=== PATIENT | male | born 1965 | race Caucasian/White ===

== ENCOUNTER 2018-02-23 21:54 | Inpatient (IN) | payer OTHER ==
[2018-02-23] MEDS ORDERED: SODIUM CHLORIDE 0.9% 1,000 ML IV ONE (22:08)
[2018-02-23 22:10] LABS: Glucose,Whole Blood 153 mg/dL (75-99)
--- NOTE | 2018-02-23 22:10 | ED ---
Altered Mental Status HPI - General Stated Complaint: Altered Mental Status Time Seen by Provider: 02/23/18 21:55 Limitations: altered mental status - History of Present Illness Initial Comments: This patient is a 53-year-old man who reportedly has history of alcohol and other substance abuse, brought by EMS to be evaluated for altered mental status. History is limited, and only from the EMS personnel as the patient has altered mental status. It is reported that the patient's daughter had called them. She had been allowing the patient to live with her. She had gone out earlier in the day for work and he appeared to be in his baseline health. When she came back tonight she states that he was having an episode of vomiting, and she informed him that she would be affecting him from her house. The patient is not able to provide any history. MD Complaint: altered mental status -: unknown Severity: severe Consistency of Symptoms: constant Context: alcohol abuse - Related Data Home Medications Medication Instructions Recorded Confirmed Baclofen [Lioresal] 10 tab PO BID 02/23/18 02/24/18 Gabapentin [Neurontin] 300 tab PO TID 02/23/18 02/24/18 Losartan Potassium 1 tab PO DAILY 02/23/18 02/23/18 Metoprolol Tartrate [Lopressor] 50 tab PO BID 02/23/18 02/24/18 Sertraline HCl [Zoloft] 25 mg PO DAILY 02/23/18 02/24/18 amLODIPine [Norvasc] 10 mg PO DAILY 02/23/18 02/24/18 Acetaminophen [Tylenol 8 Hour] 650 mg PO Q6H PRN 02/24/18 02/24/18 Albuterol Sulfate [Proventil Hfa] 2 puff INHALATION RT-Q6H PRN 02/24/18 02/24/18 Aspirin EC [Ecotrin Low Dose] 81 mg PO DAILY 02/24/18 02/24/18 Beclomethasone Dipropionate [Qvar 2 puff INHALATION RT-BID 02/24/18 02/24/18 40 mcg] Budesonide/Formoterol Fumarate 2 puff INHALATION RT-BID 02/24/18 02/24/18 [Symbicort 160-4.5 Mcg Inhaler] Ibuprofen [Motrin] 800 mg PO Q6H PRN 02/24/18 02/24/18 Nicotine 21Mg/24Hr Patch [Habitrol 1 patch TRANSDERM DAILY 02/24/18 02/24/18 21Mg/24Hr Patch] Pantoprazole [Protonix] 40 mg PO DAILY 02/24/18 02/24/18 Allergies Allergy/AdvReac Type Severity Reaction Status Date / Time No Known Allergies Allergy Verified 02/24/18 12:44 Review of Systems ROS Statement: Those systems with pertinent positive or pertinent negative responses have been documented in the HPI. ROS Other: All systems not noted in ROS Statement are negative. Limitations: ROS unobtainable due to patients medical condition Gastrointestinal: Reports: vomiting General Exam General appearance: obtunded Head exam: Present: atraumatic, normocephalic, normal inspection Eye exam: Present: normal appearance, PERRL. Absent: scleral icterus, conjunctival injection ENT exam: Present: mucous membranes dry Neck exam: Present: normal inspection. Absent: tenderness Respiratory exam: Present: normal lung sounds bilaterally. Absent: respiratory distress, wheezes, rales, rhonchi, stridor Cardiovascular Exam: Present: regular rate, normal rhythm, normal heart sounds. Absent: systolic murmur, diastolic murmur, rubs, gallop GI/Abdominal exam: Present: soft. Absent: distended, tenderness, guarding, rebound, mass Extremities exam: Present: normal inspection, normal capillary refill. Absent: pedal edema, calf tenderness Back exam: Present: other (Is a wound VAC, which is in place onto the patient's right flank area. There is no visible erythema under the clear portion of the dressing.) Neurological exam: Present: altered, CN II-XII intact, reflexes normal, other ( Patient is very somnolent. With tactile stimulation, he is briefly alert and will focus on the examiner, however I was unable to get him to speak or to follow any commands. GCS is 9(E=2, v=2, M=5)) Skin exam: Present: warm, dry, intact, normal color. Absent: rash Course Vital Signs 02/23/18 02/23/18 02/23/18 22:24 23:04 23:25 Temperature 98.5 F Pulse Rate 58 L 58 L 58 L Respiratory 18 14 14 Rate Blood Pressure 153/84 173/74 175/74 O2 Sat by Pulse 98 97 95 Oximetry 02/24/18 02/24/18 02/24/18 00:14 00:54 01:31 Temperature 97 F L Pulse Rate 51 L 48 L 58 L Respiratory 14 18 16 Rate Blood Pressure 161/84 158/89 161/89 O2 Sat by Pulse 95 95 97 Oximetry 02/24/18 01:54 Temperature Pulse Rate 57 L Respiratory 18 Rate Blood Pressure 167/87 O2 Sat by Pulse 97 Oximetry Medical Decision Making - Medical Decision Making This patient's 53-year-old man brought here for evaluation of altered mental status. He does continue to be arousable to tactile stimuli. When the patient is touched he will look at the examiner and pull the examiner's hand away, then he tries to go back to sleep. There is no focal deficit on the neurologic exam. Case discussed with Dr. Quinones who is covering city call and will admit , will also have neurology consultation. - Lab Data Result diagrams: 02/24/18 06:00 02/24/18 06:00 Lab Results 02/23/18 02/23/18 02/23/18 Range/Units 22:00 22:00 22:00 WBC 13.3 H (3.8-10.6) k/uL RBC 5.02 (4.30-5.90) m/uL Hgb 14.8 (13.0-17.5) gm/dL Hct 45.4 (39.0-53.0) % MCV 90.6 (80.0-100.0) fL MCH 29.4 (25.0-35.0) pg MCHC 32.5 (31.0-37.0) g/dL RDW 14.2 (11.5-15.5) % Plt Count 246 (150-450) k/uL Neutrophils % 84 % Lymphocytes % 9 % Monocytes % 5 % Eosinophils % 1 % Basophils % 1 % Neutrophils # 11.1 H (1.3-7.7) k/uL Lymphocytes # 1.2 (1.0-4.8) k/uL Monocytes # 0.7 (0-1.0) k/uL Eosinophils # 0.2 (0-0.7) k/uL Basophils # 0.1 (0-0.2) k/uL PT (9.0-12.0) sec INR (<1.2) APTT (22.0-30.0) sec Sodium (137-145) mmol/L Potassium (3.5-5.1) mmol/L Chloride (98-107) mmol/L Carbon Dioxide (22-30) mmol/L Anion Gap mmol/L BUN (9-20) mg/dL Creatinine (0.66-1.25) mg/dL Est GFR (CKD-EPI)AfAm (>60 ml/min/1.73 sqM) Est GFR (CKD-EPI)NonAf (>60 ml/min/1.73 sqM) Glucose (74-99) mg/dL POC Glucose (mg/dL) (75-99) mg/dL POC Glu [employer]ice ID Osmolality (280-301) mosm/kg Plasma Lactic Acid Attila 1.0 (0.7-2.0) mmol/L Calcium (8.4-10.2) mg/dL Total Bilirubin (0.2-1.3) mg/dL AST (17-59) U/L ALT (21-72) U/L Alkaline Phosphatase (38-126) U/L Ammonia 14 (<30) umol/L Total Creatine Kinase 80 (55-170) U/L CK-MB (CK-2) 0.4 (0.0-2.4) ng/mL CK-MB (CK-2) Rel Index 0.5 Troponin I <0.012 (0.000-0.034) ng/mL Total Protein (6.3-8.2) g/dL Albumin (3.5-5.0) g/dL Urine Color Urine Appearance (Clear) Urine pH (5.0-8.0) Ur Specific Dearing (1.001-1.035) Urine Protein (Negative) Urine Glucose (UA) (Negative) Urine Ketones (Negative) Urine Blood (Negative) Urine Nitrite (Negative) Urine Bilirubin (Negative) Urine Urobilinogen (<2.0) mg/dL Ur Leukocyte Esterase (Negative) Urine RBC (0-5) /hpf Urine WBC (0-5) /hpf Hyaline Casts (0-2) /lpf Urine Mucus (None) /hpf Urine Opiates Screen (NotDetected) Ur Oxycodone Screen (NotDetected) Urine Methadone Screen (NotDetected) Ur Propoxyphene Screen (NotDetected) Ur Barbiturates Screen (NotDetected) U Tricyclic Antidepress (NotDetected) Ur Phencyclidine Scrn (NotDetected) Ur Amphetamines Screen (NotDetected) U Methamphetamines Scrn (NotDetected) U Benzodiazepines Scrn (NotDetected) Urine Cocaine Screen (NotDetected) U Marijuana (THC) Screen (NotDetected) Serum Alcohol mg/dL 02/23/18 02/23/18 02/23/18 Range/Units 22:00 22:00 22:00 WBC (3.8-10.6) k/uL RBC (4.30-5.90) m/uL Hgb (13.0-17.5) gm/dL Hct (39.0-53.0) % MCV (80.0-100.0) fL MCH (25.0-35.0) pg MCHC (31.0-37.0) g/dL RDW (11.5-15.5) % Plt Count (150-450) k/uL Neutrophils % % Lymphocytes % % Monocytes % % Eosinophils % % Basophils % % Neutrophils # (1.3-7.7) k/uL Lymphocytes # (1.0-4.8) k/uL Monocytes # (0-1.0) k/uL Eosinophils # (0-0.7) k/uL Basophils # (0-0.2) k/uL PT 9.9 (9.0-12.0) sec INR 1.0 (<1.2) APTT 21.9 L (22.0-30.0) sec Sodium 142 (137-145) mmol/L Potassium 5.1 (3.5-5.1) mmol/L Chloride 105 (98-107) mmol/L Carbon Dioxide 23 (22-30) mmol/L Anion Gap 14 mmol/L BUN 24 H (9-20) mg/dL Creatinine 0.90 (0.66-1.25) mg/dL Est GFR (CKD-EPI)AfAm >90 (>60 ml/min/1.73 sqM) Est GFR (CKD-EPI)NonAf >90 (>60 ml/min/1.73 sqM) Glucose 156 H (74-99) mg/dL POC Glucose (mg/dL) (75-99) mg/dL POC Glu [employer] ID Osmolality 294 (280-301) mosm/kg Plasma Lactic Acid Attila (0.7-2.0) mmol/L Calcium 9.4 (8.4-10.2) mg/dL Total Bilirubin 0.7 (0.2-1.3) mg/dL AST 39 (17-59) U/L ALT 32 (21-72) U/L Alkaline Phosphatase 84 (38-126) U/L Ammonia (<30) umol/L Total Creatine Kinase (55-170) U/L CK-MB (CK-2) (0.0-2.4) ng/mL CK-MB (CK-2) Rel Index Troponin I (0.000-0.034) ng/mL Total Protein 7.4 (6.3-8.2) g/dL Albumin 4.3 (3.5-5.0) g/dL Urine Color Urine Appearance (Clear) Urine pH (5.0-8.0) Ur Specific Dearing (1.001-1.035) Urine Protein (Negative) Urine Glucose (UA) (Negative) Urine Ketones (Negative) Urine Blood (Negative) Urine Nitrite (Negative) Urine Bilirubin (Negative) Urine Urobilinogen (<2.0) mg/dL Ur Leukocyte Esterase (Negative) Urine RBC (0-5) /hpf Urine WBC (0-5) /hpf Hyaline Casts (0-2) /lpf Urine Mucus (None) /hpf Urine Opiates Screen (NotDetected) Ur Oxycodone Screen (NotDetected) Urine Methadone Screen (NotDetected) Ur Propoxyphene Screen (NotDetected) Ur Barbiturates Screen (NotDetected) U Tricyclic Antidepress (NotDetected) Ur Phencyclidine Scrn (NotDetected) Ur Amphetamines Screen (NotDetected) U Methamphetamines Scrn (NotDetected) U Benzodiazepines Scrn (NotDetected) Urine Cocaine Screen (NotDetected) U Marijuana (THC) Screen (NotDetected) Serum Alcohol <10 mg/dL 02/23/18 02/23/18 Range/Units 22:06 22:46 WBC (3.8-10.6) k/uL RBC (4.30-5.90) m/uL Hgb (13.0-17.5) gm/dL Hct (39.0-53.0) % MCV (80.0-100.0) fL MCH (25.0-35.0) pg MCHC (31.0-37.0) g/dL RDW (11.5-15.5) % Plt Count (150-450) k/uL Neutrophils % % Lymphocytes % % Monocytes % % Eosinophils % % Basophils % % Neutrophils # (1.3-7.7) k/uL Lymphocytes # (1.0-4.8) k/uL Monocytes # (0-1.0) k/uL Eosinophils # (0-0.7) k/uL Basophils # (0-0.2) k/uL PT (9.0-12.0) sec INR (<1.2) APTT (22.0-30.0) sec Sodium (137-145) mmol/L Potassium (3.5-5.1) mmol/L Chloride (98-107) mmol/L Carbon Dioxide (22-30) mmol/L Anion Gap mmol/L BUN (9-20) mg/dL Creatinine (0.66-1.25) mg/dL Est GFR (CKD-EPI)AfAm (>60 ml/min/1.73 sqM) Est GFR (CKD-EPI)NonAf (>60 ml/min/1.73 sqM) Glucose (74-99) mg/dL POC Glucose (mg/dL) 153 H (75-99) mg/dL POC Glu [employer]rentice ID Britney Last Osmolality (280-301) mosm/kg Plasma Lactic Acid Attila (0.7-2.0) mmol/L Calcium (8.4-10.2) mg/dL Total Bilirubin (0.2-1.3) mg/dL AST (17-59) U/L ALT (21-72) U/L Alkaline Phosphatase (38-126) U/L Ammonia (<30) umol/L Total Creatine Kinase (55-170) U/L CK-MB (CK-2) (0.0-2.4) ng/mL CK-MB (CK-2) Rel Index Troponin I (0.000-0.034) ng/mL Total Protein (6.3-8.2) g/dL Albumin (3.5-5.0) g/dL Urine Color Yellow Urine Appearance Clear (Clear) Urine pH 5.5 (5.0-8.0) Ur Specific Dearing 1.021 (1.001-1.035) Urine Protein 1+ H (Negative) Urine Glucose (UA) Negative (Negative) Urine Ketones Negative (Negative) Urine Blood Negative (Negative) Urine Nitrite Negative (Negative) Urine Bilirubin Negative (Negative) Urine Urobilinogen <2.0 (<2.0) mg/dL Ur Leukocyte Esterase Negative (Negative) Urine RBC <1 (0-5) /hpf Urine WBC 2 (0-5) /hpf Hyaline Casts 5 H (0-2) /lpf Urine Mucus Few H (None) /hpf Urine Opiates Screen Not Detected (NotDetected) Ur Oxycodone Screen Not Detected (NotDetected) Urine Methadone Screen Not Detected (NotDetected) Ur Propoxyphene Screen Not Detected (NotDetected) Ur Barbiturates Screen Not Detected (NotDetected) U Tricyclic Antidepress Not Detected (NotDetected) Ur Phencyclidine Scrn Not Detected (NotDetected) Ur Amphetamines Screen Not Detected (NotDetected) U Methamphetamines Scrn Detected H (NotDetected) U Benzodiazepines Scrn Not Detected (NotDetected) Urine Cocaine Screen Not Detected (NotDetected) U Marijuana (THC) Screen Not Detected (NotDetected) Serum Alcohol mg/dL - EKG Data -: EKG Interpreted by Oh EKG shows normal: sinus rhythm, axis (Normal), intervals (Normal), QRS complexes (Normal), ST-T waves (Normal) Rate: bradycardia (Rate 58 bpm) Interpretation: normal EKG Disposition Clinical Impression: Altered mental status Disposition: ADMITTED IP TO THIS HOSP Condition: Fair Is patient prescribed a controlled substance at d/c from ED?: No
[2018-02-23 22:26] LABS: Basophils # (A) 0.1 k/uL (0-0.2); Basophils % (A) 1 %; Eosinophils # (A) 0.2 k/uL (0-0.7); Eosinophils % (A) 1 %; HCT 45.4 % (39.0-53.0); HGB 14.8 gm/dL (13.0-17.5); Lymphocytes # (A) 1.2 k/uL (1.0-4.8); Lymphocytes % (A) 9 %; MCH 29.4 pg (25.0-35.0); MCHC 32.5 g/dL (31.0-37.0); MCV 90.6 fL (80.0-100.0); Monocytes # (A) 0.7 k/uL (0-1.0); Monocytes % (A) 5 %; Neutrophils # (A) 11.1 k/uL (1.3-7.7); Neutrophils % (A) 84 %; Platelet Count 246 k/uL (150-450); RBC 5.02 m/uL (4.30-5.90); RDW 14.2 % (11.5-15.5); WBC 13.3 k/uL (3.8-10.6)
[2018-02-23 22:30] LABS: Creatine Kinase 80 U/L (55-170)
[2018-02-23 22:31] LABS: ALT 32 U/L (21-72); AST 39 U/L (17-59); Albumin 4.3 g/dL (3.5-5.0); Alcohol <10 mg/dL; Alkaline Phosphatase 84 U/L (38-126); Anion Gap 14 mmol/L; Blood Urea Nitrogen 24 mg/dL (9-20); Calcium 9.4 mg/dL (8.4-10.2); Carbon Dioxide 23 mmol/L (22-30); Chloride 105 mmol/L (98-107); Glucose 156 mg/dL (74-99); Potassium 5.1 mmol/L (3.5-5.1); Sodium 142 mmol/L (137-145); Total Bilirubin 0.7 mg/dL (0.2-1.3); Total Protein 7.4 g/dL (6.3-8.2)
[2018-02-23 22:42] LABS: Creatine Kinase MB 0.4 ng/mL (0.0-2.4); Troponin I <0.012 ng/mL (0.000-0.034)
[2018-02-23 22:44] LABS: Prothrombin Time 9.9 sec (9.0-12.0)
[2018-02-23 22:58] LABS: Partial Thromboplastin Time 21.9 sec (22.0-30.0)
[2018-02-23] MEDS ORDERED: NALOXONE 0.4 MG/ML 1 ML VIAL IV STA ×2 (23:07→23:18)
[2018-02-23 23:42] LABS: Appearance,Urine Clear (Clear); Bilirubin,Urine Negative (Negative); Blood,Urine Negative (Negative); Color,Urine Yellow; Glucose,Urine (UA) Negative (Negative); Hyaline Casts,Urine 5 /lpf (0-2); Ketones,Urine Negative (Negative); Leukocyte Esterase,Urine Negative (Negative); Mucus,Urine Few /hpf; Nitrite,Urine Negative (Negative); PH, Urine 5.5 (5.0-8.0); Protein,Urine 1+ (Negative); RBC,Urine <1 /hpf (0-5); Specific Gravity,Urine 1.021 (1.001-1.035); Urobilinogen,Urine <2.0 mg/dL (<2.0); WBC,Urine 2 /hpf (0-5)
--- NOTE | 2018-02-23 23:51 | CT ---
EXAM: CT Head Without Intravenous Contrast CLINICAL HISTORY: ITS.REASON CT Reason: altered mental status TECHNIQUE: Axial computed tomography images of the head/brain without intravenous contrast. CTDI is 13.8 mGy and DLP is 1149 mGy-cm. This CT exam was performed using one or more of the following dose reduction techniques: automated exposure control, adjustment of the mA and/or kV according to patient size, and/or use of iterative reconstruction technique. COMPARISON: No relevant prior studies available. FINDINGS: Brain: Unremarkable. No hemorrhage. No significant white matter disease. No edema. Ventricles: Unremarkable. No ventriculomegaly. Bones/joints: Unremarkable. No acute fracture. Soft tissues: Unremarkable. Sinuses: Unremarkable as visualized. No acute sinusitis. Mastoid air cells: Unremarkable as visualized. No mastoid effusion. IMPRESSION: Normal head/brain CT.
[2018-02-23 23:52] LABS: Amphetamine Screen,Urine Not Detected (NotDetected); Barbiturate Screen,Urine Not Detected (NotDetected); Benzodiazepines Screen,Urine Not Detected (NotDetected); Cocaine Screen,Urine Not Detected (NotDetected); Methadone Screen, Urine Not Detected (NotDetected); Opiate Screen,Urine Not Detected (NotDetected); Oxycodone Screen, Urine Not Detected (NotDetected); Phencyclidine Screen,Urine Not Detected (NotDetected); Tricyclic Antidepressant,Urine Not Detected (NotDetected); Urn Cannabinoid Scrn Not Detected (NotDetected)
--- NOTE | 2018-02-24 00:04 | XR ---
EXAM: XR Chest, 1 View CLINICAL HISTORY: ITS.REASON XR Reason: altered mental status TECHNIQUE: Frontal view of the chest. COMPARISON: No relevant prior studies available. FINDINGS: Lungs: Unremarkable. No consolidation. Mild prominence of interstitial markings Pleural space: Unremarkable. No pneumothorax. Heart: Unremarkable. No cardiomegaly. Mediastinum: Unremarkable. Bones/joints: Unremarkable. IMPRESSION: No acute disease process identified in the chest
[2018-02-24] MEDS ORDERED: NALOXONE 0.4 MG/ML 1 ML VIAL IV PRN (00:41)
[2018-02-24] MEDS: SODIUM CHLORIDE 0.9% 1,000 ML IV SCH ×3 (02:36→20:37)
[2018-02-24 05:53] LABS: Glucose,Whole Blood 135 mg/dL (75-99)
[2018-02-24] MEDS: ONDANSETRON 4 MG/2 ML VIAL IVP PRN ×2 (06:03→15:54)
[2018-02-24 06:34] LABS: Glucose,Whole Blood 133 mg/dL (75-99)
--- NOTE | 2018-02-24 06:43 | XR ---
EXAMINATION TYPE: XR chest 1V portable DATE OF EXAM: 02/24/2018 CLINICAL HISTORY: Difficulty breathing rule out aspiration progress study. TECHNIQUE: Single AP portable upright view of the chest is obtained. COMPARISON: Chest x-ray from one day earlier FINDINGS: There is chronic parenchymal change without suspicious new focal airspace opacity, pleural effusion, or pneumothorax seen bilaterally. Cardiac silhouette size is stable and upper limits of no rmal. Osseous structures are intact. IMPRESSION: Overall stable findings, chronic changes without new suspicious acute pulmonary process .
[2018-02-24] MEDS ORDERED: VANCOMYCIN IV PER PHARMACY 1 EACH MISC MISCELLANE PRN (12:09)
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
[2018-02-24] MEDS ORDERED: VANCOMYCIN 1,750 MG in SODIUM CHLORIDE 0.9% 250 ML IVPB ONE (12:30)
[2018-02-24] MEDS: PIPERACILLIN-TAZOBACTAM 3.375 GM in DEXTROSE/WATER 1 50ML.BAG IVPB SCH (12:54)
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
[2018-02-24 16:11] LABS: Basophils # (A) 0.1 k/uL (0-0.2); Basophils % (A) 1 %; Eosinophils # (A) 0.2 k/uL (0-0.7); Eosinophils % (A) 1 %; HCT 46.6 % (39.0-53.0); HGB 15.1 gm/dL (13.0-17.5); Lymphocytes # (A) 1.7 k/uL (1.0-4.8); Lymphocytes % (A) 10 %; MCH 30.2 pg (25.0-35.0); MCHC 32.3 g/dL (31.0-37.0); MCV 93.5 fL (80.0-100.0); Mean Platelet Volume 7.5; Monocytes # (A) 0.8 k/uL (0-1.0); Monocytes % (A) 5 %; Neutrophils # (A) 13.7 k/uL (1.3-7.7); Neutrophils % (A) 82 %; Platelet Count 252 k/uL (150-450); RBC 4.98 m/uL (4.30-5.90); RDW 14.2 % (11.5-15.5); WBC 16.6 k/uL (3.8-10.6)
[2018-02-24 16:21] LABS: Anion Gap 14 mmol/L; Blood Urea Nitrogen 22 mg/dL (9-20); Calcium 9.4 mg/dL (8.4-10.2); Carbon Dioxide 24 mmol/L (22-30); Chloride 107 mmol/L (98-107); Glucose 132 mg/dL (74-99); Magnesium 2.1 mg/dL (1.6-2.3); Phosphorus 4.4 mg/dL (2.5-4.5); Potassium 4.6 mmol/L (3.5-5.1); Sodium 145 mmol/L (137-145)
[2018-02-24] MEDS: PANTOPRAZOLE 40 MG/10 ML VIAL IV SCH (16:23)
[2018-02-24 16:58] LABS: Amylase 70 U/L (30-110); Lipase 452 U/L (23-300)
--- NOTE | 2018-02-24 18:45 | CT ---
EXAMINATION TYPE: CT abdomen pelvis w con DATE OF EXAM: 02/24/2018 COMPARISON: NONE HISTORY: RUQ abd pain. CT DLP: 2131.3 mGycm, Automated Exposure Control for Dose Reduction was Utilized. CONTRAST: CT scan of the abdomen and pelvis is performed without oral but with IV Contrast, patient injected wi th 100ml mL of Isovue 300. FINDINGS: LUNG BASES: There is right basilar linear scarring and/or atelectasis most prominent posteriorly. LIVER/GB: Contracted gallbladder is noted. PANCREAS: No significant abnormality is seen. SPLEEN: No significant abnormality is seen. ADRENALS: No significant abnormality is seen. KIDNEYS: There is symmetric cortical medullary uptake and excretion from both kidneys without evidenc e of hydronephrosis bilaterally. [place] catheter is seen within decompressed bladder which is suboptim ally evaluated. BOWEL: Evaluation of bowel is suboptimal secondary to lack of enteric contrast. Orogastric tube is se en in decompressed stomach. There is no suspicious small or large bowel dilatation. There are diverti cula throughout the left and sigmoid colon. There is no CT evidence for acute diverticulitis. PROSTATE/SEMINAL VESICLES: No gross abnormality seen. LYMPH NODES: No greater than 1cm abdominal or pelvic lymph nodes are appreciated. OSSEOUS STRUCTURES: There is partial visualization of surgical yasmeen in the right proximal femur causin g streak artifact. There is transitional type L6 vertebra. There is grade 1 anterolisthesis of L5 on L6. There is moderate to advanced disc space narrowing at this level. There is multilevel spurring in the spine seen. OTHER: There is [place]a'[place] infrarenal abdominal aortic aneurysm measuring roughly 9 cm in length and preeti uring 4.4 x 5.0 cm transversely axial image 42. There is patent left sided stent graft. There is susp ected occlusion of right sided stent graft, there is mass effect with significant narrowing distally near axial image 53 noted which likely caused thrombosis. There is additional stent graft into the le ft external iliac artery which is felt thrombosed as there is no contrast opacification. There is rec onstitution of the right internal/external iliac arteries at the bifurcation. There is significant pl aque at right common femoral artery level axial image 89 causing significant stenosis right before bi furcation. IMPRESSION: 1. No significant acute finding is seen to account for patient's clinical symptoms upright upper jose rafael drant pain. Patchy posterior right basilar atelectasis and/or scarring is noted. 2. There is suspected complete occlusion of the right aorto iliac stent graft. There is significant s tenosis in the right common femoral artery in the right groin. Vascular surgical consultation and cli nical correlation for right lower extremity peripheral vascular disease is advised.
--- NOTE | 2018-02-24 20:10 | HP ---
HISTORY AND PHYSICAL DATE OF ADMISSION: 02/24/18 CHIEF COMPLAINT: Mental status changes and coma. HISTORY OF PRESENT ILLNESS: This is the first admission for this 53-year-old white male who came in as a methamphetamine overdose. However, in the emergency room, he was extremely lethargic, had shallow respirations and pinpoint pupils. He did respond somewhat to Narcan. There is really no other history except that he recently was at [facility] where he apparently was treated by Vascular surgery for stenting of an abdominal aortic aneurysm. He apparently also has a history of CAD, COPD, hypertension, stage 3 kidney disease and liver disorder. He apparently has a wound in 1 flank, which is being treated with a wound VAC. There is really no other history available at this time. He is in ICU and remains very lethargic. REVIEW OF SYSTEMS: Unobtainable. Past medical history, family history personal and social histories are unobtainable or unknown. He is not allergic to any medication. He is on Zoloft, Neurontin, Cozaar, Norvasc, Lioresal, Lopressor. He is known for a drug abuse. PHYSICAL EXAM: Blood pressure was 133/72 and now is 155/93 with a pulse of 57 and respirations of 12. GENERAL: He appeared to be overweight and very lethargic. SKIN color is normal. Skin was dry. LYMPH nodes not enlarged. HEENT: Head, ears, eyes, nose, mouth and throat demonstrated pinpoint pupils and there is no sign of trauma. CHEST: The chest was clear to auscultation. CARDIAC exam demonstrated what sounded like normal sinus rhythm. ABDOMEN: The abdomen is soft. No masses. EXTREMITIES: Wound on the back was not examined at this time. Extremities are normal. NEUROLOGICAL is comatose. IMPRESSION: 1. Coma. 2. Drug ingestion overdose, substances unknown. 3. Arteriosclerotic cardiovascular disease. 4. Coronary artery disease. 5. Chronic obstructive pulmonary disease. 6. History of recent stenting of abdominal aortic aneurysm. 7. Stage III chronic kidney disease. 8. History of liver disorder. 9. Healing wound in the right flank. 10.Bilateral inguinal hernia. PLAN: 1. Bed rest. 2. IV fluids. 3. Certified Medical Coder evaluation. 4. Continuous close cardiac, vital sign and PIECE MARKER SMALL ARMS status. 5. Consult with Neurology. MMODL / IJN: [id number] /
[2018-02-24] MEDS: HYDROmorphone 0.5 MG/0.5 ML SYRINGE IVP PRN (20:35)
[2018-02-24] MEDS: VANCOMYCIN 2,000 MG in SODIUM CHLORIDE 0.9% 500 ML IVPB SCH (20:35)
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
[2018-02-24] MEDS: HEPARIN SODIUM,PORCINE/D5W PMX 25,000 UNIT in DEXTROSE/WATER 1 500ML.BAG IV SCH (21:18)
[2018-02-24 21:41] LABS: Basophils % (A) 0 %; Eosinophils # (A) 0.1 k/uL (0-0.7); Eosinophils % (A) 1 %; HCT 41.9 % (39.0-53.0); HGB 13.9 gm/dL (13.0-17.5); Lymphocytes # (A) 1.4 k/uL (1.0-4.8); Lymphocytes % (A) 13 %; MCH 30.1 pg (25.0-35.0); MCHC 33.1 g/dL (31.0-37.0); Mean Platelet Volume 7.2; Monocytes # (A) 0.6 k/uL (0-1.0); Monocytes % (A) 6 %; Neutrophils # (A) 8.8 k/uL (1.3-7.7); Neutrophils % (A) 80 %; Platelet Count 191 k/uL (150-450); RDW 14.3 % (11.5-15.5); WBC 11.1 k/uL (3.8-10.6)
[2018-02-24 21:49] LABS: INR 1.1 (<1.2); Partial Thromboplastin Time 22.9 sec (22.0-30.0); Prothrombin Time 10.5 sec (9.0-12.0)
[2018-02-24] MEDS: hydrALAZINE HCL 20 MG/ML 1 ML VIAL IVP PRN (22:34)
[2018-02-25] MEDS: PIPERACILLIN-TAZOBACTAM 3.375 GM in DEXTROSE/WATER 1 50ML.BAG IVPB SCH ×3 (00:25→16:37)
[2018-02-25] MEDS: HYDROmorphone 0.5 MG/0.5 ML SYRINGE IVP PRN (02:50)
[2018-02-25] MEDS: hydrALAZINE HCL 20 MG/ML 1 ML VIAL IVP PRN (02:50)
[2018-02-25 03:31] LABS: Basophils % (A) 0 %; Eosinophils # (A) 0.1 k/uL (0-0.7); Eosinophils % (A) 1 %; HCT 40.9 % (39.0-53.0); HGB 13.5 gm/dL (13.0-17.5); Lymphocytes # (A) 1.5 k/uL (1.0-4.8); Lymphocytes % (A) 14 %; MCH 29.8 pg (25.0-35.0); MCV 90.2 fL (80.0-100.0); Mean Platelet Volume 6.9; Monocytes # (A) 0.6 k/uL (0-1.0); Monocytes % (A) 5 %; Neutrophils # (A) 8.2 k/uL (1.3-7.7); Neutrophils % (A) 78 %; Platelet Count 191 k/uL (150-450); RBC 4.53 m/uL (4.30-5.90); RDW 14.1 % (11.5-15.5); WBC 10.5 k/uL (3.8-10.6)
[2018-02-25 03:57] LABS: Amylase 38 U/L (30-110); Anion Gap 11 mmol/L; Blood Urea Nitrogen 20 mg/dL (9-20); Carbon Dioxide 25 mmol/L (22-30); Chloride 108 mmol/L (98-107); Glucose 113 mg/dL (74-99); Lipase 118 U/L (23-300); Magnesium 1.9 mg/dL (1.6-2.3); Phosphorus 2.9 mg/dL (2.5-4.5); Potassium 3.5 mmol/L (3.5-5.1); Sodium 144 mmol/L (137-145)
[2018-02-25] MEDS: HEPARIN SODIUM,PORCINE 5,000 UNIT/ML 1 ML VIAL IV PRN ×3 (04:13→17:51)
[2018-02-25] MEDS: SODIUM CHLORIDE 0.9% 1,000 ML IV SCH ×3 (04:31→16:46)
[2018-02-25] MEDS: ONDANSETRON 4 MG/2 ML VIAL IVP PRN (04:45)
[2018-02-25] MEDS: MAGNESIUM SULFATE-D5W PMX 1 GM in DEXTROSE/WATER 1 100ML.BAG IVPB SCH ×2 (06:04→08:46)
[2018-02-25] MEDS: POTASSIUM CHLORIDE 10 MEQ in WATER FOR INJECTION 1 100ML.BAG IVPB SCH ×2 (06:04→08:46)
[2018-02-25] MEDS ORDERED: hydrALAZINE HCL 20 MG/ML 1 ML VIAL IVP PRN (06:52)
--- NOTE | 2018-02-25 07:17 | XR ---
EXAMINATION TYPE: XR chest 1V portable DATE OF EXAM: 02/25/2018 COMPARISON: 02/24/2018 HISTORY: Shortness of breath TECHNIQUE: Single frontal view of the chest is obtained. FINDINGS: Enteric tube has been placed with its fenestrated portion just beyond the gastroesophageal junction. Advancement of approximately 2 to 3 cm could be performed from skull placement. Again ther e is no large cardiac silhouette. Linear platelike right basilar subsegmental atelectasis is noted. N o new focal consolidation, pleural effusion or pneumothorax. Osseous structures are intact with multi level moderate degenerative change of the thoracic spine. IMPRESSION: 1. Interval placement of an enteric tube that could be advanced approximately 2 to 3 cm for optimal p lacement. 2. Persistent right basilar subsegmental atelectasis.
[2018-02-25] MEDS: VANCOMYCIN 2,000 MG in SODIUM CHLORIDE 0.9% 500 ML IVPB SCH ×2 (08:50→20:02)
[2018-02-25] MEDS: PANTOPRAZOLE 40 MG/10 ML VIAL IV SCH (08:50)
[2018-02-25] MEDS ORDERED: cloNIDine HCL 0.1 MG TAB PO SCH (09:00)
--- NOTE | 2018-02-25 09:46 | P.PN ---
<Cassia Agarwal E - Last Filed: 02/25/18 09:39> Subjective Progress Note Date: 02/25/18 HPI: This is a 53 year old gentleman who is well-known to [facility] who presented to the emergency department with altered mental status. This patient is currently unable to provide history. History is taken from nursing as well as medical records. The patient was apparently not acting himself at home. He lives with his daughter. He had several episodes of vomiting and his daughter called EMS. He does have a known history of alcohol abuse but denies use in the past 2 months. He did have AAA repair in 11/2017 and did go through alcohol withdrawals during that admission. His alcohol level on admission was 0. However, his UDS was positive for methamphetamine. The patient was admitted to the telemetry floor and became bradycardic. He was subsequently transferred to the ICU. He did recently have an admission to [facility] in 01/2018 for hypotension, sepsis, wound infection. He did have debridement done by Dr. Castro and was seen by ID - Dr. Matute. Patient is currently arousable, but is only answering "no" and "why" to questions. He denies taking any pills, using any drugs, drinking alcohol, or using any other substances. However, his mentation is poor at this time. He has been hypertensive. His O2 saturation is 98% on 2L NC. He does have periods of apnea and is being worked up outpatient for NOEL. Interval history: 02/25/2018- patient is being seen examined and evaluated today in the intensive care unit. The patient is more alert today. He answers all questions appropriately. He is asking for his NG tube to be removed. He is satting 100% on 2 L of supplemental oxygen. Feels his breathing is at baseline. We will restart his home Symbicort. Oxygen will be weaned off. NG tube is going to be taken out by nursing per routine orders. Chest x-ray was reviewed and does show persistent right basilar subsegmental atelectasis. He continues on Vanco and Zosyn as well as a heparin drip. Patient did undergo a CT of the abdomen and pelvis this He does have a suspected complete occlusion of his right aorto iliac stent graft and vascular consultation has been obtained. Patient also just underwent an EEG and those results are pending. Objective - Vital Signs Vital signs: Vital Signs Temp 98.3 F 02/25/18 04:00 Pulse 77 02/25/18 07:00 Resp 16 02/25/18 07:00 BP 154/72 02/25/18 07:00 Pulse Ox 98 02/25/18 07:00 Intake & Output 02/24/18 02/25/18 02/25/18 18:59 06:59 18:59 Intake Total 1450 1931 200 Output Total 1660 925 45 Balance -210 1006 155 Weight 110 kg 109.6 kg Intake: IV 1801 200 Magnesium Sulfate-D5w Pmx 100 1 gm In Dextrose/Water 1 100ml.bag @ 100 mls/hr IVPB Q1H [facility] Rx#: [id number] Piperacillin-Tazobactam 3 50 .375 gm In Dextrose/Water 1 50ml.bag @ 12.5 mls/hr IVPB Q8HR [facility] Rx#: [id number] Potassium Chloride 10 meq 100 In Water For Injection 1 100ml.bag @ 100 mls/hr IVPB Q1H [facility] Rx#: [id number] Sodium Chloride 0.9% 1, 1250 000 ml @ 125 mls/hr IV . Q8H [facility] Rx#:[id number] Vancomycin 1,750 mg In 501 Sodium Chloride 0.9% 250 ml @ 125 mls/hr IVPB ONCE ONE Rx#:[id number] Intake, IV Titration 1450 130 Amount Heparin Sodium,Porcine/ 130 D5w Pmx 25,000 unit In Dextrose/Water 1 500ml. bag @ 9.091 UNITS/KG/HR 20 mls/hr IV .Q24H [facility] Rx #:[id number] Piperacillin-Tazobactam 3 50 .375 gm In Dextrose/Water 1 50ml.bag @ 12.5 mls/hr IVPB Q8HR [facility] Rx#: [id number] Sodium Chloride 0.9% 1, 400 000 ml @ 100 mls/hr IV . Q10H [facility] Rx#:[id number] Sodium Chloride 0.9% 1, 750 000 ml @ 125 mls/hr IV . Q8H [facility] Rx#:[id number] Vancomycin 1,750 mg In 250 Sodium Chloride 0.9% 250 ml @ 125 mls/hr IVPB ONCE ONE Rx#:[id number] Output: Gastric Drainage 200 350 Urine 1360 575 45 Emesis 100 Other: Voiding Method Indwelling Catheter Indwelling Catheter - Exam GENERAL EXAM: Alert, comfortable in no apparent distress. HEAD: Normocephalic. EYES: Normal reaction of pupils, equal size. NOSE: Clear with pink turbinates. THROAT: No erythema or exudates. NECK: No masses, no JVD. CHEST: No chest wall deformity. LUNGS: Equal air entry with no crackles, wheeze, rhonchi or dullness. CVS: S1 and S2 normal with no audible mumurs, regular rhythm. ABDOMEN: No hepatosplenomegaly, normal bowel sounds, no guarding or rigidity. Right flank wound with green archer purulent drainage EXTREMITIES: No edema noted, pedal pulses palpable. CENTRAL NERVOUS SYSTEM: No focal deficits, tone is normal in all 4 extremities. - Labs CBC & Chem 7: 02/25/18 03:19 02/25/18 03:19 Labs: Abnormal Lab Results - Last 24 Hours (Table) 02/24/18 02/24/18 02/24/18 Range/Units 06:00 06:00 15:53 WBC 16.6 H (3.8-10.6) k/uL Neutrophils # 13.7 H (1.3-7.7) k/uL APTT (22.0-30.0) sec Chloride (98-107) mmol/L BUN 22 H (9-20) mg/dL Glucose 132 H (74-99) mg/dL Lipase 452 H (23-300) U/L 02/24/18 02/25/18 02/25/18 Range/Units 21:24 03:19 03:19 WBC 11.1 H (3.8-10.6) k/uL Neutrophils # 8.8 H 8.2 H (1.3-7.7) k/uL APTT (22.0-30.0) sec Chloride 108 H (98-107) mmol/L BUN (9-20) mg/dL Glucose 113 H (74-99) mg/dL Lipase (23-300) U/L 02/25/18 Range/Units 08:46 WBC (3.8-10.6) k/uL Neutrophils # (1.3-7.7) k/uL APTT 42.6 H (22.0-30.0) sec Chloride (98-107) mmol/L BUN (9-20) mg/dL Glucose (74-99) mg/dL Lipase (23-300) U/L Microbiology - Last 24 Hours (Table) 02/23/18 22:00 Blood Culture - Preliminary Blood No Growth after 24 hours 02/24/18 14:35 Gram Stain - Preliminary Buttock Wound Culture - Preliminary 02/24/18 14:35 Anaerobic Culture - Preliminary Buttock 02/23/18 22:46 Urine Culture - Preliminary Urine,Catheterized Assessment and Plan Assessment: Assessment Acute toxic encephalopathy Possible aspiration pneumonia Suspect underlying NOEL Sepsis POA Right flank wound/hematoma with purulent drainage, wound vac, s/p I&D 01/2018 UDS positive for methamphetamine History of alcohol abuse Hyperglycemia Sinus bradycardia intermittently COPD with active tobacco abuse History of PAD, AAA repair 11/2017 Hypertension Anxiety/depression Plan O2 to maintain saturation > or = 90% CPAP nightly ABX: Vanco and Zosyn Lactic acid 1 Wound culture Sputum culture Blood cultures Aspiration precautions NPO for now Neurology evaluation, EEG pending Telemetry monitoring - bradycardia possibly related to NOEL Consult ID - Dr. Matute IVF hydration Seizure precautions Hydralazine PRN SBP > 140 until able to restart home PO BP meds We started her home Symbicort GI and DVT prophylaxis Discussed with nursing, will change wound vac dressing and hook patient up to wound vac Continue to monitor in ICU overnight Thank you for this consultation. We will continue to follow along. I performed an examination of the patient and discussed their management with the nurse practitioner. I have reviewed the nurse practitioner's note and agree with the documented findings and plan of care. <Brittney Mcguire A - Last Filed: 02/25/18 15:57> Objective - Vital Signs Vital signs: Vital Signs Temp 98.1 F 02/25/18 12:00 Pulse 87 02/25/18 14:00 Resp 14 02/25/18 14:00 BP 143/70 02/25/18 14:00 Pulse Ox 96 02/25/18 14:00 Intake & Output 02/24/18 02/25/18 02/25/18 18:59 06:59 18:59 Intake Total 1450 1931 1969.344 Output Total 1660 925 470 Balance -210 1006 1499.344 Weight 110 kg 109.6 kg 109.6 kg Intake: IV 1801 1200.0 Magnesium Sulfate-D5w Pmx 200 1 gm In Dextrose/Water 1 100ml.bag @ 100 mls/hr IVPB Q1H [facility] Rx#: [id number] Piperacillin-Tazobactam 3 50 50.0 .375 gm In Dextrose/Water 1 50ml.bag @ 12.5 mls/hr IVPB Q8HR [facility] Rx#: [id number] Potassium Chloride 10 meq 200 In Water For Injection 1 100ml.bag @ 100 mls/hr IVPB Q1H [facility] Rx#: [id number] Sodium Chloride 0.9% 1, 1250 500 000 ml @ 125 mls/hr IV . Q8H [facility] Rx#:[id number] Vancomycin 1,750 mg In 501 250 Sodium Chloride 0.9% 250 ml @ 125 mls/hr IVPB ONCE ONE Rx#:[id number] Intake, IV Titration 1450 130 169.344 Amount Heparin Sodium,Porcine/ 130 169.344 D5w Pmx 25,000 unit In Dextrose/Water 1 500ml. bag @ 9.091 UNITS/KG/HR 20 mls/hr IV .Q24H [facility] Rx #:[id number] Piperacillin-Tazobactam 3 50 .375 gm In Dextrose/Water 1 50ml.bag @ 12.5 mls/hr IVPB Q8HR [facility] Rx#: [id number] Sodium Chloride 0.9% 1, 400 000 ml @ 100 mls/hr IV . Q10H [facility] Rx#:[id number] Sodium Chloride 0.9% 1, 750 000 ml @ 125 mls/hr IV . Q8H [facility] Rx#:[id number] Vancomycin 1,750 mg In 250 Sodium Chloride 0.9% 250 ml @ 125 mls/hr IVPB ONCE ONE Rx#:[id number] Oral 600 Output: Gastric Drainage 200 350 Urine 1360 575 470 Emesis 100 Other: Voiding Method Indwelling Catheter Indwelling Catheter Indwelling Catheter - Labs CBC & Chem 7: 02/25/18 03:19 02/25/18 03:19 Labs: Abnormal Lab Results - Last 24 Hours (Table) 02/24/18 02/24/18 02/24/18 Range/Units 06:00 06:00 15:53 WBC 16.6 H (3.8-10.6) k/uL Neutrophils # 13.7 H (1.3-7.7) k/uL APTT (22.0-30.0) sec Chloride (98-107) mmol/L BUN 22 H (9-20) mg/dL Glucose 132 H (74-99) mg/dL Lipase 452 H (23-300) U/L 02/24/18 02/25/18 02/25/18 Range/Units 21:24 03:19 03:19 WBC 11.1 H (3.8-10.6) k/uL Neutrophils # 8.8 H 8.2 H (1.3-7.7) k/uL APTT (22.0-30.0) sec Chloride 108 H (98-107) mmol/L BUN (9-20) mg/dL Glucose 113 H (74-99) mg/dL Lipase (23-300) U/L 02/25/18 Range/Units 08:46 WBC (3.8-10.6) k/uL Neutrophils # (1.3-7.7) k/uL APTT 42.6 H (22.0-30.0) sec Chloride (98-107) mmol/L BUN (9-20) mg/dL Glucose (74-99) mg/dL Lipase (23-300) U/L Microbiology - Last 24 Hours (Table) 02/23/18 22:46 Urine Culture - Final Urine,Catheterized 02/23/18 22:00 Blood Culture - Preliminary Blood No Growth after 24 hours 02/24/18 14:35 Gram Stain - Preliminary Buttock Wound Culture - Preliminary 02/24/18 14:35 Anaerobic Culture - Preliminary Buttock Assessment and Plan Assessment: Patient seen and examined in the ICU with nursing staff at bedside. The patient is adamant that he did not take any pills or other medications. He states that he has not been drinking alcohol. He is unsure of why he has had altered mentation. He does now remember who I am and where he is. He is getting Ativan as needed for agitation. The patient has been hemodynamically stable. Patient can be transferred to the selective unit. ~Brittney Mcguire DO
--- NOTE | 2018-02-25 10:43 | CT ---
EXAMINATION TYPE: CT brain wo con DATE OF EXAM: 02/25/2018 COMPARISON: 02/25/2018 HISTORY: Patient poor historian. Confusion. CT DLP: 798.[address] of the brain was performed. The ventricles, basal cisterns and sulci overlying the cerebral convexities demonstrate mild enlargem ent. There is no evidence for intracranial hemorrhage or sulcal effacement. There is decreased attenuation about the periventricular white matter and deep white matter of both c erebral hemispheres, compatible with chronic small vessel ischemia. Differential diagnosis does inclu de demyelination. No mass effects are seen.No midline shift. Osseous calvarium is intact. If symptoms persist consider MRI. IMPRESSION: 1. Age related atrophic and chronic small vessel ischemic change without acute intracranial process s een at this time.
[2018-02-25] MEDS ORDERED: LORazepam 2 MG/ML INJ IV PRN (11:20)
[2018-02-25] MEDS ORDERED: IBUPROFEN 800 MG TAB PO PRN (12:42)
--- NOTE | 2018-02-25 13:08 | P.PN ---
Subjective Progress Note Date: 02/25/18 Patient seen and examined at bedside. Slightly confused. Denies any abdominal pain. NG tube was removed earlier today. He has tried clear liquid diet and has tolerated that without any nausea or emesis episodes. His wound VAC is currently not attached to right flank ulcer site. There is noted purulent drainage at that site. Objective - Vital Signs Vital signs: Vital Signs Temp 98.3 F 02/25/18 08:00 Pulse 76 02/25/18 11:00 Resp 15 02/25/18 11:00 BP 175/87 02/25/18 11:00 Pulse Ox 95 02/25/18 11:00 Intake & Output 02/24/18 02/25/18 02/25/18 18:59 06:59 18:59 Intake Total 1450 1931 1221.844 Output Total 1660 925 470 Balance -210 1006 751.844 Weight 110 kg 109.6 kg 109.6 kg Intake: IV 1801 812.5 Magnesium Sulfate-D5w Pmx 200 1 gm In Dextrose/Water 1 100ml.bag @ 100 mls/hr IVPB Q1H [facility] Rx#: [id number] Piperacillin-Tazobactam 3 50 37.5 .375 gm In Dextrose/Water 1 50ml.bag @ 12.5 mls/hr IVPB Q8HR [facility] Rx#: [id number] Potassium Chloride 10 meq 200 In Water For Injection 1 100ml.bag @ 100 mls/hr IVPB Q1H [facility] Rx#: [id number] Sodium Chloride 0.9% 1, 1250 125 000 ml @ 125 mls/hr IV . Q8H [facility] Rx#:[id number] Vancomycin 1,750 mg In 501 250 Sodium Chloride 0.9% 250 ml @ 125 mls/hr IVPB ONCE ONE Rx#:[id number] Intake, IV Titration 1450 130 169.344 Amount Heparin Sodium,Porcine/ 130 169.344 D5w Pmx 25,000 unit In Dextrose/Water 1 500ml. bag @ 9.091 UNITS/KG/HR 20 mls/hr IV .Q24H [facility] Rx #:[id number] Piperacillin-Tazobactam 3 50 .375 gm In Dextrose/Water 1 50ml.bag @ 12.5 mls/hr IVPB Q8HR [facility] Rx#: [id number] Sodium Chloride 0.9% 1, 400 000 ml @ 100 mls/hr IV . Q10H [facility] Rx#:[id number] Sodium Chloride 0.9% 1, 750 000 ml @ 125 mls/hr IV . Q8H [facility] Rx#:[id number] Vancomycin 1,750 mg In 250 Sodium Chloride 0.9% 250 ml @ 125 mls/hr IVPB ONCE ONE Rx#:[id number] Oral 240 Output: Gastric Drainage 200 350 Urine 1360 575 470 Emesis 100 Other: Voiding Method Indwelling Catheter Indwelling Catheter Indwelling Catheter - Constitutional General appearance: Present: no acute distress - EENT ENT: Present: hearing grossly normal - Respiratory Details: No difficulty with respirations - Gastrointestinal Gastrointestinal Comment(s): Soft, nontender, nondistended, no rebound, no guarding - Musculoskeletal Musculoskeletal: Present: generalized weakness - Labs CBC & Chem 7: 02/25/18 03:19 02/25/18 03:19 Labs: Abnormal Lab Results - Last 24 Hours (Table) 02/24/18 02/24/18 02/24/18 Range/Units 06:00 06:00 15:53 WBC 16.6 H (3.8-10.6) k/uL Neutrophils # 13.7 H (1.3-7.7) k/uL APTT (22.0-30.0) sec Chloride (98-107) mmol/L BUN 22 H (9-20) mg/dL Glucose 132 H (74-99) mg/dL Lipase 452 H (23-300) U/L 02/24/18 02/25/18 02/25/18 Range/Units 21:24 03:19 03:19 WBC 11.1 H (3.8-10.6) k/uL Neutrophils # 8.8 H 8.2 H (1.3-7.7) k/uL APTT (22.0-30.0) sec Chloride 108 H (98-107) mmol/L BUN (9-20) mg/dL Glucose 113 H (74-99) mg/dL Lipase (23-300) U/L 02/25/18 Range/Units 08:46 WBC (3.8-10.6) k/uL Neutrophils # (1.3-7.7) k/uL APTT 42.6 H (22.0-30.0) sec Chloride (98-107) mmol/L BUN (9-20) mg/dL Glucose (74-99) mg/dL Lipase (23-300) U/L Microbiology - Last 24 Hours (Table) 02/23/18 22:46 Urine Culture - Final Urine,Catheterized 02/23/18 22:00 Blood Culture - Preliminary Blood No Growth after 24 hours 02/24/18 14:35 Gram Stain - Preliminary Buttock Wound Culture - Preliminary 02/24/18 14:35 Anaerobic Culture - Preliminary Buttock Assessment and Plan (1) Abscess of flank Narrative/Plan: This side does have purulent drainage noted. We are placing silver infused packing. Patient is on antibiotics. 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 Any surgical intervention of the decubitus ulcer will be planned after any vascular procedure is completed. Continue local care at the site. Current Visit: Yes Status: Acute Code(s): L02.211 - CUTANEOUS ABSCESS OF ABDOMINAL WALL SNOMED Code(s): 07572603 (2) Nausea and vomiting Narrative/Plan: The patient is no longer complaining of nausea or emesis episodes. NG tube was removed and the patient is tolerating a clear liquid diet. I would recommend continue to advance his diet as tolerated. No plan for any acute surgical intervention from general surgery perspective. Vascular surgery recommendations on aortoiliac occlusion. Current Visit: Yes Status: Acute Code(s): R11.2 - NAUSEA WITH VOMITING, UNSPECIFIED SNOMED Code(s): 28285635
--- NOTE | 2018-02-25 15:05 | PN ---
PROGRESS NOTE CHIEF COMPLAINT: Coma and overdose. HISTORY OF PRESENT ILLNESS: This gentleman is improving. He is awake and communicating. He is oriented. He denies "ever using drugs." His blood pressure is slightly elevated and he is agitated from time to time. PHYSICAL EXAM: HEENT is normal except the presence of an NG tube. Breath sounds are heard on both sides. Cardiac exam is normal and the abdomen is soft, nontender. IMPRESSION: 1. Drug overdose with lethargy and coma. 2. Hypertension. PLAN: 1. Remove NG tube. 2. Progress activity. 3. Progress diet. MMODL / IJN: [id number] /
--- NOTE | 2018-02-25 15:14 | CONS ---
DATE OF CONSULTATION: 02/25/2018 This is a 53-year-old gentleman who came to the ER with amphetamine overdose. The patient had aortic stent graft done 12/11/[address] Coe. The patient has history of coronary artery disease, COPD, hypertension, liver disease, sleep apnea. EXAMINATION: Patient was seen in his room. He is in sitting position. NG tube has been out. His neck is supple. No bruit appreciated. Patient has a wound on his back, for local wound care. His abdomen is soft, nontender. Vascular examination reveal a left femoral palpable. Dorsal pedis palpable and the right side femoral and posterior tibial not palpable. Patient has a Doppler signal on the right foot for dorsal pedis. Motor functions are present. 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 Most likely the right limb of the aortic stent graft was occluded. The patient is under care of Dr. Coe and I had discussed with him in detail. The patient will be on heparin and he will like to proceed for surgery tomorrow most likely right iliofemoral thrombectomy, possible stent, possible fem-fem crossover. Discussed with Dr. Coe and plan to do this procedure tomorrow at 2 o'clock. Prognosis guarded. MMODL / IJN: [id number] / [facility]Jose
[2018-02-25] MEDS: HEPARIN SODIUM,PORCINE/D5W PMX 25,000 UNIT in DEXTROSE/WATER 1 500ML.BAG IV SCH (16:37)
[2018-02-25] MEDS: cloNIDine HCL 0.2 MG TAB PO SCH ×2 (16:37→22:18)
[2018-02-25] MEDS: GABAPENTIN 300 MG CAP PO SCH ×2 (16:37→22:18)
--- NOTE | 2018-02-25 17:41 | EEG ---
ELECTROENCEPHALOGRAM REPORT DATE OF EE02/25/2018. REFERRING PHYSICIAN: Dr. Quinones. CONSULTING INTERPRETING PHYSICIAN: Dr. Robert Alvares M.D. ELECTROENCEPHALOGRAPHIC EXAMINATION REPORT: INDICATION FOR EXAMINATION: This patient is a 53-year-old male being evaluated for altered mental status and confusion. Patient admitted with drug overdose and obtundation. Urine drug screen positive for methamphetamines. AGE: [age]. EEG FINDINGS: A routine 21 channel awake digital EEG recording was accomplished utilizing the 10-20 international system with bipolar and referential montages. The background activity in the most alert resting state consists of a low to medium amplitude, poorly developed and poorly sustained 5-6 Hz activity over the posterior head region. This posterior rhythm attenuates to eye opening. There is a small amount of low amplitude 18-20 Hz beta activity seen maximally over the anterior head regions. Muscle and movement artifact was observed on a few occasions during the tracing. Hyperventilation was not performed. Photic stimulation at flash frequencies of 2-30 Hz produced a minimal occipital driving response. No epileptiform discharges were seen. IMPRESSION: This EEG is moderately abnormal in a diffuse fashion due to slowing of the EEG background. The EEG failed to reveal any focal, lateralized, or epileptiform abnormalities. If clinically indicated a followup EEG is recommended. Clinical correlation is recommended. MMODL / IJN: [id number] /
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
--- NOTE | 2018-02-25 18:09 | P.PN ---
Subjective Progress Note Date: 02/25/18 This patient is a 53-year-old male who was admitted through the emergency room yesterday with obtundation and questionable drug overdose. His urine drug screen did come back positive for methamphetamine. He was admitted to the ICU for close monitoring. The patient underwent aortic stent graft done on 2017 Dr. Matt Sanchez. Apparently his recent CTA angiogram revealed him to have right iliac occlusive disease. He was seen today by Dr. Glass in Dr. Matt Sanchez and the patient is being scheduled for surgery tomorrow for right iliofemoral thrombectomy with possible stent placement. Patient is resting comfortably today in the ICU. He is more awake and alert and able to answer simple questions. He underwent a repeat computed tomography scan of the brain today which revealed age-related atrophy and chronic small vessel ischemic changes. No evidence of acute stroke or hemorrhage. He had a routine EEG today which is reviewed and is moderately slow consistent with a diffuse metabolic encephalopathy. Patient is able to follow simple commands at this time. He does not appear to be agitated or combative at this time. He is currently resting comfortably in the ICU. As mentioned he is scheduled for surgery tomorrow for a right iliofemoral thrombectomy and possible stent placement. Patient will continue in the ICU today. We will continue to follow his progress closely. He was seen by infectious disease today and clinically is not showing any infectious etiology. He has a wound on the right flank which was noted by infectious disease. There was no signs of cellulitis or pus. He is having some Aquacel silver packing performed to this area. Local wound care is recommended at this time. He is currently on Zosyn. We are waiting final culture reports and final decision from infectious disease. Neurologically he is showing improvement in his mental status today. We will continue close follow-up with the patient in the ICU setting. Objective - Vital Signs Vital signs: Vital Signs Temp 98.1 F 02/25/18 12:00 Pulse 87 02/25/18 14:00 Resp 14 02/25/18 14:00 BP 143/70 02/25/18 14:00 Pulse Ox 96 02/25/18 14:00 Intake & Output 02/24/18 02/25/18 02/25/18 18:59 06:59 18:59 Intake Total 1450 1931 2549.862 Output Total 1660 925 870 Balance -210 1006 1679.862 Weight 110 kg 109.6 kg 109.6 kg Intake: IV 1801 1462.5 Magnesium Sulfate-D5w Pmx 200 1 gm In Dextrose/Water 1 100ml.bag @ 100 mls/hr IVPB Q1H [facility] Rx#: [id number] Piperacillin-Tazobactam 3 50 62.5 .375 gm In Dextrose/Water 1 50ml.bag @ 12.5 mls/hr IVPB Q8HR [facility] Rx#: [id number] Potassium Chloride 10 meq 200 In Water For Injection 1 100ml.bag @ 100 mls/hr IVPB Q1H [facility] Rx#: [id number] Sodium Chloride 0.9% 1, 1250 750 000 ml @ 125 mls/hr IV . Q8H [facility] Rx#:[id number] Vancomycin 1,750 mg In 501 250 Sodium Chloride 0.9% 250 ml @ 125 mls/hr IVPB ONCE ONE Rx#:[id number] Intake, IV Titration 1450 130 367.362 Amount Heparin Sodium,Porcine/ 130 367.362 D5w Pmx 25,000 unit In Dextrose/Water 1 500ml. bag @ 9.091 UNITS/KG/HR 20 mls/hr IV .Q24H [facility] Rx #:[id number] Piperacillin-Tazobactam 3 50 .375 gm In Dextrose/Water 1 50ml.bag @ 12.5 mls/hr IVPB Q8HR [facility] Rx#: [id number] Sodium Chloride 0.9% 1, 400 000 ml @ 100 mls/hr IV . Q10H [facility] Rx#:[id number] Sodium Chloride 0.9% 1, 750 000 ml @ 125 mls/hr IV . Q8H [facility] Rx#:[id number] Vancomycin 1,750 mg In 250 Sodium Chloride 0.9% 250 ml @ 125 mls/hr IVPB ONCE ONE Rx#:[id number] Oral 720 Output: Gastric Drainage 200 350 Urine 1360 575 870 Emesis 100 Other: Voiding Method Indwelling Catheter Indwelling Catheter Indwelling Catheter - Exam Physical Examination: PHYSICAL EXAMINATION: Patient is resting comfortably in bed. VITAL SIGNS: Blood pressure is [128/75]. Heart rate is [92]. Respiration is [20] . Temperature is [99.4]. HEENT: Head is atraumatic, neck is supple, there were no carotid bruits. CHEST: Lungs are clear to auscultation and percussion. CARDIAC: S1, S2 normal rate and rhythm. There is no murmur. ABDOMEN: Soft and nontender. Bowel sounds are present. EXTREMITIES: There is no pedal edema. Peripheral pulses are present. Neurological examination: Patient is examined in the ICU today. He is more awake and alert and following simple commands. His memory and intellectual functions slightly impaired. Cranial nerves II through XII are grossly intact. Motor examination fails to reveal any focal weakness. Deep tendon reflexes are 1+ and symmetric. Plantar responses flexor bilaterally. - Labs CBC & Chem 7: 02/25/18 03:19 02/25/18 03:19 Labs: Abnormal Lab Results - Last 24 Hours (Table) 02/24/18 02/24/18 02/25/18 Range/Units 15:53 21:24 03:19 WBC 11.1 H (3.8-10.6) k/uL Neutrophils # 8.8 H (1.3-7.7) k/uL APTT (22.0-30.0) sec Chloride 108 H (98-107) mmol/L Glucose 113 H (74-99) mg/dL Lipase 452 H (23-300) U/L 02/25/18 02/25/18 Range/Units 03:19 08:46 WBC (3.8-10.6) k/uL Neutrophils # 8.2 H (1.3-7.7) k/uL APTT 42.6 H (22.0-30.0) sec Chloride (98-107) mmol/L Glucose (74-99) mg/dL Lipase (23-300) U/L Microbiology - Last 24 Hours (Table) 02/23/18 22:46 Urine Culture - Final Urine,Catheterized 02/23/18 22:00 Blood Culture - Preliminary Blood No Growth after 24 hours 02/24/18 14:35 Gram Stain - Preliminary Buttock Wound Culture - Preliminary 02/24/18 14:35 Anaerobic Culture - Preliminary Buttock Assessment and Plan (1) Acute encephalopathy Current Visit: Yes Status: Acute Code(s): G93.40 - ENCEPHALOPATHY, UNSPECIFIED SNOMED Code(s): 83272350 (2) History of drug abuse Current Visit: Yes Status: Acute Code(s): Z87.898 - PERSONAL HISTORY OF OTHER SPECIFIED CONDITIONS SNOMED Code(s): 195671241 (3) Aspiration pneumonia Current Visit: Yes Status: Acute Code(s): J69.0 - PNEUMONITIS DUE TO INHALATION OF FOOD AND VOMIT SNOMED Code(s): 978979184 (4) Obstructive sleep apnea Current Visit: Yes Status: Acute Code(s): G47.33 - OBSTRUCTIVE SLEEP APNEA ( ADULT) (PEDIATRIC) SNOMED Code(s): 87006119 Plan: This patient is a 53-year-old male seen today in the intensive care unit. He is showing signs of slow improvement from a metabolic encephalopathy. He was found on initial presentation to the ER as having positive urine drug screen for methamphetamine. He likely had a drug overdose producing a metabolic encephalopathy which is slowly improving. He is being evaluated by vascular surgery and will be undergoing a right iliofemoral thrombectomy tomorrow. He otherwise neurologically remains stable. We will continue to follow his progress closely during this admission. His repeat computed tomography scan and EEG results were reviewed as noted above. So overall prognosis at this time remains guarded. We will continue close neurological follow-up with this patient in the intensive care unit.
[2018-02-25] MEDS ORDERED: MORPHINE SULFATE 4 MG/ML SYRINGE IV PRN (19:21)
[2018-02-25] MEDS ORDERED: ONDANSETRON 4 MG/2 ML VIAL IVP PRN (19:21)
[2018-02-25] MEDS ORDERED: MIDAZOLAM 2 MG/2 ML VIAL IV PRN (19:21)
[2018-02-25] MEDS ORDERED: HYDROmorphone 0.5 MG/0.5 ML SYRINGE IVP PRN (19:21)
[2018-02-25] MEDS: SYMBICORT 160-4.5 MCG INHALER INHALATION SCH (19:43)
[2018-02-25] MEDS ORDERED: BUDESONIDE 0.5 MG/2 ML NEBU INHALATION SCH (20:00)
[2018-02-25] MEDS ORDERED: SYMBICORT 160-4.5 MCG INHALER INHALATION SCH (20:00)
[2018-02-25] MEDS: METOPROLOL TARTRATE 50 MG TAB PO SCH (22:18)
[2018-02-25] MEDS: BACLOFEN 10 MG TAB PO SCH (22:18)
[2018-02-26] MEDS: PIPERACILLIN-TAZOBACTAM 3.375 GM in DEXTROSE/WATER 1 50ML.BAG IVPB SCH ×2 (00:15→08:14)
[2018-02-26] MEDS: SODIUM CHLORIDE 0.9% 1,000 ML IV SCH ×3 (00:16→17:14)
[2018-02-26] MEDS ORDERED: VANCOMYCIN TROUGH DUE 1 EACH MISC MISCELLANE ONE (07:00)
[2018-02-26] MEDS: SYMBICORT 160-4.5 MCG INHALER INHALATION SCH ×2 (07:39→20:25)
[2018-02-26 08:05] LABS: Basophils # (A) 0.1 k/uL (0-0.2); Basophils % (A) 1 %; Eosinophils # (A) 0.2 k/uL (0-0.7); Eosinophils % (A) 2 %; HCT 37.3 % (39.0-53.0); HGB 11.9 gm/dL (13.0-17.5); Lymphocytes # (A) 1.5 k/uL (1.0-4.8); Lymphocytes % (A) 16 %; MCH 29.1 pg (25.0-35.0); MCHC 31.9 g/dL (31.0-37.0); MCV 91.2 fL (80.0-100.0); Mean Platelet Volume 6.8; Monocytes # (A) 0.7 k/uL (0-1.0); Monocytes % (A) 8 %; Neutrophils # (A) 6.6 k/uL (1.3-7.7); Neutrophils % (A) 71 %; Platelet Count 187 k/uL (150-450); RBC 4.09 m/uL (4.30-5.90); RDW 14.1 % (11.5-15.5); WBC 9.3 k/uL (3.8-10.6)
[2018-02-26] MEDS: LACTATED RINGERS 1,000 ML IV SCH ×2 (08:05→20:02)
[2018-02-26] MEDS: PANTOPRAZOLE 40 MG TABLET PO SCH (08:14)
[2018-02-26] MEDS: amLODIPine 10 MG TAB PO SCH (08:16)
[2018-02-26] MEDS: VANCOMYCIN 2,000 MG in SODIUM CHLORIDE 0.9% 500 ML IVPB SCH ×2 (08:17→21:17)
[2018-02-26] MEDS: GABAPENTIN 300 MG CAP PO SCH ×3 (08:18→21:17)
[2018-02-26] MEDS: cloNIDine HCL 0.2 MG TAB PO SCH ×3 (08:18→21:17)
[2018-02-26] MEDS: LOSARTAN 50 MG TAB PO SCH (08:18)
[2018-02-26] MEDS: BACLOFEN 10 MG TAB PO SCH ×2 (08:18→21:17)
[2018-02-26] MEDS: ASPIRIN 81 MG PO SCH (08:18)
[2018-02-26] MEDS: NICOTINE 21MG/24HR PATCH TRANSDERM SCH (08:19)
[2018-02-26] MEDS: METOPROLOL TARTRATE 50 MG TAB PO SCH (08:19)
[2018-02-26] MEDS: SERTRALINE 25 MG TAB PO SCH (08:19)
[2018-02-26 08:21] LABS: Anion Gap 9 mmol/L; Blood Urea Nitrogen 13 mg/dL (9-20); Calcium 8.4 mg/dL (8.4-10.2); Carbon Dioxide 28 mmol/L (22-30); Chloride 104 mmol/L (98-107); Glucose 87 mg/dL (74-99); Magnesium 1.8 mg/dL (1.6-2.3); Phosphorus 3.3 mg/dL (2.5-4.5); Potassium 3.7 mmol/L (3.5-5.1); Sodium 141 mmol/L (137-145)
--- NOTE | 2018-02-26 09:46 | P.PN ---
Subjective Progress Note Date: 02/26/18 HPI: This is a 53 year old gentleman who is well-known to [facility] who presented to the emergency department with altered mental status. This patient is currently unable to provide history. History is taken from nursing as well as medical records. The patient was apparently not acting himself at home. He lives with his daughter. He had several episodes of vomiting and his daughter called EMS. He does have a known history of alcohol abuse but denies use in the past 2 months. He did have AAA repair in 11/2017 and did go through alcohol withdrawals during that admission. His alcohol level on admission was 0. However, his UDS was positive for methamphetamine. The patient was admitted to the telemetry floor and became bradycardic. He was subsequently transferred to the ICU. He did recently have an admission to [facility] in 01/2018 for hypotension, sepsis, wound infection. He did have debridement done by Dr. Castro and was seen by ID - Dr. Matute. Patient is currently arousable, but is only answering "no" and "why" to questions. He denies taking any pills, using any drugs, drinking alcohol, or using any other substances. However, his mentation is poor at this time. He has been hypertensive. His O2 saturation is 98% on 2L NC. He does have periods of apnea and is being worked up outpatient for NOEL. Interval history: 02/25/2018- patient is being seen examined and evaluated today in the intensive care unit. The patient is more alert today. He answers all questions appropriately. He is asking for his NG tube to be removed. He is satting 100% on 2 L of supplemental oxygen. Feels his breathing is at baseline. We will restart his home Symbicort. Oxygen will be weaned off. NG tube is going to be taken out by nursing per routine orders. Chest x-ray was reviewed and does show persistent right basilar subsegmental atelectasis. He continues on Vanco and Zosyn as well as a heparin drip. Patient did undergo a CT of the abdomen and pelvis this He does have a suspected complete occlusion of his right aorto iliac stent graft and vascular consultation has been obtained. Patient also just underwent an EEG and those results are pending. 02/26/18- patient is being seen examined and evaluated today on the fourth floor. Currently the patient is resting up in bed on room air. Patient is scheduled to go for a right iliofemoral thrombectomy today with Dr. Glass. The patient did this morning have a 4 second cause followed by a 6 second pause while coughing. Cardiology was consulted and appreciate recommendations. Patient states he felt like his blood pressure was going up during the pauses. He was alertsyncope. His WBC count today is 9.3 his wound cultures were positive for staph aureus and beta-hemolytic strep group G. Patient's procedure is scheduled for 2 PM pending cardiology recommendations. Objective - Vital Signs Vital signs: Vital Signs Temp 98.7 F 02/26/18 06:00 Pulse 69 02/26/18 06:00 Resp 20 02/26/18 06:00 BP 129/64 02/26/18 06:00 Pulse Ox 93 L 02/26/18 07:41 Intake & Output 02/25/18 02/26/18 02/26/18 18:59 06:59 18:59 Intake Total 2600.937 264.093 Output Total 870 1025 Balance 1730.937 -760.907 Weight 109.6 kg 94.5 kg Intake: IV 1475.0 Magnesium Sulfate-D5w Pmx 200 1 gm In Dextrose/Water 1 100ml.bag @ 100 mls/hr IVPB Q1H FREEMAN Rx#: [id number] Piperacillin-Tazobactam 3 75.0 .375 gm In Dextrose/Water 1 50ml.bag @ 12.5 mls/hr IVPB Q8HR FREEMAN Rx#: [id number] Potassium Chloride 10 meq 200 In Water For Injection 1 100ml.bag @ 100 mls/hr IVPB Q1H FREEMAN Rx#: [id number] Sodium Chloride 0.9% 1, 750 000 ml @ 125 mls/hr IV . Q8H FREEMAN Rx#:[id number] Vancomycin 1,750 mg In 250 Sodium Chloride 0.9% 250 ml @ 125 mls/hr IVPB ONCE ONE Rx#:[id number] Intake, IV Titration 405.937 264.093 Amount Heparin Sodium,Porcine/ 405.937 264.093 D5w Pmx 25,000 unit In Dextrose/Water 1 500ml. bag @ 9.091 UNITS/KG/HR 20 mls/hr IV .Q24H FREEMAN Rx #:[id number] Oral 720 Output: Urine 870 1025 Other: Voiding Method Indwelling Catheter Urinal - Exam GENERAL EXAM: Alert, comfortable in no apparent distress. HEAD: Normocephalic. EYES: Normal reaction of pupils, equal size. NOSE: Clear with pink turbinates. THROAT: No erythema or exudates. NECK: No masses, no JVD. CHEST: No chest wall deformity. LUNGS: Equal air entry with no crackles, wheeze, rhonchi or dullness. CVS: S1 and S2 normal with no audible mumurs, regular rhythm. ABDOMEN: No hepatosplenomegaly, normal bowel sounds, no guarding or rigidity. Right flank wound with green archer purulent drainage EXTREMITIES: No edema noted, pedal pulses palpable. CENTRAL NERVOUS SYSTEM: No focal deficits, tone is normal in all 4 extremities. - Labs CBC & Chem 7: 02/26/18 07:27 02/26/18 07:27 Labs: Abnormal Lab Results - Last 24 Hours (Table) 02/25/18 02/25/18 02/26/18 Range/Units 16:41 23:34 07:27 RBC 4.09 L (4.30-5.90) m/uL Hgb 11.9 L (13.0-17.5) gm/dL Hct 37.3 L (39.0-53.0) % APTT 34.7 H 76.4 H (22.0-30.0) sec 02/26/18 Range/Units 07:27 RBC (4.30-5.90) m/uL Hgb (13.0-17.5) gm/dL Hct (39.0-53.0) % APTT 42.1 H (22.0-30.0) sec Microbiology - Last 24 Hours (Table) 02/23/18 22:00 Blood Culture - Preliminary Blood No Growth after 48 hours 02/24/18 21:24 Blood Culture - Preliminary Blood No Growth after 24 hours 02/24/18 14:35 Gram Stain - Preliminary Buttock Wound Culture - Preliminary Presumptive Staph aureus Beta Hemolytic Strep Group G 02/23/18 22:46 Urine Culture - Final Urine,Catheterized Assessment and Plan Assessment: Assessment Acute toxic encephalopathy Possible aspiration pneumonia Suspect underlying NOEL Sepsis POA Right flank wound/hematoma with purulent drainage, wound vac, s/p I&D 01/2018 UDS positive for methamphetamine History of alcohol abuse Hyperglycemia Sinus bradycardia intermittently COPD with active tobacco abuse History of PAD, AAA repair 11/2017 Hypertension Anxiety/depression Plan O2 to maintain saturation > or = 90% CPAP nightly, and with naps ABX: Vanco and Zosyn Lactic acid 1 Wound culture-positive for staph aureus and beta-hemolytic strep group G Sputum culture, unable to obtain Blood cultures, negative so far Aspiration precautions NPO for now Neurology evaluation, Radiology recommendations Telemetry monitoring - bradycardia possibly related to NOEL Consult ID - Dr. Matute IVF hydration Seizure precautions Hydralazine PRN SBP > 140 until able to restart home PO BP meds We started her home Symbicort GI and DVT prophylaxis Wound care per infectious disease Thank you for this consultation. We will continue to follow along. I performed an examination of the patient and discussed their management with the nurse practitioner. I have reviewed the nurse practitioner's note and agree with the documented findings and plan of care.
--- NOTE | 2018-02-26 09:46 | XR ---
EXAMINATION TYPE: XR chest 1V portable DATE OF EXAM: 02/26/2018 COMPARISON: Prior chest 02/25/2018 HISTORY: Shortness of breath TECHNIQUE: Single frontal view of the chest is obtained. FINDINGS: Patchy basilar density is present. No pneumothorax or pleural effusion. Cardiac mediastina l silhouette, pulmonary vascularity and payal not significant changed. NG tube has been removed. There are overlying cardiac leads. IMPRESSION: Basilar atelectasis, correlate to exclude pneumonia.
[2018-02-26] MEDS: HEPARIN SODIUM,PORCINE 5,000 UNIT/ML 1 ML VIAL IV PRN (11:29)
--- NOTE | 2018-02-26 12:29 | ECHOF ---
Referral Reason:arrhymia MEASUREMENTS -------- HEIGHT: 175.3 cm WEIGHT: 94.3 kg BP: 129/64 RVIDd: 3.6 cm (< 3.3) IVSd: 1.4 cm (0.6 - 1.1) LVIDd: 3.9 cm (3.9 - 5.3) LVPWd: 1.3 cm (0.6 - 1.1) IVSs: 2.1 cm LVIDs: 3.0 cm LVPWs: 1.9 cm LAESV Index (A-L): 36.46 ml/m Ao Diam: 3.6 cm (2.0 - 3.7) AV Cusp: 2.0 cm (1.5 - 2.6) LA Diam: 4.1 cm (2.7 - 3.8) EPSS: 0.3 cm MV E Anoop: 0.91 m/s MV DecT: 245 ms MV A Anoop: 0.77 m/s MV E/A Ratio: 1.18 RAP: 10.00 mmHg RVSP: 36.79 mmHg MV EF SLOPE: 76.11 mm/s (70 - 150) MV EXCURSION: 1.54 cm (> 18.000) FINDINGS -------- Sinus rhythm. This was a technically adequate study. The left ventricular size is normal. There is mild concentric left ventricular hypertrophy. Overa ll left ventricular systolic function is normal with, an EF between 55 - 60 %. The right ventricle is mildly enlarged. LA is moderately dilated 34-39 ml/m2 RA appears enlarged. The aortic valve is trileaflet, and appears structurally normal. No aortic stenosis or regurgitation. The mitral valve is normal. Mild mitral regurgitation is present. Trace tricuspid regurgitation present. Right ventricular systolic pressure is normal at < 35 mmHg. The pulmonic valve was not well visualized. There is no pulmonic regurgitation present. The aortic root size is normal. The IVC is dilated with normal collapse. There is no pericardial effusion. CONCLUSIONS -------- 1. Sinus rhythm. 2. This was a technically adequate study. 3. The left ventricular size is normal. 4. There is mild concentric left ventricular hypertrophy. 5. Overall left ventricular systolic function is normal with, an EF between 55 - 60 %. 6. The right ventricle is mildly enlarged. 7. LA is moderately dilated 34-39 ml/m2 8. The aortic valve is trileaflet, and appears structurally normal. No aortic stenosis or regurgitati on. 9. Mild mitral regurgitation is present. 10. Trace tricuspid regurgitation present. 11. Right ventricular systolic pressure is normal at < 35 mmHg. 12. The pulmonic valve was not well visualized. 13. There is no pulmonic regurgitation present. 14. The aortic root size is normal. 15. The IVC is dilated with normal collapse. 16. There is no pericardial effusion. RN FAMILY: Kurtis Castano RDCS
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
--- NOTE | 2018-02-26 14:46 | P.PN ---
Progress Note - Text Progress Note Date: 02/26/18 S: Patient seen and examined. Surgery on hold per cardiology. Per nursing patient had multiple episodes of pauses on telemetry upwards of 6 seconds. He was seen by cardiology who recommends his surgery be held for at least 24 hours. He had an echo performed and labs done today. Per nursing patient is not symptomatic. Patient is complaining of numbness in his right foot. O: Right foot is cooler than the left. Palpable pulses in the left DP/PT but non-palpable pulses at the right femoral, popliteal, DP, or PT. Patient can move feet without difficulty or pain. 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 Continue heparin drip.
--- NOTE | 2018-02-26 14:57 | PN ---
PROGRESS NOTE DATE OF SERVICE: 02/26/2018 REASON FOR FOLLOWUP: Right flank wound. INTERVAL HISTORY: The patient is currently afebrile. Denies having any chest pain or shortness of breath. No cough or any pain to the wound area. The patient is scheduled to go for surgery for his thrombosed graft; however, patient did have some pauses, is currently being evaluated by Cardiology. PHYSICAL EXAMINATION: Blood pressure 129/54, pulse of 59, temperature 98.7, he is 96% on room air. General description is a middle-aged male, lying in bed in no distress. RESPIRATORY SYSTEM: Unlabored breathing, clear to auscultation anteriorly. HEART: S1, S2. Regular rate and rhythm. ABDOMEN: Soft, no tenderness. LABS: Hemoglobin is 11.9, white count 9.3 with a BUN of 13, creatinine 0.93. Wound culture presumptive Staph aureus and beta-hemolytic Streptococcus. DIAGNOSTIC IMPRESSION AND PLAN: Patient with a right flank wound, traumatic with question of possible secondary infection. Wound culture with Staph aureus and group B strep. Patient will be left on the vancomycin, discontinue Zosyn as no gram negative has been seen. Local care to continue with Aquacel Silver packing, change daily. Continue supportive care. MMODL / IJN: [id number] /
--- NOTE | 2018-02-26 17:10 | P.PN ---
Subjective Progress Note Date: 02/26/18 This patient is a 53-year-old right-handed white male who was initially evaluated in the intensive care unit for altered mental status. Patient was found at home with increase confusion and disorientation. He was also complaining of abdominal pain. He was admitted to Hospital and underwent a computed tomography scan of the brain which failed to reveal any acute changes. Due to episode of hypotension he was transferred to the intensive care unit where he remained quite confused. He underwent a routine EEG which was reviewed and revealed diffuse slowing consistent with a encephalopathy. His urine drug screen was positive for methamphetamine. Patient showed improvement yesterday in the ICU. He was transferred to the medical floor for further management. His computed tomography scan of the abdomen incidentally revealed evidence of right iliac artery occlusion. Vascular surgery was consulted and had recommended the patient undergo thrombectomy procedure today. Patient was on MedSurg earlier today with telemetry monitoring. He was found to have a 6 second pause on telemetry and for this reason cardiology was consulted. An echocardiogram and Doppler was recommended. Lopressor was discontinued. Cardiology recommended holding off on any surgical intervention for the next 24 hours. His surgery is currently on hold. Patient is resting comfortably this afternoon and does not appear to be in any acute distress. He is answering questions appropriately. Patient denies any pain in the right leg at this time but apparently he has noted symptoms of numbness in the right foot. Vascular surgery is following him closely. Patient otherwise seems to be making slow progress. We will await further recommendations from multiple specialists who are seeing him at this time. Objective - Vital Signs Vital signs: Vital Signs Temp 98.6 F 02/26/18 15:00 Pulse 76 02/26/18 15:00 Resp 16 02/26/18 15:00 BP 122/74 02/26/18 15:00 Pulse Ox 93 L 02/26/18 15:00 Intake & Output 02/25/18 02/26/18 02/26/18 18:59 06:59 18:59 Intake Total 2600.937 264.093 197.332 Output Total 870 1025 800 Balance 1730.937 -760.907 -602.668 Weight 109.6 kg 94.5 kg Intake: IV 1475.0 Magnesium Sulfate-D5w Pmx 200 1 gm In Dextrose/Water 1 100ml.bag @ 100 mls/hr IVPB Q1H [facility] Rx#: [id number] Piperacillin-Tazobactam 3 75.0 .375 gm In Dextrose/Water 1 50ml.bag @ 12.5 mls/hr IVPB Q8HR [facility] Rx#: [id number] Potassium Chloride 10 meq 200 In Water For Injection 1 100ml.bag @ 100 mls/hr IVPB Q1H [facility] Rx#: [id number] Sodium Chloride 0.9% 1, 750 000 ml @ 125 mls/hr IV . Q8H [facility] Rx#:[id number] Vancomycin 1,750 mg In 250 Sodium Chloride 0.9% 250 ml @ 125 mls/hr IVPB ONCE ONE Rx#:[id number] Intake, IV Titration 405.937 264.093 197.332 Amount Heparin Sodium,Porcine/ 405.937 264.093 197.332 D5w Pmx 25,000 unit In Dextrose/Water 1 500ml. bag @ 9.091 UNITS/KG/HR 20 mls/hr IV .Q24H [facility] Rx #:[id number] Oral 720 Output: Urine 870 1025 800 Other: Voiding Method Indwelling Catheter Urinal Urinal # Bowel Movements 2 - Exam Physical Examination: PHYSICAL EXAMINATION: Patient is resting comfortably in bed. VITAL SIGNS: Blood pressure is [122/74]. Heart rate is [76]. Respiration is [16] . Temperature is [98.7]. HEENT: Head is atraumatic, neck is supple, there were no carotid bruits. CHEST: Lungs are clear to auscultation and percussion. CARDIAC: S1, S2 normal rate and rhythm. There is no murmur. ABDOMEN: Soft and nontender. Bowel sounds are present. EXTREMITIES: There is no pedal edema. Peripheral pulses are present. Neurological examination: Patient is examined today on [facility]. He is more awake and alert and following simple commands. His memory and intellectual functions slightly impaired. Cranial nerves II through XII are grossly intact. Motor examination fails to reveal any focal weakness. Deep tendon reflexes are 1+ and symmetric. Plantar responses flexor bilaterally. - Labs CBC & Chem 7: 02/26/18 07:27 02/26/18 07:27 Labs: Abnormal Lab Results - Last 24 Hours (Table) 02/25/18 02/25/18 02/26/18 Range/Units 16:41 23:34 07:27 RBC 4.09 L (4.30-5.90) m/uL Hgb 11.9 L (13.0-17.5) gm/dL Hct 37.3 L (39.0-53.0) % APTT 34.7 H 76.4 H (22.0-30.0) sec 02/26/18 Range/Units 07:27 RBC (4.30-5.90) m/uL Hgb (13.0-17.5) gm/dL Hct (39.0-53.0) % APTT 42.1 H (22.0-30.0) sec Microbiology - Last 24 Hours (Table) 02/23/18 22:00 Blood Culture - Preliminary Blood No Growth after 48 hours 02/24/18 21:24 Blood Culture - Preliminary Blood No Growth after 24 hours 02/24/18 14:35 Gram Stain - Preliminary Buttock Wound Culture - Preliminary Presumptive Staph aureus Beta Hemolytic Strep Group G 02/23/18 22:46 Urine Culture - Final Urine,Catheterized Assessment and Plan (1) Acute encephalopathy Current Visit: Yes Status: Acute Code(s): G93.40 - ENCEPHALOPATHY, UNSPECIFIED SNOMED Code(s): 32498519 (2) History of drug abuse Current Visit: Yes Status: Acute Code(s): Z87.898 - PERSONAL HISTORY OF OTHER SPECIFIED CONDITIONS SNOMED Code(s): 763294078 (3) Aspiration pneumonia Current Visit: Yes Status: Acute Code(s): J69.0 - PNEUMONITIS DUE TO INHALATION OF FOOD AND VOMIT SNOMED Code(s): 708903790 (4) Obstructive sleep apnea Current Visit: Yes Status: Acute Code(s): G47.33 - OBSTRUCTIVE SLEEP APNEA ( ADULT) (PEDIATRIC) SNOMED Code(s): 49091100 Plan: This patient is a 53-year-old male being evaluated for episode of altered mental status secondary to possible drug overdose. Patient had a positive urine drug screen for methamphetamine. He was also found on computed tomography scan of the abdomen to have occlusion of the right iliofemoral graft. Patient underwent surgery for abdominal aortic aneurysm earlier in the year and on CAT scan was found to have possible thrombosis. He was scheduled for right iliofemoral thrombectomy this afternoon but this was placed on hold as he had a 6 second cardiac pause on telemetry. Cardiology was consulted and his surgery has been placed on hold. He was taken off of Lopressor. It is felt he may have had sinus pause secondary to posttussive episode which occurred simultaneously during this event. We will await further recommendations from cardiology. Patient neurologically remains intact. He is more awake and alert today on the [facility] floor. He was transferred out of ICU yesterday. He does have evidence of thrombosis in the right iliofemoral artery and will await further recommendations from vascular surgery at this time. His wound cultures have been noted by infectious disease. He is to continue with current antibiotics. We will continue to follow his neurological status closely during this admission. His overall prognosis at this time remains guarded.
--- NOTE | 2018-02-26 18:24 | PN ---
PROGRESS NOTE CHIEF COMPLAINT: 1. Drug ingestion overdose. 2. Possible ischemia of the right leg. 3. Sinus pauses. HISTORY OF PRESENT ILLNESS: This gentleman is doing fairly well, but apparently he is scheduled to go to the operating room for a procedure on his right leg. He is not having a great deal of pain and he is not having any numbness or tingling. 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 PHYSICAL EXAMINATION: CHEST: Clear. Cardiac exam is normal. Abdomen is soft, nontender. He has had no syncope or chest pain. IMPRESSION: 1. Status post drug ingestion overdose. 2. Sinus pauses. 3. ? ischemia of the right leg. 4. History of abdominal aortic aneurysm. PLAN: 1. Cardiology consult. 2. His right lower extremity circulation is being evaluated by Vascular Surgery. BRANDON / NELSON: [id number] /
[2018-02-26] MEDS: HEPARIN SODIUM,PORCINE/D5W PMX 25,000 UNIT in DEXTROSE/WATER 1 500ML.BAG IV SCH (18:46)
[2018-02-27] MEDS: SODIUM CHLORIDE 0.9% 1,000 ML IV SCH ×2 (00:35→08:34)
[2018-02-27] MEDS: VANCOMYCIN 2,000 MG in SODIUM CHLORIDE 0.9% 500 ML IVPB SCH (08:29)
[2018-02-27] MEDS: HEPARIN SODIUM,PORCINE/D5W PMX 25,000 UNIT in DEXTROSE/WATER 1 500ML.BAG IV SCH (08:30)
[2018-02-27] MEDS: ASPIRIN 81 MG PO SCH (08:33)
[2018-02-27] MEDS: BACLOFEN 10 MG TAB PO SCH (08:33)
[2018-02-27] MEDS: NICOTINE 21MG/24HR PATCH TRANSDERM SCH (08:33)
[2018-02-27] MEDS: PANTOPRAZOLE 40 MG TABLET PO SCH (08:33)
[2018-02-27] MEDS: SERTRALINE 25 MG TAB PO SCH (08:33)
[2018-02-27] MEDS: amLODIPine 10 MG TAB PO SCH (08:33)
[2018-02-27] MEDS: GABAPENTIN 300 MG CAP PO SCH ×2 (08:33→18:40)
[2018-02-27] MEDS: cloNIDine HCL 0.2 MG TAB PO SCH ×2 (08:33→18:40)
[2018-02-27] MEDS: LOSARTAN 50 MG TAB PO SCH (08:34)
--- NOTE | 2018-02-27 08:57 | XR ---
EXAMINATION TYPE: XR chest 1V portable DATE OF EXAM: 02/27/2018 HISTORY: Shortness of breath. COMPARISON: 02/26/2018 TECHNIQUE: Single view of the chest is submitted. FINDINGS: Demonstrated are scattered senescent parenchymal change. Strandy basilar density persists. Probable atelectasis and less likely infiltrate. Correlate clinical ly. The heart is stable. Hilar and mediastinal structures are within normal limits. Degenerative changes are seen of the dorsal spine. IMPRESSION: 1. Strandy basilar density persists. Probable atelectasis and less likely infiltrate. Correlate clin ically.
[2018-02-27] MEDS: SYMBICORT 160-4.5 MCG INHALER INHALATION SCH ×2 (09:02→20:39)
[2018-02-27 10:28] LABS: Anion Gap 9 mmol/L; Blood Urea Nitrogen 13 mg/dL (9-20); Calcium 8.3 mg/dL (8.4-10.2); Carbon Dioxide 25 mmol/L (22-30); Chloride 107 mmol/L (98-107); Glucose 153 mg/dL (74-99); Magnesium 1.8 mg/dL (1.6-2.3); Phosphorus 2.9 mg/dL (2.5-4.5); Potassium 3.6 mmol/L (3.5-5.1); Sodium 141 mmol/L (137-145)
[2018-02-27 10:29] LABS: Basophils # (A) 0.1 k/uL (0-0.2); Basophils % (A) 1 %; Eosinophils # (A) 0.2 k/uL (0-0.7); Eosinophils % (A) 3 %; HCT 36.5 % (39.0-53.0); HGB 12.1 gm/dL (13.0-17.5); Lymphocytes # (A) 1.3 k/uL (1.0-4.8); Lymphocytes % (A) 17 %; MCH 29.7 pg (25.0-35.0); MCV 89.9 fL (80.0-100.0); Monocytes # (A) 0.4 k/uL (0-1.0); Monocytes % (A) 5 %; Neutrophils # (A) 5.6 k/uL (1.3-7.7); Neutrophils % (A) 73 %; Platelet Count 193 k/uL (150-450); RBC 4.06 m/uL (4.30-5.90); WBC 7.6 k/uL (3.8-10.6)
--- NOTE | 2018-02-27 11:13 | P.PN ---
Subjective Progress Note Date: 02/27/18 Principal diagnosis: Encephalopathy HPI: This is a 53 year old gentleman who is well-known to [facility] who presented to the emergency department with altered mental status. This patient is currently unable to provide history. History is taken from nursing as well as medical records. The patient was apparently not acting himself at home. He lives with his daughter. He had several episodes of vomiting and his daughter called EMS. He does have a known history of alcohol abuse but denies use in the past 2 months. He did have AAA repair in 11/2017 and did go through alcohol withdrawals during that admission. His alcohol level on admission was 0. However, his UDS was positive for methamphetamine. The patient was admitted to the telemetry floor and became bradycardic. He was subsequently transferred to the ICU. He did recently have an admission to [facility] in 01/2018 for hypotension, sepsis, wound infection. He did have debridement done by Dr. Castro and was seen by ID - Dr. Matute. Patient is currently arousable, but is only answering "no" and "why" to questions. He denies taking any pills, using any drugs, drinking alcohol, or using any other substances. However, his mentation is poor at this time. He has been hypertensive. His O2 saturation is 98% on 2L NC. He does have periods of apnea and is being worked up outpatient for NOEL. Interval history: 02/25/2018- patient is being seen examined and evaluated today in the intensive care unit. The patient is more alert today. He answers all questions appropriately. He is asking for his NG tube to be removed. He is satting 100% on 2 L of supplemental oxygen. Feels his breathing is at baseline. We will restart his home Symbicort. Oxygen will be weaned off. NG tube is going to be taken out by nursing per routine orders. Chest x-ray was reviewed and does show persistent right basilar subsegmental atelectasis. He continues on Vanco and Zosyn as well as a heparin drip. Patient did undergo a CT of the abdomen and pelvis this He does have a suspected complete occlusion of his right aorto iliac stent graft and vascular consultation has been obtained. Patient also just underwent an EEG and those results are pending. 02/26/18- patient is being seen examined and evaluated today on the fourth floor. Currently the patient is resting up in bed on room air. Patient is scheduled to go for a right iliofemoral thrombectomy today with Dr. Glass. The patient did this morning have a 4 second cause followed by a 6 second pause while coughing. Cardiology was consulted and appreciate recommendations. Patient states he felt like his blood pressure was going up during the pauses. He was alertsyncope. His WBC count today is 9.3 his wound cultures were positive for staph aureus and beta-hemolytic strep group G. Patient's procedure is scheduled for 2 PM pending cardiology recommendations. 02/27/2018: Patient seen and examined. Patient states his breathing is good. He does note when he takes naps or sleep sent ninth that he has a hard time breathing and feels like he has to take deeper breaths. It is again reiterated to the patient that he needs a sleep study for possible obstructive sleep apnea. He has not been wearing the BiPAP. He is currently on room air. Plan is for OR today with vascular surgery. The patient has been hemodynamically stable. His respiratory status appears to be at baseline. Objective - Vital Signs Vital signs: Vital Signs Temp 99.3 F 02/27/18 06:30 Pulse 66 02/27/18 06:30 Resp 18 02/27/18 06:30 BP 133/79 02/27/18 06:30 Pulse Ox 95 02/27/18 06:30 Intake & Output 02/26/18 02/27/18 02/27/18 18:59 06:59 18:59 Intake Total 185.803 9467 567.064 Output Total 1300 1950 Balance -1102.668 -850 567.064 Weight 89.5 kg Intake: Intake, IV Titration 197.332 567.064 Amount Heparin Sodium,Porcine/ 197.332 567.064 D5w Pmx 25,000 unit In Dextrose/Water 1 500ml. bag @ 9.091 UNITS/KG/HR 20 mls/hr IV .Q24H [facility] Rx #:[id number] Oral 1100 Output: Urine 1300 1950 Other: Voiding Method Urinal Urinal Urinal # Voids 4 2 # Bowel Movements 1 1 - Exam GENERAL EXAM: Alert, comfortable in no apparent distress. HEAD: Normocephalic. EYES: Normal reaction of pupils, equal size. NOSE: Clear with pink turbinates. THROAT: No erythema or exudates. NECK: No masses, no JVD. CHEST: No chest wall deformity. LUNGS: Equal air entry with no crackles, wheeze, rhonchi or dullness. CVS: S1 and S2 normal with no audible mumurs, regular rhythm. ABDOMEN: No hepatosplenomegaly, normal bowel sounds, no guarding or rigidity. Right flank wound with green archer purulent drainage EXTREMITIES: No edema noted, pedal pulses palpable. CENTRAL NERVOUS SYSTEM: No focal deficits, tone is normal in all 4 extremities. - Labs CBC & Chem 7: 02/27/18 09:15 02/27/18 09:15 Labs: Abnormal Lab Results - Last 24 Hours (Table) 02/26/18 02/27/18 02/27/18 Range/Units 18:09 09:15 09:15 RBC 4.06 L (4.30-5.90) m/uL Hgb 12.1 L (13.0-17.5) gm/dL Hct 36.5 L (39.0-53.0) % APTT 58.6 H (22.0-30.0) sec Glucose 153 H (74-99) mg/dL Calcium 8.3 L (8.4-10.2) mg/dL 02/27/18 Range/Units 09:15 RBC (4.30-5.90) m/uL Hgb (13.0-17.5) gm/dL Hct (39.0-53.0) % APTT 52.9 H (22.0-30.0) sec Glucose (74-99) mg/dL Calcium (8.4-10.2) mg/dL Microbiology - Last 24 Hours (Table) 02/23/18 22:00 Blood Culture - Preliminary Blood No Growth after 72 hours 02/24/18 21:24 Blood Culture - Preliminary Blood No Growth after 48 hours 02/24/18 14:35 Gram Stain - Final Buttock Wound Culture - Final Staphylococcus aureus Beta Hemolytic Strep Group G Assessment and Plan Assessment: Acute toxic encephalopathy - resolved Bibasilar atelectasis Suspect underlying NOEL Sepsis POA - resolved Right flank wound/hematoma with purulent drainage, s/p I&D 01/2018 UDS positive for methamphetamine History of alcohol abuse Hyperglycemia Sinus bradycardia intermittently COPD with active tobacco abuse History of PAD, AAA repair 11/2017 Hypertension Anxiety/depression Plan O2 to maintain saturation > or = 90% Discontinue CPAP, patient is refusing to wear at this time - patient encouraged to follow up for outpatient PSG ABX: per ID Wound culture-positive for staph aureus and beta-hemolytic strep group G Sputum culture, unable to obtain Blood cultures, negative so far Aspiration precautions IVF hydration Symbicort, Atrovent scheduled Albuterol PRN Discontinue Ativan GI and DVT prophylaxis Wound care per infectious disease Plan for OR with vascular surgery today Respiratory status is at baseline
--- NOTE | 2018-02-27 11:48 | P.PN ---
Subjective Mr. Bailon is seen and examined today resting comfortably in bed. Telemetry tracings reveal normal sinus mechanism with no further sinus pauses noted. He denies any further symptoms of dizziness as well. No chest pain, shortness of breath, palpitations, nausea or vomiting. Blood pressure 133/79 heart rate 66. Echocardiogram performed yesterday revealed preserved left ventricular systolic function with ejection fraction 55-60%, moderately dilated left atrium and mild MR. Laboratory data reviewed, TSH 2.25, sodium 141, potassium 3.6, creatinine 0.7, platelets 193, hemoglobin 12.1. Objective - Vital Signs Vital signs: Vital Signs Temp 99.3 F 02/27/18 06:30 Pulse 66 02/27/18 06:30 Resp 18 02/27/18 06:30 BP 133/79 02/27/18 06:30 Pulse Ox 95 02/27/18 06:30 Intake & Output 02/26/18 02/27/18 02/27/18 18:59 06:59 18:59 Intake Total 552.404 2537 567.064 Output Total 1300 1950 Balance -1102.668 -850 567.064 Weight 89.5 kg Intake: Intake, IV Titration 197.332 567.064 Amount Heparin Sodium,Porcine/ 197.332 567.064 D5w Pmx 25,000 unit In Dextrose/Water 1 500ml. bag @ 9.091 UNITS/KG/HR 20 mls/hr IV .Q24H [facility] Rx #:[id number] Oral 1100 Output: Urine 1300 1950 Other: Voiding Method Urinal Urinal Urinal # Voids 4 2 # Bowel Movements 1 1 - Exam GENERAL: Well-appearing, well-nourished and in no acute distress. NECK: Supple without JVD or thyromegaly. LUNGS: Breath sounds clear to auscultation bilaterally. Respiration equal and unlabored. No wheezes, rales or rhonchi. HEART: Regular rate and rhythm without murmurs, rubs or gallops. S1 and S2 heard. EXTREMITIES: Normal range of motion, no edema. No clubbing or cyanosis. - Labs CBC & Chem 7: 02/27/18 09:15 02/27/18 09:15 Labs: Abnormal Lab Results - Last 24 Hours (Table) 06/05/18 06/06/18 06/06/18 Range/Units 18:09 09:15 09:15 RBC 4.06 L (4.30-5.90) m/uL Hgb 12.1 L (13.0-17.5) gm/dL Hct 36.5 L (39.0-53.0) % APTT 58.6 H (22.0-30.0) sec Glucose 153 H (74-99) mg/dL Calcium 8.3 L (8.4-10.2) mg/dL 02/27/18 Range/Units 09:15 RBC (4.30-5.90) m/uL Hgb (13.0-17.5) gm/dL Hct (39.0-53.0) % APTT 52.9 H (22.0-30.0) sec Glucose (74-99) mg/dL Calcium (8.4-10.2) mg/dL Microbiology - Last 24 Hours (Table) 02/23/18 22:00 Blood Culture - Preliminary Blood No Growth after 72 hours 02/24/18 21:24 Blood Culture - Preliminary Blood No Growth after 48 hours 02/24/18 14:35 Gram Stain - Final Buttock Wound Culture - Final Staphylococcus aureus Beta Hemolytic Strep Group G Assessment and Plan Assessment: ASSESSMENT 1. Sinus pause possibly secondary to post-tussive episode. 2. COPD 3. History of aortic aneurysm repair 11/[address] Carrillo 4. Hypertension 5. Chronic alcohol abuse 6. Right iliac limb occlusion PLAN No further sinus pauses noted on telemetry tracings. Beta blocking agents discontinued completely. Stable from a cardiac perspective. The above impression and plan of care have been discussed and directed by the signing physician. Janki Pratt, nurse practitioner, acting as scribe for signing physician.
[2018-02-27] MEDS: IPRATROPIUM 0.5 MG/2.5 ML NEBU INHALATION SCH ×2 (13:08→20:39)
[2018-02-27] MEDS ORDERED: IV FLUID CONTINUATION 1,000 ML IV ONE ×2 (15:13→15:14)
[2018-02-27] MEDS ORDERED: MORPHINE SULFATE 10 MG/ML SYRINGE ONE (16:52)
[2018-02-27] MEDS ORDERED: PROPOFOL 10 MG/ML 20 ML VIAL IV ONE (16:52)
[2018-02-27] MEDS ORDERED: fentaNYL (PF) 50 MCG/ML 2 ML AMP ONE (16:52)
[2018-02-27] MEDS ORDERED: ceFAZolin 1,000 MG VIAL ONE (16:52)
[2018-02-27] MEDS ORDERED: SUCCINYLCHOLINE CHLORIDE 100 MG/5 ML SYR IV ONE (16:52)
[2018-02-27] MEDS ORDERED: ePHEDrine SULFATE/0.9% NACL/PF 50 MG/5 ML SYRINGE IV ONE (16:52)
[2018-02-27] MEDS ORDERED: PHENYLEPHRINE-0.9% NACL SYG 1 MG/10 ML SYRINGE ONE (16:52)
[2018-02-27] MEDS ORDERED: MIDAZOLAM 2 MG/2 ML VIAL ONE (16:52)
[2018-02-27] MEDS ORDERED: ROCURONIUM BROMIDE 10 MG/ML 10 ML VIAL IV ONE (16:52)
[2018-02-27] MEDS ORDERED: HEPARIN SODIUM,PORCINE 10,000 UNIT/ML 1 ML VIAL ONE (16:52)
[2018-02-27] MEDS ORDERED: THROMBIN (BOVINE) 5,000 UNIT VIAL MISCELLANE ONE (16:56)
[2018-02-27] MEDS ORDERED: GELATIN SPONGE,ABSORB (LARGE) 1 EACH SPONGE TOPICAL ONE (16:57)
[2018-02-27] MEDS ORDERED: IOHEXOL 350 MG/ML 50ML BOTTLE MISCELLANE ONE (16:57)
[2018-02-27] MEDS ORDERED: LACTATED RINGERS 1,000 ML IV ONE ×3 (17:28→20:35)
--- NOTE | 2018-02-27 17:52 | HP ---
HISTORY AND PHYSICAL CHIEF COMPLAINT: Drug overdose. HISTORY OF PRESENT ILLNESS: This gentleman is doing fairly well and he has been cleared by Cardiology. He may be going for the procedure on his right femoral artery today. PHYSICAL EXAM: CHEST: Clear. Cardiac exam is normal. Abdomen is soft, nontender. Right foot is fairly warm, but there is no pulse. IMPRESSION: 1. Drug ingestion overdose. 2. Peripheral vascular occlusive disease. PLAN: He may have a procedure done on his right leg today. MMODL / IJN: [id number] /
[2018-02-27] MEDS ORDERED: IOPAMIDOL-370 50ML BTL MISCELLANE ONE ×3 (18:15)
[2018-02-27] MEDS ORDERED: HEPARIN SODIUM,PORCINE 10,000 UNIT in SODIUM CHLORIDE 0.9% 1,000 ML IRRIGATION ONE (18:49)
--- NOTE | 2018-02-27 22:07 | PN ---
PROGRESS NOTE DATE OF SERVICE: 02/27/2018. REASON FOR FOLLOWUP: Right leg wound and secondary infection. INTERVAL HISTORY: The patient is currently afebrile. He was seen on rounds earlier this afternoon. Waiting for his surgery. No chest pain, shortness of breath or cough. No abdominal pain or any diarrhea. EXAMINATION: Blood pressure 130/69, pulse of 95, temperature of 98.8. He is 95% on room air. General description is a middle-aged male lying in bed in no distress. RESPIRATORY SYSTEM: Unlabored breathing. Clear to auscultation anteriorly. HEART: S1, S2. Regular rate and rhythm. ABDOMEN: Soft, no tenderness. Right flank wound: No purulence was noticed with significantly more drainage. LABS: Hemoglobin is 12.1, white count 7.6. BUN of 13, creatinine 0.87. Wound culture finalized with Staph aureus and group B strep. DIAGNOSTIC IMPRESSION AND PLAN: Patient has a right flank wound, traumatic, with a positive culture, question of possible colonization versus infection. Antibiotic will be adjusted to cefazolin for a short course while his condition stabilizes. Local care to continue with Aquacel silver dressing. Continue supportive care. MMODL / IJN: [id number] /
[2018-02-27] MEDS: ALTEPLASE 2 MG VIAL (CATHFLO) IV SCH ×2 (22:28→22:34)
[2018-02-27] MEDS ORDERED: PROPOFOL 100 ML IV ONE (23:43)
[2018-02-27] MEDS ORDERED: ALTEPLASE 10 MG in SODIUM CHLORIDE 0.9% 250 ML IV SCH (23:45)
[2018-02-27 23:57] LABS: Glucose,Whole Blood 117 mg/dL (75-99)
[2018-02-28] MEDS ORDERED: ALTEPLASE 10 MG in SODIUM CHLORIDE 0.9% 250 ML IV SCH ×4 (00:01→00:03)
[2018-02-28 00:14] LABS: Basophils % (A) 0 %; Eosinophils # (A) 0.1 k/uL (0-0.7); Eosinophils % (A) 1 %; HCT 37.2 % (39.0-53.0); HGB 12.1 gm/dL (13.0-17.5); Lymphocytes # (A) 0.9 k/uL (1.0-4.8); Lymphocytes % (A) 10 %; MCHC 32.5 g/dL (31.0-37.0); MCV 92.4 fL (80.0-100.0); Mean Platelet Volume 6.8; Monocytes # (A) 0.4 k/uL (0-1.0); Monocytes % (A) 4 %; Neutrophils # (A) 7.8 k/uL (1.3-7.7); Neutrophils % (A) 84 %; Platelet Count 187 k/uL (150-450); RBC 4.03 m/uL (4.30-5.90); RDW 14.4 % (11.5-15.5); WBC 9.3 k/uL (3.8-10.6)
[2018-02-28] MEDS: LACTATED RINGERS 1,000 ML IV SCH (00:19)
[2018-02-28 00:30] LABS: INR 1.1 (<1.2); Partial Thromboplastin Time 29.9 sec (22.0-30.0); Prothrombin Time 10.3 sec (9.0-12.0)
[2018-02-28] MEDS ORDERED: HEPARIN SODIUM,PORCINE 5,000 UNIT in SODIUM CHLORIDE 0.9% 500 ML IV ONE (00:30)
[2018-02-28 00:32] LABS: ABG Base Excess -2.9 mmol/L; ABG HCO3 23 mmol/L (21-25); ABG Oxygen Saturation 95.7 % (94-97); ABG PCO2 42 mmHg (35-45); ABG PH 7.34 (7.35-7.45); ABG PO2 83 mmHg (83-108); ABG TCO2 24 mmol/L (19-24)
[2018-02-28 00:37] LABS: Calcium 8.5 mg/dL (8.4-10.2); Potassium 3.9 mmol/L (3.5-5.1)
[2018-02-28] MEDS ORDERED: PROPOFOL 1,000 MG in EMPTY BAG 1 BAG IV SCH (01:30)
[2018-02-28] MEDS: SODIUM CHLORIDE 0.9% 1,000 ML IV SCH ×6 (01:44→21:59)
--- NOTE | 2018-02-28 01:57 | XR ---
EXAMINATION TYPE: XR chest 1V DATE OF EXAM: 02/28/2018 COMPARISON: Yesterday HISTORY: Check tube placement TECHNIQUE: Single frontal view of the chest is obtained. FINDINGS: Endotracheal tube has tip 3.5 cm from the chelsie. There is no gross heart failure. Lungs a re clear of consolidation. There is nasogastric tube that appears in good position. There are chest l remington. Costophrenic angles are clear. IMPRESSION: No heart failure or pulmonary consolidation. Endotracheal tube is in good position.
[2018-02-28] MEDS ORDERED: VANCOMYCIN 2,000 MG in SODIUM CHLORIDE 0.9% 500 ML IVPB SCH (02:00)
[2018-02-28] MEDS ORDERED: VANCOMYCIN IV PER PHARMACY 1 EACH MISC MISCELLANE ONE (02:00)
[2018-02-28] MEDS: BACLOFEN 10 MG TAB PO SCH ×3 (03:18→20:17)
[2018-02-28] MEDS: cloNIDine HCL 0.2 MG TAB PO SCH ×4 (03:18→22:00)
[2018-02-28] MEDS: GABAPENTIN 300 MG CAP PO SCH ×4 (03:19→22:00)
[2018-02-28] MEDS: HYDROmorphone 0.5 MG/0.5 ML SYRINGE IVP PRN ×7 (04:23→23:26)
[2018-02-28 05:36] LABS: Calcium 8.2 mg/dL (8.4-10.2); Magnesium 1.8 mg/dL (1.6-2.3); Phosphorus 5.8 mg/dL (2.5-4.5); Potassium 4.1 mmol/L (3.5-5.1)
[2018-02-28 05:37] LABS: Basophils % (A) 0 %; Eosinophils # (A) 0.1 k/uL (0-0.7); Eosinophils % (A) 2 %; HCT 35.8 % (39.0-53.0); HGB 11.4 gm/dL (13.0-17.5); Lymphocytes # (A) 1.3 k/uL (1.0-4.8); Lymphocytes % (A) 14 %; MCH 29.6 pg (25.0-35.0); MCHC 31.9 g/dL (31.0-37.0); MCV 92.7 fL (80.0-100.0); Mean Platelet Volume 7.1; Monocytes # (A) 0.5 k/uL (0-1.0); Monocytes % (A) 5 %; Neutrophils # (A) 7.2 k/uL (1.3-7.7); Neutrophils % (A) 78 %; Platelet Count 172 k/uL (150-450); RBC 3.86 m/uL (4.30-5.90); RDW 14.4 % (11.5-15.5); WBC 9.2 k/uL (3.8-10.6)
[2018-02-28 05:39] LABS: ABG Base Excess -2.2 mmol/L; ABG HCO3 23 mmol/L (21-25); ABG Oxygen Saturation 97.7 % (94-97); ABG PCO2 42 mmHg (35-45); ABG PH 7.35 (7.35-7.45); ABG PO2 104 mmHg (83-108); ABG TCO2 25 mmol/L (19-24)
[2018-02-28] MEDS: SYMBICORT 160-4.5 MCG INHALER INHALATION SCH ×2 (08:07→19:26)
[2018-02-28] MEDS: IPRATROPIUM 0.5 MG/2.5 ML NEBU INHALATION SCH ×2 (08:08→13:14)
[2018-02-28] MEDS: ALBUTEROL NEBULIZED 2.5 MG/3 ML INHALATION PRN (08:08)
--- NOTE | 2018-02-28 08:08 | FL ---
Fluoroscopy INDICATION: Pain FINDINGS: Fluoroscopy time: 50 minutes 56 seconds. Images obtained: 10. IMPRESSIONS: 1. Documentation of fluoroscopy.
[2018-02-28] MEDS: amLODIPine 10 MG TAB PO SCH (09:27)
[2018-02-28] MEDS: SERTRALINE 25 MG TAB PO SCH (09:27)
[2018-02-28] MEDS: PANTOPRAZOLE 40 MG TABLET PO SCH (09:27)
[2018-02-28] MEDS: LOSARTAN 50 MG TAB PO SCH (09:27)
[2018-02-28] MEDS: ASPIRIN 81 MG PO SCH (09:27)
[2018-02-28] MEDS: NICOTINE 21MG/24HR PATCH TRANSDERM SCH ×2 (09:40→09:42)
[2018-02-28] MEDS: MAGNESIUM SULFATE-D5W PMX 1 GM in DEXTROSE/WATER 1 100ML.BAG IVPB SCH ×2 (10:28→12:59)
--- NOTE | 2018-02-28 10:30 | P.PN ---
<Cassia Agarwal E - Last Filed: 02/28/18 10:19> Subjective Progress Note Date: 02/28/18 HPI: This is a 53 year old gentleman who is well-known to [facility] who presented to the emergency department with altered mental status. This patient is currently unable to provide history. History is taken from nursing as well as medical records. The patient was apparently not acting himself at home. He lives with his daughter. He had several episodes of vomiting and his daughter called EMS. He does have a known history of alcohol abuse but denies use in the past 2 months. He did have AAA repair in 11/2017 and did go through alcohol withdrawals during that admission. His alcohol level on admission was 0. However, his UDS was positive for methamphetamine. The patient was admitted to the telemetry floor and became bradycardic. He was subsequently transferred to the ICU. He did recently have an admission to [facility] in 01/2018 for hypotension, sepsis, wound infection. He did have debridement done by Dr. Castro and was seen by ID - Dr. Matute. Patient is currently arousable, but is only answering "no" and "why" to questions. He denies taking any pills, using any drugs, drinking alcohol, or using any other substances. However, his mentation is poor at this time. He has been hypertensive. His O2 saturation is 98% on 2L NC. He does have periods of apnea and is being worked up outpatient for NOEL. Interval history: 02/25/2018- patient is being seen examined and evaluated today in the intensive care unit. The patient is more alert today. He answers all questions appropriately. He is asking for his NG tube to be removed. He is satting 100% on 2 L of supplemental oxygen. Feels his breathing is at baseline. We will restart his home Symbicort. Oxygen will be weaned off. NG tube is going to be taken out by nursing per routine orders. Chest x-ray was reviewed and does show persistent right basilar subsegmental atelectasis. He continues on Vanco and Zosyn as well as a heparin drip. Patient did undergo a CT of the abdomen and pelvis this He does have a suspected complete occlusion of his right aorto iliac stent graft and vascular consultation has been obtained. Patient also just underwent an EEG and those results are pending. 02/26/18- patient is being seen examined and evaluated today on the fourth floor. Currently the patient is resting up in bed on room air. Patient is scheduled to go for a right iliofemoral thrombectomy today with Dr. Glass. The patient did this morning have a 4 second cause followed by a 6 second pause while coughing. Cardiology was consulted and appreciate recommendations. Patient states he felt like his blood pressure was going up during the pauses. He was alertsyncope. His WBC count today is 9.3 his wound cultures were positive for staph aureus and beta-hemolytic strep group G. Patient's procedure is scheduled for 2 PM pending cardiology recommendations. 02/27/15- patient is being seen examined and evaluated today on rounds in the intensive care unit. The patient did undergo a thrombectomy yesterday with Dr. Coe, please see procedure notes for details. The patient was sent postoperatively to the intensive care unit stable on mechanical ventilation with propofol for sedation to continue overnight. [employer] was notified of the patient's status, he was hemodynamically stable. ABGs were obtained and were reviewed with the RN, pH of 7.34, pCO2 42, pO2 83, HCO3 23, with a base excess of -2.9. Patient's chest x-ray was reviewed and ET tube was in place. He did not require any vasopressors. He was on heparin and TPA per vascular surgery to be continued through the night until 10 AM today. Patient will undergo spontaneous breathing trials once TPA and heparin are discontinued. Upon examination the patient's sedation has been weaned off he is alert, nodding appropriately, he continues to be hemodynamically stable. Case is reviewed with the nurse at length. Anticipate extubation in the near future. Objective - Vital Signs Vital signs: Vital Signs Temp 98.3 F 02/28/18 04:00 Pulse 87 02/28/18 08:44 Resp 24 02/28/18 07:00 BP 113/65 02/28/18 07:00 Pulse Ox 100 02/28/18 07:00 Intake & Output 02/27/18 02/28/18 02/28/18 18:59 06:59 18:59 Intake Total 2568.064 1589 270 Output Total 2950 670 65 Balance -381.936 919 205 Weight 113 kg Intake: IV 1501 1589 170 Alteplase 10 mg In Sodium 100 25 Chloride 0.9% 250 ml @ 25 mls/hr IV .Q10H [facility] Rx #:[id number] Heparin Sodium,Porcine/ 80 20 D5w Pmx 25,000 unit In Dextrose/Water 1 500ml. bag @ 9.091 UNITS/KG/HR 20 mls/hr IV .Q24H [facility] Rx #:[id number] Sodium Chloride 0.9% 1, 375 125 000 ml @ 125 mls/hr IV . Q8H [facility] Rx#:[id number] Vancomycin 2,000 mg In 334 Sodium Chloride 0.9% 500 ml @ 167 mls/hr IVPB Q12H [facility] Rx#:[id number] Intake, IV Titration 1067.064 100 Amount Heparin Sodium,Porcine/ 567.064 D5w Pmx 25,000 unit In Dextrose/Water 1 500ml. bag @ 9.091 UNITS/KG/HR 20 mls/hr IV .Q24H [facility] Rx #:[id number] Propofol 1,000 mg In 100 Empty Bag 1 bag @ Titrate IV .Q0M [facility] Rx#: [id number] Vancomycin 2,000 mg In 500 Sodium Chloride 0.9% 500 ml @ 167 mls/hr IVPB Q12H [facility] Rx#:[id number] Output: Urine 2700 670 65 Estimated Blood Loss 250 Other: Voiding Method Urinal Urinal # Voids 2 - Exam GENERAL EXAM: Alert, comfortable in no apparent distress, on mechanical ventilation with no sedation. HEAD: Normocephalic. EYES: Normal reaction of pupils, equal size. NOSE: Clear with pink turbinates. THROAT: No erythema or exudates. NECK: No masses, no JVD. CHEST: No chest wall deformity. LUNGS: Lungs slightly coarse. Tolerating mechanical ventilation well CVS: S1 and S2 normal with no audible mumurs, regular rhythm. ABDOMEN: No hepatosplenomegaly, normal bowel sounds, no guarding or rigidity. Right flank wound with green archer purulent drainage EXTREMITIES: No edema noted, pedal pulses palpable, weak. CENTRAL NERVOUS SYSTEM: On mechanical ventilation, no sedation, nods appropriately, moves all extremities No focal deficits, tone is normal in all 4 extremities. - Labs CBC & Chem 7: 02/28/18 04:57 02/28/18 04:57 Labs: Abnormal Lab Results - Last 24 Hours (Table) 02/27/18 02/27/18 02/27/18 Range/Units 09:15 09:15 23:54 RBC 4.06 L (4.30-5.90) m/uL Hgb 12.1 L (13.0-17.5) gm/dL Hct 36.5 L (39.0-53.0) % Neutrophils # (1.3-7.7) k/uL Lymphocytes # (1.0-4.8) k/uL ABG pH (7.35-7.45) ABG Total CO2 (19-24) mmol/L ABG O2 Saturation (94-97) % Creatinine (0.66-1.25) mg/dL Glucose 153 H (74-99) mg/dL POC Glucose (mg/dL) 117 H (75-99) mg/dL Calcium 8.3 L (8.4-10.2) mg/dL Phosphorus (2.5-4.5) mg/dL 02/28/18 02/28/18 02/28/18 Range/Units 00:02 00:02 00:26 RBC 4.03 L (4.30-5.90) m/uL Hgb 12.1 L (13.0-17.5) gm/dL Hct 37.2 L (39.0-53.0) % Neutrophils # 7.8 H (1.3-7.7) k/uL Lymphocytes # 0.9 L (1.0-4.8) k/uL ABG pH 7.34 L (7.35-7.45) ABG Total CO2 (19-24) mmol/L ABG O2 Saturation (94-97) % Creatinine 1.30 H (0.66-1.25) mg/dL Glucose 111 H (74-99) mg/dL POC Glucose (mg/dL) (75-99) mg/dL Calcium (8.4-10.2) mg/dL Phosphorus (2.5-4.5) mg/dL 02/28/18 02/28/18 02/28/18 Range/Units 04:57 04:57 05:36 RBC 3.86 L (4.30-5.90) m/uL Hgb 11.4 L (13.0-17.5) gm/dL Hct 35.8 L (39.0-53.0) % Neutrophils # (1.3-7.7) k/uL Lymphocytes # (1.0-4.8) k/uL ABG pH (7.35-7.45) ABG Total CO2 25 H (19-24) mmol/L ABG O2 Saturation 97.7 H (94-97) % Creatinine 1.53 H (0.66-1.25) mg/dL Glucose 100 H (74-99) mg/dL POC Glucose (mg/dL) (75-99) mg/dL Calcium 8.2 L (8.4-10.2) mg/dL Phosphorus 5.8 H (2.5-4.5) mg/dL Microbiology - Last 24 Hours (Table) 02/27/18 12:59 Gram Stain - Preliminary Sputum 02/23/18 22:00 Blood Culture - Preliminary Blood No Growth after 96 hours 02/24/18 21:24 Blood Culture - Preliminary Blood No Growth after 72 hours Assessment and Plan Assessment: Assessment Acute toxic encephalopathy Possible aspiration pneumonia Suspect underlying NOEL Sepsis POA Right flank wound/hematoma with purulent drainage, wound vac, s/p I&D 01/2018 UDS positive for methamphetamine History of alcohol abuse Hyperglycemia Sinus bradycardia intermittently COPD with active tobacco abuse History of PAD, AAA repair 11/2017 Hypertension Anxiety/depression Status post thrombectomy day 1 Plan Medications reviewed and will be continued Per vascular surgery TPA and heparin to continue until 10 AM, Spontaneous breathing trials Anticipate extubation in the near future O2 to maintain saturation > or = 90% CPAP nightly, and with naps ABX: Vanco and Zosyn Wound culture-positive for staph aureus and beta-hemolytic strep group G Sputum culture, unable to obtain Blood cultures, negative so far Aspiration precautions NPO for now Neurology evaluation, Radiology recommendations Telemetry monitoring - bradycardia possibly related to NOEL Consult ID - Dr. Matute IVF hydration Seizure precautions Hydralazine PRN SBP > 140 until able to restart home PO BP meds Symbicort GI and DVT prophylaxis Wound care per infectious disease Thank you for this consultation. We will continue to follow along. I performed an examination of the patient and discussed their management with the nurse practitioner. I have reviewed the nurse practitioner's note and agree with the documented findings and plan of care. <Brittney Mcguire - Last Filed: 02/28/18 14:14> Objective - Vital Signs Vital signs: Vital Signs Temp 98.5 F 06/07/18 12:00 Pulse 113 H 02/28/18 13:26 Resp 17 02/28/18 13:00 BP 138/70 02/28/18 13:00 Pulse Ox 91 L 02/28/18 13:00 Intake & Output 02/27/18 02/28/18 02/28/18 18:59 06:59 18:59 Intake Total 2568.064 1589 945 Output Total 2950 670 165 Balance -381.936 919 780 Weight 113 kg Intake: IV 1501 1589 845 Alteplase 10 mg In Sodium 100 75 Chloride 0.9% 250 ml @ 25 mls/hr IV .Q10H [facility] Rx #:[id number] Heparin Sodium,Porcine/ 80 170 D5w Pmx 25,000 unit In Dextrose/Water 1 500ml. bag @ 9.091 UNITS/KG/HR 20 mls/hr IV .Q24H [facility] Rx #:[id number] Magnesium Sulfate-D5w Pmx 100 1 gm In Dextrose/Water 1 100ml.bag @ 100 mls/hr IVPB Q1H [facility] Rx#: [id number] Sodium Chloride 0.9% 1, 375 500 000 ml @ 125 mls/hr IV . Q8H [facility] Rx#:[id number] Vancomycin 2,000 mg In 334 Sodium Chloride 0.9% 500 ml @ 167 mls/hr IVPB Q12H [facility] Rx#:[id number] Intake, IV Titration 1067.064 100 Amount Heparin Sodium,Porcine/ 567.064 D5w Pmx 25,000 unit In Dextrose/Water 1 500ml. bag @ 9.091 UNITS/KG/HR 20 mls/hr IV .Q24H [facility] Rx #:[id number] Propofol 1,000 mg In 100 Empty Bag 1 bag @ Titrate IV .Q0M [facility] Rx#: [id number] Vancomycin 2,000 mg In 500 Sodium Chloride 0.9% 500 ml @ 167 mls/hr IVPB Q12H [facility] Rx#:[id number] Output: Urine 2700 670 165 Estimated Blood Loss 250 Other: Voiding Method Urinal Urinal # Voids 2 - Labs CBC & Chem 7: 02/28/18 04:57 02/28/18 04:57 Labs: Abnormal Lab Results - Last 24 Hours (Table) 02/27/18 02/28/18 02/28/18 Range/Units 23:54 00:02 00:02 RBC 4.03 L (4.30-5.90) m/uL Hgb 12.1 L (13.0-17.5) gm/dL Hct 37.2 L (39.0-53.0) % Neutrophils # 7.8 H (1.3-7.7) k/uL Lymphocytes # 0.9 L (1.0-4.8) k/uL ABG pH (7.35-7.45) ABG Total CO2 (19-24) mmol/L ABG O2 Saturation (94-97) % Creatinine 1.30 H (0.66-1.25) mg/dL Glucose 111 H (74-99) mg/dL POC Glucose (mg/dL) 117 H (75-99) mg/dL Calcium (8.4-10.2) mg/dL Phosphorus (2.5-4.5) mg/dL 02/28/18 02/28/18 02/28/18 Range/Units 00:26 04:57 04:57 RBC 3.86 L (4.30-5.90) m/uL Hgb 11.4 L (13.0-17.5) gm/dL Hct 35.8 L (39.0-53.0) % Neutrophils # (1.3-7.7) k/uL Lymphocytes # (1.0-4.8) k/uL ABG pH 7.34 L (7.35-7.45) ABG Total CO2 (19-24) mmol/L ABG O2 Saturation (94-97) % Creatinine 1.53 H (0.66-1.25) mg/dL Glucose 100 H (74-99) mg/dL POC Glucose (mg/dL) (75-99) mg/dL Calcium 8.2 L (8.4-10.2) mg/dL Phosphorus 5.8 H (2.5-4.5) mg/dL 02/28/18 02/28/18 Range/Units 05:36 11:00 RBC (4.30-5.90) m/uL Hgb (13.0-17.5) gm/dL Hct (39.0-53.0) % Neutrophils # (1.3-7.7) k/uL Lymphocytes # (1.0-4.8) k/uL ABG pH (7.35-7.45) ABG Total CO2 25 H (19-24) mmol/L ABG O2 Saturation 97.7 H 97.1 H (94-97) % Creatinine (0.66-1.25) mg/dL Glucose (74-99) mg/dL POC Glucose (mg/dL) (75-99) mg/dL Calcium (8.4-10.2) mg/dL Phosphorus (2.5-4.5) mg/dL Microbiology - Last 24 Hours (Table) 02/27/18 12:59 Gram Stain - Preliminary Sputum 02/23/18 22:00 Blood Culture - Preliminary Blood No Growth after 96 hours 02/24/18 21:24 Blood Culture - Preliminary Blood No Growth after 72 hours Assessment and Plan Assessment: Patient seen and examined in the intensive care unit with nursing staff at bedside. The patient has been extubated. He is on 2 L nasal cannula doing well. He is asking for something to eat. He is also requesting that his nebulizer treatments be either discontinued or decreased. He states he hates them. He denies shortness of breath. The patient did have intermittent atrial fibrillation on the quality assurance monitor chassis. EKG is being performed. Cardiology will be reconsulted. Continue to monitor in ICU. Patient is now off heparin and TPA per vascular surgery. Sheeth has been pulled. ~Brittney Mcguire DO
[2018-02-28 11:02] LABS: ABG Base Excess -3.4 mmol/L; ABG HCO3 22 mmol/L (21-25); ABG Oxygen Saturation 97.1 % (94-97); ABG PCO2 40 mmHg (35-45); ABG PH 7.35 (7.35-7.45); ABG PO2 92 mmHg (83-108); ABG TCO2 23 mmol/L (19-24)
[2018-02-28] MEDS ORDERED: DILTIAZEM 50 MG in SODIUM CHLORIDE 0.9% 40 ML IV SCH (14:15)
[2018-02-28] MEDS: ceFAZolin IN SWFI 2 GM/20 ML SYRINGE IVP SCH ×2 (15:53→23:11)
--- NOTE | 2018-02-28 17:55 | P.PN ---
Subjective Progress Note Date: 02/28/18 This patient is a 53-year-old right-handed white male initially admitted to the hospital with symptoms of altered mental status and confusion. Patient was initially evaluated in the intensive care unit and underwent a computed tomography scan of the brain and had positive urine drug screen for methamphetamine. He was felt to have a degree of toxic metabolic encephalopathy. He showed slow improvement in his mental status and was transferred to the medical floor. Once on the medical floor he developed evidence of sinus pause and was evaluated by cardiology. Patient was found to have evidence of a right iliofemoral occlusion producing symptoms in his right leg. He was seen by vascular surgery and it was recommended he undergo a right iliofemoral thrombectomy. This procedure was completed yesterday by Dr. Coe and Dr. Glass. Patient underwent a right iliofemoral thrombectomy with balloon angioplasty. Right femoral endarterectomy with patch was also performed. Patient was transferred from the surgical floor to the intensive care unit as he was intubated. He did show improvement in his mental status today and was able to be extubated this morning at 11 AM. He is now seen this afternoon in the intensive care unit and seems to be quite awake and alert. He is able to answer all questions appropriately. This afternoon he developed new onset of atrial fibrillation and was placed on a Cardizem drip. Cardiology has been consulted. He is now on just 2 L nasal cannula and seems to be doing quite well. Patient states that he was able to work with physical therapy today. He has noted some pain in the right leg which may be secondary to his history of neuropathy. We will wait to see how he does with therapy. The patient is monitored closely in the ICU today. As noted he does show evidence of new onset of atrial fibrillation. We will await further recommendations from cardiology. His overall mental status in the ICU today remains quite stable. He is alert and oriented. He denies any focal weakness. We will continue close neurological follow-up of this patient in the ICU setting. Objective - Vital Signs Vital signs: Vital Signs Temp 98.1 F 02/28/18 16:00 Pulse 135 H 02/28/18 17:00 Resp 20 02/28/18 17:00 BP 123/90 02/28/18 17:00 Pulse Ox 91 L 02/28/18 17:00 Intake & Output 02/27/18 02/28/18 02/28/18 18:59 06:59 18:59 Intake Total 2568.064 1589 1795 Output Total 2950 670 495 Balance -381.281 633 6120 Weight 113 kg Intake: IV 1501 1589 1695 Alteplase 10 mg In Sodium 100 75 Chloride 0.9% 250 ml @ 25 mls/hr IV .Q10H [facility] Rx #:[id number] Heparin Sodium,Porcine/ 80 170 D5w Pmx 25,000 unit In Dextrose/Water 1 500ml. bag @ 9.091 UNITS/KG/HR 20 mls/hr IV .Q24H [facility] Rx #:[id number] Magnesium Sulfate-D5w Pmx 200 1 gm In Dextrose/Water 1 100ml.bag @ 100 mls/hr IVPB Q1H [facility] Rx#: [id number] Sodium Chloride 0.9% 1, 375 1250 000 ml @ 125 mls/hr IV . Q8H [facility] Rx#:[id number] Vancomycin 2,000 mg In 334 Sodium Chloride 0.9% 500 ml @ 167 mls/hr IVPB Q12H [facility] Rx#:[id number] Intake, IV Titration 1067.064 100 Amount Heparin Sodium,Porcine/ 567.064 D5w Pmx 25,000 unit In Dextrose/Water 1 500ml. bag @ 9.091 UNITS/KG/HR 20 mls/hr IV .Q24H [facility] Rx #:[id number] Propofol 1,000 mg In 100 Empty Bag 1 bag @ Titrate IV .Q0M [facility] Rx#: [id number] Vancomycin 2,000 mg In 500 Sodium Chloride 0.9% 500 ml @ 167 mls/hr IVPB Q12H [facility] Rx#:[id number] Output: Urine 2700 670 495 Estimated Blood Loss 250 Other: Voiding Method Urinal Urinal # Voids 2 - Exam Physical Examination: PHYSICAL EXAMINATION: Patient is resting comfortably in bed. VITAL SIGNS: Blood pressure is [123/90]. Heart rate is [135]. Respiration is [20 ]. Temperature is [98.1]. HEENT: Head is atraumatic, neck is supple, there were no carotid bruits. CHEST: Lungs are clear to auscultation and percussion. CARDIAC: S1, S2 normal rate and rhythm. There is no murmur. ABDOMEN: Soft and nontender. Bowel sounds are present. EXTREMITIES: There is no pedal edema. Peripheral pulses are present. Neurological examination: Patient is examined today in the intensive care unit. He was extubated this morning at 11 AM. He is resting comfortably and is alert and oriented. He answers all questions appropriately. He denies any focal weakness. He has preserved sensation in both upper and lower extremities. Deep tendon reflexes are 1+ and symmetric. Plantar responses flexor bilaterally. - Labs CBC & Chem 7: 02/28/18 04:57 02/28/18 04:57 Labs: Abnormal Lab Results - Last 24 Hours (Table) 02/27/18 02/28/18 02/28/18 Range/Units 23:54 00:02 00:02 RBC 4.03 L (4.30-5.90) m/uL Hgb 12.1 L (13.0-17.5) gm/dL Hct 37.2 L (39.0-53.0) % Neutrophils # 7.8 H (1.3-7.7) k/uL Lymphocytes # 0.9 L (1.0-4.8) k/uL ABG pH (7.35-7.45) ABG Total CO2 (19-24) mmol/L ABG O2 Saturation (94-97) % Creatinine 1.30 H (0.66-1.25) mg/dL Glucose 111 H (74-99) mg/dL POC Glucose (mg/dL) 117 H (75-99) mg/dL Calcium (8.4-10.2) mg/dL Phosphorus (2.5-4.5) mg/dL 02/28/18 02/28/18 02/28/18 Range/Units 00:26 04:57 04:57 RBC 3.86 L (4.30-5.90) m/uL Hgb 11.4 L (13.0-17.5) gm/dL Hct 35.8 L (39.0-53.0) % Neutrophils # (1.3-7.7) k/uL Lymphocytes # (1.0-4.8) k/uL ABG pH 7.34 L (7.35-7.45) ABG Total CO2 (19-24) mmol/L ABG O2 Saturation (94-97) % Creatinine 1.53 H (0.66-1.25) mg/dL Glucose 100 H (74-99) mg/dL POC Glucose (mg/dL) (75-99) mg/dL Calcium 8.2 L (8.4-10.2) mg/dL Phosphorus 5.8 H (2.5-4.5) mg/dL 02/28/18 02/28/18 Range/Units 05:36 11:00 RBC (4.30-5.90) m/uL Hgb (13.0-17.5) gm/dL Hct (39.0-53.0) % Neutrophils # (1.3-7.7) k/uL Lymphocytes # (1.0-4.8) k/uL ABG pH (7.35-7.45) ABG Total CO2 25 H (19-24) mmol/L ABG O2 Saturation 97.7 H 97.1 H (94-97) % Creatinine (0.66-1.25) mg/dL Glucose (74-99) mg/dL POC Glucose (mg/dL) (75-99) mg/dL Calcium (8.4-10.2) mg/dL Phosphorus (2.5-4.5) mg/dL Microbiology - Last 24 Hours (Table) 02/27/18 12:59 Gram Stain - Preliminary Sputum Sputum Culture - Preliminary Tami albicans Presumptive Staph aureus 02/23/18 22:00 Blood Culture - Preliminary Blood No Growth after 96 hours 02/24/18 21:24 Blood Culture - Preliminary Blood No Growth after 72 hours Assessment and Plan (1) Acute encephalopathy Current Visit: Yes Status: Acute Code(s): G93.40 - ENCEPHALOPATHY, UNSPECIFIED SNOMED Code(s): 76311957 (2) History of drug abuse Current Visit: Yes Status: Acute Code(s): Z87.898 - PERSONAL HISTORY OF OTHER SPECIFIED CONDITIONS SNOMED Code(s): 243595021 (3) Aspiration pneumonia Current Visit: Yes Status: Acute Code(s): J69.0 - PNEUMONITIS DUE TO INHALATION OF FOOD AND VOMIT SNOMED Code(s): 892086659 (4) Obstructive sleep apnea Current Visit: Yes Status: Acute Code(s): G47.33 - OBSTRUCTIVE SLEEP APNEA ( ADULT) (PEDIATRIC) SNOMED Code(s): 01877937 Plan: This patient is a 53-year-old right-handed white male who is being followed today in the intensive care unit for history of metabolic encephalopathy. Patient underwent a right iliofemoral thrombectomy procedure yesterday and was transferred to the intensive care unit as he was intubated. He was extubated today at 11 AM and seems to be doing quite well. He continues to remain in the intensive care unit and did show evidence today of new onset of atrial fibrillation. He was started on a IV Cardizem drip and cardiology has been consulted. Patient was able to work with physical therapy today. We will need to wait and see how his progress occurs over the next few days. Neurologically he remains intact. He is alert and oriented. He has no evidence of acute confusion or disorientation at this time. We will continue to follow his progress closely in the intensive care unit. Case was discussed at length today with the patient. He seems to understand all of our findings and will continue to follow his progress closely in the ICU. Case was discussed today with the patient's nurse in the ICU. He is to be followed up with cardiology in terms of his new onset of atrial fibrillation. Vascular surgery continues to follow his recent surgical procedure. His overall prognosis at this time remains guarded.
[2018-02-28] MEDS: DILTIAZEM 50 MG in SODIUM CHLORIDE 0.9% 40 ML IV SCH ×2 (17:58→23:02)
[2018-02-28] MEDS ORDERED: HEPARIN SODIUM,PORCINE 5,000 UNIT/ML 1 ML VIAL IV ONE (18:30)
[2018-02-28 18:38] LABS: Basophils % (A) 0 %; Eosinophils # (A) 0.1 k/uL (0-0.7); Eosinophils % (A) 1 %; HCT 32.8 % (39.0-53.0); HGB 10.6 gm/dL (13.0-17.5); Lymphocytes # (A) 0.6 k/uL (1.0-4.8); Lymphocytes % (A) 5 %; MCHC 32.5 g/dL (31.0-37.0); MCV 92.4 fL (80.0-100.0); Mean Platelet Volume 7.2; Monocytes # (A) 0.6 k/uL (0-1.0); Monocytes % (A) 5 %; Neutrophils # (A) 9.1 k/uL (1.3-7.7); Neutrophils % (A) 87 %; Platelet Count 161 k/uL (150-450); RBC 3.55 m/uL (4.30-5.90); RDW 14.3 % (11.5-15.5); WBC 10.5 k/uL (3.8-10.6)
[2018-02-28 18:50] LABS: INR 1.1 (<1.2); Partial Thromboplastin Time 23.2 sec (22.0-30.0); Prothrombin Time 10.6 sec (9.0-12.0)
[2018-02-28] MEDS: HEPARIN SODIUM,PORCINE/D5W PMX 25,000 UNIT in DEXTROSE/WATER 1 500ML.BAG IV SCH (19:20)
--- NOTE | 2018-02-28 19:30 | P.OP ---
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 Revision of left proximal aortic iliac limb graft and distal extension of iliac limb graft with ovation 45mm graft Right common femoral artery endarterectomy with patch angioplasty Left brachial artery access under ultrasound guidance Aortogram with selective right lower extremity angiogram Open thrombectomy of right superficial femoral, popliteal and tibial arteries Thrombolytic catheter placement in the right popliteal and tibial arteries for infusion of thrombolytics. Implants: Ovation limb extension grafts x 2. 10 mm Balloon expandable stent Anesthesia: PILO Surgeon: Marlon Coe Mining Teacher #1: Cm Glass Estimated Blood Loss (ml): 200 Pathology: other (thrombus) Condition: stable Disposition: ICU Indications for Procedure: 53 year old gentleman with history of endovascular aortic aneurysm repair presented to the hospital with altered mental status and breathing issues. Upon workup a CT abdomen revealed a thrombosed iliac limb of the existing graft without flow to the right lower extremity. Patient had no palpable femoral or distal pulses but continued to have motor function and was scheduled for OR intervention on 02/26/2018. When seen by cardiology patient was having pauses on telemetry and was deemed unstable for OR at that time. Patient was continued on his heparin drip and continued to be monitored. He was cleared the following day for surgery and presents today for open thrombectomy and attempt to revascularize his lower extremity. Operative Findings: Thrombosed iliac limb with stenosis of the proximal aspect of the graft. Thrombosis extending to the femoral, popliteal and tibial vessels. Dense calcification of the right femoral artery. Description of Procedure: After written and informed consent was obtained from the patient and all risks, benefits, and complications were discussed the patient was brought to the operative suite and laid in the supine position with left arm out. The area of the groins, and right leg were prepped and draped in the usual sterile fashion after appropriate anesthetic was performed per anesthesia. Timeout was performed in usual fashion, antibiotics were administered prior to any incision. An oblique incision was created with a 10 blade scalpel overlying the right femoral artery and dissection was carried down to the artery with electrocautery. The femoral artery was dissected in a circumferential manner and controlled with vessel loops at the proximal and distal aspects. Patient was administered heparin and redosed throughout the case. An arteriotomy was created with an 11 blade scalpel in a transverse fashion and fresh clot was encountered. Under fluoro a 5 willi catheter was placed and attempted to cross into the iliac limb. There was resistance and the catheter would not pass into the graft. Thrombectomy was performed in the external iliac vessel with large clots removed. Retrograde angiogram was obtained which delineated sharp cutoff of contrast at the graft. A 6 ethiopian sheath was then placed followed by an 035 wire and angled catheter and multiple attempts to cross the graft were attempted without success. At that time access was obtained at the left brachial artery after the arm was prepped and draped. Ultrasound was used for access and 5 ethiopian sheath was placed. Using the 035 wire and angle catheter the descending thoracic aorta was entered under fluoro and angiogram was obtained above the existing graft. The iliac limb to the right lower extremity was occluded and therefore attempt to cross into the limb was attempted. The limb was entered and glidewire was directed to the femoral artery and brought out and used in a body floss fashion. A 12x40 mm balloon was then guided over the wire and used to perform thrombectomy within the limb of the graft. Large amounts of clot was removed with improvement of inflow intermittently. After multiple passes and no true improvement of inflow a long 55 mm sheath was placed above the limb into the aorta and aortogram was obtained demonstrated significant pinching of the graft at the proximal aspect. Due to this the glidewire was exchanged through a quickcross catheter for a stiffer Lunderquist wire. A 45mm ovation limb was then deployed at the proximal aspect of the graft extending higher into the aortic body followed by a 10mm balloon expandable stent for increased support. Angiogram was obtained demonstrating marked improvement of the stenosis. Limb appeared clear of thrombus and attention was placed to the femoral artery. The flow to the external iliac was brisk and therefore no intervention to the distal limb was performed at that time. There was a palpable pulse in the proximal femoral artery. The femoral artery had dense disease and upon thrombectomy flaps were lifted and therefore endarterectomy was performed after extending the arteriotomy. Distal control of the profunda and SFA were performed and upon release there was no back-bleeding therefore a 3 willi was placed and clot was removed. Hep saline was infused and patch angioplasty was performed with bovine pericardial patch and 6-0 prolene suture. Prior to the conclusion of patch the proximal control was release but no pulsatile flow was noted. Angiogram was obtained revealing dissection flap just distal to the existing iliac stent limb. Attempt to cross back in retrograde fashion failed and therefore antegrade crossing from the arm was once again performed. Once across and wire was body flossed again another 45 mm Ovation limb was deployed at the distal limb extending past the dissection and restoring pulsatile flow. The patch was closed and angiogram was obtained of the right lower extremity. The iliac limb was patent as well as the femoral, profunda and SFA but there was thrombus within the anterior tibial and posterior tibial arteries without any flow to the ankle. TPA was injected and another picture was taken with minimal improvement. At that time it was determined to place an infusion catheter from the arm down to the SFA and popliteal artery and drip TPA. A 12cm infusion catheter was guided into the popliteal artery and thrombolysis was initiated. The femoral incision was then closed in a multilayer fashion, cleansed and dressings were placed. The brachial sheath was sutured in place and dressed and patient was sent to the ICU for recovery.
--- NOTE | 2018-02-28 20:05 | PN ---
PROGRESS NOTE CHIEF COMPLAINT: Status post right vascular procedure. HISTORY OF PRESENT ILLNESS: This gentleman is on the ventilator and in ICU overnight for observation. PHYSICAL EXAMINATION: Vital signs are normal. Breath sounds are heard on both sides. The foot is warm and has good capillary fill. IMPRESSION: 1. Status post vascular procedure for occlusion of the right lower extremity circulation. 2. Recent treatment for abdominal aortic aneurysm. 3. Drug overdose. PLAN: Follow with Surgery until he can be moved out of ICU. MMDAYAMI / MELLISSAN: [id number] /
--- NOTE | 2018-02-28 22:38 | PN ---
PROGRESS NOTE DATE OF SERVICE: 02/28/2018. REASON FOR FOLLOWUP: Right flank wound with secondary MSSA infection. INTERVAL HISTORY: The patient was taken to the OR yesterday, status post right femoral artery exploration with open thrombectomy of the right iliac graft external iliac artery. The patient has tolerated the procedure, subsequently has been in the ICU. Pain is currently controlled. Denies having any chest pain, shortness of breath or cough. No abdominal pain or any pain in the flank area. EXAMINATION: Blood pressure is 106/63, pulse of 73, temperature of 98.2. He is 91% on room air. General description is a middle-aged male lying in bed in no distress. RESPIRATORY SYSTEM: Unlabored breathing. Clear to auscultation anteriorly. HEART: S1, S2. Regular rate and rhythm. ABDOMEN: Soft, no tenderness. Right leg wound currently with no significant swelling, redness or any drainage. LABS: Hemoglobin is 10.3, white count 10.5. BUN of 12, creatinine 1.53. DIAGNOSTIC IMPRESSION AND PLAN: Patient with right flank wound, culture with methicillin-sensitive Staphylococcus aureus and group C Streptococcus. Currently on cefazolin 2 g q8. Continue local wound care with Aquacel Silver packing. Continue supportive care. MMODL / IJN: [id number] /
[2018-03-01] MEDS: HYDROmorphone 0.5 MG/0.5 ML SYRINGE IVP PRN ×7 (02:18→23:50)
[2018-03-01] MEDS: HEPARIN SODIUM,PORCINE 5,000 UNIT/ML 1 ML VIAL IV PRN ×3 (02:19→17:04)
[2018-03-01] MEDS: DILTIAZEM 50 MG in SODIUM CHLORIDE 0.9% 40 ML IV SCH ×2 (04:21→09:49)
[2018-03-01] MEDS: SODIUM CHLORIDE 0.9% 1,000 ML IV SCH ×4 (07:04→22:43)
[2018-03-01] MEDS: PANTOPRAZOLE 40 MG TABLET PO SCH (07:05)
--- NOTE | 2018-03-01 08:21 | PN ---
PROGRESS NOTE This is a 53-year-old gentleman, had aortic stent placed in the past. He came with right leg ischemia. CTA showed the right limb of the aortic stent graft is occluded. The patient went for intervention including thrombectomy and stent placement. The patient is in intensive care unit because of his A. fib. The patient is on Cardizem and heparin. On examination today, his right leg is warm and dorsalis pedis is palpable. Incision in the groin is healing good. Patient is stable from a vascular point of view. If is okay with Cardiology, patient can go to the floor. MMODL / IJN: [id number] /
[2018-03-01] MEDS: ceFAZolin IN SWFI 2 GM/20 ML SYRINGE IVP SCH ×3 (08:22→23:44)
[2018-03-01] MEDS: NICOTINE 21MG/24HR PATCH TRANSDERM SCH (08:22)
[2018-03-01] MEDS: amLODIPine 10 MG TAB PO SCH (08:23)
[2018-03-01] MEDS: LOSARTAN 50 MG TAB PO SCH (08:23)
[2018-03-01] MEDS: BACLOFEN 10 MG TAB PO SCH ×2 (08:23→20:52)
[2018-03-01] MEDS: ASPIRIN 81 MG PO SCH (08:23)
[2018-03-01] MEDS: cloNIDine HCL 0.2 MG TAB PO SCH ×3 (08:23→20:52)
[2018-03-01] MEDS: GABAPENTIN 300 MG CAP PO SCH ×3 (08:23→20:53)
[2018-03-01] MEDS: SERTRALINE 25 MG TAB PO SCH (08:33)
[2018-03-01 09:06] LABS: Basophils % (A) 0 %; Eosinophils # (A) 0.4 k/uL (0-0.7); Eosinophils % (A) 3 %; HGB 9.6 gm/dL (13.0-17.5); Lymphocytes % (A) 8 %; MCHC 32.9 g/dL (31.0-37.0); MCV 91.1 fL (80.0-100.0); Monocytes # (A) 0.6 k/uL (0-1.0); Monocytes % (A) 6 %; Neutrophils # (A) 9.4 k/uL (1.3-7.7); Neutrophils % (A) 81 %; Platelet Count 157 k/uL (150-450); RBC 3.19 m/uL (4.30-5.90); RDW 14.5 % (11.5-15.5); WBC 11.6 k/uL (3.8-10.6)
[2018-03-01] MEDS: SYMBICORT 160-4.5 MCG INHALER INHALATION SCH ×2 (09:16→20:35)
[2018-03-01 09:26] LABS: INR 1.1 (<1.2); Prothrombin Time 10.5 sec (9.0-12.0)
[2018-03-01 09:38] LABS: Calcium 7.6 mg/dL (8.4-10.2); Phosphorus 3.8 mg/dL (2.5-4.5); Potassium 3.9 mmol/L (3.5-5.1)
[2018-03-01] MEDS ORDERED: Potassium Replacement Protocol 1 EACH MISC MISCELLANE PRN (09:42)
[2018-03-01] MEDS ORDERED: POTASSIUM CHLORIDE ER 20 MEQ TAB.ER PO SCH (10:00)
--- NOTE | 2018-03-01 10:33 | P.PN ---
Subjective Progress Note Date: 03/01/18 HPI: This is a 53 year old gentleman who is well-known to [facility] who presented to the emergency department with altered mental status. This patient is currently unable to provide history. History is taken from nursing as well as medical records. The patient was apparently not acting himself at home. He lives with his daughter. He had several episodes of vomiting and his daughter called EMS. He does have a known history of alcohol abuse but denies use in the past 2 months. He did have AAA repair in 11/2017 and did go through alcohol withdrawals during that admission. His alcohol level on admission was 0. However, his UDS was positive for methamphetamine. The patient was admitted to the telemetry floor and became bradycardic. He was subsequently transferred to the ICU. He did recently have an admission to [facility] in 01/2018 for hypotension, sepsis, wound infection. He did have debridement done by Dr. Castro and was seen by ID - Dr. Matute. Patient is currently arousable, but is only answering "no" and "why" to questions. He denies taking any pills, using any drugs, drinking alcohol, or using any other substances. However, his mentation is poor at this time. He has been hypertensive. His O2 saturation is 98% on 2L NC. He does have periods of apnea and is being worked up outpatient for NOEL. Interval history: 02/25/2018- patient is being seen examined and evaluated today in the intensive care unit. The patient is more alert today. He answers all questions appropriately. He is asking for his NG tube to be removed. He is satting 100% on 2 L of supplemental oxygen. Feels his breathing is at baseline. We will restart his home Symbicort. Oxygen will be weaned off. NG tube is going to be taken out by nursing per routine orders. Chest x-ray was reviewed and does show persistent right basilar subsegmental atelectasis. He continues on Vanco and Zosyn as well as a heparin drip. Patient did undergo a CT of the abdomen and pelvis this He does have a suspected complete occlusion of his right aorto iliac stent graft and vascular consultation has been obtained. Patient also just underwent an EEG and those results are pending. 02/26/18- patient is being seen examined and evaluated today on the fourth floor. Currently the patient is resting up in bed on room air. Patient is scheduled to go for a right iliofemoral thrombectomy today with Dr. Glass. The patient did this morning have a 4 second cause followed by a 6 second pause while coughing. Cardiology was consulted and appreciate recommendations. Patient states he felt like his blood pressure was going up during the pauses. He was alertsyncope. His WBC count today is 9.3 his wound cultures were positive for staph aureus and beta-hemolytic strep group G. Patient's procedure is scheduled for 2 PM pending cardiology recommendations. 02/27/2018: Patient seen and examined. Patient states his breathing is good. He does note when he takes naps or sleep sent ninth that he has a hard time breathing and feels like he has to take deeper breaths. It is again reiterated to the patient that he needs a sleep study for possible obstructive sleep apnea. He has not been wearing the BiPAP. He is currently on room air. Plan is for OR today with vascular surgery. The patient has been hemodynamically stable. His respiratory status appears to be at baseline. 02/28/15- patient is being seen examined and evaluated today on rounds in the intensive care unit. The patient did undergo a thrombectomy yesterday with Dr. Coe, please see procedure notes for details. The patient was sent postoperatively to the intensive care unit stable on mechanical ventilation with propofol for sedation to continue overnight. PROFESSIONAL MODEL was notified of the patient's status, he was hemodynamically stable. ABGs were obtained and were reviewed with the RN, pH of 7.34, pCO2 42, pO2 83, HCO3 23, with a base excess of -2.9. Patient's chest x-ray was reviewed and ET tube was in place. He did not require any vasopressors. He was on heparin and TPA per vascular surgery to be continued through the night until 10 AM today. Patient will undergo spontaneous breathing trials once TPA and heparin are discontinued. Upon examination the patient's sedation has been weaned off he is alert, nodding appropriately, he continues to be hemodynamically stable. Case is reviewed with the nurse at length. Anticipate extubation in the near future. 03/01/18- patient is being seen examined and evaluated today on rounds in the intensive care unit. The patient's resting up in bedside chair on room air. States his shortness of breath has improved however still comes and goes with exertion. He has been working with therapies. He continues on a heparin drip and Cardizem. The patient did go into atrial fibrillation yesterday and cardiology was reconsulted. Currently he is on Cardizem drip at 10. He continues in atrial fibrillation with controlled rate. He is currently hemodynamically stable. Care is discussed with the nurse at length. Sheath was pulled yesterday, without complication. He is afebrile no further complaints Objective - Vital Signs Vital signs: Vital Signs Temp 98.5 F 03/01/18 08:00 Pulse 79 03/01/18 09:00 Resp 23 03/01/18 09:00 BP 105/55 03/01/18 09:00 Pulse Ox 92 L 03/01/18 09:00 Intake & Output 02/28/18 03/01/18 03/01/18 18:59 06:59 18:59 Intake Total 2045 2699.667 570.967 Output Total 620 540 85 Balance 1425 2159.667 485.967 Weight 117.6 kg Intake: IV 1945 1500 350 Alteplase 10 mg In Sodium 75 Chloride 0.9% 250 ml @ 25 mls/hr IV .Q10H [facility] Rx #:[id number] Heparin Sodium,Porcine/ 170 D5w Pmx 25,000 unit In Dextrose/Water 1 500ml. bag @ 9.091 UNITS/KG/HR 20 mls/hr IV .Q24H [facility] Rx #:[id number] Magnesium Sulfate-D5w Pmx 200 1 gm In Dextrose/Water 1 100ml.bag @ 100 mls/hr IVPB Q1H [facility] Rx#: [id number] Sodium Chloride 0.9% 1, 100 000 ml @ 100 mls/hr IV . Q10H [facility] Rx#:[id number] Sodium Chloride 0.9% 1, 1500 1500 250 000 ml @ 125 mls/hr IV . Q8H [facility] Rx#:[id number] Intake, IV Titration 100 239.667 220.967 Amount Diltiazem 50 mg In Sodium 100 50 Chloride 0.9% 40 ml @ 10 MG/HR 10 mls/hr IV .Q5H [facility] Rx#:[id number] Heparin Sodium,Porcine/ 139.667 170.967 D5w Pmx 25,000 unit In Dextrose/Water 1 500ml. bag @ 8.85 UNITS/KG/HR 20 mls/hr IV .Q24H [facility] Rx#: [id number] Propofol 1,000 mg In 100 Empty Bag 1 bag @ Titrate IV .Q0M [facility]RE[facility] Rx#: [id number] Oral 960 Output: Urine 620 540 85 Other: Voiding Method Indwelling Catheter Indwelling Catheter Indwelling Catheter # Voids 2 - Exam GENERAL EXAM: Alert, comfortable in no apparent distress, HEAD: Normocephalic. EYES: Normal reaction of pupils, equal size. NOSE: Clear with pink turbinates. THROAT: No erythema or exudates. NECK: No masses, no JVD. CHEST: No chest wall deformity. LUNGS: Lungs slightly coarse. Bases diminished CVS: S1 and S2 normal with no audible mumurs, regular rhythm. ABDOMEN: No hepatosplenomegaly, normal bowel sounds, no guarding or rigidity. Right flank wound with green archer purulent drainage EXTREMITIES: No edema noted, pedal pulses palpable, weak. CENTRAL NERVOUS SYSTEM: moves all extremities No focal deficits, tone is normal in all 4 extremities. - Labs CBC & Chem 7: 03/01/18 08:43 03/01/18 08:43 Labs: Abnormal Lab Results - Last 24 Hours (Table) 02/28/18 02/28/18 03/01/18 Range/Units 11:00 18:26 08:43 WBC 11.6 H (3.8-10.6) k/uL RBC 3.55 L 3.19 L (4.30-5.90) m/uL Hgb 10.6 L 9.6 L (13.0-17.5) gm/dL Hct 32.8 L 29.0 L (39.0-53.0) % Neutrophils # 9.1 H 9.4 H (1.3-7.7) k/uL Lymphocytes # 0.6 L (1.0-4.8) k/uL ABG O2 Saturation 97.1 H (94-97) % Sodium (137-145) mmol/L Carbon Dioxide (22-30) mmol/L Creatinine (0.66-1.25) mg/dL Glucose (74-99) mg/dL Calcium (8.4-10.2) mg/dL 03/01/18 Range/Units 08:43 WBC (3.8-10.6) k/uL RBC (4.30-5.90) m/uL Hgb (13.0-17.5) gm/dL Hct (39.0-53.0) % Neutrophils # (1.3-7.7) k/uL Lymphocytes # (1.0-4.8) k/uL ABG O2 Saturation (94-97) % Sodium 134 L (137-145) mmol/L Carbon Dioxide 21 L (22-30) mmol/L Creatinine 1.73 H (0.66-1.25) mg/dL Glucose 110 H (74-99) mg/dL Calcium 7.6 L (8.4-10.2) mg/dL Microbiology - Last 24 Hours (Table) 02/23/18 22:00 Blood Culture - Preliminary Blood No Growth after 120 hours 02/24/18 21:24 Blood Culture - Preliminary Blood No Growth after 96 hours 02/24/18 14:35 Anaerobic Culture - Final Buttock Anaerobic Gram Positive Cocci 02/27/18 12:59 Gram Stain - Preliminary Sputum Sputum Culture - Preliminary Tami albicans Presumptive Staph aureus Assessment and Plan Assessment: Assessment Acute toxic encephalopathy Possible aspiration pneumonia Suspect underlying NOEL Sepsis POA Right flank wound/hematoma with purulent drainage, wound vac, s/p I&D 01/2018 UDS positive for methamphetamine History of alcohol abuse Hyperglycemia Sinus bradycardia intermittently COPD with active tobacco abuse History of PAD, AAA repair 11/2017 Hypertension Anxiety/depression Status post thrombectomy day 2 new onset Atrial flutter/ atrial fibrillation Plan Patient could be downgraded from the ICU pending vascular surgery and cardiology 's recommendations Cardizem and heparin per cardiology Medications reviewed and will be continued O2 to maintain saturation > or = 90% CPAP nightly, and with naps ABX: Vanco and Zosyn Wound culture-positive for staph aureus and beta-hemolytic strep group G Sputum culture, unable to obtain Blood cultures, negative so far Aspiration precautions Cardiology on consult Telemetry monitoring -A Consult ID - Dr. Matute IVF hydration Seizure precautions Hydralazine PRN SBP > 140 until able to restart home PO BP meds Symbicort GI and DVT prophylaxis Wound care per infectious disease Thank you for this consultation. We will continue to follow along. I performed an examination of the patient and discussed their management with the nurse practitioner. I have reviewed the nurse practitioner's note and agree with the documented findings and plan of care.
--- NOTE | 2018-03-01 11:51 | PN ---
PROGRESS NOTE This is a 53-year-old gentleman who underwent surgery by Dr. Coe and Dr. Glass with thrombectomy and stent placement in the right iliac vein. The patient had an episode of atrial fibrillation with rapid ventricular rate, currently on IV heparin, converted back to sinus rhythm. He is also on IV Cardizem. On exam, he is comfortable at rest. Vital signs are stable. Remains in sinus rhythm. Chest exam reveals good air entry bilaterally. Heart exam reveals first and second heart sounds. No gallop. Examination of the extremities did not reveal any edema. Peripheral pulses are felt. Labs show a hemoglobin of 9.6, platelet count is 157. Potassium is 3.9. Creatinine is elevated at 1.7. ASSESSMENT: 1. Paroxysmal atrial fibrillation, currently in sinus rhythm. 2. History of bradycardia probably posttussive. 3. Status post peripheral vascular surgery. PLAN: Patient is stable to be transferred out of ICU. Will stop IV heparin. MMODL / IJN: [id number] /
[2018-03-01] MEDS: HEPARIN SODIUM,PORCINE/D5W PMX 25,000 UNIT in DEXTROSE/WATER 1 500ML.BAG IV SCH (15:17)
[2018-03-01] MEDS: ALBUTEROL NEBULIZED 2.5 MG/3 ML INHALATION PRN (15:18)
--- NOTE | 2018-03-01 15:42 | PN ---
PROGRESS NOTE DATE OF SERVICE: 03/01/2018 CHIEF COMPLAINT: Altered mental status, drug ingestion, history of abdominal aortic aneurysm and PVOD of the right leg. HISTORY OF PRESENT ILLNESS: This gentleman is doing well. He is awake and alert. He is overflow for telemetry. He is receiving rehab now. PHYSICAL EXAMINATION: Chest is clear. Cardiac exam is normal. Abdomen is soft, nontender. Right foot is warm. IMPRESSION: 1. Status post drug ingestion and overdose. 2. History of abdominal aortic aneurysm. 3. PVOD in the right leg. PLAN: No change in program. He is doing well. He will probably be going to telemetry soon and be discharged in a day or two. Hospital is working on discharge planning because he is currently homeless. BRANDON / MELLISSAN: [id number] /
--- NOTE | 2018-03-01 15:54 | PN ---
PROGRESS NOTE DATE OF SERVICE: 03/01/2018. REASON FOR FOLLOWUP: Right flank wound with secondary infection. INTERVAL HISTORY: The patient is currently afebrile. He is breathing comfortably. Denies significant chest pain or cough or any new pain to the right flank area. EXAMINATION: Blood pressure 126/58 with a pulse of 81, temperature 98.3. He is 91% on room air. General description is a middle-aged male lying in bed in no distress. RESPIRATORY SYSTEM: Unlabored breathing with decreased intensity of breath sounds. No wheeze. HEART: S1, S2. Regular rate and rhythm. ABDOMEN: Soft, no tenderness. Right flank wound is currently dressed with minimal drainage on the dressing. LABS: BUN of 14, creatinine 1.73. Hemoglobin is 9.3, white count 11.6. DIAGNOSTIC IMPRESSION AND PLAN: Patient with right flank wound with secondary cellulitis. Culture positive for Strep and MSSA. Currently on the cefazolin and that will be continued, transition to oral on discharge. Local wound care to continue with Aquacel silver dressing. Continue supportive care. MMODL / IJN: [id number] /
--- NOTE | 2018-03-01 17:56 | P.PN ---
Subjective Progress Note Date: 03/01/18 This patient is a 53-year-old right-handed white male initially admitted to the hospital with symptoms of altered mental status and confusion. Patient was initially evaluated in the intensive care unit and underwent a computed tomography scan of the brain and had positive urine drug screen for methamphetamine. He was felt to have a degree of toxic metabolic encephalopathy. He showed slow improvement in his mental status and was transferred to the medical floor. Once on the medical floor he developed evidence of sinus pause and was evaluated by cardiology. Patient was found to have evidence of a right iliofemoral occlusion producing symptoms in his right leg. He was seen by vascular surgery and it was recommended he undergo a right iliofemoral thrombectomy. This procedure was completed yesterday by Dr. Coe and Dr. Glass. Patient underwent a right iliofemoral thrombectomy with balloon angioplasty. Right femoral endarterectomy with patch was also performed. Patient was transferred from the surgical floor to the intensive care unit as he was intubated. He did show improvement in his mental status yesterday and was able to be extubated yesterday morning at 11 AM. He is now seen this afternoon in the intensive care unit and seems to be quite awake and alert. He is able to answer all questions appropriately. This afternoon he developed new onset of atrial fibrillation and was placed on a Cardizem drip yesterday. Cardiology was re-consulted today and they have taken him off of the Cardizem drip. His EKG shows him to be back in normal sinus rhythm. Patient states that he was able to work with physical therapy today. He has noted some pain in the right leg which may be secondary to his history of neuropathy. He was able to work with physical therapy today. He is able to sit up on the side of the bed as well. He is awaiting transfer out of the ICU later today. Patient is being considered for subacute rehab placement for ongoing outpatient therapy. Neurologically he remains intact. We will continue to follow his progress closely in the intensive care unit. So overall prognosis at this time remains guarded. Objective - Vital Signs Vital signs: Vital Signs Temp 98.3 F 03/01/18 12:00 Pulse 83 03/01/18 15:33 Resp 25 H 03/01/18 12:00 BP 126/58 03/01/18 12:00 Pulse Ox 91 L 03/01/18 12:00 Intake & Output 02/28/18 03/01/18 03/01/18 18:59 06:59 18:59 Intake Total 2045 2699.667 933.257 Output Total 620 540 335 Balance 1425 2159.667 598.257 Weight 117.6 kg Intake: IV 1945 1500 500 Alteplase 10 mg In Sodium 75 Chloride 0.9% 250 ml @ 25 mls/hr IV .Q10H [facility] Rx #:[id number] Heparin Sodium,Porcine/ 170 D5w Pmx 25,000 unit In Dextrose/Water 1 500ml. bag @ 9.091 UNITS/KG/HR 20 mls/hr IV .Q24H [facility] Rx #:[id number] Magnesium Sulfate-D5w Pmx 200 1 gm In Dextrose/Water 1 100ml.bag @ 100 mls/hr IVPB Q1H [facility] Rx#: [id number] Sodium Chloride 0.9% 1, 250 000 ml @ 100 mls/hr IV . Q10H [facility] Rx#:[id number] Sodium Chloride 0.9% 1, 1500 1500 250 000 ml @ 125 mls/hr IV . Q8H [facility] Rx#:[id number] Intake, IV Titration 100 239.667 433.257 Amount Diltiazem 50 mg In Sodium 100 50 Chloride 0.9% 40 ml @ 10 MG/HR 10 mls/hr IV .Q5H [facility] Rx#:[id number] Heparin Sodium,Porcine/ 139.667 383.257 D5w Pmx 25,000 unit In Dextrose/Water 1 500ml. bag @ 8.85 UNITS/KG/HR 20 mls/hr IV .Q24H [facility] Rx#: [id number] Propofol 1,000 mg In 100 Empty Bag 1 bag @ Titrate IV .Q0M [facility] Rx#: [id number] Oral 960 Output: Urine 620 540 335 Other: Voiding Method Indwelling Catheter Indwelling Catheter Urinal # Voids 2 - Exam Physical Examination: PHYSICAL EXAMINATION: Patient is resting comfortably in bed. VITAL SIGNS: Blood pressure is [126/58]. Heart rate is [74]. Respiration is [25] . Temperature is [98.3]. HEENT: Head is atraumatic, neck is supple, there were no carotid bruits. CHEST: Lungs are clear to auscultation and percussion. CARDIAC: S1, S2 normal rate and rhythm. There is no murmur. ABDOMEN: Soft and nontender. Bowel sounds are present. EXTREMITIES: There is no pedal edema. Peripheral pulses are present. Neurological examination: Patient is examined today in the intensive care unit. He is resting comfortably and is alert and oriented. He answers all questions appropriately. He denies any focal weakness. He has preserved sensation in both upper and lower extremities. Deep tendon reflexes are 1+ and symmetric. Plantar responses flexor bilaterally. - Labs CBC & Chem 7: 03/01/18 08:43 03/01/18 08:43 Labs: Abnormal Lab Results - Last 24 Hours (Table) 02/28/18 03/01/18 03/01/18 Range/Units 18:26 08:43 08:43 WBC 11.6 H (3.8-10.6) k/uL RBC 3.55 L 3.19 L (4.30-5.90) m/uL Hgb 10.6 L 9.6 L (13.0-17.5) gm/dL Hct 32.8 L 29.0 L (39.0-53.0) % Neutrophils # 9.1 H 9.4 H (1.3-7.7) k/uL Lymphocytes # 0.6 L (1.0-4.8) k/uL APTT (22.0-30.0) sec Sodium 134 L (137-145) mmol/L Carbon Dioxide 21 L (22-30) mmol/L Creatinine 1.73 H (0.66-1.25) mg/dL Glucose 110 H (74-99) mg/dL Calcium 7.6 L (8.4-10.2) mg/dL 03/01/18 Range/Units 15:54 WBC (3.8-10.6) k/uL RBC (4.30-5.90) m/uL Hgb (13.0-17.5) gm/dL Hct (39.0-53.0) % Neutrophils # (1.3-7.7) k/uL Lymphocytes # (1.0-4.8) k/uL APTT 32.0 H (22.0-30.0) sec Sodium (137-145) mmol/L Carbon Dioxide (22-30) mmol/L Creatinine (0.66-1.25) mg/dL Glucose (74-99) mg/dL Calcium (8.4-10.2) mg/dL Microbiology - Last 24 Hours (Table) 02/27/18 12:59 Gram Stain - Preliminary Sputum Sputum Culture - Preliminary Tami albicans Presumptive Staph aureus 02/23/18 22:00 Blood Culture - Preliminary Blood No Growth after 120 hours 02/24/18 21:24 Blood Culture - Preliminary Blood No Growth after 96 hours 02/24/18 14:35 Anaerobic Culture - Final Buttock Anaerobic Gram Positive Cocci Assessment and Plan (1) Acute encephalopathy Current Visit: Yes Status: Acute Code(s): G93.40 - ENCEPHALOPATHY, UNSPECIFIED SNOMED Code(s): 93423853 (2) History of drug abuse Current Visit: Yes Status: Acute Code(s): Z87.898 - PERSONAL HISTORY OF OTHER SPECIFIED CONDITIONS SNOMED Code(s): 536905277 (3) Aspiration pneumonia Current Visit: Yes Status: Acute Code(s): J69.0 - PNEUMONITIS DUE TO INHALATION OF FOOD AND VOMIT SNOMED Code(s): 204968481 (4) Obstructive sleep apnea Current Visit: Yes Status: Acute Code(s): G47.33 - OBSTRUCTIVE SLEEP APNEA ( ADULT) (PEDIATRIC) SNOMED Code(s): 52701096 Plan: This patient is a 53-year-old male who is being followed in the intensive care unit following recent thrombectomy procedure and stent placement to the right iliac vein. He is being followed closely by vascular surgery. He has good pulses in the right leg is warm to touch. He developed paroxysmal atrial fibrillation yesterday but then converted to normal sinus rhythm today. He was seen by cardiology. He has been taken off of the Cardizem drip. He is much more awake and alert today. He has a resolving metabolic encephalopathy which seems to have completely resolved. He is awaiting transfer to the medical floor later today. He does have evidence of a right flank wound secondary to cellulitis. It is culture positive for strep and MMSE. He is currently on Cefzil and and seems to be responding very well. Patient is much more awake and alert today. He is able to answer all questions appropriately. He is being considered for discharge to a subacute rehab center for ongoing therapy. We will continue follow his progress closely in the intensive care unit. His overall prognosis at this time remains guarded.
[2018-03-02] MEDS: HYDROmorphone 0.5 MG/0.5 ML SYRINGE IVP PRN ×7 (03:54→23:57)
[2018-03-02] MEDS: HEPARIN SODIUM,PORCINE/D5W PMX 25,000 UNIT in DEXTROSE/WATER 1 500ML.BAG IV SCH (04:07)
[2018-03-02] MEDS: PANTOPRAZOLE 40 MG TABLET PO SCH (06:28)
[2018-03-02 06:37] LABS: Basophils % (A) 0 %; Eosinophils # (A) 0.4 k/uL (0-0.7); Eosinophils % (A) 4 %; HGB 8.9 gm/dL (13.0-17.5); Lymphocytes # (A) 1.1 k/uL (1.0-4.8); Lymphocytes % (A) 10 %; MCH 29.5 pg (25.0-35.0); MCHC 31.8 g/dL (31.0-37.0); MCV 92.5 fL (80.0-100.0); Mean Platelet Volume 6.7; Monocytes # (A) 0.6 k/uL (0-1.0); Monocytes % (A) 5 %; Neutrophils # (A) 8.7 k/uL (1.3-7.7); Neutrophils % (A) 79 %; Platelet Count 177 k/uL (150-450); RBC 3.02 m/uL (4.30-5.90); RDW 14.2 % (11.5-15.5)
[2018-03-02 06:51] LABS: Calcium 7.9 mg/dL (8.4-10.2); Phosphorus 3.3 mg/dL (2.5-4.5)
[2018-03-02 07:12] LABS: INR 1.1 (<1.2); Partial Thromboplastin Time 39.2 sec (22.0-30.0); Prothrombin Time 10.3 sec (9.0-12.0)
[2018-03-02] MEDS: amLODIPine 10 MG TAB PO SCH (07:49)
[2018-03-02] MEDS: cloNIDine HCL 0.2 MG TAB PO SCH ×3 (07:49→20:32)
[2018-03-02] MEDS: ASPIRIN 81 MG PO SCH (07:49)
[2018-03-02] MEDS: SERTRALINE 25 MG TAB PO SCH (07:49)
[2018-03-02] MEDS: BACLOFEN 10 MG TAB PO SCH ×2 (07:49→20:32)
[2018-03-02] MEDS: GABAPENTIN 300 MG CAP PO SCH ×3 (07:49→20:33)
[2018-03-02] MEDS: LOSARTAN 50 MG TAB PO SCH (07:50)
[2018-03-02] MEDS: NICOTINE 21MG/24HR PATCH TRANSDERM SCH (07:50)
[2018-03-02] MEDS: ceFAZolin IN SWFI 2 GM/20 ML SYRINGE IVP SCH ×3 (08:13→23:56)
[2018-03-02] MEDS: SYMBICORT 160-4.5 MCG INHALER INHALATION SCH ×2 (08:16→08:27)
[2018-03-02] MEDS: ALBUTEROL NEBULIZED 2.5 MG/3 ML INHALATION PRN ×2 (08:16→18:13)
[2018-03-02] MEDS: HEPARIN SODIUM,PORCINE 5,000 UNIT/ML 1 ML VIAL IV PRN (09:03)
[2018-03-02] MEDS: SODIUM CHLORIDE 0.9% 1,000 ML IV SCH ×4 (09:06→19:47)
--- NOTE | 2018-03-02 09:49 | PN ---
PROGRESS NOTE This is a 53-year-old gentleman who had a aortic stent graft done in the past. He came with right limb occlusion of the stent graft. The patient went for a thrombectomy, balloon angioplasty and TPA. The patient is doing well from surgical point of view. Incision in the groin is healing good. Dorsal pedis palpable. Patient had some physical therapy. The patient is going to go to the rehab. He will be seen next week in the office for removal of the stitches and follow up. MMODL / IJN: [id number] /
--- NOTE | 2018-03-02 09:52 | P.PN ---
<Cassia Agarwal E - Last Filed: 03/02/18 09:44> Subjective Progress Note Date: 03/02/18 HPI: This is a 53 year old gentleman who is well-known to [facility] who presented to the emergency department with altered mental status. This patient is currently unable to provide history. History is taken from nursing as well as medical records. The patient was apparently not acting himself at home. He lives with his daughter. He had several episodes of vomiting and his daughter called EMS. He does have a known history of alcohol abuse but denies use in the past 2 months. He did have AAA repair in 11/2017 and did go through alcohol withdrawals during that admission. His alcohol level on admission was 0. However, his UDS was positive for methamphetamine. The patient was admitted to the telemetry floor and became bradycardic. He was subsequently transferred to the ICU. He did recently have an admission to [facility] in 01/2018 for hypotension, sepsis, wound infection. He did have debridement done by Dr. Castro and was seen by ID - Dr. Matute. Patient is currently arousable, but is only answering "no" and "why" to questions. He denies taking any pills, using any drugs, drinking alcohol, or using any other substances. However, his mentation is poor at this time. He has been hypertensive. His O2 saturation is 98% on 2L NC. He does have periods of apnea and is being worked up outpatient for NOEL. Interval history: 02/25/2018- patient is being seen examined and evaluated today in the intensive care unit. The patient is more alert today. He answers all questions appropriately. He is asking for his NG tube to be removed. He is satting 100% on 2 L of supplemental oxygen. Feels his breathing is at baseline. We will restart his home Symbicort. Oxygen will be weaned off. NG tube is going to be taken out by nursing per routine orders. Chest x-ray was reviewed and does show persistent right basilar subsegmental atelectasis. He continues on Vanco and Zosyn as well as a heparin drip. Patient did undergo a CT of the abdomen and pelvis this He does have a suspected complete occlusion of his right aorto iliac stent graft and vascular consultation has been obtained. Patient also just underwent an EEG and those results are pending. 02/26/18- patient is being seen examined and evaluated today on the fourth floor. Currently the patient is resting up in bed on room air. Patient is scheduled to go for a right iliofemoral thrombectomy today with Dr. Glass. The patient did this morning have a 4 second cause followed by a 6 second pause while coughing. Cardiology was consulted and appreciate recommendations. Patient states he felt like his blood pressure was going up during the pauses. He was alertsyncope. His WBC count today is 9.3 his wound cultures were positive for staph aureus and beta-hemolytic strep group G. Patient's procedure is scheduled for 2 PM pending cardiology recommendations. 02/27/2018: Patient seen and examined. Patient states his breathing is good. He does note when he takes naps or sleep sent ninth that he has a hard time breathing and feels like he has to take deeper breaths. It is again reiterated to the patient that he needs a sleep study for possible obstructive sleep apnea. He has not been wearing the BiPAP. He is currently on room air. Plan is for OR today with vascular surgery. The patient has been hemodynamically stable. His respiratory status appears to be at baseline. 02/28/15- patient is being seen examined and evaluated today on rounds in the intensive care unit. The patient did undergo a thrombectomy yesterday with Dr. Coe, please see procedure notes for details. The patient was sent postoperatively to the intensive care unit stable on mechanical ventilation with propofol for sedation to continue overnight. HYDRAULIC TECHNICIAN was notified of the patient's status, he was hemodynamically stable. ABGs were obtained and were reviewed with the RN, pH of 7.34, pCO2 42, pO2 83, HCO3 23, with a base excess of -2.9. Patient's chest x-ray was reviewed and ET tube was in place. He did not require any vasopressors. He was on heparin and TPA per vascular surgery to be continued through the night until 10 AM today. Patient will undergo spontaneous breathing trials once TPA and heparin are discontinued. Upon examination the patient's sedation has been weaned off he is alert, nodding appropriately, he continues to be hemodynamically stable. Case is reviewed with the nurse at length. Anticipate extubation in the near future. 03/01/18- patient is being seen examined and evaluated today on rounds in the intensive care unit. The patient's resting up in bedside chair on room air. States his shortness of breath has improved however still comes and goes with exertion. He has been working with therapies. He continues on a heparin drip and Cardizem. The patient did go into atrial fibrillation yesterday and cardiology was reconsulted. Currently he is on Cardizem drip at 10. He continues in atrial fibrillation with controlled rate. He is currently hemodynamically stable. Care is discussed with the nurse at length. Sheath was pulled yesterday, without complication. He is afebrile no further complaints 03/02/18- patient is being seen examined and evaluated today on rounds. He is resting up in bed and did have a low-grade fever overnight. He has been coughing up some sputum as well. He has some shortness of breath with exertion and activity. We will obtain a chest x-ray, repeat UA and repeat sputum culture. His BUN today is 19 creatinine is 1.8 we will restart IV fluids 0.9 normal saline at 75 an hour. Patient's vascular status to his right lower extremity is improving. Pulses palpable. He moves with no all extremities. He does have some generalized complains of mouth dry and soreness we will also start nystatin. Objective - Vital Signs Vital signs: Vital Signs Temp 99.9 F H 03/02/18 08:00 Pulse 84 03/02/18 08:26 Resp 18 03/02/18 08:00 BP 120/67 03/02/18 08:00 Pulse Ox 91 L 03/02/18 08:00 Intake & Output 03/01/18 03/02/18 03/02/18 18:59 06:59 18:59 Intake Total 933.257 432.353 202.223 Output Total 335 1650 Balance 598.257 -1217.647 202.223 Weight 119 kg Intake: IV 500 Sodium Chloride 0.9% 1, 250 000 ml @ 125 mls/hr IV . Q8H [facility] Rx#:[id number] Sodium Chloride 0.9% 1, 250 000 ml @ 20 mls/hr IV . Q24H [facility] Rx#:[id number] Intake, IV Titration 433.257 432.353 202.223 Amount Diltiazem 50 mg In Sodium 50 Chloride 0.9% 40 ml @ 10 MG/HR 10 mls/hr IV .Q5H [facility] Rx#:[id number] Heparin Sodium,Porcine/ 383.257 432.353 202.223 D5w Pmx 25,000 unit In Dextrose/Water 1 500ml. bag @ 8.85 UNITS/KG/HR 20 mls/hr IV .Q24H [facility] Rx#: [id number] Output: Urine 335 1650 Other: Voiding Method Urinal Urinal # Voids 1 - Exam GENERAL EXAM: Alert, comfortable in no apparent distress, HEAD: Normocephalic. EYES: Normal reaction of pupils, equal size. NOSE: Clear with pink turbinates. THROAT: No erythema or exudates. NECK: No masses, no JVD. CHEST: No chest wall deformity. LUNGS: Lungs slightly coarse. Bases diminished CVS: S1 and S2 normal with no audible mumurs, regular rhythm. ABDOMEN: No hepatosplenomegaly, normal bowel sounds, no guarding or rigidity. Right flank wound with green archer purulent drainage EXTREMITIES: No edema noted, pedal pulses palpable, weak. CENTRAL NERVOUS SYSTEM: moves all extremities No focal deficits, tone is normal in all 4 extremities. - Labs CBC & Chem 7: 03/02/18 06:12 03/02/18 06:12 Labs: Abnormal Lab Results - Last 24 Hours (Table) 03/01/18 03/01/18 03/02/18 Range/Units 15:54 22:45 06:12 WBC 11.0 H (3.8-10.6) k/uL RBC 3.02 L (4.30-5.90) m/uL Hgb 8.9 L (13.0-17.5) gm/dL Hct 28.0 L (39.0-53.0) % Neutrophils # 8.7 H (1.3-7.7) k/uL APTT 32.0 H 43.0 H (22.0-30.0) sec Fibrinogen (200-500) mg/dL Sodium (137-145) mmol/L Carbon Dioxide (22-30) mmol/L Creatinine (0.66-1.25) mg/dL Glucose (74-99) mg/dL Calcium (8.4-10.2) mg/dL 03/02/18 03/02/18 Range/Units 06:12 06:12 WBC (3.8-10.6) k/uL RBC (4.30-5.90) m/uL Hgb (13.0-17.5) gm/dL Hct (39.0-53.0) % Neutrophils # (1.3-7.7) k/uL APTT 39.2 H (22.0-30.0) sec Fibrinogen 546 H (200-500) mg/dL Sodium 134 L (137-145) mmol/L Carbon Dioxide 20 L (22-30) mmol/L Creatinine 1.80 H (0.66-1.25) mg/dL Glucose 118 H (74-99) mg/dL Calcium 7.9 L (8.4-10.2) mg/dL Microbiology - Last 24 Hours (Table) 02/23/18 22:00 Blood Culture - Final Blood No Growth after 144 hours 02/24/18 21:24 Blood Culture - Preliminary Blood No Growth after 120 hours 02/27/18 12:59 Gram Stain - Preliminary Sputum Sputum Culture - Preliminary Tami albicans Presumptive Staph aureus Assessment and Plan Assessment: Assessment Acute toxic encephalopathy Possible aspiration pneumonia Suspect underlying NOEL Sepsis POA Right flank wound/hematoma with purulent drainage, wound vac, s/p I&D 01/2018 UDS positive for methamphetamine History of alcohol abuse Hyperglycemia Sinus bradycardia intermittently COPD with active tobacco abuse History of PAD, AAA repair 11/2017 Hypertension Anxiety/depression Status post thrombectomy day 2 new onset Atrial flutter/ atrial fibrillation Plan Repeat chest x-ray, repeat UA and repeat sputum culture IV fluids 0.9 normal saline at 75 an hour Nystatin swish and swallow heparin per cardiology Medications reviewed and will be continued O2 to maintain saturation > or = 90% CPAP nightly, and with naps ABX: Vanco and Zosyn Wound culture-positive for staph aureus and beta-hemolytic strep group G Sputum culture, unable to obtain Blood cultures, negative so far Aspiration precautions Cardiology on consult Telemetry monitoring Consult ID - Dr. Matute IVF hydration Seizure precautions Hydralazine PRN SBP > 140 until able to restart home PO BP meds Symbicort GI and DVT prophylaxis Wound care per infectious disease Thank you for this consultation. We will continue to follow along. I performed an examination of the patient and discussed their management with the nurse practitioner. I have reviewed the nurse practitioner's note and agree with the documented findings and plan of care. <Brittney Mcguire - Last Filed: 03/02/18 10:15> Objective - Vital Signs Vital signs: Vital Signs Temp 99.9 F H 03/02/18 08:00 Pulse 84 03/02/18 08:26 Resp 18 03/02/18 08:00 BP 120/67 03/02/18 08:00 Pulse Ox 91 L 03/02/18 08:00 Intake & Output 03/01/18 03/02/18 03/02/18 18:59 06:59 18:59 Intake Total 933.257 432.353 202.223 Output Total 335 1650 Balance 598.257 -1217.647 202.223 Weight 119 kg Intake: IV 500 Sodium Chloride 0.9% 1, 250 000 ml @ 125 mls/hr IV . Q8H [facility] Rx#:[id number] Sodium Chloride 0.9% 1, 250 000 ml @ 20 mls/hr IV . Q24H [facility] Rx#:[id number] Intake, IV Titration 433.257 432.353 202.223 Amount Diltiazem 50 mg In Sodium 50 Chloride 0.9% 40 ml @ 10 MG/HR 10 mls/hr IV .Q5H [facility] Rx#:[id number] Heparin Sodium,Porcine/ 383.257 432.353 202.223 D5w Pmx 25,000 unit In Dextrose/Water 1 500ml. bag @ 8.85 UNITS/KG/HR 20 mls/hr IV .Q24H [facility] Rx#: [id number] Output: Urine 335 1650 Other: Voiding Method Urinal Urinal # Voids 1 - Labs CBC & Chem 7: 03/02/18 06:12 03/02/18 06:12 Labs: Abnormal Lab Results - Last 24 Hours (Table) 03/01/18 03/01/18 03/02/18 Range/Units 15:54 22:45 06:12 WBC 11.0 H (3.8-10.6) k/uL RBC 3.02 L (4.30-5.90) m/uL Hgb 8.9 L (13.0-17.5) gm/dL Hct 28.0 L (39.0-53.0) % Neutrophils # 8.7 H (1.3-7.7) k/uL APTT 32.0 H 43.0 H (22.0-30.0) sec Fibrinogen (200-500) mg/dL Sodium (137-145) mmol/L Carbon Dioxide (22-30) mmol/L Creatinine (0.66-1.25) mg/dL Glucose (74-99) mg/dL Calcium (8.4-10.2) mg/dL 03/02/18 03/02/18 Range/Units 06:12 06:12 WBC (3.8-10.6) k/uL RBC (4.30-5.90) m/uL Hgb (13.0-17.5) gm/dL Hct (39.0-53.0) % Neutrophils # (1.3-7.7) k/uL APTT 39.2 H (22.0-30.0) sec Fibrinogen 546 H (200-500) mg/dL Sodium 134 L (137-145) mmol/L Carbon Dioxide 20 L (22-30) mmol/L Creatinine 1.80 H (0.66-1.25) mg/dL Glucose 118 H (74-99) mg/dL Calcium 7.9 L (8.4-10.2) mg/dL Microbiology - Last 24 Hours (Table) 02/23/18 22:00 Blood Culture - Final Blood No Growth after 144 hours 02/24/18 21:24 Blood Culture - Preliminary Blood No Growth after 120 hours 02/27/18 12:59 Gram Stain - Preliminary Sputum Sputum Culture - Preliminary Tami albicans Presumptive Staph aureus Assessment and Plan Assessment: Patient seen and examined. Patient has had fevers overnight. The patient states that he is feeling a little more short of breath. He did utilize his breathing treatments. His creatinine went up to 1.8 today. We will restart IV fluids at 75 mL an hour. Continue to monitor urine output. We will repeat chest x-ray, UA, blood cultures today. ABX per ID. ~Brittney Mcguire DO
[2018-03-02] MEDS: NYSTATIN 100,000 UNIT/ML SUSP 500,000 UNIT/5 ML CUP PO SCH ×4 (10:54→20:33)
[2018-03-02 11:14] LABS: Amorphous Sediment,Urine Rare /hpf; Appearance,Urine Clear (Clear); Bilirubin,Urine Negative (Negative); Blood,Urine Moderate (Negative); Color,Urine Colorless; Glucose,Urine (UA) Negative (Negative); Ketones,Urine Negative (Negative); Leukocyte Esterase,Urine Negative (Negative); Mucus,Urine Rare /hpf; Nitrite,Urine Negative (Negative); PH, Urine 5.5 (5.0-8.0); Protein,Urine Negative (Negative); RBC,Urine <1 /hpf (0-5); Specific Gravity,Urine 1.003 (1.001-1.035); Urobilinogen,Urine <2.0 mg/dL (<2.0); WBC,Urine 1 /hpf (0-5)
--- NOTE | 2018-03-02 11:29 | P.PN ---
Subjective Progress Note Date: 03/02/18 This is a 53-year-old gentleman who underwent surgery by Dr. Bueno and Dr. Glass with thrombectomy and stent placement of the right iliac vein, at the time of my examination was lying down in bed. He did have an episode of atrial fibrillation, he is remaining in normal sinus rhythm at this time. He continues to be on IV heparin, we are checking on the newer anticoagulants to see if he has coverage. Hemodynamically he is stable. He states he did not sleep much through the night last night because of the other patients. Blood pressure 116/50 with a heart rate in the 80s, 90% on room air. Blood cell count 11, hemoglobin 8.9, platelet count 177. Sodium 134, potassium 4.0, BUN 19 , creatinine 1.8. Objective - Vital Signs Vital signs: Vital Signs Temp 98.7 F 03/02/18 11:22 Pulse 84 03/02/18 11:22 Resp 18 03/02/18 11:22 BP 116/54 03/02/18 11:22 Pulse Ox 90 L 03/02/18 11:22 Intake & Output 03/01/18 03/02/18 03/02/18 18:59 06:59 18:59 Intake Total 933.257 432.353 202.223 Output Total 335 1650 300 Balance 598.257 -1217.647 -97.777 Weight 119 kg Intake: IV 500 Sodium Chloride 0.9% 1, 250 000 ml @ 125 mls/hr IV . Q8H [facility] Rx#:[id number] Sodium Chloride 0.9% 1, 250 000 ml @ 75 mls/hr IV . [id number] [facility] Rx#:[id number] Intake, IV Titration 433.257 432.353 202.223 Amount Diltiazem 50 mg In Sodium 50 Chloride 0.9% 40 ml @ 10 MG/HR 10 mls/hr IV .Q5H [facility] Rx#:[id number] Heparin Sodium,Porcine/ 383.257 432.353 202.223 D5w Pmx 25,000 unit In Dextrose/Water 1 500ml. bag @ 8.85 UNITS/KG/HR 20 mls/hr IV .Q24H [facility] Rx#: [id number] Output: Urine 335 1650 300 Other: Voiding Method Urinal Urinal # Voids 1 - Exam GENERAL EXAM: Alert, comfortable in no apparent distress, HEAD: Normocephalic. EYES: Normal reaction of pupils, equal size. NOSE: Clear with pink turbinates. THROAT: No erythema or exudates. NECK: No masses, no JVD. CHEST: No chest wall deformity. LUNGS: Lungs slightly coarse. Bases diminished CVS: S1 and S2 normal with no audible mumurs, regular rhythm. ABDOMEN: No hepatosplenomegaly, normal bowel sounds, no guarding or rigidity. Right flank wound with green archer purulent drainage EXTREMITIES: No edema noted, pedal pulses palpable, weak. CENTRAL NERVOUS SYSTEM: moves all extremities No focal deficits, tone is normal in all 4 extremities. - Labs CBC & Chem 7: 03/02/18 06:12 03/02/18 06:12 Labs: Abnormal Lab Results - Last 24 Hours (Table) 03/01/18 03/01/18 03/02/18 Range/Units 15:54 22:45 06:12 WBC 11.0 H (3.8-10.6) k/uL RBC 3.02 L (4.30-5.90) m/uL Hgb 8.9 L (13.0-17.5) gm/dL Hct 28.0 L (39.0-53.0) % Neutrophils # 8.7 H (1.3-7.7) k/uL APTT 32.0 H 43.0 H (22.0-30.0) sec Fibrinogen (200-500) mg/dL Sodium (137-145) mmol/L Carbon Dioxide (22-30) mmol/L Creatinine (0.66-1.25) mg/dL Glucose (74-99) mg/dL Calcium (8.4-10.2) mg/dL Urine Blood (Negative) Amorphous Sediment (None) /hpf Urine Mucus (None) /hpf 03/02/18 03/02/18 03/02/18 Range/Units 06:12 06:12 10:55 WBC (3.8-10.6) k/uL RBC (4.30-5.90) m/uL Hgb (13.0-17.5) gm/dL Hct (39.0-53.0) % Neutrophils # (1.3-7.7) k/uL APTT 39.2 H (22.0-30.0) sec Fibrinogen 546 H (200-500) mg/dL Sodium 134 L (137-145) mmol/L Carbon Dioxide 20 L (22-30) mmol/L Creatinine 1.80 H (0.66-1.25) mg/dL Glucose 118 H (74-99) mg/dL Calcium 7.9 L (8.4-10.2) mg/dL Urine Blood Moderate H (Negative) Amorphous Sediment Rare H (None) /hpf Urine Mucus Rare H (None) /hpf Microbiology - Last 24 Hours (Table) 02/27/18 12:59 Gram Stain - Final Sputum Sputum Culture - Final Tami albicans Staphylococcus aureus 02/23/18 22:00 Blood Culture - Final Blood No Growth after 144 hours 02/24/18 21:24 Blood Culture - Preliminary Blood No Growth after 120 hours Assessment and Plan Plan: Assessment and plan #1 acute toxic encephalopathy #2 right flank wound/hematoma with purulent drainage, wound VAC, status post I&D #3 EtOH abuse history #4 paroxysmal atrial fibrillation, remaining in normal sinus rhythm #5 COPD #6 nicotine dependence #7 history of PAD, AAA repair in November of this year #8 hypertension #9 anxiety #10 status post thrombectomy and stent placement right iliac vein Plan Cardiology standpoint, we'll continue the patient on his current medications. We are looking into one of the newer anticoagulants, if covered we will initiate that. And then discontinue the heparin. DNP note has been reviewed, I agree with a documented findings and plan of care. Patient was seen and examined.
--- NOTE | 2018-03-02 13:49 | PN ---
PROGRESS NOTE DATE OF SERVICE: 03/02/2018 CHIEF COMPLAINT: Status post drug ingestion overdose and revascularization of the right lower extremity. HISTORY OF PRESENT ILLNESS: This gentleman is doing well. He is not having a great deal of pain. PHYSICAL EXAM: Chest is clear. The cardiac exam is normal. The abdomen is soft and protuberant. EXTREMITIES: Normal and the right leg is warm. IMPRESSION: 1. Drug ingestion overdose. 2. History of aortic aneurysm. 3. Peripheral vascular occlusive disease of the right lower extremity. 4. Wound on the right buttock area. PLAN: No change in program and he can go home when cleared by Surgery. MMODL / IJN: [id number] /
--- NOTE | 2018-03-02 14:44 | XR ---
EXAMINATION TYPE: XR chest 2V DATE OF EXAM: 03/02/2018 COMPARISON: 02/28/2018 TECHNIQUE: PA and lateral views submitted. HISTORY: Shortness of breath FINDINGS: ET and NG tube have been removed. Hyperinflation suggests COPD and there is an interstitial pattern w hich is similar to the prior exam. Tiny bilateral effusions are suspected. Hypertrophic and degenerat bong change of the spine noted. No sizable pneumothorax. IMPRESSION: 1. COPD correlate for mild interstitial venous congestion with tiny pleural effusions. Otherwise, con mechanical car checker interstitial pneumonitis.
--- NOTE | 2018-03-02 19:58 | PN ---
PROGRESS NOTE DATE OF SERVICE: 03/02/2018. REASON FOR FOLLOWUP: Right flank wound infection. INTERVAL HISTORY: The patient is currently afebrile. He seems to be breathing comfortably. Denies significant chest pain, occasional cough. No abdominal pain to the flank area. EXAMINATION: Blood pressure 133/59, pulse of 82, temperature 99. He is 93% on room air. General description is a middle-aged male lying in bed in no distress. Respiratory system: Unlabored breathing. Clear to auscultation anteriorly. Heart S1, S2. Regular rate and rhythm. ABDOMEN: Soft. No tenderness. LABS: Hemoglobin 8.8, white count 11, with a BUN of 19, creatinine 1.80. DIAGNOSTIC IMPRESSION AND PLAN: Patient with right flank wound with secondary cellulitis culture positive for Methicillin-sensitive Staphylococcus aureus and Group C strep. The patient to continue with cefazolin at this point. Local wound care with Aquacel Silver dressing. Continue supportive care. MMODL / IJN: [id number] /
[2018-03-03] MEDS: HEPARIN SODIUM,PORCINE/D5W PMX 25,000 UNIT in DEXTROSE/WATER 1 500ML.BAG IV SCH (01:11)
[2018-03-03] MEDS: HYDROmorphone 0.5 MG/0.5 ML SYRINGE IVP PRN ×7 (03:04→21:57)
[2018-03-03] MEDS: SODIUM CHLORIDE 0.9% 1,000 ML IV SCH ×2 (06:05→12:40)
[2018-03-03] MEDS: PANTOPRAZOLE 40 MG TABLET PO SCH (06:07)
[2018-03-03 06:49] LABS: Basophils % (A) 0 %; Eosinophils # (A) 0.4 k/uL (0-0.7); Eosinophils % (A) 4 %; HCT 25.9 % (39.0-53.0); HGB 8.5 gm/dL (13.0-17.5); Lymphocytes # (A) 1.2 k/uL (1.0-4.8); Lymphocytes % (A) 14 %; MCH 29.8 pg (25.0-35.0); MCHC 32.7 g/dL (31.0-37.0); MCV 91.3 fL (80.0-100.0); Mean Platelet Volume 6.8; Monocytes # (A) 0.5 k/uL (0-1.0); Monocytes % (A) 6 %; Neutrophils # (A) 6.4 k/uL (1.3-7.7); Neutrophils % (A) 74 %; Platelet Count 182 k/uL (150-450); RBC 2.83 m/uL (4.30-5.90); RDW 14.3 % (11.5-15.5); WBC 8.6 k/uL (3.8-10.6)
[2018-03-03 07:01] LABS: Prothrombin Time 10.2 sec (9.0-12.0)
[2018-03-03 07:07] LABS: Phosphorus 3.6 mg/dL (2.5-4.5); Potassium 3.8 mmol/L (3.5-5.1)
[2018-03-03 07:08] LABS: Calcium 8.1 mg/dL (8.4-10.2)
[2018-03-03] MEDS: NICOTINE 21MG/24HR PATCH TRANSDERM SCH (08:09)
[2018-03-03] MEDS: BACLOFEN 10 MG TAB PO SCH ×2 (08:12→21:57)
[2018-03-03] MEDS: amLODIPine 10 MG TAB PO SCH (08:12)
[2018-03-03] MEDS: ASPIRIN 81 MG PO SCH (08:12)
[2018-03-03] MEDS: GABAPENTIN 300 MG CAP PO SCH ×3 (08:12→21:57)
[2018-03-03] MEDS: LOSARTAN 50 MG TAB PO SCH (08:12)
[2018-03-03] MEDS: cloNIDine HCL 0.2 MG TAB PO SCH ×3 (08:12→21:57)
[2018-03-03] MEDS: ceFAZolin IN SWFI 2 GM/20 ML SYRINGE IVP SCH ×2 (08:12→15:16)
[2018-03-03] MEDS: NYSTATIN 100,000 UNIT/ML SUSP 500,000 UNIT/5 ML CUP PO SCH ×4 (08:12→21:57)
[2018-03-03] MEDS: SERTRALINE 25 MG TAB PO SCH (08:12)
[2018-03-03] MEDS: ALBUTEROL NEBULIZED 2.5 MG/3 ML INHALATION PRN ×3 (09:14→20:43)
[2018-03-03] MEDS: SYMBICORT 160-4.5 MCG INHALER INHALATION SCH ×2 (09:15→20:39)
--- NOTE | 2018-03-03 12:18 | P.PN ---
Subjective Progress Note Date: 03/03/18 Principal diagnosis: Encephalopathy HPI: This is a 53 year old gentleman who is well-known to [facility] who presented to the emergency department with altered mental status. This patient is currently unable to provide history. History is taken from nursing as well as medical records. The patient was apparently not acting himself at home. He lives with his daughter. He had several episodes of vomiting and his daughter called EMS. He does have a known history of alcohol abuse but denies use in the past 2 months. He did have AAA repair in 11/2017 and did go through alcohol withdrawals during that admission. His alcohol level on admission was 0. However, his UDS was positive for methamphetamine. The patient was admitted to the telemetry floor and became bradycardic. He was subsequently transferred to the ICU. He did recently have an admission to [facility] in 01/2018 for hypotension, sepsis, wound infection. He did have debridement done by Dr. Castro and was seen by ID - Dr. Matute. Patient is currently arousable, but is only answering "no" and "why" to questions. He denies taking any pills, using any drugs, drinking alcohol, or using any other substances. However, his mentation is poor at this time. He has been hypertensive. His O2 saturation is 98% on 2L NC. He does have periods of apnea and is being worked up outpatient for NOEL. Interval history: 02/25/2018- patient is being seen examined and evaluated today in the intensive care unit. The patient is more alert today. He answers all questions appropriately. He is asking for his NG tube to be removed. He is satting 100% on 2 L of supplemental oxygen. Feels his breathing is at baseline. We will restart his home Symbicort. Oxygen will be weaned off. NG tube is going to be taken out by nursing per routine orders. Chest x-ray was reviewed and does show persistent right basilar subsegmental atelectasis. He continues on Vanco and Zosyn as well as a heparin drip. Patient did undergo a CT of the abdomen and pelvis this He does have a suspected complete occlusion of his right aorto iliac stent graft and vascular consultation has been obtained. Patient also just underwent an EEG and those results are pending. 02/26/18- patient is being seen examined and evaluated today on the fourth floor. Currently the patient is resting up in bed on room air. Patient is scheduled to go for a right iliofemoral thrombectomy today with Dr. Glass. The patient did this morning have a 4 second cause followed by a 6 second pause while coughing. Cardiology was consulted and appreciate recommendations. Patient states he felt like his blood pressure was going up during the pauses. He was alertsyncope. His WBC count today is 9.3 his wound cultures were positive for staph aureus and beta-hemolytic strep group G. Patient's procedure is scheduled for 2 PM pending cardiology recommendations. 02/27/2018: Patient seen and examined. Patient states his breathing is good. He does note when he takes naps or sleep sent ninth that he has a hard time breathing and feels like he has to take deeper breaths. It is again reiterated to the patient that he needs a sleep study for possible obstructive sleep apnea. He has not been wearing the BiPAP. He is currently on room air. Plan is for OR today with vascular surgery. The patient has been hemodynamically stable. His respiratory status appears to be at baseline. 02/28/15- patient is being seen examined and evaluated today on rounds in the intensive care unit. The patient did undergo a thrombectomy yesterday with Dr. Coe, please see procedure notes for details. The patient was sent postoperatively to the intensive care unit stable on mechanical ventilation with propofol for sedation to continue overnight. GRADE SETTER was notified of the patient's status, he was hemodynamically stable. ABGs were obtained and were reviewed with the RN, pH of 7.34, pCO2 42, pO2 83, HCO3 23, with a base excess of -2.9. Patient's chest x-ray was reviewed and ET tube was in place. He did not require any vasopressors. He was on heparin and TPA per vascular surgery to be continued through the night until 10 AM today. Patient will undergo spontaneous breathing trials once TPA and heparin are discontinued. Upon examination the patient's sedation has been weaned off he is alert, nodding appropriately, he continues to be hemodynamically stable. Case is reviewed with the nurse at length. Anticipate extubation in the near future. 03/01/18- patient is being seen examined and evaluated today on rounds in the intensive care unit. The patient's resting up in bedside chair on room air. States his shortness of breath has improved however still comes and goes with exertion. He has been working with therapies. He continues on a heparin drip and Cardizem. The patient did go into atrial fibrillation yesterday and cardiology was reconsulted. Currently he is on Cardizem drip at 10. He continues in atrial fibrillation with controlled rate. He is currently hemodynamically stable. Care is discussed with the nurse at length. Sheath was pulled yesterday, without complication. He is afebrile no further complaints 03/02/18- patient is being seen examined and evaluated today on rounds. He is resting up in bed and did have a low-grade fever overnight. He has been coughing up some sputum as well. He has some shortness of breath with exertion and activity. We will obtain a chest x-ray, repeat UA and repeat sputum culture. His BUN today is 19 creatinine is 1.8 we will restart IV fluids 0.9 normal saline at 75 an hour. Patient's vascular status to his right lower extremity is improving. Pulses palpable. He moves with no all extremities. He does have some generalized complains of mouth dry and soreness we will also start nystatin. 03/03/2018: Patient seen and examined. Patient states he did have fevers overnight but did not have any this morning. He states his breathing is a little worse and he is using the nebulizer treatments which he previously refused. The patient did not have any documented fevers per nursing. His white blood cell count improved to 8.6. His chest x-ray did show some increasing interstitial edema. Objective - Vital Signs Vital signs: Vital Signs Temp 98.6 F 03/03/18 11:13 Pulse 76 03/03/18 11:13 Resp 18 03/03/18 11:13 BP 127/64 03/03/18 11:13 Pulse Ox 92 L 03/03/18 11:13 Intake & Output 03/02/18 03/03/18 03/03/18 18:59 06:59 18:59 Intake Total 1082.000 240 Output Total 1100 1550 800 Balance -18.000 -1550 -560 Weight 119.5 kg Intake: Intake, IV Titration 500.000 Amount Heparin Sodium,Porcine/ 500.000 D5w Pmx 25,000 unit In Dextrose/Water 1 500ml. bag @ 8.85 UNITS/KG/HR 20 mls/hr IV .Q24H [facility] Rx#: [id number] Oral 582 240 Output: Urine 1100 1550 800 Other: Voiding Method Urinal # Voids 1 - Exam GENERAL EXAM: Alert, comfortable in no apparent distress, HEAD: Normocephalic. EYES: Normal reaction of pupils, equal size. NOSE: Clear with pink turbinates. THROAT: No erythema or exudates. NECK: No masses, no JVD. CHEST: No chest wall deformity. LUNGS: Lungs slightly coarse. Bases diminished CVS: S1 and S2 normal with no audible mumurs, regular rhythm. ABDOMEN: No hepatosplenomegaly, normal bowel sounds, no guarding or rigidity. Right flank wound with green archer purulent drainage EXTREMITIES: No edema noted, pedal pulses palpable, weak. CENTRAL NERVOUS SYSTEM: moves all extremities No focal deficits, tone is normal in all 4 extremities. - Labs CBC & Chem 7: 03/03/18 06:37 03/03/18 06:37 Labs: Abnormal Lab Results - Last 24 Hours (Table) 03/02/18 03/03/18 03/03/18 Range/Units 14:56 06:37 06:37 RBC 2.83 L (4.30-5.90) m/uL Hgb 8.5 L (13.0-17.5) gm/dL Hct 25.9 L (39.0-53.0) % APTT 47.9 H 51.0 H (22.0-30.0) sec Fibrinogen 585 H (200-500) mg/dL Sodium (137-145) mmol/L Creatinine (0.66-1.25) mg/dL Glucose (74-99) mg/dL Calcium (8.4-10.2) mg/dL 03/03/18 Range/Units 06:37 RBC (4.30-5.90) m/uL Hgb (13.0-17.5) gm/dL Hct (39.0-53.0) % APTT (22.0-30.0) sec Fibrinogen (200-500) mg/dL Sodium 136 L (137-145) mmol/L Creatinine 1.79 H (0.66-1.25) mg/dL Glucose 119 H (74-99) mg/dL Calcium 8.1 L (8.4-10.2) mg/dL Microbiology - Last 24 Hours (Table) 03/02/18 18:16 Gram Stain - Preliminary Sputum Sputum Culture - Preliminary 02/24/18 21:24 Blood Culture - Final Blood No Growth after 144 hours 02/27/18 12:59 Gram Stain - Final Sputum Sputum Culture - Final Tami albicans Staphylococcus aureus Assessment and Plan Assessment: Acute toxic encephalopathy, resolved Possible aspiration pneumonia Suspect underlying NOEL Sepsis POA Right flank wound/hematoma with purulent drainage, wound vac, s/p I&D 01/2018 UDS positive for methamphetamine History of alcohol abuse Hyperglycemia Sinus bradycardia intermittently COPD with active tobacco abuse History of PAD, AAA repair 11/2017 Hypertension Anxiety/depression Status post thrombectomy day 2 new onset Atrial flutter/ atrial fibrillation Plan IV fluids 0.9 normal saline at 40 cc an hour Nystatin swish and swallow heparin per cardiology - plan to switch to NOAC pending insurance coverage Medications reviewed and will be continued O2 to maintain saturation > or = 90% CPAP nightly, and with naps, outpatient PSG ABX: Kefzol Wound culture-positive for staph aureus and beta-hemolytic strep group G Symbicort, Albuterol GI and DVT prophylaxis Wound care per infectious disease PT and OT Encourage ambulation Discharge planning
--- NOTE | 2018-03-03 13:11 | PN ---
PROGRESS NOTE Abraham is a 53-year-old gentleman who was admitted to hospital with altered mental status has had thrombectomy with stent placement of right iliac artery. The patient also had aortic stent graft in the past. From the postoperative phase, he developed atrial fibrillation and subsequently converted to sinus rhythm. At the moment he is on IV heparin. Heart rate is well controlled and is free of symptoms. PHYSICAL EXAM: Heart rate is 80 beats per minute, blood pressure is 127/64, respiratory rate is 18. Chest exam reveals diminished air entry at the bases. Heart exam reveals first and second heart sounds. No gallop. Abdomen is soft. Exam of the extremities did not reveal any edema. Peripheral pulses are diminished. LAB: Showed creatinine of 1.7, potassium is 3.8. ASSESSMENT: 1. Paroxysmal atrial fibrillation history. 2. Hypertension. 3. History of sinus pauses. 4. Peripheral vascular disease, status post thrombectomy and stent placement. 5. History of abdominal aortic aneurysm, status post aortic stent graft. PLAN: It is unclear. We are looking to see if the patient is covered for anticoagulants. If he is he will be started on one of them. If not, patient will receive Coumadin. MMODL / IJN: [id number] /
--- NOTE | 2018-03-03 22:05 | PN ---
PROGRESS NOTE DATE OF SERVICE: 03/03/2018. REASON FOR FOLLOWUP: Right flank wound cellulitis. INTERVAL HISTORY: The patient is afebrile. He is currently breathing comfortably. Did have some complaint of some sputum, . No chest pain. No abdominal pain or any pain to the right flank area. EXAM: Blood pressure 141/55 with a pulse of 80, temperature 98.9. He is 91% on room air. General description is a middle-aged male lying in bed in no distress. Respiratory system: Unlabored breathing. Coarse breath sounds bilaterally. No wheeze. Heart S1- S2 regular rate and rhythm. Abdomen soft, no tenderness. The wound on the right flank is currently covered. LABS: Hemoglobin 8.5, white count 8.6 with a BUN of 19, creatinine 1.79. DIAGNOSTIC IMPRESSION AND PLAN: Patient with right flank wound with secondary cellulitis. Culture positive for Strep and MSSA. Currently on cefazolin that will continue. His white count has normalized. Local wound care to continue with Aquacel silver dressing. Continue supportive care. MMODL / IJN: [id number] /
[2018-03-04] MEDS: ceFAZolin IN SWFI 2 GM/20 ML SYRINGE IVP SCH ×4 (00:03→23:47)
[2018-03-04] MEDS: HYDROmorphone 0.5 MG/0.5 ML SYRINGE IVP PRN ×4 (01:26→22:18)
[2018-03-04 06:15] LABS: Basophils # (A) 0.1 k/uL (0-0.2); Basophils % (A) 1 %; Eosinophils # (A) 0.3 k/uL (0-0.7); Eosinophils % (A) 4 %; HCT 26.2 % (39.0-53.0); HGB 8.6 gm/dL (13.0-17.5); Lymphocytes % (A) 11 %; MCH 29.6 pg (25.0-35.0); MCV 89.7 fL (80.0-100.0); Mean Platelet Volume 6.9; Monocytes # (A) 0.6 k/uL (0-1.0); Monocytes % (A) 7 %; Neutrophils # (A) 6.6 k/uL (1.3-7.7); Neutrophils % (A) 75 %; Platelet Count 212 k/uL (150-450); RBC 2.92 m/uL (4.30-5.90); RDW 14.4 % (11.5-15.5); WBC 8.7 k/uL (3.8-10.6)
[2018-03-04 06:26] LABS: Calcium 8.2 mg/dL (8.4-10.2); Magnesium 1.9 mg/dL (1.6-2.3); Phosphorus 3.6 mg/dL (2.5-4.5); Potassium 4.1 mmol/L (3.5-5.1)
[2018-03-04 06:32] LABS: Partial Thromboplastin Time 38.1 sec (22.0-30.0); Prothrombin Time 10.2 sec (9.0-12.0)
[2018-03-04] MEDS: PANTOPRAZOLE 40 MG TABLET PO SCH (06:43)
[2018-03-04] MEDS: SODIUM CHLORIDE 0.9% 1,000 ML IV SCH (06:44)
[2018-03-04] MEDS: SYMBICORT 160-4.5 MCG INHALER INHALATION SCH ×2 (08:42→19:21)
[2018-03-04] MEDS: ALBUTEROL NEBULIZED 2.5 MG/3 ML INHALATION PRN ×3 (08:42→19:22)
[2018-03-04] MEDS: amLODIPine 10 MG TAB PO SCH (09:14)
[2018-03-04] MEDS: ASPIRIN 81 MG PO SCH (09:14)
[2018-03-04] MEDS: NYSTATIN 100,000 UNIT/ML SUSP 500,000 UNIT/5 ML CUP PO SCH ×4 (09:15→22:17)
[2018-03-04] MEDS: GABAPENTIN 300 MG CAP PO SCH ×3 (09:15→22:17)
[2018-03-04] MEDS: LOSARTAN 50 MG TAB PO SCH (09:15)
[2018-03-04] MEDS: NICOTINE 21MG/24HR PATCH TRANSDERM SCH (09:15)
[2018-03-04] MEDS: BACLOFEN 10 MG TAB PO SCH ×2 (09:15→22:17)
[2018-03-04] MEDS: SERTRALINE 25 MG TAB PO SCH (09:15)
[2018-03-04] MEDS: cloNIDine HCL 0.2 MG TAB PO SCH ×3 (09:15→22:17)
--- NOTE | 2018-03-04 10:03 | P.PN ---
Subjective Progress Note Date: 03/04/18 HPI: This is a 53 year old gentleman who is well-known to [facility] who presented to the emergency department with altered mental status. This patient is currently unable to provide history. History is taken from nursing as well as medical records. The patient was apparently not acting himself at home. He lives with his daughter. He had several episodes of vomiting and his daughter called EMS. He does have a known history of alcohol abuse but denies use in the past 2 months. He did have AAA repair in 11/2017 and did go through alcohol withdrawals during that admission. His alcohol level on admission was 0. However, his UDS was positive for methamphetamine. The patient was admitted to the telemetry floor and became bradycardic. He was subsequently transferred to the ICU. He did recently have an admission to [facility] in 01/2018 for hypotension, sepsis, wound infection. He did have debridement done by Dr. Castro and was seen by ID - Dr. Matute. Patient is currently arousable, but is only answering "no" and "why" to questions. He denies taking any pills, using any drugs, drinking alcohol, or using any other substances. However, his mentation is poor at this time. He has been hypertensive. His O2 saturation is 98% on 2L NC. He does have periods of apnea and is being worked up outpatient for NOEL. Interval history: 02/25/2018- patient is being seen examined and evaluated today in the intensive care unit. The patient is more alert today. He answers all questions appropriately. He is asking for his NG tube to be removed. He is satting 100% on 2 L of supplemental oxygen. Feels his breathing is at baseline. We will restart his home Symbicort. Oxygen will be weaned off. NG tube is going to be taken out by nursing per routine orders. Chest x-ray was reviewed and does show persistent right basilar subsegmental atelectasis. He continues on Vanco and Zosyn as well as a heparin drip. Patient did undergo a CT of the abdomen and pelvis this He does have a suspected complete occlusion of his right aorto iliac stent graft and vascular consultation has been obtained. Patient also just underwent an EEG and those results are pending. 02/26/18- patient is being seen examined and evaluated today on the fourth floor. Currently the patient is resting up in bed on room air. Patient is scheduled to go for a right iliofemoral thrombectomy today with Dr. Glass. The patient did this morning have a 4 second cause followed by a 6 second pause while coughing. Cardiology was consulted and appreciate recommendations. Patient states he felt like his blood pressure was going up during the pauses. He was alertsyncope. His WBC count today is 9.3 his wound cultures were positive for staph aureus and beta-hemolytic strep group G. Patient's procedure is scheduled for 2 PM pending cardiology recommendations. 02/27/2018: Patient seen and examined. Patient states his breathing is good. He does note when he takes naps or sleep sent ninth that he has a hard time breathing and feels like he has to take deeper breaths. It is again reiterated to the patient that he needs a sleep study for possible obstructive sleep apnea. He has not been wearing the BiPAP. He is currently on room air. Plan is for OR today with vascular surgery. The patient has been hemodynamically stable. His respiratory status appears to be at baseline. 02/28/15- patient is being seen examined and evaluated today on rounds in the intensive care unit. The patient did undergo a thrombectomy yesterday with Dr. Coe, please see procedure notes for details. The patient was sent postoperatively to the intensive care unit stable on mechanical ventilation with propofol for sedation to continue overnight. DIRECTOR MISSION was notified of the patient's status, he was hemodynamically stable. ABGs were obtained and were reviewed with the RN, pH of 7.34, pCO2 42, pO2 83, HCO3 23, with a base excess of -2.9. Patient's chest x-ray was reviewed and ET tube was in place. He did not require any vasopressors. He was on heparin and TPA per vascular surgery to be continued through the night until 10 AM today. Patient will undergo spontaneous breathing trials once TPA and heparin are discontinued. Upon examination the patient's sedation has been weaned off he is alert, nodding appropriately, he continues to be hemodynamically stable. Case is reviewed with the nurse at length. Anticipate extubation in the near future. 03/01/18- patient is being seen examined and evaluated today on rounds in the intensive care unit. The patient's resting up in bedside chair on room air. States his shortness of breath has improved however still comes and goes with exertion. He has been working with therapies. He continues on a heparin drip and Cardizem. The patient did go into atrial fibrillation yesterday and cardiology was reconsulted. Currently he is on Cardizem drip at 10. He continues in atrial fibrillation with controlled rate. He is currently hemodynamically stable. Care is discussed with the nurse at length. Sheath was pulled yesterday, without complication. He is afebrile no further complaints 03/02/18- patient is being seen examined and evaluated today on rounds. He is resting up in bed and did have a low-grade fever overnight. He has been coughing up some sputum as well. He has some shortness of breath with exertion and activity. We will obtain a chest x-ray, repeat UA and repeat sputum culture. His BUN today is 19 creatinine is 1.8 we will restart IV fluids 0.9 normal saline at 75 an hour. Patient's vascular status to his right lower extremity is improving. Pulses palpable. He moves with no all extremities. He does have some generalized complains of mouth dry and soreness we will also start nystatin. 03/03/2018: Patient seen and examined. Patient states he did have fevers overnight but did not have any this morning. He states his breathing is a little worse and he is using the nebulizer treatments which he previously refused. The patient did not have any documented fevers per nursing. His white blood cell count improved to 8.6. His chest x-ray did show some increasing interstitial edema. 03/04/18- patient is seen examined and evaluated on rounds. He is resting up in bed on room air. States he continues using breathing treatments which are helping. Feels his breathing is at baseline does still continued to get short of breath with exertion. Currently continues on heparin drip per cardiology. Currently working with case management for anticoagulation coverage. He is afebrile denies any further complaints. Objective - Vital Signs Vital signs: Vital Signs Temp 99.3 F 03/04/18 04:00 Pulse 88 03/04/18 08:53 Resp 18 03/04/18 04:00 BP 137/69 03/04/18 04:00 Pulse Ox 92 L 03/04/18 04:00 Intake & Output 03/03/18 03/04/18 03/04/18 18:59 06:59 18:59 Intake Total 960 680 Output Total 800 2900 Balance 160 -2900 680 Weight 118.3 kg Intake: Intake, IV Titration 500 Amount Heparin Sodium,Porcine/ 500 D5w Pmx 25,000 unit In Dextrose/Water 1 500ml. bag @ 8.85 UNITS/KG/HR 20 mls/hr IV .Q24H [facility] Rx#: [id number] Oral 960 180 Output: Urine 800 2900 Other: Voiding Method Urinal # Voids 1 - Exam GENERAL EXAM: Alert, comfortable in no apparent distress, HEAD: Normocephalic. EYES: Normal reaction of pupils, equal size. NOSE: Clear with pink turbinates. THROAT: No erythema or exudates. NECK: No masses, no JVD. CHEST: No chest wall deformity. LUNGS: Lungs slightly coarse. Bases diminished CVS: S1 and S2 normal with no audible mumurs, regular rhythm. ABDOMEN: No hepatosplenomegaly, normal bowel sounds, no guarding or rigidity. Right flank wound dressing clean dry and intact EXTREMITIES: No edema noted, pedal pulses palpable, weak. CENTRAL NERVOUS SYSTEM: moves all extremities No focal deficits, tone is normal in all 4 extremities. - Labs CBC & Chem 7: 03/04/18 05:50 03/04/18 05:50 Labs: Abnormal Lab Results - Last 24 Hours (Table) 03/04/18 03/04/18 03/04/18 Range/Units 05:50 05:50 05:50 RBC 2.92 L (4.30-5.90) m/uL Hgb 8.6 L (13.0-17.5) gm/dL Hct 26.2 L (39.0-53.0) % APTT 38.1 H (22.0-30.0) sec Fibrinogen 646 H (200-500) mg/dL Sodium 136 L (137-145) mmol/L Creatinine 1.70 H (0.66-1.25) mg/dL Glucose 107 H (74-99) mg/dL Calcium 8.2 L (8.4-10.2) mg/dL Microbiology - Last 24 Hours (Table) 03/02/18 18:16 Gram Stain - Final Sputum Sputum Culture - Final 03/02/18 11:00 Blood Culture - Preliminary Blood No Growth after 24 hours Assessment and Plan Assessment: Assessment Acute toxic encephalopathy Possible aspiration pneumonia Suspect underlying NOEL Sepsis POA Right flank wound/hematoma with purulent drainage, wound vac, s/p I&D 01/2018 UDS positive for methamphetamine History of alcohol abuse Hyperglycemia Sinus bradycardia intermittently COPD with active tobacco abuse History of PAD, AAA repair 11/2017 Hypertension Anxiety/depression Status post thrombectomy day 2 new onset Atrial flutter/ atrial fibrillation Plan IV fluids 0.9 normal saline at 40 cc an hour Nystatin swish and swallow heparin per cardiology - plan to switch to NOAC pending insurance coverage Medications reviewed and will be continued O2 to maintain saturation > or = 90% CPAP nightly, and with naps, outpatient PSG ABX: Kefzol Wound culture-positive for staph aureus and beta-hemolytic strep group G Symbicort, Albuterol GI and DVT prophylaxis Wound care per infectious disease PT and OT Encourage ambulation Discharge planning I performed an examination of the patient and discussed their management with the nurse practitioner. I have reviewed the nurse practitioner's note and agree with the documented findings and plan of care.
[2018-03-04 14:27] VITALS: BMI 38.5
--- NOTE | 2018-03-04 17:44 | P.PN ---
Subjective Patient looks comfortable. He denies any chest discomfort no dizziness lightheadedness or palpitations Is a history of atrial fibrillation and he had long pauses, sinus he has peripheral vascular disease status post thrombectomy and stent placement is also a history of abdominal aortic aneurysm status post stent graft Labs are reviewed Medications reviewed Telemetry strips Reviewed. No further bradycardia arrhythmias On examination pulse rate in the 80s, blood pressure 136/72 mmHg, afebrile 97.6 F Breath sounds are clear no rhonchi no crackles Heart sounds. Normal no murmurs or gallop Abdomen soft Suggest Continue anticoagulation with Coumadin for stroke prevention hypertension management Objective - Vital Signs Vital signs: Vital Signs Temp 97.6 F 03/04/18 11:52 Pulse 92 03/04/18 12:05 Resp 18 03/04/18 11:52 BP 136/72 03/04/18 11:52 Pulse Ox 91 L 03/04/18 11:52 Intake & Output 03/03/18 03/04/18 03/04/18 18:59 06:59 18:59 Intake Total 960 1156 Output Total 800 2900 1600 Balance 160 -2900 -444 Weight 118.3 kg 118.3 kg Intake: Intake, IV Titration 640 Amount Heparin Sodium,Porcine/ 500 D5w Pmx 25,000 unit In Dextrose/Water 1 500ml. bag @ 8.85 UNITS/KG/HR 20 mls/hr IV .Q24H [facility] Rx#: [id number] Sodium Chloride 0.9% 1, 140 000 ml @ 40 mls/hr IV . Q24H [facility] Rx#:[id number] Oral 960 516 Output: Urine 800 2900 1600 Other: Voiding Method Urinal Urinal # Voids 1 3 - Labs CBC & Chem 7: 03/04/18 05:50 03/04/18 05:50 Labs: Abnormal Lab Results - Last 24 Hours (Table) 03/04/18 03/04/18 03/04/18 Range/Units 05:50 05:50 05:50 RBC 2.92 L (4.30-5.90) m/uL Hgb 8.6 L (13.0-17.5) gm/dL Hct 26.2 L (39.0-53.0) % APTT 38.1 H (22.0-30.0) sec Fibrinogen 646 H (200-500) mg/dL Sodium 136 L (137-145) mmol/L Creatinine 1.70 H (0.66-1.25) mg/dL Glucose 107 H (74-99) mg/dL Calcium 8.2 L (8.4-10.2) mg/dL Microbiology - Last 24 Hours (Table) 03/02/18 11:00 Blood Culture - Preliminary Blood No Growth after 48 hours 03/02/18 18:16 Gram Stain - Final Sputum Sputum Culture - Final
[2018-03-04] MEDS ORDERED: WARFARIN 10 MG TAB PO ONE (18:00)
[2018-03-04] MEDS: HEPARIN SODIUM,PORCINE/D5W PMX 25,000 UNIT in DEXTROSE/WATER 1 500ML.BAG IV SCH ×2 (18:51→20:16)
--- NOTE | 2018-03-04 19:27 | PN ---
PROGRESS NOTE DATE OF SERVICE: 03/03/18 CHIEF COMPLAINT: Status post drug ingestion overdose. HISTORY OF PRESENT ILLNESS: This gentleman is doing chest is doing well. He can probably go home for is. MMODL / IJN: [id number] /
--- NOTE | 2018-03-04 19:27 | PN ---
PROGRESS NOTE DATE OF SERVICE: 03/03/2018 CHIEF COMPLAINT: Status post drug ingestion with coma and PVOD. HISTORY OF PRESENT ILLNESS: This gentleman is doing well. He has no complaints. He is still on heparin. He could probably go home anytime. PHYSICAL EXAMINATION: CHEST: Clear. Cardiac exam is normal. The abdomen is slightly protuberant and soft. Extremities normal. The right foot is warm. IMPRESSION: 1. Status post drug ingestion and overdose. 2. Atherosclerotic cardiovascular disease. 3. Revascularized of the right leg. PLAN: He could go home anytime. This will be left up to Vascular Surgery. MMODL / IJN: [id number] /
--- NOTE | 2018-03-04 19:42 | PN ---
PROGRESS NOTE CHIEF COMPLAINT: 1. Status post drug ingestion overdose. 2. ASCVD. 3. Peripheral vascular occlusive disease involving the right lower extremity. 4. Sinus pauses. HISTORY OF PRESENT ILLNESS: This gentleman is doing well and was to have gone home, but he does not have any way of getting an oral anticoagulant and he has also developed short pauses which are asymptomatic. PHYSICAL EXAM: CHEST: Clear. Cardiac exam is unremarkable. Abdomen is soft, nontender and foot is warm. IMPRESSION: 1. Status post drug ingestion overdose. 2. Peripheral vascular occlusive disease of the right lower extremity following revascularization procedure. 3. Sinus pauses. 4. Homelessness. PLAN: The patient was to be discharged because his insurance would not pay for Xarelto or the apixaban. It was planned that we would give him samples out of the office of apixaban 5 mg b.i.d., but then we received a call that because he is homeless, he will be placed in a long-term (?). In the meantime, we will start him on Coumadin. MMDAYAMI / NELSON: [id number] /
--- NOTE | 2018-03-04 20:24 | PN ---
PROGRESS NOTE DATE OF SERVICE: 03/04/2018. REASON FOR FOLLOWUP: Right flank wound with secondary cellulitis. INTERVAL HISTORY: The patient is currently afebrile, breathing slightly comfortably. Did have some cough. No chest pain. No abdominal pain or pain to the right flank wound area. EXAMINATION: Blood pressure 136/72 with a pulse of 87, temperature 97.6. He is 91% on room air. General description is a middle-aged male lying in bed in no distress. RESPIRATORY SYSTEM: Unlabored breathing, some coarse breath sounds bilaterally, no wheeze. HEART: S1, S2. Regular rate and rhythm. ABDOMEN: Soft, no tenderness. Flank wound is currently dressed up. LABS: Hemoglobin 8.6, white blood count of 8.7 with a BUN of 19, creatinine is 1.70. DIAGNOSTIC IMPRESSION AND PLAN: Patient with right flank wound with secondary infection with MSSA and . The patient states at this time will continue with cefazolin, transition to oral Keflex on discharge. Local wound care to continue with Aquacel Silver packing. Continue supportive care. MMODL / IJN: [id number] /
[2018-03-04] MEDS: HEPARIN SODIUM,PORCINE 5,000 UNIT/ML 1 ML VIAL IV PRN (22:17)
[2018-03-05] MEDS: HYDROmorphone 0.5 MG/0.5 ML SYRINGE IVP PRN ×5 (01:47→23:14)
[2018-03-05] MEDS: ALBUTEROL NEBULIZED 2.5 MG/3 ML INHALATION PRN ×4 (01:51→19:06)
[2018-03-05] MEDS: HEPARIN SODIUM,PORCINE/D5W PMX 25,000 UNIT in DEXTROSE/WATER 1 500ML.BAG IV SCH ×2 (04:31→15:54)
[2018-03-05 06:54] LABS: Basophils # (A) 0.1 k/uL (0-0.2); Basophils % (A) 1 %; Eosinophils # (A) 0.4 k/uL (0-0.7); Eosinophils % (A) 4 %; HCT 26.8 % (39.0-53.0); HGB 8.8 gm/dL (13.0-17.5); Lymphocytes # (A) 1.4 k/uL (1.0-4.8); Lymphocytes % (A) 15 %; MCH 30.2 pg (25.0-35.0); MCHC 32.9 g/dL (31.0-37.0); MCV 91.8 fL (80.0-100.0); Mean Platelet Volume 6.6; Monocytes # (A) 0.6 k/uL (0-1.0); Monocytes % (A) 7 %; Neutrophils # (A) 6.3 k/uL (1.3-7.7); Neutrophils % (A) 71 %; Platelet Count 269 k/uL (150-450); RBC 2.92 m/uL (4.30-5.90); RDW 14.7 % (11.5-15.5)
[2018-03-05] MEDS: PANTOPRAZOLE 40 MG TABLET PO SCH (07:05)
[2018-03-05 07:11] LABS: INR 1.3 (<1.2); Prothrombin Time 12.3 sec (9.0-12.0)
[2018-03-05] MEDS: SYMBICORT 160-4.5 MCG INHALER INHALATION SCH ×3 (07:45→19:06)
[2018-03-05 08:00] LABS: Calcium 8.2 mg/dL (8.4-10.2); Phosphorus 4.1 mg/dL (2.5-4.5); Potassium 4.2 mmol/L (3.5-5.1)
[2018-03-05] MEDS: VANCOMYCIN 2,000 MG in SODIUM CHLORIDE 0.9% 500 ML IVPB SCH (09:17)
[2018-03-05] MEDS: SODIUM CHLORIDE 0.9% 1,000 ML IV SCH ×2 (09:18→15:43)
--- NOTE | 2018-03-05 09:28 | P.PN ---
Subjective Progress Note Date: 03/05/18 HPI: This is a 53 year old gentleman who is well-known to [facility] who presented to the emergency department with altered mental status. This patient is currently unable to provide history. History is taken from nursing as well as medical records. The patient was apparently not acting himself at home. He lives with his daughter. He had several episodes of vomiting and his daughter called EMS. He does have a known history of alcohol abuse but denies use in the past 2 months. He did have AAA repair in 11/2017 and did go through alcohol withdrawals during that admission. His alcohol level on admission was 0. However, his UDS was positive for methamphetamine. The patient was admitted to the telemetry floor and became bradycardic. He was subsequently transferred to the ICU. He did recently have an admission to [facility] in 01/2018 for hypotension, sepsis, wound infection. He did have debridement done by Dr. Castro and was seen by ID - Dr. Matute. Patient is currently arousable, but is only answering "no" and "why" to questions. He denies taking any pills, using any drugs, drinking alcohol, or using any other substances. However, his mentation is poor at this time. He has been hypertensive. His O2 saturation is 98% on 2L NC. He does have periods of apnea and is being worked up outpatient for NOEL. Interval history: 02/25/2018- patient is being seen examined and evaluated today in the intensive care unit. The patient is more alert today. He answers all questions appropriately. He is asking for his NG tube to be removed. He is satting 100% on 2 L of supplemental oxygen. Feels his breathing is at baseline. We will restart his home Symbicort. Oxygen will be weaned off. NG tube is going to be taken out by nursing per routine orders. Chest x-ray was reviewed and does show persistent right basilar subsegmental atelectasis. He continues on Vanco and Zosyn as well as a heparin drip. Patient did undergo a CT of the abdomen and pelvis this He does have a suspected complete occlusion of his right aorto iliac stent graft and vascular consultation has been obtained. Patient also just underwent an EEG and those results are pending. 02/26/18- patient is being seen examined and evaluated today on the fourth floor. Currently the patient is resting up in bed on room air. Patient is scheduled to go for a right iliofemoral thrombectomy today with Dr. Glass. The patient did this morning have a 4 second cause followed by a 6 second pause while coughing. Cardiology was consulted and appreciate recommendations. Patient states he felt like his blood pressure was going up during the pauses. He was alertsyncope. His WBC count today is 9.3 his wound cultures were positive for staph aureus and beta-hemolytic strep group G. Patient's procedure is scheduled for 2 PM pending cardiology recommendations. 02/27/2018: Patient seen and examined. Patient states his breathing is good. He does note when he takes naps or sleep sent ninth that he has a hard time breathing and feels like he has to take deeper breaths. It is again reiterated to the patient that he needs a sleep study for possible obstructive sleep apnea. He has not been wearing the BiPAP. He is currently on room air. Plan is for OR today with vascular surgery. The patient has been hemodynamically stable. His respiratory status appears to be at baseline. 02/28/15- patient is being seen examined and evaluated today on rounds in the intensive care unit. The patient did undergo a thrombectomy yesterday with Dr. Coe, please see procedure notes for details. The patient was sent postoperatively to the intensive care unit stable on mechanical ventilation with propofol for sedation to continue overnight. SAND CARRIER was notified of the patient's status, he was hemodynamically stable. ABGs were obtained and were reviewed with the RN, pH of 7.34, pCO2 42, pO2 83, HCO3 23, with a base excess of -2.9. Patient's chest x-ray was reviewed and ET tube was in place. He did not require any vasopressors. He was on heparin and TPA per vascular surgery to be continued through the night until 10 AM today. Patient will undergo spontaneous breathing trials once TPA and heparin are discontinued. Upon examination the patient's sedation has been weaned off he is alert, nodding appropriately, he continues to be hemodynamically stable. Case is reviewed with the nurse at length. Anticipate extubation in the near future. 03/01/18- patient is being seen examined and evaluated today on rounds in the intensive care unit. The patient's resting up in bedside chair on room air. States his shortness of breath has improved however still comes and goes with exertion. He has been working with therapies. He continues on a heparin drip and Cardizem. The patient did go into atrial fibrillation yesterday and cardiology was reconsulted. Currently he is on Cardizem drip at 10. He continues in atrial fibrillation with controlled rate. He is currently hemodynamically stable. Care is discussed with the nurse at length. Sheath was pulled yesterday, without complication. He is afebrile no further complaints 03/02/18- patient is being seen examined and evaluated today on rounds. He is resting up in bed and did have a low-grade fever overnight. He has been coughing up some sputum as well. He has some shortness of breath with exertion and activity. We will obtain a chest x-ray, repeat UA and repeat sputum culture. His BUN today is 19 creatinine is 1.8 we will restart IV fluids 0.9 normal saline at 75 an hour. Patient's vascular status to his right lower extremity is improving. Pulses palpable. He moves with no all extremities. He does have some generalized complains of mouth dry and soreness we will also start nystatin. 03/03/2018: Patient seen and examined. Patient states he did have fevers overnight but did not have any this morning. He states his breathing is a little worse and he is using the nebulizer treatments which he previously refused. The patient did not have any documented fevers per nursing. His white blood cell count improved to 8.6. His chest x-ray did show some increasing interstitial edema. 03/04/18- patient is seen examined and evaluated on rounds. He is resting up in bed on room air. States he continues using breathing treatments which are helping. Feels his breathing is at baseline does still continued to get short of breath with exertion. Currently continues on heparin drip per cardiology. Currently working with case management for anticoagulation coverage. He is afebrile denies any further complaints. 03/05/18- patient is being seen examined and evaluated on rounds. He is resting up in bed on room air. Discharge was held yesterday due to insurance authorization for anticoagulation therapy. He currently continues on the heparin drip and is being transitioned to Coumadin. INR today is 1.3. Discharge planning continues to possible rehab facility Objective - Vital Signs Vital signs: Vital Signs Temp 96.4 F L 03/05/18 03:16 Pulse 84 03/05/18 08:00 Resp 18 03/05/18 03:16 BP 142/65 03/05/18 03:16 Pulse Ox 92 L 03/05/18 03:16 Intake & Output 03/04/18 03/05/18 03/05/18 18:59 06:59 18:59 Intake Total 1156 560.235 Output Total 1600 2250 Balance -444 -7999.765 Weight 118.3 kg 117 kg Intake: Intake, IV Titration 640 560.235 Amount Heparin Sodium,Porcine/ 500 560.235 D5w Pmx 25,000 unit In Dextrose/Water 1 500ml. bag @ 8.85 UNITS/KG/HR 20 mls/hr IV .Q24H FRE[facility]AN Rx#: [id number] Sodium Chloride 0.9% 1, 140 000 ml @ 40 mls/hr IV . Q24H FREEMAN Rx#:[id number] Oral 516 Output: Urine 1600 2250 Other: Voiding Method Urinal Urinal # Voids 3 - Exam GENERAL EXAM: Alert, comfortable in no apparent distress, HEAD: Normocephalic. EYES: Normal reaction of pupils, equal size. NOSE: Clear with pink turbinates. THROAT: No erythema or exudates. NECK: No masses, no JVD. CHEST: No chest wall deformity. LUNGS: Lungs slightly coarse. Bases diminished CVS: S1 and S2 normal with no audible mumurs, regular rhythm. ABDOMEN: No hepatosplenomegaly, normal bowel sounds, no guarding or rigidity. Right flank wound dressing clean dry and intact EXTREMITIES: No edema noted, pedal pulses palpable, weak. CENTRAL NERVOUS SYSTEM: moves all extremities No focal deficits, tone is normal in all 4 extremities. - Labs CBC & Chem 7: 03/05/18 05:57 03/05/18 05:57 Labs: Abnormal Lab Results - Last 24 Hours (Table) 03/04/18 03/05/18 03/05/18 Range/Units 19:02 01:27 05:57 RBC 2.92 L (4.30-5.90) m/uL Hgb 8.8 L (13.0-17.5) gm/dL Hct 26.8 L (39.0-53.0) % PT (9.0-12.0) sec INR (<1.2) APTT 40.1 H 77.9 H (22.0-30.0) sec Fibrinogen (200-500) mg/dL Creatinine (0.66-1.25) mg/dL Glucose (74-99) mg/dL Calcium (8.4-10.2) mg/dL 03/05/18 03/05/18 Range/Units 05:57 05:57 RBC (4.30-5.90) m/uL Hgb (13.0-17.5) gm/dL Hct (39.0-53.0) % PT 12.3 H (9.0-12.0) sec INR 1.3 H (<1.2) APTT 76.0 H (22.0-30.0) sec Fibrinogen 627 H (200-500) mg/dL Creatinine 1.51 H (0.66-1.25) mg/dL Glucose 110 H (74-99) mg/dL Calcium 8.2 L (8.4-10.2) mg/dL Microbiology - Last 24 Hours (Table) 03/02/18 11:00 Blood Culture - Preliminary Blood No Growth after 48 hours 03/02/18 18:16 Gram Stain - Final Sputum Sputum Culture - Final Assessment and Plan Assessment: Assessment Acute toxic encephalopathy Possible aspiration pneumonia Suspect underlying NOEL Sepsis POA Right flank wound/hematoma with purulent drainage, wound vac, s/p I&D 01/2018 UDS positive for methamphetamine History of alcohol abuse Hyperglycemia Sinus bradycardia intermittently COPD with active tobacco abuse History of PAD, AAA repair 11/2017 Hypertension Anxiety/depression Status post thrombectomy day 2 new onset Atrial flutter/ atrial fibrillation Plan Discharge planning, cleared from a pulmonary standpoint IV fluids 0.9 normal saline at 40 cc an hour Nystatin swish and swallow heparin per cardiology - plan to switch to NOAC pending insurance coverage Medications reviewed and will be continued O2 to maintain saturation > or = 90% CPAP nightly, and with naps, outpatient PSG ABX: Kefzol Wound culture-positive for staph aureus and beta-hemolytic strep group G Symbicort, Albuterol GI and DVT prophylaxis Wound care per infectious disease PT and OT Encourage ambulation I performed an examination of the patient and discussed their management with the nurse practitioner. I have reviewed the nurse practitioner's note and agree with the documented findings and plan of care.
[2018-03-05] MEDS: BACLOFEN 10 MG TAB PO SCH ×2 (09:44→22:02)
[2018-03-05] MEDS: ASPIRIN 81 MG PO SCH (09:44)
[2018-03-05] MEDS: amLODIPine 10 MG TAB PO SCH (09:44)
[2018-03-05] MEDS: cloNIDine HCL 0.2 MG TAB PO SCH ×3 (09:45→22:02)
[2018-03-05] MEDS: LOSARTAN 50 MG TAB PO SCH (09:45)
[2018-03-05] MEDS: GABAPENTIN 300 MG CAP PO SCH ×3 (09:45→22:02)
[2018-03-05] MEDS: SERTRALINE 25 MG TAB PO SCH (09:45)
[2018-03-05] MEDS: NICOTINE 21MG/24HR PATCH TRANSDERM SCH (09:46)
[2018-03-05] MEDS: NYSTATIN 100,000 UNIT/ML SUSP 500,000 UNIT/5 ML CUP PO SCH ×4 (09:47→22:02)
[2018-03-05] MEDS: ceFAZolin IN SWFI 2 GM/20 ML SYRINGE IVP SCH ×3 (09:48→23:14)
--- NOTE | 2018-03-05 12:28 | PN ---
PROGRESS NOTE DATE OF SERVICE: 03/05/2018 CHIEF COMPLAINT: 1. Drug ingestion and overdose. 2. ACVD. 3. Peripheral vascular occlusive disease. 4. Sinus pauses. HISTORY OF PRESENT ILLNESS: This gentleman is feeling well. He is doing well, and was to have gone home, but he has been referred back to Cardiology. The decision is made that he should have a pacemaker and this will probably be done tomorrow. There is no change in his exam. MMJACKL / IJN: [id number] /
[2018-03-05] MEDS ORDERED: ceFAZolin IN SWFI 2 GM/20 ML SYRINGE IVP ONE (12:33)
[2018-03-05] MEDS ORDERED: ceFAZolin 1,000 MG in SODIUM CHLORIDE 0.9% IRRIGATIO 250 ML IRRIGATION ONE (12:33)
[2018-03-05] MEDS ORDERED: SODIUM CHLORIDE 0.9% 1,000 ML IV SCH (12:45)
--- NOTE | 2018-03-05 14:39 | P.PN ---
Subjective Progress Note Date: 03/05/18 This is a 53-year-old gentleman who underwent surgery by Dr. Bueno and Dr. Glass with thrombectomy and stent placement of the right iliac vein, at the time of my examination was lying down in bed. He did have an episode of atrial fibrillation, he is remaining in normal sinus rhythm at this time. He continues to be on IV heparin, we are checking on the newer anticoagulants to see if he has coverage. Hemodynamically he is stable. He states he did not sleep much through the night last night because of the other patients. Blood pressure 116/50 with a heart rate in the 80s, 90% on room air. Blood cell count 11, hemoglobin 8.9, platelet count 177. Sodium 134, potassium 4.0, BUN 19 , creatinine 1.8. 03/05/2018 Patient was seen and examined this morning, it was noted on the monitor that the patient had a foreign a half second pause, on admission here patient also significantly positive up to 5 seconds. He is on Catapres 0.2 mg 3 times a day , TSH level on admission was normal. Under the recommendation of Dr. Quispe it was advised that patient undergo implantation of a permanent pacemaker, he did receive Coumadin, and is currently on IV heparin. We will hold the Coumadin , schedule the patient for implantation of a permanent pacemaker on of this week. The risks and the benefits were explained to the patient in detail and he is willing to proceed. This will be performed by Dr. Thorpe. Objective - Vital Signs Vital signs: Vital Signs Temp 98.9 F 03/05/18 11:55 Pulse 76 03/05/18 13:00 Resp 18 03/05/18 11:55 BP 105/60 03/05/18 11:55 Pulse Ox 95 03/05/18 11:55 Intake & Output 03/04/18 03/05/18 03/05/18 18:59 06:59 18:59 Intake Total 1156 560.235 649.326 Output Total 1600 2250 Balance -444 -2109.765 649.326 Weight 118.3 kg 117 kg Intake: Intake, IV Titration 640 560.235 295.326 Amount Heparin Sodium,Porcine/ 500 560.235 295.326 D5w Pmx 25,000 unit In Dextrose/Water 1 500ml. bag @ 8.85 UNITS/KG/HR 20 mls/hr IV .Q24H [facility] Rx#: [id number] Sodium Chloride 0.9% 1, 140 000 ml @ 40 mls/hr IV . Q24H [facility]RE[facility]AN Rx#:[id number] Oral [id number] 354 Output: Urine 1600 2250 Other: Voiding Method Urinal Urinal Urinal # Voids 3 - Exam GENERAL EXAM: Alert, comfortable in no apparent distress, HEAD: Normocephalic. EYES: Normal reaction of pupils, equal size. NOSE: Clear with pink turbinates. THROAT: No erythema or exudates. NECK: No masses, no JVD. CHEST: No chest wall deformity. LUNGS: Lungs slightly coarse. Bases diminished CVS: S1 and S2 normal with no audible mumurs, regular rhythm. ABDOMEN: No hepatosplenomegaly, normal bowel sounds, no guarding or rigidity. Right flank wound with green archer purulent drainage EXTREMITIES: No edema noted, pedal pulses palpable, weak. CENTRAL NERVOUS SYSTEM: moves all extremities No focal deficits, tone is normal in all 4 extremities. - Labs CBC & Chem 7: 03/05/18 05:57 03/05/18 05:57 Labs: Abnormal Lab Results - Last 24 Hours (Table) 03/04/18 03/05/18 03/05/18 Range/Units 19:02 01:27 05:57 RBC 2.92 L (4.30-5.90) m/uL Hgb 8.8 L (13.0-17.5) gm/dL Hct 26.8 L (39.0-53.0) % PT (9.0-12.0) sec INR (<1.2) APTT 40.1 H 77.9 H (22.0-30.0) sec Fibrinogen (200-500) mg/dL Creatinine (0.66-1.25) mg/dL Glucose (74-99) mg/dL Calcium (8.4-10.2) mg/dL 03/05/18 03/05/18 Range/Units 05:57 05:57 RBC (4.30-5.90) m/uL Hgb (13.0-17.5) gm/dL Hct (39.0-53.0) % PT 12.3 H (9.0-12.0) sec INR 1.3 H (<1.2) APTT 76.0 H (22.0-30.0) sec Fibrinogen 627 H (200-500) mg/dL Creatinine 1.51 H (0.66-1.25) mg/dL Glucose 110 H (74-99) mg/dL Calcium 8.2 L (8.4-10.2) mg/dL Microbiology - Last 24 Hours (Table) 03/02/18 11:00 Blood Culture - Preliminary Blood No Growth after 72 hours Assessment and Plan Plan: Assessment and plan #1 acute toxic encephalopathy #2 right flank wound/hematoma with purulent drainage, wound VAC, status post I&D #3 EtOH abuse history #4 paroxysmal atrial fibrillation, remaining in normal sinus rhythm #5 COPD #6 nicotine dependence #7 history of PAD, AAA repair in November of this year #8 hypertension #9 anxiety #10 status post thrombectomy and stent placement right iliac vein Plan Cardiology standpoint, we'll continue the patient on his current medications. We are looking into one of the newer anticoagulants, if covered we will initiate that. And then discontinue the heparin. DNP note has been reviewed, I agree with a documented findings and plan of care. Patient was seen and examined.
[2018-03-05] MEDS ORDERED: WARFARIN 5 MG TAB PO SCH (18:00)
--- NOTE | 2018-03-05 23:19 | PN ---
PROGRESS NOTE DATE OF SERVICE: 03/05/2018 REASON FOR FOLLOWUP: Right flank wound with secondary infection. INTERVAL HISTORY: The patient is afebrile. He seems to be breathing comfortably. Denies significant chest pain. Occasionally complains of abdominal pain. No pain in the right flank area. EXAMINATION: Blood pressure is 183/63 with a pulse of 74, temperature 98.7. He is 95% on room air. General description is a middle-aged male up in the bed in no distress. RESPIRATORY SYSTEM: Unlabored breathing. Clear to auscultation. No wheeze or crackle. HEART: S1, S2. Regular rate and rhythm. ABDOMEN: Soft. No tenderness. Left leg wound is currently dressed. Minimal drainage on the dressing. LABS: Hemoglobin 8.8, white count 9.0 with a BUN of 20, creatinine is 1.51. DIAGNOSTIC IMPRESSION AND PLAN: Patient with right flank wound with secondary cellulitis with culture with Streptococcus and methicillin-sensitive Staphylococcus aureus, currently on cefazolin. Local wound care to continue with Aquacel Silver packing. Continue supportive care. MMODL / IJN: [id number] /
[2018-03-06] MEDS: HYDROmorphone 0.5 MG/0.5 ML SYRINGE IVP PRN ×7 (02:05→21:44)
[2018-03-06] MEDS: HEPARIN SODIUM,PORCINE/D5W PMX 25,000 UNIT in DEXTROSE/WATER 1 500ML.BAG IV SCH ×3 (02:05→23:19)
[2018-03-06] MEDS: PANTOPRAZOLE 40 MG TABLET PO SCH (06:08)
[2018-03-06 07:19] LABS: Basophils # (A) 0.1 k/uL (0-0.2); Basophils % (A) 1 %; Eosinophils # (A) 0.3 k/uL (0-0.7); Eosinophils % (A) 5 %; HCT 27.3 % (39.0-53.0); HGB 8.9 gm/dL (13.0-17.5); Lymphocytes # (A) 1.5 k/uL (1.0-4.8); Lymphocytes % (A) 21 %; MCH 29.6 pg (25.0-35.0); MCHC 32.5 g/dL (31.0-37.0); Mean Platelet Volume 6.3; Monocytes # (A) 0.5 k/uL (0-1.0); Monocytes % (A) 7 %; Neutrophils # (A) 4.6 k/uL (1.3-7.7); Neutrophils % (A) 65 %; Platelet Count 308 k/uL (150-450); RDW 14.9 % (11.5-15.5)
[2018-03-06 08:15] LABS: INR 2.7 (<1.2); Partial Thromboplastin Time 84.3 sec (22.0-30.0); Prothrombin Time 24.5 sec (9.0-12.0)
[2018-03-06] MEDS: SYMBICORT 160-4.5 MCG INHALER INHALATION SCH ×2 (08:46→19:50)
[2018-03-06] MEDS: ALBUTEROL NEBULIZED 2.5 MG/3 ML INHALATION PRN ×2 (08:47→19:50)
[2018-03-06] MEDS: ASPIRIN 81 MG PO SCH (08:58)
[2018-03-06] MEDS: GABAPENTIN 300 MG CAP PO SCH ×3 (08:58→21:44)
[2018-03-06] MEDS: SERTRALINE 25 MG TAB PO SCH (08:58)
[2018-03-06] MEDS: NICOTINE 21MG/24HR PATCH TRANSDERM SCH ×2 (08:58→09:06)
[2018-03-06] MEDS: cloNIDine HCL 0.2 MG TAB PO SCH ×3 (08:58→21:44)
[2018-03-06] MEDS: amLODIPine 10 MG TAB PO SCH (08:58)
[2018-03-06] MEDS: LOSARTAN 50 MG TAB PO SCH (08:58)
[2018-03-06] MEDS: BACLOFEN 10 MG TAB PO SCH ×2 (08:58→21:44)
[2018-03-06] MEDS: NYSTATIN 100,000 UNIT/ML SUSP 500,000 UNIT/5 ML CUP PO SCH ×5 (08:58→21:41)
[2018-03-06] MEDS: SODIUM CHLORIDE 0.9% 1,000 ML IV SCH (08:59)
[2018-03-06] MEDS: ceFAZolin IN SWFI 2 GM/20 ML SYRINGE IVP SCH ×3 (09:37→23:18)
--- NOTE | 2018-03-06 14:16 | P.PN ---
Subjective Progress Note Date: 03/06/18 This is a 53-year-old gentleman who underwent surgery by Dr. Bueno and Dr. Glass with thrombectomy and stent placement of the right iliac vein, at the time of my examination was lying down in bed. He did have an episode of atrial fibrillation, he is remaining in normal sinus rhythm at this time. He continues to be on IV heparin, we are checking on the newer anticoagulants to see if he has coverage. Hemodynamically he is stable. He states he did not sleep much through the night last night because of the other patients. Blood pressure 116/50 with a heart rate in the 80s, 90% on room air. Blood cell count 11, hemoglobin 8.9, platelet count 177. Sodium 134, potassium 4.0, BUN 19 , creatinine 1.8. 03/05/2018 Patient was seen and examined this morning, it was noted on the monitor that the patient had a foreign a half second pause, on admission here patient also significantly positive up to 5 seconds. He is on Catapres 0.2 mg 3 times a day , TSH level on admission was normal. Under the recommendation of Dr. Quispe it was advised that patient undergo implantation of a permanent pacemaker, he did receive Coumadin, and is currently on IV heparin. We will hold the Coumadin , schedule the patient for implantation of a permanent pacemaker on of this week. The risks and the benefits were explained to the patient in detail and he is willing to proceed. This will be performed by Dr. Thorpe. 03/06/2018 Patient was seen and examined this morning, hemodynamically stable, no further episodes of pauses were noted on the monitor. Scheduled for implantation of permanent pacemaker tomorrow. Objective - Vital Signs Vital signs: Vital Signs Temp 97.0 F L 03/06/18 11:44 Pulse 63 03/06/18 11:47 Resp 18 03/06/18 11:47 BP 141/63 03/06/18 11:44 Pulse Ox 96 03/06/18 11:47 Intake & Output 03/05/18 03/06/18 03/06/18 18:59 06:59 18:59 Intake Total 1204.575 493 2745.344 Output Total 1600 1100 1325 Balance -396.000 -600 183.344 Weight 114.1 kg Intake: Intake, IV Titration 500.966 482 8539.344 Amount Heparin Sodium,Porcine/ 500.000 500 488.344 D5w Pmx 25,000 unit In Dextrose/Water 1 500ml. bag @ 8.85 UNITS/KG/HR 20 mls/hr IV .Q24H [facility] Rx#: [id number] Sodium Chloride 0.9% 1, 600 000 ml @ 50 mls/hr IV . Q20H [facility] Rx#:[id number] Oral 704 [id number] Output: Urine 1600 1100 1325 Other: Voiding Method Urinal Urinal Urinal # Voids 3 2 # Bowel Movements 1 - Exam GENERAL EXAM: Alert, comfortable in no apparent distress, HEAD: Normocephalic. EYES: Normal reaction of pupils, equal size. NOSE: Clear with pink turbinates. THROAT: No erythema or exudates. NECK: No masses, no JVD. CHEST: No chest wall deformity. LUNGS: Lungs slightly coarse. Bases diminished CVS: S1 and S2 normal with no audible mumurs, regular rhythm. ABDOMEN: No hepatosplenomegaly, normal bowel sounds, no guarding or rigidity. Right flank wound with green archer purulent drainage EXTREMITIES: No edema noted, pedal pulses palpable, weak. CENTRAL NERVOUS SYSTEM: moves all extremities No focal deficits, tone is normal in all 4 extremities. - Labs CBC & Chem 7: 03/06/18 06:22 18 06:22 Labs: Abnormal Lab Results - Last 24 Hours (Table) 03/05/18 03/06/18 03/06/18 Range/Units 17:06 06:22 06:22 RBC 3.00 L (4.30-5.90) m/uL Hgb 8.9 L (13.0-17.5) gm/dL Hct 27.3 L (39.0-53.0) % PT 24.5 H (9.0-12.0) sec INR 2.7 H (<1.2) APTT 52.5 H 84.3 H (22.0-30.0) sec Fibrinogen 634 H (200-500) mg/dL Creatinine (0.66-1.25) mg/dL 03/06/18 Range/Units 06:22 RBC (4.30-5.90) m/uL Hgb (13.0-17.5) gm/dL Hct (39.0-53.0) % PT (9.0-12.0) sec INR (<1.2) APTT (22.0-30.0) sec Fibrinogen (200-500) mg/dL Creatinine 1.37 H (0.66-1.25) mg/dL Microbiology - Last 24 Hours (Table) 03/02/18 11:00 Blood Culture - Preliminary Blood No Growth after 96 hours Assessment and Plan Plan: Assessment and plan #1 acute toxic encephalopathy #2 right flank wound/hematoma with purulent drainage, wound VAC, status post I&D #3 EtOH abuse history #4 paroxysmal atrial fibrillation, remaining in normal sinus rhythm #5 COPD #6 nicotine dependence #7 history of PAD, AAA repair in November of this year #8 hypertension #9 anxiety #10 status post thrombectomy and stent placement right iliac vein Plan Cardiology standpoint, we'll continue the patient on his current medications. Patient is scheduled tomorrow to undergo implantation of a permanent pacemaker. We will continue to follow. DNP note has been reviewed, I agree with a documented findings and plan of care. Patient was seen and examined.
--- NOTE | 2018-03-06 15:53 | PN ---
PROGRESS NOTE DATE OF SERVICE: 03/06/2018 HISTORY OF PRESENT ILLNESS: Patient is a 53-year-old male who presented to the hospital with mental status changes. He did have episode of vomiting. His daughter, who he was living with at the time, contacted EMS. He was found to be positive for methamphetamines and had recently had an AAA repair in November 2017, where he had problems with alcohol withdrawal at that time. He also has been being followed for a wound to his right back flank area, and during his hospital course he developed problems with atrial fibrillation, where his discharge has been on hold to get authorization for anticoagulation. In addition, plans are for patient to have a pacemaker tomorrow. He did require surgical intervention for peripheral vascular occlusive disease to the right iliac vein with stent post thrombectomy. Patient was seen. He has been getting breathing treatments. He has problems, he states, with constipation. His hemoglobin is noted to be 8.9. He continues to be in atrial fibrillation. He continues on heparin drip. He denies any nausea or vomiting. He is eating okay. He has been afebrile. He has been tolerating room air at 95%. On physical examination, vital signs show temperature of 97.3, heart rate 78, respiratory rate 18, blood pressure 142/65, oxygen saturation 95% on room air. Labs showed WBC of 7, hemoglobin 8.9, hematocrit 27.3, platelets 308, PT 24.5, INR 2.7, PTT 84.3, fibrinogen 634, BUN 20, creatinine 1.37. Sputum has been negative. Blood is showing no growth after 96 hours. GENERAL: He is a 53-year-old male who appears in no acute respiratory distress at this time. HEENT: Head is atraumatic, normocephalic. Pupils are reactive, mucous membranes slightly dry. Neck is supple. No JVD. No lymphadenopathy. Lungs sounds are essentially clear. CARDIOVASCULAR: S1, S2 heard, irregular. ABDOMEN: Soft. Bowel sounds present. Wound to his right lower back flank area is covered. No drainage noted. EXTREMITIES: No edema. Pulses are palpable. NEUROLOGIC: He is awake, alert. IMPRESSION: 1. Acute toxic encephalopathy on admission, improved. 2. Doubt aspiration pneumonia. 3. Suspect obstructive sleep apnea. 4. Sepsis on admission. 5. Right flank wound, being followed by Wound Care and Infectious Disease. 6. History of alcohol abuse. 7. Hyperglycemia. 8. Recent thrombectomy and stent, right iliac vein. 9. New atrial fibrillation. 10.Nicotine dependence. 11.Chronic obstructive pulmonary disease, stable. 12.Hypertension. 13.Anxiety. PLAN: 1. Patient is scheduled for pacemaker placement tomorrow. 2. Medications reviewed. Continue as ordered. 3. Continue with GI and DVT prophylaxis. 4. Continue with pulmonary hygiene. 5. Monitor his labs. 6. Waiting for anticoagulation approval. 7. Plans are for rehab on discharge. Will continue to follow patient closely with you and make further changes as necessary. MMODL / IJN: [id number] /
--- NOTE | 2018-03-06 17:23 | PN ---
PROGRESS NOTE DATE OF SERVICE: 03/06/2018 REASON FOR FOLLOWUP: Right flank wound with secondary cellulitis. INTERVAL HISTORY: The patient is currently afebrile. There is some shortness of breath, minimal cough; no worsening. No chest pain. No abdominal pain or pain to the right flank area. PHYSICAL EXAMINATION: Blood pressure is 134/67 with a pulse of 68, temperature 96.8. He is 95% on room air. General description is a middle-aged male lying in bed in no distress. RESPIRATORY SYSTEM: Unlabored breathing. Clear to auscultation anteriorly. HEART: S1, S2. Regular rate and rhythm. ABDOMEN: Soft. No tenderness. LABS: Hemoglobin is 8.9, white count 7.0 with a BUN of 20, creatinine 1.37. DIAGNOSTIC IMPRESSION AND PLAN: Patient with right flank wound with secondary cellulitis with Staphylococcus aureus and beta hemolytic strep, currently on cefazolin. Local wound care to continue with Aquacel Silver packing. Continue with supportive care. MMODL / IJN: [id number] /
--- NOTE | 2018-03-06 18:07 | PN ---
PROGRESS NOTE DATE OF SERVICE: 03/06/2018. CHIEF COMPLAINT: Sinus pauses. HISTORY OF PRESENT ILLNESS: This gentleman is stable and doing well. He is being evaluated by Cardiology for pacemaker implantation. He has been asymptomatic. PHYSICAL EXAM: Unchanged. IMPRESSION: 1. Status post drug ingestion overdose. 2. Atherosclerotic cardiovascular disease. 3. Status post stenting of a stenting of abdominal aortic aneurysm. 4. Status post revascularization of the right lower extremity. 5. Sinus pauses. PLAN: Await recommendations from Cardiology. MMJACKL / MELLISSAN: [id number] /
[2018-03-07] MEDS: HYDROmorphone 0.5 MG/0.5 ML SYRINGE IVP PRN ×4 (00:35→10:38)
[2018-03-07] MEDS: ALBUTEROL NEBULIZED 2.5 MG/3 ML INHALATION PRN ×3 (03:42→21:21)
[2018-03-07] MEDS ORDERED: ceFAZolin 1,000 MG in SODIUM CHLORIDE 0.9% IRRIGATIO 250 ML IRRIGATION ONE (06:00)
[2018-03-07] MEDS ORDERED: ceFAZolin IN SWFI 2 GM/20 ML SYRINGE IVP ONE ×2 (06:00→12:15)
[2018-03-07 06:02] LABS: Glucose,Whole Blood 101 mg/dL (75-99)
[2018-03-07] MEDS: SYMBICORT 160-4.5 MCG INHALER INHALATION SCH ×3 (07:30→21:25)
[2018-03-07] MEDS: LOSARTAN 50 MG TAB PO SCH (07:39)
[2018-03-07] MEDS: amLODIPine 10 MG TAB PO SCH (07:39)
[2018-03-07] MEDS: GABAPENTIN 300 MG CAP PO SCH ×3 (07:39→21:48)
[2018-03-07] MEDS: ASPIRIN 81 MG PO SCH (07:39)
[2018-03-07] MEDS: cloNIDine HCL 0.2 MG TAB PO SCH ×3 (07:39→21:48)
[2018-03-07] MEDS: BACLOFEN 10 MG TAB PO SCH ×2 (07:39→21:48)
[2018-03-07] MEDS: SERTRALINE 25 MG TAB PO SCH (07:39)
[2018-03-07] MEDS: PANTOPRAZOLE 40 MG TABLET PO SCH (07:39)
[2018-03-07] MEDS: SODIUM CHLORIDE 0.9% 1,000 ML IV SCH ×2 (07:40→23:12)
[2018-03-07] MEDS: NYSTATIN 100,000 UNIT/ML SUSP 500,000 UNIT/5 ML CUP PO SCH ×3 (07:40→21:51)
[2018-03-07] MEDS: NICOTINE 21MG/24HR PATCH TRANSDERM SCH (07:40)
[2018-03-07 07:41] LABS: HCT 28.9 % (39.0-53.0); HGB 9.1 gm/dL (13.0-17.5); MCH 28.8 pg (25.0-35.0); MCHC 31.5 g/dL (31.0-37.0); MCV 91.5 fL (80.0-100.0); Mean Platelet Volume 6.5; Platelet Count 339 k/uL (150-450); RBC 3.16 m/uL (4.30-5.90); RDW 14.5 % (11.5-15.5); WBC 6.9 k/uL (3.8-10.6)
[2018-03-07 07:53] LABS: Calcium 8.6 mg/dL (8.4-10.2); Magnesium 1.9 mg/dL (1.6-2.3); Potassium 4.4 mmol/L (3.5-5.1)
[2018-03-07] MEDS: ceFAZolin IN SWFI 2 GM/20 ML SYRINGE IVP SCH ×3 (09:42→23:13)
--- NOTE | 2018-03-07 09:57 | P.PN ---
Subjective Progress Note Date: 03/07/18 HPI: This is a 53 year old gentleman who is well-known to [facility] who presented to the emergency department with altered mental status. This patient is currently unable to provide history. History is taken from nursing as well as medical records. The patient was apparently not acting himself at home. He lives with his daughter. He had several episodes of vomiting and his daughter called EMS. He does have a known history of alcohol abuse but denies use in the past 2 months. He did have AAA repair in 11/2017 and did go through alcohol withdrawals during that admission. His alcohol level on admission was 0. However, his UDS was positive for methamphetamine. The patient was admitted to the telemetry floor and became bradycardic. He was subsequently transferred to the ICU. He did recently have an admission to [facility] in 01/2018 for hypotension, sepsis, wound infection. He did have debridement done by Dr. Castro and was seen by ID - Dr. Matute. Patient is currently arousable, but is only answering "no" and "why" to questions. He denies taking any pills, using any drugs, drinking alcohol, or using any other substances. However, his mentation is poor at this time. He has been hypertensive. His O2 saturation is 98% on 2L NC. He does have periods of apnea and is being worked up outpatient for NOEL. Interval history: 02/25/2018- patient is being seen examined and evaluated today in the intensive care unit. The patient is more alert today. He answers all questions appropriately. He is asking for his NG tube to be removed. He is satting 100% on 2 L of supplemental oxygen. Feels his breathing is at baseline. We will restart his home Symbicort. Oxygen will be weaned off. NG tube is going to be taken out by nursing per routine orders. Chest x-ray was reviewed and does show persistent right basilar subsegmental atelectasis. He continues on Vanco and Zosyn as well as a heparin drip. Patient did undergo a CT of the abdomen and pelvis this He does have a suspected complete occlusion of his right aorto iliac stent graft and vascular consultation has been obtained. Patient also just underwent an EEG and those results are pending. 02/26/18- patient is being seen examined and evaluated today on the fourth floor. Currently the patient is resting up in bed on room air. Patient is scheduled to go for a right iliofemoral thrombectomy today with Dr. Glass. The patient did this morning have a 4 second cause followed by a 6 second pause while coughing. Cardiology was consulted and appreciate recommendations. Patient states he felt like his blood pressure was going up during the pauses. He was alertsyncope. His WBC count today is 9.3 his wound cultures were positive for staph aureus and beta-hemolytic strep group G. Patient's procedure is scheduled for 2 PM pending cardiology recommendations. 02/27/2018: Patient seen and examined. Patient states his breathing is good. He does note when he takes naps or sleep sent ninth that he has a hard time breathing and feels like he has to take deeper breaths. It is again reiterated to the patient that he needs a sleep study for possible obstructive sleep apnea. He has not been wearing the BiPAP. He is currently on room air. Plan is for OR today with vascular surgery. The patient has been hemodynamically stable. His respiratory status appears to be at baseline. 02/28/15- patient is being seen examined and evaluated today on rounds in the intensive care unit. The patient did undergo a thrombectomy yesterday with Dr. Coe, please see procedure notes for details. The patient was sent postoperatively to the intensive care unit stable on mechanical ventilation with propofol for sedation to continue overnight. FELT CEMENTER was notified of the patient's status, he was hemodynamically stable. ABGs were obtained and were reviewed with the RN, pH of 7.34, pCO2 42, pO2 83, HCO3 23, with a base excess of -2.9. Patient's chest x-ray was reviewed and ET tube was in place. He did not require any vasopressors. He was on heparin and TPA per vascular surgery to be continued through the night until 10 AM today. Patient will undergo spontaneous breathing trials once TPA and heparin are discontinued. Upon examination the patient's sedation has been weaned off he is alert, nodding appropriately, he continues to be hemodynamically stable. Case is reviewed with the nurse at length. Anticipate extubation in the near future. 03/01/18- patient is being seen examined and evaluated today on rounds in the intensive care unit. The patient's resting up in bedside chair on room air. States his shortness of breath has improved however still comes and goes with exertion. He has been working with therapies. He continues on a heparin drip and Cardizem. The patient did go into atrial fibrillation yesterday and cardiology was reconsulted. Currently he is on Cardizem drip at 10. He continues in atrial fibrillation with controlled rate. He is currently hemodynamically stable. Care is discussed with the nurse at length. Sheath was pulled yesterday, without complication. He is afebrile no further complaints 03/02/18- patient is being seen examined and evaluated today on rounds. He is resting up in bed and did have a low-grade fever overnight. He has been coughing up some sputum as well. He has some shortness of breath with exertion and activity. We will obtain a chest x-ray, repeat UA and repeat sputum culture. His BUN today is 19 creatinine is 1.8 we will restart IV fluids 0.9 normal saline at 75 an hour. Patient's vascular status to his right lower extremity is improving. Pulses palpable. He moves with no all extremities. He does have some generalized complains of mouth dry and soreness we will also start nystatin. 03/03/2018: Patient seen and examined. Patient states he did have fevers overnight but did not have any this morning. He states his breathing is a little worse and he is using the nebulizer treatments which he previously refused. The patient did not have any documented fevers per nursing. His white blood cell count improved to 8.6. His chest x-ray did show some increasing interstitial edema. 03/04/18- patient is seen examined and evaluated on rounds. He is resting up in bed on room air. States he continues using breathing treatments which are helping. Feels his breathing is at baseline does still continued to get short of breath with exertion. Currently continues on heparin drip per cardiology. Currently working with case management for anticoagulation coverage. He is afebrile denies any further complaints. 03/05/18- patient is being seen examined and evaluated on rounds. He is resting up in bed on room air. Discharge was held yesterday due to insurance authorization for anticoagulation therapy. He currently continues on the heparin drip and is being transitioned to Coumadin. INR today is 1.3. Discharge planning continues to possible rehab facility 03/06/18- See note completed by Ginger Gonzales 03/07/18- patient is being seen examined and evaluated today on rounds. Patient is on room air denies any shortness breath cough or congestion. Plan is for patient to go for a pacemaker insertion today. His hemoglobin is stable at 9.0. His breathing is at baseline. He is hemodynamically stable. Afebrile no further complaints. Objective - Vital Signs Vital signs: Vital Signs Temp 97.2 F L 03/07/18 07:52 Pulse 70 03/07/18 07:53 Resp 16 03/07/18 07:53 BP 134/63 03/07/18 07:52 Pulse Ox 93 L 03/07/18 07:53 Intake & Output 03/06/18 03/07/18 03/07/18 18:59 06:59 18:59 Intake Total 1917.573 775.571 372.911 Output Total 1325 1200 Balance 592.573 -424.429 372.911 Weight 113.7 kg Intake: Intake, IV Titration 1297.573 275.571 372.911 Amount Heparin Sodium,Porcine/ 697.573 275.571 372.911 D5w Pmx 25,000 unit In Dextrose/Water 1 500ml. bag @ 8.85 UNITS/KG/HR 20 mls/hr IV .Q24H FREEMAN Rx#: [id number] Sodium Chloride 0.9% 1, 600 000 ml @ 50 mls/hr IV . Q20H FREEMAN Rx#:[id number] Oral 620 500 Output: Urine 1325 1200 Other: Voiding Method Urinal Urinal Urinal # Voids 2 2 # Bowel Movements 1 - Exam GENERAL EXAM: Alert, comfortable in no apparent distress, HEAD: Normocephalic. EYES: Normal reaction of pupils, equal size. NOSE: Clear with pink turbinates. THROAT: No erythema or exudates. NECK: No masses, no JVD. CHEST: No chest wall deformity. LUNGS: Lungs Improved aeration Bases diminished CVS: S1 and S2 normal with no audible mumurs, regular rhythm. ABDOMEN: No hepatosplenomegaly, normal bowel sounds, no guarding or rigidity. Right flank wound dressing clean dry and intact EXTREMITIES: No edema noted, pedal pulses palpable, weak. CENTRAL NERVOUS SYSTEM: moves all extremities No focal deficits, tone is normal in all 4 extremities. - Labs CBC & Chem 7: 03/07/18 06:59 03/07/18 06:59 Labs: Abnormal Lab Results - Last 24 Hours (Table) 03/06/18 03/06/18 03/07/18 Range/Units 15:38 22:04 05:59 RBC (4.30-5.90) m/uL Hgb (13.0-17.5) gm/dL Hct (39.0-53.0) % APTT 78.5 H 74.4 H (22.0-30.0) sec POC Glucose (mg/dL) 101 H (75-99) mg/dL 03/07/18 03/07/18 Range/Units 06:59 06:59 RBC 3.16 L (4.30-5.90) m/uL Hgb 9.1 L (13.0-17.5) gm/dL Hct 28.9 L (39.0-53.0) % APTT 73.2 H (22.0-30.0) sec POC Glucose (mg/dL) (75-99) mg/dL Microbiology - Last 24 Hours (Table) 03/02/18 11:00 Blood Culture - Preliminary Blood No Growth after 96 hours Assessment and Plan Assessment: Assessment Acute toxic encephalopathy Possible aspiration pneumonia Suspect underlying NOEL Sepsis POA Right flank wound/hematoma with purulent drainage, wound vac, s/p I&D 01/2018 UDS positive for methamphetamine History of alcohol abuse Hyperglycemia Sinus bradycardia intermittently COPD with active tobacco abuse History of PAD, AAA repair 11/2017 Hypertension Anxiety/depression Status post thrombectomy day 2 new onset Atrial flutter/ atrial fibrillation Plan Discharge planning Pacemaker insertion today IV fluids 0.9 normal saline at 40 cc an hour Nystatin swish and swallow heparin per cardiology - plan to switch to NOAC pending insurance coverage Medications reviewed and will be continued O2 to maintain saturation > or = 90% CPAP nightly, and with naps, outpatient PSG ABX: Kefzol Wound culture-positive for staph aureus and beta-hemolytic strep group G Symbicort, Albuterol GI and DVT prophylaxis Wound care per infectious disease PT and OT Encourage ambulation I performed an examination of the patient and discussed their management with the nurse practitioner. I have reviewed the nurse practitioner's note and agree with the documented findings and plan of care.
[2018-03-07] MEDS ORDERED: IV FLUID CONTINUATION 1,000 ML IV ONE (11:00)
[2018-03-07] MEDS ORDERED: SODIUM CHLORIDE 0.9% 500 ML IV ONE (11:00)
[2018-03-07] MEDS ORDERED: IOPAMIDOL-250 50ML BTL IV ONE (11:17)
[2018-03-07] MEDS ORDERED: MIDAZOLAM 2 MG/2 ML VIAL IV ONE (11:41)
[2018-03-07] MEDS ORDERED: LIDOCAINE 1% INJ 10MG/ML (20 ML MDV) SQ ONE ×2 (11:42→11:53)
[2018-03-07] MEDS ORDERED: fentaNYL (PF) 50 MCG/ML 2 ML AMP IV ONE (11:42)
[2018-03-07] MEDS ORDERED: ACETAMINOPHEN TAB 325 MG TAB PO PRN (12:40)
--- NOTE | 2018-03-07 12:51 | P.PCN ---
Date of Procedure: 03/07/18 Preoperative Diagnosis: Sick sinus syndrome Postoperative Diagnosis: The same Procedure(s) Performed: Dual-chamber permanent pacemaker insertion, axillary venography Description of Procedure: HISTORY: This is a 53-year-old gentleman CONSENT:I have discussed the risks, benefits and alternative therapies for the above-mentioned procedure and for both sedation/analgesia as well as necessary blood product administration, if indicated, as they pertain to this patient. The patient has indicated understanding and acceptance of the risks and procedures discussed. PROCEDURE: Patient was brought to the lab in a fasting state. Patient was prepped and draped in the usual fashion. Patient was given IV sedation with fentanyl and Versed. The skin below the left clavicle was infiltrated with lidocaine. An incision was made parallel to deltopectoral groove was deepened until the pectoral fascia was exposed. A pocket was created by blunt dissection and cautery. Axillary venography was performed to delineate the course of the axillary vein. 2 sticks were performed into extrathoracic portion of the axillary vein and 2 sheaths were advanced over the guidewires and left in subclavian vein. Conscious Sedation: Versed 2mg Fentanyl 50 g Duration 52minutes LEADS: ATRIAL: This is manufactured by [employer]. Model number is 5076 and the serial number is [id number]. VENTRICULAR: This is manufactured by [employer] model number is 5076. Serial number is [id number] THE DEVICE: This is manufactured by [employer]. Model number is [id number] and the serial number is [id number] The ventricular lead is maneuvered l with help of a straight and curved stylets into the left ventricle apical region. Satisfactory position was obtained and threshold measurements were made. The atrial lead was then maneuvered into the right atrial appendage. And thresholds were obtained. THRESHOLDS: ATRIUM: The minimum patient threshold is 0.5 at pulse width of 0.5. The impedance was 710 ohms. P-wave: 1.8 VENTRICLE: The minimal patient threshold was 0.9 at pulse width of 0.5. Impedance was 1251 R-wave: 9 mV The leads and pulse generator remained in the pocket after it was washed with antibiotics. Pocket was closed in the usual fashion. The fascia was closed with 2-0 Prolene ,the subcutaneous tissue was closed with 3-0 Prolene and the skin was closed with 4-0 Prolene. PROGRAMMING: MODE: AAIR to DDDR RATE: 60 to 130OUTPUT: Atrium: 3.5V Ventricle: 3.5 V FINAL IMPRESSION: #1 axillary venography #2 insertion of dual-chamber permanent pacemaker. COMPLICATIONS: None PLAN:. Patient will be monitored on the telemetry unit. Prophylactic antibacterial be continued. Patient probably could be discharged home tomorrow.
--- NOTE | 2018-03-07 14:35 | PN ---
PROGRESS NOTE CHIEF COMPLAINT: Sinus pauses. HISTORY OF PRESENT ILLNESS: This gentleman is going today for a pacemaker. He has been stable, otherwise. PHYSICAL EXAM: Unchanged. Chest is clear. Cardiac exam is normal. The abdomen is slightly protuberant, soft and nontender. IMPRESSION: 1. Status post drug ingestion overdose. 2. PV OD affecting right lower extremity. 3. Status post stenting of abdominal aortic aneurysm. 4. He remained with sinus pauses. PLAN: Pacemaker today. MMODL / IJN: [id number] /
[2018-03-07] MEDS: HYDROcodone/APAP 5-325MG 1 EACH TAB PO PRN ×3 (14:58→22:49)
[2018-03-07] MEDS: HEPARIN SODIUM,PORCINE/D5W PMX 25,000 UNIT in DEXTROSE/WATER 1 500ML.BAG IV SCH (17:09)
[2018-03-07 18:03] VITALS: RESP 16
--- NOTE | 2018-03-07 23:30 | PN ---
PROGRESS NOTE DATE OF SERVICE: 03/07/2018 REASON FOR FOLLOWUP: Right flank wound with secondary infection. INTERVAL HISTORY: The patient is currently afebrile. He is status post a pacemaker placement. Denies any chest pain or shortness of breath, abdominal pain or pain to the right flank area. EXAMINATION: Blood pressure 147/76, pulse of 71, temperature 97.4. He is 93% on room air. General description is middle-aged male lying in bed in no distress. RESPIRATORY DISTRESS: Unlabored breathing clear to auscultation. Heart is regular rate with normal rhythm. LABS: Hemoglobin 10.1, white count 6.9, BUN of 18, creatinine 1.20. DIAGNOSTIC IMPRESSION AND PLAN: Patient with right flank wound with secondary cellulitis. Culture with MSSA on discharge. Currently covered with cefepime. Local wound care to continue with Aquacel silver packing. Continue supportive care. MMODL / IJN: [id number] /
[2018-03-08] MEDS: HYDROcodone/APAP 5-325MG 1 EACH TAB PO PRN ×3 (03:17→11:22)
[2018-03-08] MEDS: ALBUTEROL NEBULIZED 2.5 MG/3 ML INHALATION PRN ×3 (03:40→12:08)
[2018-03-08] MEDS: HEPARIN SODIUM,PORCINE/D5W PMX 25,000 UNIT in DEXTROSE/WATER 1 500ML.BAG IV SCH (04:07)
[2018-03-08] MEDS: PANTOPRAZOLE 40 MG TABLET PO SCH (06:25)
[2018-03-08] MEDS: ceFAZolin IN SWFI 2 GM/20 ML SYRINGE IVP SCH ×2 (06:25→12:03)
--- NOTE | 2018-03-08 07:08 | XR ---
EXAMINATION TYPE: XR chest 2V DATE OF EXAM: 03/08/2018 COMPARISON: 03/02/2018 HISTORY: Lead placement tract TECHNIQUE: Frontal and lateral views of the chest are obtained. FINDINGS: There is a dual-lead left-sided cardiac device with ventricular lead in atrial lead in blade ce. Interval development of mild interstitial pulmonary edema and pulmonary vascular congestion with new Anthony B lines. There is no focal air space opacity, pleural effusion, or pneumothorax seen. Th e cardiac silhouette size is within normal limits. The osseous structures are intact. Mild multilev el degenerative changes of the thoracic spine are noted. Flattening of the diaphragms on the lateral image and hyperinflation suggests underlying COPD. IMPRESSION: Newly placed dual lead left-sided cardiac device is described above with new mild inters titial and pulmonary vascular congestion. No postprocedural pneumothorax.
[2018-03-08] MEDS: SYMBICORT 160-4.5 MCG INHALER INHALATION SCH (08:06)
[2018-03-08] MEDS: cloNIDine HCL 0.2 MG TAB PO SCH ×2 (08:31→16:03)
[2018-03-08] MEDS: LOSARTAN 50 MG TAB PO SCH (08:31)
[2018-03-08] MEDS: GABAPENTIN 300 MG CAP PO SCH ×2 (08:31→16:03)
[2018-03-08] MEDS: BACLOFEN 10 MG TAB PO SCH (08:31)
[2018-03-08] MEDS: ASPIRIN 81 MG PO SCH (08:31)
[2018-03-08] MEDS: amLODIPine 10 MG TAB PO SCH (08:31)
[2018-03-08] MEDS: SERTRALINE 25 MG TAB PO SCH (08:31)
[2018-03-08] MEDS: NICOTINE 21MG/24HR PATCH TRANSDERM SCH (08:32)
[2018-03-08] MEDS: NYSTATIN 100,000 UNIT/ML SUSP 500,000 UNIT/5 ML CUP PO SCH ×3 (08:32→16:02)
[2018-03-08 08:41] VITALS: TEMP 97.6
[2018-03-08 12:24] VITALS: BP 159/79; PULSE 65
[2018-03-08] MEDS ORDERED: RIVAROXABAN 20 MG TAB PO SCH (12:30)
--- NOTE | 2018-03-08 12:48 | P.PN ---
Subjective Progress Note Date: 03/08/18 HPI: This is a 53 year old gentleman who is well-known to [facility] who presented to the emergency department with altered mental status. This patient is currently unable to provide history. History is taken from nursing as well as medical records. The patient was apparently not acting himself at home. He lives with his daughter. He had several episodes of vomiting and his daughter called EMS. He does have a known history of alcohol abuse but denies use in the past 2 months. He did have AAA repair in 11/2017 and did go through alcohol withdrawals during that admission. His alcohol level on admission was 0. However, his UDS was positive for methamphetamine. The patient was admitted to the telemetry floor and became bradycardic. He was subsequently transferred to the ICU. He did recently have an admission to [facility] in 01/2018 for hypotension, sepsis, wound infection. He did have debridement done by Dr. Castro and was seen by ID - Dr. Matute. Patient is currently arousable, but is only answering "no" and "why" to questions. He denies taking any pills, using any drugs, drinking alcohol, or using any other substances. However, his mentation is poor at this time. He has been hypertensive. His O2 saturation is 98% on 2L NC. He does have periods of apnea and is being worked up outpatient for NOEL. Interval history: 02/25/2018- patient is being seen examined and evaluated today in the intensive care unit. The patient is more alert today. He answers all questions appropriately. He is asking for his NG tube to be removed. He is satting 100% on 2 L of supplemental oxygen. Feels his breathing is at baseline. We will restart his home Symbicort. Oxygen will be weaned off. NG tube is going to be taken out by nursing per routine orders. Chest x-ray was reviewed and does show persistent right basilar subsegmental atelectasis. He continues on Vanco and Zosyn as well as a heparin drip. Patient did undergo a CT of the abdomen and pelvis this He does have a suspected complete occlusion of his right aorto iliac stent graft and vascular consultation has been obtained. Patient also just underwent an EEG and those results are pending. 02/26/18- patient is being seen examined and evaluated today on the fourth floor. Currently the patient is resting up in bed on room air. Patient is scheduled to go for a right iliofemoral thrombectomy today with Dr. Glass. The patient did this morning have a 4 second cause followed by a 6 second pause while coughing. Cardiology was consulted and appreciate recommendations. Patient states he felt like his blood pressure was going up during the pauses. He was alertsyncope. His WBC count today is 9.3 his wound cultures were positive for staph aureus and beta-hemolytic strep group G. Patient's procedure is scheduled for 2 PM pending cardiology recommendations. 02/27/2018: Patient seen and examined. Patient states his breathing is good. He does note when he takes naps or sleep sent ninth that he has a hard time breathing and feels like he has to take deeper breaths. It is again reiterated to the patient that he needs a sleep study for possible obstructive sleep apnea. He has not been wearing the BiPAP. He is currently on room air. Plan is for OR today with vascular surgery. The patient has been hemodynamically stable. His respiratory status appears to be at baseline. 02/28/15- patient is being seen examined and evaluated today on rounds in the intensive care unit. The patient did undergo a thrombectomy yesterday with Dr. Coe, please see procedure notes for details. The patient was sent postoperatively to the intensive care unit stable on mechanical ventilation with propofol for sedation to continue overnight. TIN CUTTER was notified of the patient's status, he was hemodynamically stable. ABGs were obtained and were reviewed with the RN, pH of 7.34, pCO2 42, pO2 83, HCO3 23, with a base excess of -2.9. Patient's chest x-ray was reviewed and ET tube was in place. He did not require any vasopressors. He was on heparin and TPA per vascular surgery to be continued through the night until 10 AM today. Patient will undergo spontaneous breathing trials once TPA and heparin are discontinued. Upon examination the patient's sedation has been weaned off he is alert, nodding appropriately, he continues to be hemodynamically stable. Case is reviewed with the nurse at length. Anticipate extubation in the near future. 03/01/18- patient is being seen examined and evaluated today on rounds in the intensive care unit. The patient's resting up in bedside chair on room air. States his shortness of breath has improved however still comes and goes with exertion. He has been working with therapies. He continues on a heparin drip and Cardizem. The patient did go into atrial fibrillation yesterday and cardiology was reconsulted. Currently he is on Cardizem drip at 10. He continues in atrial fibrillation with controlled rate. He is currently hemodynamically stable. Care is discussed with the nurse at length. Sheath was pulled yesterday, without complication. He is afebrile no further complaints 03/02/18- patient is being seen examined and evaluated today on rounds. He is resting up in bed and did have a low-grade fever overnight. He has been coughing up some sputum as well. He has some shortness of breath with exertion and activity. We will obtain a chest x-ray, repeat UA and repeat sputum culture. His BUN today is 19 creatinine is 1.8 we will restart IV fluids 0.9 normal saline at 75 an hour. Patient's vascular status to his right lower extremity is improving. Pulses palpable. He moves with no all extremities. He does have some generalized complains of mouth dry and soreness we will also start nystatin. 03/03/2018: Patient seen and examined. Patient states he did have fevers overnight but did not have any this morning. He states his breathing is a little worse and he is using the nebulizer treatments which he previously refused. The patient did not have any documented fevers per nursing. His white blood cell count improved to 8.6. His chest x-ray did show some increasing interstitial edema. 03/04/18- patient is seen examined and evaluated on rounds. He is resting up in bed on room air. States he continues using breathing treatments which are helping. Feels his breathing is at baseline does still continued to get short of breath with exertion. Currently continues on heparin drip per cardiology. Currently working with case management for anticoagulation coverage. He is afebrile denies any further complaints. 03/05/18- patient is being seen examined and evaluated on rounds. He is resting up in bed on room air. Discharge was held yesterday due to insurance authorization for anticoagulation therapy. He currently continues on the heparin drip and is being transitioned to Coumadin. INR today is 1.3. Discharge planning continues to possible rehab facility 03/06/18- See note completed by Ginger Gonzales 03/07/18- patient is being seen examined and evaluated today on rounds. Patient is on room air denies any shortness breath cough or congestion. Plan is for patient to go for a pacemaker insertion today. His hemoglobin is stable at 9.0. His breathing is at baseline. He is hemodynamically stable. Afebrile no further complaints. 03/08/18- patient is being seen examined and evaluated today on rounds. He is resting up in bed on room air. He is ready for discharge today. Pacemaker has been inserted and has had no complications thus far. He has been hemodynamically stable afebrile no further complaints. He will follow-up in the office Objective - Vital Signs Vital signs: Vital Signs Temp 97.6 F 03/08/18 08:35 Pulse 65 03/08/18 12:20 Resp 16 03/08/18 12:20 BP 159/79 03/08/18 12:20 Pulse Ox 95 03/08/18 12:20 Intake & Output 03/07/18 03/08/18 03/08/18 18:59 06:59 18:59 Intake Total 1780.000 451.059 Output Total 1175 1875 Balance 605.000 -1423.941 Weight 113.9 kg Intake: IV 200 Intake, IV Titration 1100.000 451.059 Amount Heparin Sodium,Porcine/ 500.000 451.059 D5w Pmx 25,000 unit In Dextrose/Water 1 500ml. bag @ 8.85 UNITS/KG/HR 20 mls/hr IV .Q24H FREEMAN Rx#: [id number] Sodium Chloride 0.9% 1, 600 000 ml @ 50 mls/hr IV . Q20H FREEMAN Rx#:[id number] Oral 480 Output: Urine 1175 1875 Other: Voiding Method Urinal Toilet Toilet Urinal Urinal # Voids 1 1 - Exam GENERAL EXAM: Alert, comfortable in no apparent distress, HEAD: Normocephalic. EYES: Normal reaction of pupils, equal size. NOSE: Clear with pink turbinates. THROAT: No erythema or exudates. NECK: No masses, no JVD. CHEST: No chest wall deformity. LUNGS: Lungs Improved aeration Bases diminished CVS: S1 and S2 normal with no audible mumurs, regular rhythm. ABDOMEN: No hepatosplenomegaly, normal bowel sounds, no guarding or rigidity. Right flank wound dressing clean dry and intact EXTREMITIES: No edema noted, pedal pulses palpable, weak. CENTRAL NERVOUS SYSTEM: moves all extremities No focal deficits, tone is normal in all 4 extremities. - Labs CBC & Chem 7: 03/07/18 06:59 03/07/18 06:59 Labs: Abnormal Lab Results - Last 24 Hours (Table) 03/07/18 03/08/18 Range/Units 19:52 05:48 APTT 50.6 H 55.9 H (22.0-30.0) sec Microbiology - Last 24 Hours (Table) 03/02/18 11:00 Blood Culture - Preliminary Blood No Growth after 120 hours Assessment and Plan Assessment: Assessment Acute toxic encephalopathy Possible aspiration pneumonia Suspect underlying NOEL Sepsis POA Right flank wound/hematoma with purulent drainage, wound vac, s/p I&D 01/2018 UDS positive for methamphetamine History of alcohol abuse Hyperglycemia Sinus bradycardia intermittently COPD with active tobacco abuse History of PAD, AAA repair 11/2017 Hypertension Anxiety/depression Status post thrombectomy day 2 new onset Atrial flutter/ atrial fibrillation Plan Patient cleared for discharge from pulmonary standpoint Pacemaker insertion today IV fluids 0.9 normal saline at 40 cc an hour Nystatin swish and swallow heparin per cardiology - plan to switch to NOAC pending insurance coverage Medications reviewed and will be continued O2 to maintain saturation > or = 90% CPAP nightly, and with naps, outpatient PSG ABX: Per ID Wound culture-positive for staph aureus and beta-hemolytic strep group G Symbicort, Albuterol GI and DVT prophylaxis Wound care per infectious disease PT and OT Encourage ambulation I performed an examination of the patient and discussed their management with the nurse practitioner. I have reviewed the nurse practitioner's note and agree with the documented findings and plan of care.
--- NOTE | 2018-03-08 13:46 | PN ---
PROGRESS NOTE DATE OF SERVICE: 03/08/2018 CHIEF COMPLAINT: Sinus pauses. HISTORY OF PRESENT ILLNESS: This gentleman is doing well. Pacemaker was placed yesterday and he will probably go home today. PHYSICAL EXAM: There is no bleeding at the operative site. Chest is clear. Cardiac exam is normal. Abdomen is soft, nontender. IMPRESSION: Status post pacemaker implantation. PLAN: Probably home today. MMODL / IJN: [id number] /
--- NOTE | 2018-03-08 14:10 | DS ---
DISCHARGE SUMMARY DATE OF SERVICE: 03/08/2018. CHIEF COMPLAINT: Coma. HISTORY OF PRESENT ILLNESS AND PHYSICAL EXAM: Details of this man's history and physical can be found in the initial workup. LABORATORY STUDIES: While he was in a hospital he had laboratory studies, details which can be found in the laboratory section of his chart. COURSE IN HOSPITAL: After admission, he was placed on bedrest and started on intravenous fluids in the ICU and was maintained there for several days until he became fully awake and alert. His activity was being increased and it was discovered that he had an ischemic right leg. He was taken to the operating room for revascularization, which was successful. After that, he continued to slowly improve and was going to be discharged when he developed sinus pauses. He was seen again by Cardiology and decided that he would benefit from a pacemaker. This was placed on the . He was doing well and it was felt that he could go home on the . FINAL DIAGNOSES: 1. Drug ingestion overdose. 2. Coma. 3. Respiratory failure. 4. Arteriosclerotic cardiovascular disease. 5. Status post stenting for abdominal aortic aneurysm. 6. Peripheral vascular occlusive disease of the right leg. 7. History of substance abuse. OPERATIONS: 1. Revascularization of the right lower extremity. 2. Pacemaker implantation. CONSULT: Intensive Medicine, Cardiology, and Vascular Surgery. He is improved. MMDAYAMI / MELLISSAN: [id number] /
--- NOTE | 2018-03-08 14:12 | P.PN ---
Subjective Progress Note Date: 03/08/18 This is a 53-year-old gentleman who underwent surgery by Dr. Bueno and Dr. Glass with thrombectomy and stent placement of the right iliac vein, at the time of my examination was lying down in bed. He did have an episode of atrial fibrillation, he is remaining in normal sinus rhythm at this time. He continues to be on IV heparin, we are checking on the newer anticoagulants to see if he has coverage. Hemodynamically he is stable. He states he did not sleep much through the night last night because of the other patients. Blood pressure 116/50 with a heart rate in the 80s, 90% on room air. Blood cell count 11, hemoglobin 8.9, platelet count 177. Sodium 134, potassium 4.0, BUN 19 , creatinine 1.8. 03/05/2018 Patient was seen and examined this morning, it was noted on the monitor that the patient had a foreign a half second pause, on admission here patient also significantly positive up to 5 seconds. He is on Catapres 0.2 mg 3 times a day , TSH level on admission was normal. Under the recommendation of Dr. Quispe it was advised that patient undergo implantation of a permanent pacemaker, he did receive Coumadin, and is currently on IV heparin. We will hold the Coumadin , schedule the patient for implantation of a permanent pacemaker on of this week. The risks and the benefits were explained to the patient in detail and he is willing to proceed. This will be performed by Dr. Thorpe. 03/06/2018 Patient was seen and examined this morning, hemodynamically stable, no further episodes of pauses were noted on the monitor. Scheduled for implantation of permanent pacemaker tomorrow. 06/08/2018 Patient was seen and examined this morning, underwent implantation of a permanent pacemaker yesterday by Dr. Thorpe. He was seen and examined this morning, overall doing well. Blood pressure 158/70 heart rate in the 70s. Device was interrogated this morning and is functioning appropriately. Chest x-ray was reviewed and does not reveal any evidence of a pneumothorax. Objective - Vital Signs Vital signs: Vital Signs Temp 97.6 F 03/08/18 08:35 Pulse 65 03/08/18 12:20 Resp 16 03/08/18 12:20 BP 159/79 06/15/18 12:20 Pulse Ox 95 03/08/18 12:20 Intake & Output 03/07/18 03/08/18 03/08/18 18:59 06:59 18:59 Intake Total 1780.000 451.059 Output Total 1175 1875 Balance 605.000 -1423.941 Weight 113.9 kg Intake: IV 200 Intake, IV Titration 1100.000 451.059 Amount Heparin Sodium,Porcine/ 500.000 451.059 D5w Pmx 25,000 unit In Dextrose/Water 1 500ml. bag @ 8.85 UNITS/KG/HR 20 mls/hr IV .Q24H FREEMAN Rx#: [id number] Sodium Chloride 0.9% 1, 600 000 ml @ 50 mls/hr IV . Q20H FREEMAN Rx#:[id number] Oral 480 Output: Urine 1175 1875 Other: Voiding Method Urinal Toilet Toilet Urinal Urinal # Voids 1 1 - Exam GENERAL EXAM: Alert, comfortable in no apparent distress, HEAD: Normocephalic. EYES: Normal reaction of pupils, equal size. NOSE: Clear with pink turbinates. THROAT: No erythema or exudates. NECK: No masses, no JVD. CHEST: No chest wall deformity. Site of pacemaker implantation dressing is dry and intact LUNGS: Lungs slightly coarse. Bases diminished CVS: S1 and S2 normal with no audible mumurs, regular rhythm. ABDOMEN: No hepatosplenomegaly, normal bowel sounds, no guarding or rigidity. Right flank wound with green archer purulent drainage EXTREMITIES: No edema noted, pedal pulses palpable, weak. CENTRAL NERVOUS SYSTEM: moves all extremities No focal deficits, tone is normal in all 4 extremities. - Labs CBC & Chem 7: 03/07/18 06:59 03/07/18 06:59 Labs: Abnormal Lab Results - Last 24 Hours (Table) 03/07/18 03/08/18 Range/Units 19:52 05:48 APTT 50.6 H 55.9 H (22.0-30.0) sec Microbiology - Last 24 Hours (Table) 03/02/18 11:00 Blood Culture - Final Blood No Growth after 144 hours Assessment and Plan Plan: Assessment and plan #1 acute toxic encephalopathy #2 right flank wound/hematoma with purulent drainage, wound VAC, status post I&D #3 EtOH abuse history #4 paroxysmal atrial fibrillation, remaining in normal sinus rhythm #5 COPD #6 nicotine dependence #7 history of PAD, AAA repair in November of this year #8 hypertension #9 anxiety #10 status post thrombectomy and stent placement right iliac vein Plan Patient underwent implantation of a permanent pacemaker yesterday, device was interrogated this morning and is functioning appropriately. Chest x-ray does not reveal any evidence of pneumothorax. From cardiology's perspective, patient may be able to be discharged home once cleared by primary, we will make a follow-up appointment in the device clinic post discharge. DNP note has been reviewed, I agree with a documented findings and plan of care. Patient was seen and examined.
--- NOTE | 2018-03-08 15:28 | PN ---
PROGRESS NOTE DATE OF SERVICE: 03/08/2018 REASON FOR FOLLOWUP: Right flank wound with secondary cellulitis. INTERVAL HISTORY: The patient is currently afebrile. He is breathing comfortably. Denies having any chest pain or cough. No abdominal pain or any diarrhea. PHYSICAL EXAMINATION: Blood pressure 159/79 with a pulse of 58, temperature 98, he is 95% on room air. General description is a middle-aged male, lying in bed in no distress. RESPIRATORY SYSTEM: Unlabored breathing, clear to auscultation anteriorly. HEART: S1, S2. Regular rate and rhythm. ABDOMEN: Soft, no tenderness. EXTREMITIES: No edema of the feet. LABS: Hemoglobin 9.1, white count of 6.9, BUN of 18, creatinine 1.20. DIAGNOSTIC IMPRESSION AND PLAN: Patient with right flank wound with secondary cellulitis, culture positive for Streptococcus and methicillin-sensitive Staphylococcus aureus. Antibiotic transition to oral Keflex 500 mg t.i.d. for about a week. Local care with Aquacel Silver packing and follow up [facility] next week. MMODL / IJN: [id number] /
--- NOTE | 2018-03-08 16:16 | DS ---
DISCHARGE SUMMARY DISCHARGE SUMMARY ADDENDUM: Earlier on the day of discharge it was thought that he would be going home, but now he is going to [facility] [place]. BRANDON / NELSON: [id number] /
--- NOTE | 2018-03-11 15:23 | CDI ---
Last Revision, August 2017 Documentation Clarification Form Date: 03/11/2018 From: Nayely Juaquin Constanza Stepan, Public Relations Senior Associate Hours-8:30 am & 5 pm MMurphy Admit Date: 02/25/2018 8:20:00 AM Patient Name: Abraham Avitia Visit Number: [id number] Discharge Date: 03/08/18 ATTENTION: The Clinical Documentation Specialists (CDI) and [facility] Coding Staff appreciate your assistance in clarifying documentation. Please respond to the clarification below the line at the bottom and electronically sign. The CDI & [facility] Coding staff will review the response and follow-up if needed. Please note: Queries are made part of the Legal Health Record. If you have any questions, please contact the author of this message via ITS. Dr. Laurel Thorpe Atrial Flutter is documented in the progress notes by Dr Easton Durbin on 03/01-03/08. History/Risk factors: paroxsymal atrial fibrillation, thrombosis of graft, asp pneumonia, drug overdose Treatment: IV Cardizem In your professional opinion, in order to capture the severity of condition; can you please clarify the type of atrial flutter if known? Typical/Type I Atypical/Type II Other, please specify. I just did a permanent pacemaker. Patient was seen by Dr. Abarca and followed by Dr. Brown.. Please refer the matter to them.____ Unable to determine Please continue to document in your progress notes and discharge summary in order to capture severity of illness and risk of mortality. Include clinical findings that support your diagnosis. MTDD
--- NOTE | 2018-03-13 13:29 | CDI ---
Last Revision, August 2017 Documentation Clarification Form Date: 03/11/2018 3:22:00 PM From: Nayely Reza Constanza Ying, Replanter Hours-8:30 am & 5 pm Darryl Admit Date: 02/25/2018 8:20:00 AM Patient Name: Abraham Avitia Visit Number: [id number] Discharge Date: 03/08/18 ATTENTION: The Clinical Documentation Specialists (CDI) and [facility] Coding Staff appreciate your assistance in clarifying documentation. Please respond to the clarification below the line at the bottom and electronically sign. The CDI & [facility] Coding staff will review the response and follow-up if needed. Please note: Queries are made part of the Legal Health Record. If you have any questions, please contact the author of this message via ITS. Dr. Stanford Abarca New onset atrial flutter/atrial fibrillation is documented in the progress notes by Dr Rohini Mcguire on 03/01-03/08. History/Risk factors: paroxsymal atrial fibrillation, thrombosis of graft, asp pneumonia, drug overdose Treatment: IV Cardizem In your professional opinion, in order to capture the severity of condition; can you please clarify the type of atrial flutter if known? Atrial flutter ruled out Typical/Type I Atypical/Type II Other, please specify Unable to determine Please continue to document in your progress notes and discharge summary in order to capture severity of illness and risk of mortality. Include clinical findings that support your diagnosis. MTDD
--- NOTE | 2018-03-19 11:02 | CDI ---
Last Revision, August 2017 Documentation Clarification Form Date: 03/19/2018 From: Nayely Juaquin Constanza Ying, Pack Worker Supervisor Hours-8:30 am & 5 pm Darryl Admit Date: 02/25/2018 8:20:00 AM Patient Name: Abraham Avitia Visit Number: [id number] Discharge Date: 03/08/18 ATTENTION: The Clinical Documentation Specialists (CDI) and [facility] Coding Staff appreciate your assistance in clarifying documentation. Please respond to the clarification below the line at the bottom and electronically sign. The CDI & [facility] Coding staff will review the response and follow-up if needed. Please note: Queries are made part of the Legal Health Record. If you have any questions, please contact the author of this message via ITS. Dr. Stanford Abarca New onset atrial flutter/atrial fibrillation is documented in the progress notes by Dr Rohini Mcguire on 03/01-03/08. History/Risk factors: paroxsymal atrial fibrillation, thrombosis of graft, asp pneumonia, drug overdose Treatment: IV Cardizem In your professional opinion, in order to capture the severity of condition; can you please clarify the type of atrial flutter if known? Atrial flutter ruled out Typical/Type I Atypical/Type II Other, please specify Unable to determine Please continue to document in your progress notes and discharge summary in order to capture severity of illness and risk of mortality. Include clinical findings that support your diagnosis. ___unable to determine MTDD
== END 2018-03-08 16:59 | DRG 907 ==
LOC: EC 21:54 → 6SEL 02-24 00:42 → INTOOBSV 02-24 00:42 → 6ICU 02-24 07:09 → OBSVTOIN 02-25 08:20 → 4MS4W 02-25 18:03 → 6SEL 02-27 17:42 → 6ICU 02-27 23:10 → 6SEL 03-01 18:29
PROVIDERS: ADMIT Family Medicine; ATTEND Family Medicine
PROC: 0D9670Z Drainage of Stomach with Drainage Device, Via Natural or Artificial Opening (ICD-10-PCS; 2018-02-24)
PROC: 5A09457 Assistance with Respiratory Ventilation, 24-96 Consecutive Hours, Continuous Positive Airway Pressure (ICD-10-PCS; 2018-02-24)
PROC: 04VH3DZ Restriction of Right External Iliac Artery with Intraluminal Device, Percutaneous Approach (ICD-10-PCS; 2018-02-27)
PROC: 04CK0ZZ Extirpation of Matter from Right Femoral Artery, Open Approach (ICD-10-PCS; 2018-02-27)
PROC: 04UK0JZ Supplement Right Femoral Artery with Synthetic Substitute, Open Approach (ICD-10-PCS; 2018-02-27)
PROC: 04CM0ZZ Extirpation of Matter from Right Popliteal Artery, Open Approach (ICD-10-PCS; 2018-02-27)
PROC: 04CP0ZZ Extirpation of Matter from Right Anterior Tibial Artery, Open Approach (ICD-10-PCS; 2018-02-27)
PROC: 04CR0ZZ Extirpation of Matter from Right Posterior Tibial Artery, Open Approach (ICD-10-PCS; 2018-02-27)
PROC: 04CK0ZZ Extirpation of Matter from Right Femoral Artery, Open Approach (ICD-10-PCS; 2018-02-27)
PROC: 3E05017 Introduction of Other Thrombolytic into Peripheral Artery, Open Approach (ICD-10-PCS; 2018-02-27)
PROC: B41DYZZ Fluoroscopy of Aorta and Bilateral Lower Extremity Arteries using Other Contrast (ICD-10-PCS; 2018-02-27)
PROC: 04CH0ZZ Extirpation of Matter from Right External Iliac Artery, Open Approach (ICD-10-PCS; principal; 2018-02-27 08:00)
PROC: 0JH606Z Insertion of Pacemaker, Dual Chamber into Chest Subcutaneous Tissue and Fascia, Open Approach (ICD-10-PCS; 2018-03-07)
PROC: 02H63JZ Insertion of Pacemaker Lead into Right Atrium, Percutaneous Approach (ICD-10-PCS; 2018-03-07)
PROC: 02HK3JZ Insertion of Pacemaker Lead into Right Ventricle, Percutaneous Approach (ICD-10-PCS; 2018-03-07)
DX: T43.621A Poisoning by amphetamines, accidental (unintentional), initial encounter (principal); J69.0 Pneumonitis due to inhalation of food and vomit; G92 Toxic encephalopathy; A41.9 Sepsis, unspecified organism; J96.90 Respiratory failure, unspecified, unspecified whether with hypoxia or hypercapnia; I74.09 Other arterial embolism and thrombosis of abdominal aorta; T82.868A Thrombosis due to vascular prosthetic devices, implants and grafts, initial encounter; I74.5 Embolism and thrombosis of iliac artery; J98.11 Atelectasis; L03.314 Cellulitis of groin; I48.92 Unspecified atrial flutter; I49.5 Sick sinus syndrome; N18.3 Chronic kidney disease, stage 3 (moderate); I48.0 Paroxysmal atrial fibrillation; G62.9 Polyneuropathy, unspecified; F10.10 Alcohol abuse, uncomplicated; B95.61 Methicillin susceptible Staphylococcus aureus infection as the cause of diseases classified elsewhere; R73.9 Hyperglycemia, unspecified; B95.4 Other streptococcus as the cause of diseases classified elsewhere; E78.5 Hyperlipidemia, unspecified; F15.90 Other stimulant use, unspecified, uncomplicated; I25.10 Atherosclerotic heart disease of native coronary artery without angina pectoris; J44.9 Chronic obstructive pulmonary disease, unspecified; I12.9 Hypertensive chronic kidney disease with stage 1 through stage 4 chronic kidney disease, or unspecified chronic kidney disease; K76.9 Liver disease, unspecified; F32.9 Major depressive disorder, single episode, unspecified; F41.9 Anxiety disorder, unspecified; G47.33 Obstructive sleep apnea (adult) (pediatric); M19.91 Primary osteoarthritis, unspecified site; K59.00 Constipation, unspecified; K40.20 Bilateral inguinal hernia, without obstruction or gangrene, not specified as recurrent; F17.200 Nicotine dependence, unspecified, uncomplicated; Z79.82 Long term (current) use of aspirin; Z79.51 Long term (current) use of inhaled steroids; Z79.899 Other long term (current) drug therapy; Z86.79 Personal history of other diseases of the circulatory system; Z96.619 Presence of unspecified artificial shoulder joint; Z59.0 Homelessness; Y92.009 Unspecified place in unspecified non-institutional (private) residence as the place of occurrence of the external cause; Y90.0 Blood alcohol level of less than 20 mg/100 ml
CPT/HCPCS: 33208; 36415; 36600; 70450; 71045; 71046; 74177; 80048; 80053; 80202; 80306; 80320; 81001; 82140; 82150; 82550; 82553; 82565; 82805; 83605; 83690; 83735; 83930; 84100; 84443; 84484; 84520; 85025; 85027; 85384; 85610; 85730; 86850; 86900; 86901; 87040; 87070; 87075; 87077; 87086; 87186; 87205; 93005; 93306; 94002; 94003; 94640; 94760; 95816; 96361; 96374; 99285

== ENCOUNTER 2018-03-12 06:46 | Observation (INO) | payer OTHER ==
[2018-03-12] MEDS ORDERED: NALOXONE 0.4 MG/ML 1 ML VIAL IV PRN (08:27)
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
[2018-03-12] MEDS ORDERED: SODIUM CHLORIDE 0.9% 1,000 ML IV SCH (08:30)
[2018-03-12 08:56] LABS: Basophils # (A) 0.1 k/uL (0-0.2); Basophils % (A) 1 %; Eosinophils # (A) 0.4 k/uL (0-0.7); Eosinophils % (A) 4 %; HCT 34.4 % (39.0-53.0); HGB 10.9 gm/dL (13.0-17.5); Hypochromasia Slight; Lymphocytes # (A) 1.5 k/uL (1.0-4.8); Lymphocytes % (A) 17 %; MCH 28.8 pg (25.0-35.0); MCHC 31.8 g/dL (31.0-37.0); MCV 90.6 fL (80.0-100.0); Mean Platelet Volume 6.7; Monocytes # (A) 0.5 k/uL (0-1.0); Monocytes % (A) 6 %; Neutrophils % (A) 69 %; Platelet Count 484 k/uL (150-450); RBC 3.79 m/uL (4.30-5.90); RDW 14.8 % (11.5-15.5); WBC 8.7 k/uL (3.8-10.6)
[2018-03-12 09:02] LABS: Calcium 9.3 mg/dL (8.4-10.2); Potassium 4.8 mmol/L (3.5-5.1)
[2018-03-12 10:59] VITALS: BMI 37.3
[2018-03-12] MEDS ORDERED: amLODIPine 10 MG TAB PO SCH (13:30)
[2018-03-12] MEDS: IBUPROFEN 800 MG TAB PO PRN ×2 (13:57→21:10)
[2018-03-12] MEDS: MORPHINE SULFATE 2 MG/ML SYRINGE IVP PRN ×2 (15:32→18:54)
--- NOTE | 2018-03-12 15:52 | US ---
EXAMINATION TYPE: US venous doppler duplex UE LT DATE OF EXAM: 03/12/2018 COMPARISON: NONE CLINICAL HISTORY: rule out DVT. Left arm pain and swelling. Patient had a recent pacemaker and an add itional vascular procedure involving the brachial artery SIDE PERFORMED: Left Left Arm: Negative for DVT as visualized, limited exam. Within the left arm, at the area of the patient's pain and swelling, there appears to be a probable b rachial artery pseudoaneurysm measuring [address] Glass present during exam Grayscale, color doppler, spectral doppler imaging performed of the deep veins of the left upper extr emity. There is normal flow, compressibility and vascular waveforms. IMPRESSION: Suboptimal study, no acute DVT in the left upper extremity. There is suspected pseudoane urysm with "yin/torres" flow visualized on color images at level of left brachial artery likely related to recent vascular procedure at this level. Ordering vascular surgeon made aware of results as was p sarmad during real-time scanning.
--- NOTE | 2018-03-12 15:59 | CONS ---
CONSULTATION This is a 53-year-old gentleman who came to the emergency room today. This patient had noticed a swelling in his left upper arm since yesterday. The patient had a ultrasound done today and he has a large pseudoaneurysm of the brachial artery. The patient had a aortic stent graft placed in the past. Dr. Coe did the procedure and he had a alert developed right limb occlusion of the aortic stent graft. For that patient went for a thrombectomy and angioplasty and stent placement. The patient had a brachial approach to passed a guidewire to the descending limb of the right iliac artery for the stent graft placement. The patient had a brachial sheath which was removed in the intensive care unit prior to discharge. He was sent home. Yesterday he has developed marked swelling of the left upper arm. MEDICAL HISTORY: History of sleep apnea, hypertension, coronary artery disease. The patient also had a recent pacemaker placed by Chief Data Officer. EXAMINATION: Neck is supple. Chest is clear. Abdomen is soft. Foot is by the Doppler. Incision in the groin is healing. The patient's left arm has swelling of the arm and brachial and radial pulses are present. Ultrasound showed about 3 to 3.5 cm pseudoaneurysm of the brachial artery. IMPRESSION: Left brachial artery pseudoaneurysm. Will address with Dr. Dirk Coe for further management. MMODL / IJN: [id number] /
[2018-03-12] MEDS ORDERED: CEPHALEXIN 500 MG CAP PO SCH (16:00)
[2018-03-12] MEDS: GABAPENTIN 300 MG CAP PO SCH ×2 (17:25→21:12)
[2018-03-12] MEDS: cloNIDine HCL 0.2 MG TAB PO SCH ×2 (17:25→21:12)
--- NOTE | 2018-03-12 18:05 | HP ---
HISTORY AND PHYSICAL CHIEF COMPLAINT: Possible aneurysm in the brachial artery. HISTORY OF PRESENT ILLNESS: This is another admission for this 53-year-old white male. [facility] jail [facility]. Apparently a study suggested that he may have an aneurysm in an upper extremity artery. Details are not known. When this was learned in the jail, they sent him to the emergency room. REVIEW OF SYSTEMS: He has no new symptoms except some discomfort in that arm. Past medical history, family history, and personal and social histories are all otherwise unchanged. PHYSICAL EXAMINATION: Blood pressure is 145/90 with a pulse of 68, respirations of 25, and he is afebrile. In general he appeared to be overweight and comfortable. Head, ears, eyes, nose, mouth and throat were normal. Neck veins were not distended. Thyroid was not enlarged. The chest was clear. Cardiac exam was normal. The abdomen was soft and nontender. EXTREMITIES: Normal. Right leg was warm. Neurologically he was intact. IMPRESSION: 1. Possible abnormality in brachial artery. 2. ACVD. 3. Previous stenting of aortic aneurysm. 4. Recent revascularization, right lower extremity. PLAN: 1. Bed rest. 2. IV fluids. 3. Consult Vascular Surgery. MMODL / IJN: [id number] /
[2018-03-12] MEDS ORDERED: SYMBICORT 160-4.5 MCG INHALER INHALATION SCH (20:00)
[2018-03-12] MEDS ORDERED: BACLOFEN 10 MG TAB PO SCH (21:00)
[2018-03-12 21:01] VITALS: BP 131/68; PULSE 69; RESP 16; TEMP 97.8
[2018-03-13] MEDS ORDERED: PANTOPRAZOLE 40 MG TABLET PO SCH (07:30)
[2018-03-13] MEDS ORDERED: SERTRALINE 25 MG TAB PO SCH (09:00)
[2018-03-13] MEDS ORDERED: LOSARTAN 50 MG TAB PO SCH (09:00)
[2018-03-13] MEDS ORDERED: RIVAROXABAN 20 MG TAB PO SCH (09:00)
--- NOTE | 2018-03-13 16:36 | DS ---
DISCHARGE SUMMARY DATE OF ADMISSION: 03/12/2018 DATE OF DISCHARGE: 03/12/2018 CHIEF COMPLAINT: Pain in the left arm. HISTORY OF PRESENT ILLNESS AND PHYSICAL EXAMINATION: Details of this man's history and physical can be found in the initial workup. LABORATORY STUDIES: While he was in the hospital he had laboratory studies, details of which can be found in the laboratory section of his chart. COURSE IN THE HOSPITAL: After admission he was placed on bedrest, started on intravenous fluids and seen by Vascular Surgery. Decision was made to transfer him out to a tertiary hospital. This was done on the afternoon of 03/12. FINAL DIAGNOSES: 1. 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 2. ASCVD. 3. Status post abdominal aortic aneurysm. 4. Peripheral vascular occlusive disease, status post revascularization of right leg. OPERATIONS: None. CONSULTATIONS: Vascular Surgery. He is improved. BRANDON / NELSON: [id number] /
== END 2018-03-12 21:30 | disposition other institution (70) ==
LOC: EC 06:46 → 5MS5E 08:27 → 4MS4W 09:09
PROVIDERS: ADMIT Family Medicine; ATTEND Family Medicine
DX: I72.1 Aneurysm of artery of upper extremity (principal); I25.10 Atherosclerotic heart disease of native coronary artery without angina pectoris; I10 Essential (primary) hypertension; I77.9 Disorder of arteries and arterioles, unspecified; J44.9 Chronic obstructive pulmonary disease, unspecified; F17.200 Nicotine dependence, unspecified, uncomplicated; Z95.828 Presence of other vascular implants and grafts; Z95.0 Presence of cardiac pacemaker; M19.90 Unspecified osteoarthritis, unspecified site; G47.30 Sleep apnea, unspecified; Z99.89 Dependence on other enabling machines and devices; Z86.79 Personal history of other diseases of the circulatory system; Z79.899 Other long term (current) drug therapy; Z79.82 Long term (current) use of aspirin; Z79.51 Long term (current) use of inhaled steroids
CPT/HCPCS: 99285; 96376; 96374; 94640; 80048; 85025; 93971; G0378 ×2; J2270

== ENCOUNTER 2018-04-10 18:52 | Emergency (ER) | payer OTHER ==
[2018-04-10 19:05] VITALS: RESP 18; TEMP 98.3
[2018-04-10 19:15] VITALS: BP 156/72; PULSE 81
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
== END 2018-04-10 19:47 | disposition home or self-care (01) ==
LOC: EC 18:52
DX: Z48.812 Encounter for surgical aftercare following surgery on the circulatory system (principal); I25.10 Atherosclerotic heart disease of native coronary artery without angina pectoris; J44.9 Chronic obstructive pulmonary disease, unspecified; I10 Essential (primary) hypertension; M19.90 Unspecified osteoarthritis, unspecified site; G47.30 Sleep apnea, unspecified; Z87.891 Personal history of nicotine dependence; Z99.89 Dependence on other enabling machines and devices; Z95.0 Presence of cardiac pacemaker; Z98.890 Other specified postprocedural states; Z79.51 Long term (current) use of inhaled steroids; Z79.82 Long term (current) use of aspirin; Z79.899 Other long term (current) drug therapy
CPT/HCPCS: 99283

== ENCOUNTER 2018-06-27 07:26 | Inpatient (IN) | payer OTHER ==
[2018-06-27] MEDS ORDERED: SODIUM CHLORIDE 0.9% 1,000 ML IV ONE (07:42)
[2018-06-27] MEDS ORDERED: PROPOFOL 1,000 MG in EMPTY BAG 1 BAG IV ONE (07:48)
[2018-06-27] MEDS ORDERED: PROPOFOL 10 MG/ML 20 ML VIAL IV STA (07:49)
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
--- NOTE | 2018-06-27 08:07 | XR ---
EXAMINATION TYPE: XR chest 1V confirm line [facility] DATE OF EXAM: 06/27/2018 COMPARISON: 03/08/2018 INDICATION: Line placement post intubation TECHNIQUE: Single frontal view of the chest is obtained. FINDINGS: The heart size is upper limits of normal. The pulmonary vasculature is slightly prominent. Focal consolidation is not identified. Endotracheal tube is in place the tip above the chelsie. Nasogastric tube is present with the tip with in the proximal left upper quadrant of the abdomen. Electronic device overlies left chest. IMPRESSION: 1. Borderline cardiomegaly with prominent pulmonary vascular markings in the upper lung field. Correl ate for developing volume overload. 2. Lines and catheters discussed above.
[2018-06-27] MEDS ORDERED: NALOXONE 0.4 MG/ML 10 ML VIAL IVP STA (08:26)
[2018-06-27 08:30] LABS: ABG Base Excess -2.1 mmol/L; ABG HCO3 25 mmol/L (21-25); ABG PCO2 54 mmHg (35-45); ABG PH 7.27 (7.35-7.45); ABG PO2 278 mmHg (83-108); ABG TCO2 26 mmol/L (19-24)
[2018-06-27] MEDS ORDERED: MIDAZOLAM 1 MG/ML 5 ML VIAL IV STA (08:30)
[2018-06-27] MEDS ORDERED: SUCCINYLCHOLINE CHLORIDE VIAL 200 MG/10 ML VIAL IV STA (08:30)
[2018-06-27 09:06] LABS: Basophils # (A) 0.1 k/uL (0-0.2); Basophils % (A) 1 %; Eosinophils # (A) 0.2 k/uL (0-0.7); Eosinophils % (A) 2 %; HCT 48.3 % (39.0-53.0); HGB 14.5 gm/dL (13.0-17.5); Hypochromasia Moderate; Lymphocytes # (A) 2.4 k/uL (1.0-4.8); Lymphocytes % (A) 19 %; MCH 27.3 pg (25.0-35.0); MCHC 30.1 g/dL (31.0-37.0); MCV 90.9 fL (80.0-100.0); Mean Platelet Volume 6.8; Monocytes # (A) 0.9 k/uL (0-1.0); Monocytes % (A) 7 %; Neutrophils # (A) 8.4 k/uL (1.3-7.7); Neutrophils % (A) 69 %; Platelet Count 176 k/uL (150-450); RBC 5.32 m/uL (4.30-5.90); RDW 14.8 % (11.5-15.5); WBC 12.2 k/uL (3.8-10.6)
[2018-06-27 09:16] LABS: Appearance,Urine Clear (Clear); Bilirubin,Urine Negative (Negative); Blood,Urine Moderate (Negative); Color,Urine Yellow; Glucose,Urine (UA) Negative (Negative); Hyaline Casts,Urine 1 /lpf (0-2); Ketones,Urine Negative (Negative); Leukocyte Esterase,Urine Negative (Negative); Mucus,Urine Few /hpf; Nitrite,Urine Negative (Negative); PH, Urine 5.5 (5.0-8.0); Protein,Urine 1+ (Negative); RBC,Urine 1 /hpf (0-5); Specific Gravity,Urine 1.019 (1.001-1.035); Squamous Epithelial Cell,Urine <1 /hpf (0-4); Urobilinogen,Urine <2.0 mg/dL (<2.0); WBC,Urine 3 /hpf (0-5)
[2018-06-27 09:19] LABS: ALT 26 U/L (21-72); AST 26 U/L (17-59); Acetaminophen 16.8 ug/mL; Albumin 3.7 g/dL (3.5-5.0); Alcohol <10 mg/dL; Alkaline Phosphatase 67 U/L (38-126); Amylase 56 U/L (30-110); Anion Gap 10 mmol/L; Blood Urea Nitrogen 28 mg/dL (9-20); Calcium 8.8 mg/dL (8.4-10.2); Carbon Dioxide 24 mmol/L (22-30); Chloride 106 mmol/L (98-107); Glucose 94 mg/dL (74-99); INR 1.1 (<1.2); Lipase 194 U/L (23-300); Magnesium 2.2 mg/dL (1.6-2.3); Potassium 4.9 mmol/L (3.5-5.1); Salicylate <1.0 mg/dL; Sodium 140 mmol/L (137-145); Total Bilirubin 0.6 mg/dL (0.2-1.3); Total Protein 6.8 g/dL (6.3-8.2)
[2018-06-27 09:20] LABS: Partial Thromboplastin Time 26.2 sec (22.0-30.0)
[2018-06-27 09:23] LABS: Amphetamine Screen,Urine Not Detected (NotDetected); Barbiturate Screen,Urine Not Detected (NotDetected); Benzodiazepines Screen,Urine Detected (NotDetected); Cocaine Screen,Urine Not Detected (NotDetected); Methadone Screen, Urine Not Detected (NotDetected); Opiate Screen,Urine Not Detected (NotDetected); Oxycodone Screen, Urine Not Detected (NotDetected); Phencyclidine Screen,Urine Not Detected (NotDetected); Tricyclic Antidepressant,Urine Not Detected (NotDetected); Urn Cannabinoid Scrn Not Detected (NotDetected)
[2018-06-27 09:48] LABS: Creatine Kinase MB 2.3 ng/mL (0.0-2.4)
[2018-06-27 09:51] LABS: Troponin I 0.037 ng/mL (0.000-0.034)
--- NOTE | 2018-06-27 09:59 | CT ---
EXAMINATION TYPE: CT brain wo con DATE OF EXAM: 06/27/2018 COMPARISON: Prior CT brain 02/25/2018 HISTORY: unresponsive CT DLP: 1072.30 mGycm Automated exposure control for dose reduction was used. FINDINGS: Inflammatory changes are present within the ethmoid air cells. Calvarium is intact. There is no evide nt hemorrhage or hydrocephalus. Brain density is maintained. IMPRESSION: NO ACUTE ABNORMALITY, FOLLOW-UP INDICATED.
[2018-06-27] MEDS ORDERED: NALOXONE 0.4 MG/ML 1 ML VIAL IV PRN (11:32)
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
[2018-06-27 18:12] LABS: Glucose,Whole Blood 93 mg/dL (75-99)
[2018-06-27] MEDS: SODIUM CHLORIDE 0.9% 1,000 ML IV SCH (18:58)
[2018-06-27] MEDS: PROPOFOL 1,000 MG in EMPTY BAG 1 BAG IV SCH (18:58)
[2018-06-27 19:44] LABS: Glucose,Whole Blood 100 mg/dL (75-99)
[2018-06-27] MEDS ORDERED: SODIUM CHLORIDE 0.9% 2,000 ML IV ONE (20:11)
[2018-06-27] MEDS: CHLORHEXIDINE GLUCONATE 15 ML CUP MUCOUS MEM SCH (20:55)
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
[2018-06-28 01:19] LABS: Glucose,Whole Blood 90 mg/dL (75-99)
[2018-06-28 05:20] LABS: Basophils # (A) 0.1 k/uL (0-0.2); Basophils % (A) 1 %; Eosinophils # (A) 0.2 k/uL (0-0.7); Eosinophils % (A) 2 %; HCT 44.5 % (39.0-53.0); HGB 13.6 gm/dL (13.0-17.5); Hypochromasia Slight; Lymphocytes # (A) 1.2 k/uL (1.0-4.8); Lymphocytes % (A) 12 %; MCH 27.3 pg (25.0-35.0); MCHC 30.6 g/dL (31.0-37.0); MCV 89.1 fL (80.0-100.0); Mean Platelet Volume 7.3; Monocytes # (A) 0.6 k/uL (0-1.0); Monocytes % (A) 6 %; Neutrophils # (A) 7.7 k/uL (1.3-7.7); Neutrophils % (A) 78 %; Platelet Count 146 k/uL (150-450); RBC 4.99 m/uL (4.30-5.90); WBC 9.8 k/uL (3.8-10.6)
[2018-06-28 05:28] LABS: ABG Base Excess -0.5 mmol/L; ABG HCO3 26 mmol/L (21-25); ABG PCO2 50 mmHg (35-45); ABG PH 7.32 (7.35-7.45); ABG PO2 119 mmHg (83-108); ABG TCO2 27 mmol/L (19-24)
[2018-06-28 05:34] LABS: Calcium 8.7 mg/dL (8.4-10.2); Magnesium 2.1 mg/dL (1.6-2.3); Phosphorus 4.8 mg/dL (2.5-4.5); Potassium 4.6 mmol/L (3.5-5.1)
[2018-06-28] MEDS: PROPOFOL 1,000 MG in EMPTY BAG 1 BAG IV SCH (06:51)
--- NOTE | 2018-06-28 07:33 | XR ---
EXAMINATION TYPE: XR chest 1V DATE OF EXAM: 06/28/2018 COMPARISON: 06/27/2018 HISTORY: Shortness of breath TECHNIQUE: Single frontal view of the chest is obtained. FINDINGS: ET and NG tubes stable. Left-sided cardiac device noted. There is subsegmental consolidati on at both lung bases. Heart size stable. No overt failure. No pneumothorax. IMPRESSION: 1. No overt failure. 2. Basilar atelectasis favored over early infiltrate correlate clinically. 3. Stable mild prominence of interstitium which could be on the basis of chronic interstitial lung di sease or congestion.
[2018-06-28] MEDS: CHLORHEXIDINE GLUCONATE 15 ML CUP MUCOUS MEM SCH (08:47)
[2018-06-28] MEDS: PANTOPRAZOLE 40 MG/10 ML VIAL IV SCH (08:47)
[2018-06-28] MEDS ORDERED: IPRATROPIUM-ALBUTEROL 3 ML NEB INHALATION PRN (09:49)
[2018-06-28] MEDS: IPRATROPIUM-ALBUTEROL 3 ML NEB INHALATION SCH ×4 (09:55→23:48)
[2018-06-28] MEDS ORDERED: FUROSEMIDE 10 MG/ML 4 ML VIAL ONE (09:59)
[2018-06-28] MEDS ORDERED: METOPROLOL TARTRATE 5 MG/5 ML VIAL IVP PRN (10:38)
[2018-06-28] MEDS ORDERED: ONDANSETRON 4 MG/2 ML VIAL IVP PRN (10:46)
--- NOTE | 2018-06-28 10:50 | P.PN ---
Subjective Progress Note Date: 06/28/18 Principal diagnosis: Altered mental status of unclear etiology. This is a 53-year-old gentleman who follows with Dr. Quinones as his primary care physician. He has a previous history of illicit drug use, suicide attempt , coronary artery disease, permanent pacemaker implantation, abdominal aortic aneurysm endovascular repair, left brachial artery pseudoaneurysm, hypertension , liver disease, history of alcohol abuse, history of methamphetamines use, chronic obstructive pulmonary disease, chronic and ongoing tobacco dependence. The patient had been residing in [facility] when staff found him unconscious, unresponsive in a semi-Randall's position. He was bradypneic, he did have a pulse. Upon EMS arrival he was given Narcan without initial improvement. However once he was loaded on the stretcher: In route he became awake and alert and yelling continuously. Just prior to arriving to the hospital he again became obtunded and oral airway was inserted and dilations were assisted. The patient ended up being intubated and placed on mechanical ventilator. He is currently on 7.5 mcg/kg/m of propofol. Seating 0.9 normal saline at 100 ML's per hour. Current ventilator settings are assist control of 16, tidal volume 650, FiO2 100%, PEEP of 5. Acute blood gases were obtained and reveal a P O2 of 278, pCO2 of 54, pH 7.27. White count 12.2. Hemoglobin 14.5. Creatinine 1.94. Troponin 0.037. Urine drug screen was positive for benzodiazepines. Of note, the patient was found with white powdered substance which was detained by the police department. According to staff the patient is allowed to be in and out of the [facility] and has been sleeping there at nighttime. The patient is seen today 06/28/2018 in follow-up in the intensive care unit. He remains intubated and on the mechanical ventilator. Current settings assist- control of 16, tidal volume 650, FiO2 60%, PEEP of 5. Morning blood gases reveal a pO2 of 119, pCO2 50, pH 7.32. He is sedated with propofol at 30 mcg/kg /m. Chest x-ray reveals basilar atelectasis versus early infiltrate. There is some noted prominence of the interstitium possibly related to chronic interstitial lung disease or congestion. White count 9.8. Hemoglobin 13.6. Creatinine 1.28. Urine culture is pending. The patient was given a sedation holiday. He is moving all fours. He began biting and gagging on the tube. Dr. Adams is present at the bedside and we extubated the patient. He was found to have excess secretions. He is given IV Solu-Medrol, IV Lasix, updraft treatments. He is currently resting more comfortably in bed. Still not speaking clear sentences however. Objective - Vital Signs Vital signs: Vital Signs Temp 98.9 F 06/28/18 08:00 Pulse 106 H 06/28/18 10:07 Resp 16 06/28/18 08:00 BP 121/64 06/28/18 08:00 Pulse Ox 96 06/28/18 08:00 Intake & Output 06/27/18 06/28/18 06/28/18 18:59 06:59 18:59 Intake Total 2300.000 46.753 Output Total 780 85 Balance 1520.000 -38.247 Weight 127.006 kg 125.1 kg Intake: IV 2200 40 Sodium Chloride 0.9% 1, 2200 40 000 ml @ 20 mls/hr IV . Q24H FREEMAN Rx#:[id number] Intake, IV Titration 100.000 6.753 Amount Propofol 1,000 mg In 100.000 6.753 Empty Bag 1 bag @ Titrate IV .Q0M FREEMAN Rx#: [id number] Output: Gastric Drainage 300 Urine 480 85 Other: Voiding Method Indwelling Catheter - Exam GENERAL EXAM: Intubated, sedated, comfortable in no apparent distress. Subsequently extubated. NG tube removed as well. HEAD: Normocephalic. EYES: Sluggish reaction of pupils, equal size. NOSE: Clear with pink turbinates. THROAT: Oral endotracheal and gastric tube secured in place. NECK: No masses, no JVD. CHEST: No chest wall deformity. LUNGS: Equal air entry with bilateral wheeze. CVS: S1 and S2 normal with no audible murmur, regular rhythm. ABDOMEN: No hepatosplenomegaly, normal bowel sounds, no guarding or rigidity. SPINE: No scoliosis or deformity SKIN: No rashes CENTRAL NERVOUS SYSTEM: No focal deficits, tone is normal in all 4 extremities. EXTREMITIES: There is no peripheral edema. No clubbing, no cyanosis. Peripheral pulses are intact. - Labs CBC & Chem 7: 06/28/18 04:45 06/28/18 04:45 Labs: Abnormal Lab Results - Last 24 Hours (Table) 06/27/18 06/28/18 06/28/18 Range/Units 19:43 04:45 04:45 MCHC 30.6 L (31.0-37.0) g/dL Plt Count 146 L (150-450) k/uL ABG pH (7.35-7.45) ABG pCO2 (35-45) mmHg ABG pO2 (83-108) mmHg ABG HCO3 (21-25) mmol/L ABG Total CO2 (19-24) mmol/L ABG O2 Saturation (94-97) % Chloride 108 H (98-107) mmol/L BUN 30 H (9-20) mg/dL Creatinine 1.28 H (0.66-1.25) mg/dL POC Glucose (mg/dL) 100 H (75-99) mg/dL Phosphorus 4.8 H (2.5-4.5) mg/dL 06/28/18 Range/Units 05:24 MCHC (31.0-37.0) g/dL Plt Count (150-450) k/uL ABG pH 7.32 L (7.35-7.45) ABG pCO2 50 H (35-45) mmHg ABG pO2 119 H (83-108) mmHg ABG HCO3 26 H (21-25) mmol/L ABG Total CO2 27 H (19-24) mmol/L ABG O2 Saturation 99.0 H (94-97) % Chloride (98-107) mmol/L BUN (9-20) mg/dL Creatinine (0.66-1.25) mg/dL POC Glucose (mg/dL) (75-99) mg/dL Phosphorus (2.5-4.5) mg/dL Microbiology - Last 24 Hours (Table) 06/27/18 21:00 Urine Culture - Preliminary Urine,Catheterized Assessment and Plan Assessment: Impression: #1 Altered mental status of unclear etiology, there was white powder noted with the patient. Urine drug screen positive for benzodiazepines. The patient was successfully extubated on 06/28/2018. Currently on 6 L high flow nasal cannula. Still somewhat altered. #2 History of illicit drug use including methamphetamine's. #3 History of suicide attempt. #4 History of alcoholism. #5 Chronic obstructive pulmonary disease. #6 Chronic and ongoing tobacco dependence. #7 History of abdominal aortic aneurysm with stenting in November 2017. #8 History of left brachial pseudoaneurysm. #9 Hypertension. #10 Anxiety/depression. Plan: Patient was seen and evaluated by Dr. Adams. Chest x-ray, ABGs and labs were all reviewed. We did go ahead and extubate the patient. He is currently maintaining good O2 saturations in the 90s on 6 L/m per nasal cannula. Continue bronchodilators, continue IV Solu-Medrol. Add IV Zosyn. We'll continue to follow and make further recommendations based on his clinical status. Of note, Dr. Adams did speak with the patient's daughter who states the patient is to remain a DNR/DNI CODE STATUS and not to be reintubated should any recurrence of respiratory failure occur. Critical care time 38 minutes. I, the cosigning physician, performed a history & physical examination of the patient. Lungs sounds with bilateral wheeze. Maintaining good O2 saturations in the 90s on 6 L/m per nasal cannula. I discussed the assessment and plan of care with my nurse practitioner, Belinda Conteh. I attest to the above progress note as dictated by her. Time with Patient: Greater than 30
[2018-06-28] MEDS: HEPARIN SODIUM,PORCINE 5,000 UNIT/ML 1 ML VIAL SQ SCH ×2 (10:56→20:25)
[2018-06-28] MEDS: PIPERACILLIN-TAZOBACTAM 3.375 GM in DEXTROSE/WATER 1 50ML.BAG IVPB SCH ×3 (11:20→23:44)
[2018-06-28] MEDS: methylPREDNISolone SOD SUCCI 125 MG/2 ML VIAL IV SCH ×3 (11:21→23:45)
[2018-06-28 11:42] LABS: Amphetamine Screen,Urine Not Detected (NotDetected); Barbiturate Screen,Urine Not Detected (NotDetected); Benzodiazepines Screen,Urine Not Detected (NotDetected); Cocaine Screen,Urine Not Detected (NotDetected); Methadone Screen, Urine Not Detected (NotDetected); Opiate Screen,Urine Detected (NotDetected); Oxycodone Screen, Urine Not Detected (NotDetected); Phencyclidine Screen,Urine Not Detected (NotDetected); Tricyclic Antidepressant,Urine Not Detected (NotDetected); Urn Cannabinoid Scrn Not Detected (NotDetected)
[2018-06-28] MEDS ORDERED: methylPREDNISolone SOD SUCCI 125 MG/2 ML VIAL IV SCH ×2 (12:00)
[2018-06-28] MEDS ORDERED: METOPROLOL TARTRATE 5 MG/5 ML VIAL IVP ONE (12:11)
[2018-06-28] MEDS: INSULIN ASPART 100 UNIT/ML 1 ML 10 ML VIAL SQ SCH ×2 (12:28→18:12)
[2018-06-28 12:31] LABS: Glucose,Whole Blood 131 mg/dL (75-99)
[2018-06-28 13:50] LABS: Hemoglobin A1C 5.9 % (4.0-6.0)
--- NOTE | 2018-06-28 14:32 | HP ---
HISTORY AND PHYSICAL CHIEF COMPLAINT: Coma. HISTORY OF PRESENT ILLNESS: This is another admission for this 53-year-old white male. He has been at [facility]. Apparently, he was found unresponsive and was brought into the emergency room. There he was very lethargic and ventilation was poor. He was intubated. The etiology for this event is not clear. He apparently had not been complaining of any chest pain, shortness of breath, abdominal pain, nausea, etc. REVIEW OF SYSTEMS: Unobtainable. Past medical history, family history and personal and social histories are unobtainable at this time. He did have a left brachial artery aneurysm which has been operated on. There is no other history readily available. PHYSICAL EXAMINATION: Blood pressure is 121/64 with a pulse of 76, respirations of 8, and he is afebrile. GENERAL: He appeared to be comatose. Skin is dry. Head, ears, eyes, nose, mouth, and throat were normal. There is no sign of trauma. Neck veins not distended. Chest demonstrates shallow breath sounds with no rales or rhonchi. Cardiac exam is normal. The abdomen is soft and there are no masses. Extremities are normal except for the scar in the left inner upper arm. Neurologically, he is comatose. IMPRESSION: 1. Coma, unexplained. 2. Atherosclerotic cardiovascular disease. 3. History of coronary artery disease. PLAN: 1. ICU management. 2. Consult with Intensive Medicine. 3. Consult with Neurology. MMDAYAMI / MELLISSAN: [id number] /
--- NOTE | 2018-06-28 14:49 | PN ---
PROGRESS NOTE DATE OF SERVICE: 06/28/2018 CHIEF COMPLAINT: Coma. HISTORY OF PRESENT ILLNESS: This gentleman is unchanged. He remains in a coma. He is being evaluated by Neurology and an EEG is scheduled. PHYSICAL EXAMINATION: He is on a ventilator. CHEST: Clear on both sides. Cardiac exam is normal except for slight bradycardia. The abdomen is soft. There are no masses. Extremities are normal. IMPRESSION: 1. Unexplained coma. 2. Atherosclerotic cardiovascular disease. 3. History of heart disease. PLAN: Continue supportive care and continue to look for etiology of this event. MMODL / IJN: [id number] /
[2018-06-28] MEDS: CLEVIDIPINE BUTYRATE 25 MG in EMPTY BAG 1 BAG IV SCH ×4 (14:51→22:42)
[2018-06-28 18:09] LABS: Glucose,Whole Blood 176 mg/dL (75-99)
[2018-06-28] MEDS: SODIUM CHLORIDE 0.9% 1,000 ML IV SCH (18:12)
[2018-06-28] MEDS ORDERED: LORazepam 2 MG/ML INJ IV STA (21:37)
--- NOTE | 2018-06-28 21:38 | P.PN ---
Subjective Progress Note Date: 06/28/18 This patient is a 53-year-old right-handed white male who was seen yesterday in the intensive care unit after he was found unresponsive at his care home. Patient was intubated and transferred to the intensive care unit. He was placed on a Diprivan drip and his remaining heavily sedated early this morning. Patient was seen on rounds early this morning by Dr. Adams. He was extubated at about 9:30 AM but remains very confused and disoriented. According to the ICU nursing staff he has not shown much improvement in his mental status since extubation earlier this morning. He did have evidence of hypertensive urgency. He has been started on IV Cleviprex at a dose of 14 mcg/ h. His blood pressure remained slightly elevated this evening. The patient remains extubated but still very confused and encephalopathic. He has not been able to communicate verbally with the ICU nursing staff. He only mumbles words at times. He keeps repeating himself and uses the phrase Ma consistently throughout his examination. He is not able to give us his first or last name. He does appear to be encephalopathic. We are recommending that a EEG be done tomorrow for further evaluation. Would also consider MRI of the brain if the patient is cooperative. We will await further recommendations from pulmonary medicine regarding his pulmonary status. As noted he was initially found to be comatose on admission. He continues to show evidence of a severe metabolic encephalopathy which is slowly improving. We will continue to follow his progress very closely in the intensive care unit. His overall prognosis at this time remains very guarded. Objective - Vital Signs Vital signs: Vital Signs Temp 98.9 F 06/28/18 16:00 Pulse 107 H 06/28/18 19:00 Resp 12 06/28/18 19:00 BP 164/77 06/28/18 19:00 Pulse Ox 92 L 06/28/18 19:00 Intake & Output 06/28/18 06/28/18 06/29/18 06:59 18:59 06:59 Intake Total 2300.000 347.224 32.5 Output Total 780 3410 80 Balance 1520.000 -3062.776 -47.5 Weight 125.1 kg Intake: IV 2200 302.5 32.5 Piperacillin-Tazobactam 3 62.5 12.5 .375 gm In Dextrose/Water 1 50ml.bag @ 12.5 mls/hr IVPB Q8HR [facility] Rx#: [id number] Sodium Chloride 0.9% 1, 2200 240 20 000 ml @ 20 mls/hr IV . Q24H [facility] Rx#:[id number] Intake, IV Titration 100.000 44.724 Amount Clevidipine Butyrate 25 27.466 mg In Empty Bag 1 bag @ 1 MG/HR 2 mls/hr IV .Q24H [facility] Rx#:[id number] Propofol 1,000 mg In 100.000 17.258 Empty Bag 1 bag @ Titrate IV .Q0M [facility] Rx#: [id number] Output: Gastric Drainage 300 Urine 480 2510 80 Emesis 900 Other: Voiding Method Indwelling Catheter Indwelling Catheter - Exam Physical examination: PHYSICAL EXAMINATION: Patient is resting comfortably in bed. VITAL SIGNS: Blood pressure is [168/74]. Heart rate is [107]. Respiration is [18 ]. Temperature is [98.9]. HEENT: Head is atraumatic, neck is supple, there were no carotid bruits. CHEST: Lungs are clear to auscultation and percussion. CARDIAC: S1, S2 normal rate and rhythm. There is no murmur. ABDOMEN: Soft and nontender. Bowel sounds are present. EXTREMITIES: There is no pedal edema. Peripheral pulses are present. Neurological examination: Patient was extubated early this morning. He remains in restraints. He is very confused and disoriented. His memory and intellectual function severely impaired. Patient is moving all 4 extremities. Deep tendon reflexes are hypoactive. Plantar responses flexor bilaterally. - Labs CBC & Chem 7: 06/28/18 04:45 06/28/18 04:45 Labs: Abnormal Lab Results - Last 24 Hours (Table) 06/27/18 06/28/18 06/28/18 Range/Units 19:43 04:45 04:45 MCHC 30.6 L (31.0-37.0) g/dL Plt Count 146 L (150-450) k/uL ABG pH (7.35-7.45) ABG pCO2 (35-45) mmHg ABG pO2 (83-108) mmHg ABG HCO3 (21-25) mmol/L ABG Total CO2 (19-24) mmol/L ABG O2 Saturation (94-97) % Chloride 108 H (98-107) mmol/L BUN 30 H (9-20) mg/dL Creatinine 1.28 H (0.66-1.25) mg/dL POC Glucose (mg/dL) 100 H (75-99) mg/dL Phosphorus 4.8 H (2.5-4.5) mg/dL Urine Opiates Screen (NotDetected) 06/28/18 06/28/18 06/28/18 Range/Units 05:24 10:15 12:19 MCHC (31.0-37.0) g/dL Plt Count (150-450) k/uL ABG pH 7.32 L (7.35-7.45) ABG pCO2 50 H (35-45) mmHg ABG pO2 119 H (83-108) mmHg ABG HCO3 26 H (21-25) mmol/L ABG Total CO2 27 H (19-24) mmol/L ABG O2 Saturation 99.0 H (94-97) % Chloride (98-107) mmol/L BUN (9-20) mg/dL Creatinine (0.66-1.25) mg/dL POC Glucose (mg/dL) 131 H (75-99) mg/dL Phosphorus (2.5-4.5) mg/dL Urine Opiates Screen Detected H (NotDetected) 06/28/18 Range/Units 18:07 MCHC (31.0-37.0) g/dL Plt Count (150-450) k/uL ABG pH (7.35-7.45) ABG pCO2 (35-45) mmHg ABG pO2 (83-108) mmHg ABG HCO3 (21-25) mmol/L ABG Total CO2 (19-24) mmol/L ABG O2 Saturation (94-97) % Chloride (98-107) mmol/L BUN (9-20) mg/dL Creatinine (0.66-1.25) mg/dL POC Glucose (mg/dL) 176 H (75-99) mg/dL Phosphorus (2.5-4.5) mg/dL Urine Opiates Screen (NotDetected) Microbiology - Last 24 Hours (Table) 06/27/18 07:30 Blood Culture - Preliminary Blood No Growth after 24 hours 06/27/18 21:00 Urine Culture - Preliminary Urine,Catheterized Assessment and Plan (1) Coma of unknown cause Current Visit: Yes Status: Acute Code(s): R40.20 - UNSPECIFIED COMA SNOMED Code(s): 881856988 (2) Acute metabolic encephalopathy Current Visit: Yes Status: Acute Code(s): G93.41 - METABOLIC ENCEPHALOPATHY SNOMED Code(s): 91108620 (3) History of drug abuse Current Visit: No Status: Acute Code(s): Z87.898 - PERSONAL HISTORY OF OTHER SPECIFIED CONDITIONS SNOMED Code(s): 503213258 (4) Pseudoaneurysm Current Visit: No Status: Acute Code(s): I72.9 - ANEURYSM OF UNSPECIFIED SITE SNOMED Code(s): 276392099 Plan: This patient is a 53-year-old male who was admitted to the intensive care unit after he was found obtunded and comatose at his care home. He was seen by pulmonary medicine this morning and was extubated. Since extubation he has remained encephalopathic. Initial computed tomography scan of the brain failed to reveal any acute changes. We are recommending patient undergo EEG tomorrow as long as he remains cooperative. We may also consider MRI of the brain depending on his level of alertness and cooperation. This patient has findings clinically of a diffuse severe metabolic encephalopathy. Exact etiology and causes still unknown. We will continue to follow his progress closely intensive care unit. Overall long-term prognosis at this time remains very guarded.
[2018-06-28] MEDS ORDERED: HALOPERIDOL LACTATE 5 MG/ML 1 ML VIAL IVP ONE (21:45)
[2018-06-28] MEDS: LORazepam 2 MG/ML INJ IV PRN (23:43)
[2018-06-29] MEDS: CLEVIDIPINE BUTYRATE 25 MG in EMPTY BAG 1 BAG IV SCH ×15 (01:28→23:07)
[2018-06-29] MEDS ORDERED: DILTIAZEM DRIP BOLUS FROM BAG 1 MG SOLN IV ONE (02:18)
[2018-06-29] MEDS: DILTIAZEM 50 MG in SODIUM CHLORIDE 0.9% 40 ML IV SCH ×5 (02:37→20:10)
[2018-06-29] MEDS: LORazepam 2 MG/ML INJ IV PRN ×7 (02:38→20:08)
[2018-06-29 02:54] LABS: Glucose,Whole Blood 173 mg/dL (75-99)
[2018-06-29] MEDS: IPRATROPIUM-ALBUTEROL 3 ML NEB INHALATION SCH ×5 (03:39→20:43)
[2018-06-29] MEDS: HALOPERIDOL LACTATE 5 MG/ML 1 ML VIAL IVP PRN ×3 (03:58→20:10)
[2018-06-29] MEDS: INSULIN ASPART 100 UNIT/ML 1 ML 10 ML VIAL SQ SCH ×4 (04:05→18:36)
[2018-06-29] MEDS: methylPREDNISolone SOD SUCCI 125 MG/2 ML VIAL IV SCH ×4 (05:42→23:08)
[2018-06-29 06:19] LABS: Basophils % (A) 0 %; Eosinophils % (A) 0 %; HCT 46.3 % (39.0-53.0); HGB 14.6 gm/dL (13.0-17.5); Lymphocytes # (A) 0.7 k/uL (1.0-4.8); Lymphocytes % (A) 5 %; MCH 27.4 pg (25.0-35.0); MCHC 31.6 g/dL (31.0-37.0); MCV 86.6 fL (80.0-100.0); Mean Platelet Volume 7.4; Monocytes # (A) 0.6 k/uL (0-1.0); Monocytes % (A) 4 %; Neutrophils # (A) 12.1 k/uL (1.3-7.7); Neutrophils % (A) 90 %; Platelet Count 188 k/uL (150-450); RBC 5.34 m/uL (4.30-5.90); RDW 14.9 % (11.5-15.5); WBC 13.5 k/uL (3.8-10.6)
--- NOTE | 2018-06-29 06:43 | XR ---
EXAMINATION TYPE: XR chest 1V portable DATE OF EXAM: 06/29/2018 HISTORY: Tube placement. REFERENCE: Previous study dated 06/28/2018. FINDINGS: Heart size upper limits of normal. There is vascular congestion and mild interstitial tyler e. There is bibasilar confluent airspace disease which may represent confluent edema or atelectasis. The left CP angle is excluded from the study. IMPRESSION: 1. WORSENING CHANGES OF CONGESTIVE HEART FAILURE. 2. BIBASILAR AIRSPACE DISEASE EITHER REPRESENTING ATELECTASIS, PNEUMONIA OR CONFLUENT EDEMA.
[2018-06-29 06:45] LABS: Calcium 9.5 mg/dL (8.4-10.2); Magnesium 2.2 mg/dL (1.6-2.3); Phosphorus 3.4 mg/dL (2.5-4.5); Potassium 4.3 mmol/L (3.5-5.1); Total Bilirubin 0.7 mg/dL (0.2-1.3); Total Protein 7.2 g/dL (6.3-8.2)
[2018-06-29 07:16] LABS: Glucose,Whole Blood 174 mg/dL (75-99)
[2018-06-29] MEDS: HEPARIN SODIUM,PORCINE 5,000 UNIT/ML 1 ML VIAL SQ SCH ×2 (08:30→20:09)
[2018-06-29] MEDS: PIPERACILLIN-TAZOBACTAM 3.375 GM in DEXTROSE/WATER 1 50ML.BAG IVPB SCH ×3 (08:32→23:07)
[2018-06-29 11:13] LABS: ABG Base Excess 4.4 mmol/L; ABG HCO3 29 mmol/L (21-25); ABG Oxygen Saturation 95.1 % (94-97); ABG PCO2 43 mmHg (35-45); ABG PH 7.43 (7.35-7.45); ABG PO2 71 mmHg (83-108); ABG TCO2 30 mmol/L (19-24)
[2018-06-29 11:18] LABS: Glucose,Whole Blood 188 mg/dL (75-99)
[2018-06-29] MEDS: PANTOPRAZOLE 40 MG/10 ML VIAL IV SCH (11:24)
--- NOTE | 2018-06-29 11:26 | P.PN ---
Subjective Progress Note Date: 06/29/18 This is a 53-year-old gentleman who follows with Dr. Quinones as his primary care physician. He has a previous history of illicit drug use, suicide attempt , coronary artery disease, permanent pacemaker implantation, abdominal aortic aneurysm endovascular repair, left brachial artery pseudoaneurysm, hypertension , liver disease, history of alcohol abuse, history of methamphetamines use, chronic obstructive pulmonary disease, chronic and ongoing tobacco dependence. The patient had been residing in [facility] when staff found him unconscious, unresponsive in a semi-Randall's position. He was bradypneic, he did have a pulse. Upon EMS arrival he was given Narcan without initial improvement. However once he was loaded on the stretcher: In route he became awake and alert and yelling continuously. Just prior to arriving to the hospital he again became obtunded and oral airway was inserted and dilations were assisted. The patient ended up being intubated and placed on mechanical ventilator. He is currently on 7.5 mcg/kg/m of propofol. Seating 0.9 normal saline at 100 ML's per hour. Current ventilator settings are assist control of 16, tidal volume 650, FiO2 100%, PEEP of 5. Acute blood gases were obtained and reveal a P O2 of 278, pCO2 of 54, pH 7.27. White count 12.2. Hemoglobin 14.5. Creatinine 1.94. Troponin 0.037. Urine drug screen was positive for benzodiazepines. Of note, the patient was found with white powdered substance which was detained by the police department. According to staff the patient is allowed to be in and out of the [facility] and has been sleeping there at nighttime. The patient is seen today 06/28/2018 in follow-up in the intensive care unit. He remains intubated and on the mechanical ventilator. Current settings assist- control of 16, tidal volume 650, FiO2 60%, PEEP of 5. Morning blood gases reveal a pO2 of 119, pCO2 50, pH 7.32. He is sedated with propofol at 30 mcg/kg /m. Chest x-ray reveals basilar atelectasis versus early infiltrate. There is some noted prominence of the interstitium possibly related to chronic interstitial lung disease or congestion. White count 9.8. Hemoglobin 13.6. Creatinine 1.28. Urine culture is pending. The patient was given a sedation holiday. He is moving all fours. He began biting and gagging on the tube. Dr. Adams is present at the bedside and we extubated the patient. He was found to have excess secretions. He is given IV Solu-Medrol, IV Lasix, updraft treatments. He is currently resting more comfortably in bed. Still not speaking clear sentences however. On 06/29/2018, the patient remains extubated. Noted post extubation the patient had some respiratory distress and wheezing which we were able to manage with bronchodilators and some steroids. However, the activation for now his mentation. The patient did not recovered his consciousness appropriately. He was seen to be awake and he would open his eyes and move EXTREMITIES, however, he does not follow any commands. He answers by saying yes or no however he is not even consistent with that response also. Overnight he became extremely agitated. He was thrashing in moving extremities on trying to get out of the bed. Based on this, I give the patient a 5 mg dose of Haldol and 2 mg dose of Ativan. This calmed down significantly and the patient was able to lay down and become drowsy and sleep on and off throughout the night. In the fitness instructor hours, the patient went into fibrillation with rapid ventricular response and this was pre-much exacerbated by recurrent episodes of agitation. The Haldol and the Ativan was repeated. The patient was started on a Cardizem drip which is currently at 7 mg an hour and his heart rate currently is at on 110 and it is still in atrial fibrillation. The patient is also on Effexor for a tight blood pressure control at 7 proximal representing a timely grams an hour. Morning blood gases showed a pH of 7.43 with a pCO2 of 53 and pO2 of 71. Rest of the blood work at all within normal limits. The morning chest x-ray showed some worsening in the changes of CHF and some bibasilar airspace disease. I suspected aspiration and the patient was given IV Zosyn as an empiric antibiotic coverage. Neurology is on the case. Unable to do an EEG. Unable to repeat the CAT scan. We restart to his daughter. We've came to found out that the patient advanced directives and he never want to be intubated or placed on a mechanical ventilator. His advanced directives on the chart and his daughter confirmed this issue of being a DNR/DNI CODE STATUS. Apparently the patient has had history of multidrug/multi-substance abuse. He has been involved in multiple drug overdose situations in the past. As for the white powdered, this is not known as far as the nature and the type of the material. Objective - Vital Signs Vital signs: Vital Signs Temp 98.8 F 06/29/18 09:30 Pulse 122 H 06/29/18 09:30 Resp 14 06/29/18 09:30 BP 162/70 06/29/18 09:30 Pulse Ox 96 06/29/18 09:30 Intake & Output 06/28/18 06/29/18 06/29/18 18:59 06:59 18:59 Intake Total 347.224 673.000 206.933 Output Total 3410 1300 140 Balance -3062.776 -627.000 66.933 Weight 126.8 kg Intake: IV 302.5 322.5 90 Piperacillin-Tazobactam 3 62.5 62.5 90 .375 gm In Dextrose/Water 1 50ml.bag @ 12.5 mls/hr IVPB Q8HR [facility] Rx#: [id number] Sodium Chloride 0.9% 1, 240 260 000 ml @ 20 mls/hr IV . Q24H [facility] Rx#:[id number] Intake, IV Titration 44.724 350.500 116.933 Amount Clevidipine Butyrate 25 27.466 319.667 77.6 mg In Empty Bag 1 bag @ 1 MG/HR 2 mls/hr IV .Q24H [facility] Rx#:[id number] Diltiazem 50 mg In Sodium 30.833 39.333 Chloride 0.9% 40 ml @ 10 MG/HR 10 mls/hr IV .Q5H [facility] Rx#:[id number] Propofol 1,000 mg In 17.258 Empty Bag 1 bag @ Titrate IV .Q0M [facility] Rx#: [id number] Output: Urine 2510 1300 140 Emesis 900 Other: Voiding Method Indwelling Catheter Indwelling Catheter Indwelling Catheter - Exam GENERAL EXAM: The patient is awake unresponsive however he does not follow any commands. Sometimes he stays yet and no and he cannot see any other words or longer sentences. He calms down and it goes into brief episodes of sleep especially after being sedated. No seizure activity has been noted. HEAD: Normocephalic. EYES: Sluggish reaction of pupils, equal size. NOSE: Clear with pink turbinates. THROAT: Within normal limits NECK: No masses, no JVD. Patient has significant crowding of the posterior oropharynx and the lymphatics S4 CHEST: No chest wall deformity. Breath sounds are equal and bilateral LUNGS: Equal air entry with bilateral wheeze. The overall wheezing has improved compared to yesterday and the patient has improved air entry bilaterally CVS: S1 and S2 normal with no audible murmur, regular rhythm. ABDOMEN: No hepatosplenomegaly, normal bowel sounds, no guarding or rigidity. SPINE: No scoliosis or deformity SKIN: No rashes CENTRAL NERVOUS SYSTEM: No focal deficits, tone is normal in all 4 extremities. The patient remains encephalopathic, no neck stiffness, pupils of gone to 4 mm in size and they're reactive to light pain no nystagmus no preferential gaze toasymmetry. Possible cough and gag. Moving all 4 extremities in response to painful stimuli and he pays attention whenever he is called his name and he turns around and he tracks however this is only for brief period of time and subsequently goes into a unattentative state. EXTREMITIES: There is no peripheral edema. No clubbing, no cyanosis. Peripheral pulses are intact. - Labs CBC & Chem 7: 06/29/18 05:16 06/29/18 05:16 Labs: Abnormal Lab Results - Last 24 Hours (Table) 06/28/18 06/28/18 06/28/18 Range/Units 10:15 12:19 18:07 WBC (3.8-10.6) k/uL Neutrophils # (1.3-7.7) k/uL Lymphocytes # (1.0-4.8) k/uL BUN (9-20) mg/dL Glucose (74-99) mg/dL POC Glucose (mg/dL) 131 H 176 H (75-99) mg/dL Urine Opiates Screen Detected H (NotDetected) 06/29/18 06/29/18 06/29/18 Range/Units 02:52 05:16 05:16 WBC 13.5 H (3.8-10.6) k/uL Neutrophils # 12.1 H (1.3-7.7) k/uL Lymphocytes # 0.7 L (1.0-4.8) k/uL BUN 33 H (9-20) mg/dL Glucose 192 H (74-99) mg/dL POC Glucose (mg/dL) 173 H (75-99) mg/dL Urine Opiates Screen (NotDetected) 06/29/18 Range/Units 06:53 WBC (3.8-10.6) k/uL Neutrophils # (1.3-7.7) k/uL Lymphocytes # (1.0-4.8) k/uL BUN (9-20) mg/dL Glucose (74-99) mg/dL POC Glucose (mg/dL) 174 H (75-99) mg/dL Urine Opiates Screen (NotDetected) Microbiology - Last 24 Hours (Table) 06/27/18 07:30 Blood Culture - Preliminary Blood No Growth after 48 hours 06/28/18 10:51 Gram Stain - Preliminary Sputum 06/27/18 21:00 Urine Culture - Final Urine,Catheterized Assessment and Plan Plan: #1 Altered mental status of unclear etiology, we strongly suspect a drug effect knowing that the patient has had history of multi-substance abuse and he has been involved in various drug intake. During this current admission, there was a white powder. However the exact nature of this medication or material is not established. The patient had a urine drug screen that came back positive for opiates. I think this is a drug induced encephalopathy. Cannot rule out delirium tremens. Cannot rule out opiate withdrawal. Cannot rule out any other drugs affecting this patient's mentation. Based on my conversation with the daughter, the last time such a thing And the patient took him few days to regain back his consciousness. Meanwhile his neurologic exam is nonfocal. #2 History of illicit drug use . #3 History of suicide attempt. #4 History of alcoholism. #5 Chronic obstructive pulmonary disease. #6 Chronic and ongoing tobacco dependence. #7 History of abdominal aortic aneurysm with stenting in November 2017. #8 History of left brachial pseudoaneurysm. #9 Hypertension. #10 Anxiety/depression. #11 acute hypertensive reaction currently on Plavix #12 new onset atrial fibrillation with rapid ventricular response and the patient is again a Cardizem drip running at 10 mg an hour Plan We'll monitor the mental status. We will continue Haldol and Ativan as needed to control his agitation and this has worked nicely for this patient. He is able to protect his airway and were not over sedating him at this point in time. As mentioned is a DNR/DNI CODE STATUS and we have to be very careful not to over utilize the sedatives. Meanwhile, continue the Cardizem drip, continue Cleviprex Drip for blood pressure control. Start the patient a clonidine patch 0.3 mg. Continue IV Zosyn for any potential aspiration pneumonia. IV fluids to maintenance. Continue bronchodilators. Continue systemic steroids. Aspiration precautions. Give the patient ICU for another 24 hours. We'll continue to follow.
[2018-06-29] MEDS ORDERED: cloNIDine 0.3 MG/24HR PATCH TRANSDERM SCH (12:00)
[2018-06-29] MEDS ORDERED: FUROSEMIDE 10 MG/ML 4 ML VIAL IV STA (12:57)
--- NOTE | 2018-06-29 14:03 | PN ---
PROGRESS NOTE DATE OF SERVICE: 06/29/2018 CHIEF COMPLAINT: Coma. HISTORY OF PRESENT ILLNESS: This gentleman is starting to become more awake and alert. He is extremely agitated. It is determined he has some type of encephalopathy, but the cause is not known. PHYSICAL EXAMINATION: He is agitated and confused. Chest is clear. Cardiac exam is normal. Abdomen is soft. IMPRESSION: Encephalopathy with coma and now delirium. PLAN: 1. Continue supportive care. 2. Continue neurologic investigation and workup. MMODL / IJN: [id number] /
--- NOTE | 2018-06-29 16:09 | EEG ---
ELECTROENCEPHALOGRAM REPORT DATE OF EE06/29/2018 ELECTROENCEPHALOGRAPHIC EXAMINATION REPORT: INDICATION FOR EXAMINATION: This patient is a 53-year-old male who was admitted to the intensive care unit after being found comatose at a skilled nursing. Patient extubated yesterday and remains confused and disoriented. AGE: [age]. EEG FINDINGS: A routine 21-channel awake digital EEG recording was accomplished utilizing the 10-20 international system with bipolar and referential montages. The background activity in the most alert resting state consists of a low to medium amplitude, poorly developed and poorly sustained 4-5 Hz activity over the posterior head regions. This posterior rhythm attenuates minimally to eye opening. There is a small amount of low amplitude 18-20 Hz beta activity seen maximally over the anterior head regions. Muscle and movement artifact was observed on a few occasions during the tracing. No activation procedures were performed. No epileptiform discharges were seen. IMPRESSION: This EEG gives evidence of a severe widespread diffuse disturbance in cerebral function. The EEG failed to reveal any focal, lateralized, or epileptiform abnormalities. If clinically indicated, a follow-up EEG is recommended. Clinical correlation is recommended. MMODL / IJN: [id number] /
[2018-06-29 18:31] LABS: Glucose,Whole Blood 200 mg/dL (75-99)
[2018-06-29] MEDS: SODIUM CHLORIDE 0.9% 1,000 ML IV SCH (18:31)
--- NOTE | 2018-06-29 18:54 | P.PN ---
Subjective Progress Note Date: 06/29/18 This patient is a 53-year-old right-handed white male who was seen yesterday in the intensive care unit after he was found unresponsive at his senior living. Patient was intubated and transferred to the intensive care unit. He was placed on a Diprivan drip and his remaining heavily sedated early this morning. Patient was seen on rounds early this morning by Dr. Adams. He was extubated at about 9:30 AM but remains very confused and disoriented. According to the ICU nursing staff he has not shown much improvement in his mental status since extubation earlier this morning. He did have evidence of hypertensive urgency. He has been started on IV Cleviprex at a dose of 18 mcg/ h. His blood pressure remained slightly elevated this evening. his systolic blood pressure is averaging around 160s systolic. The patient remains extubated but still very confused and encephalopathic. He has not been able to communicate verbally with the ICU nursing staff. He only mumbles words at times. He keeps repeating himself and uses the phrase "Ma" and "Ma" consistently throughout his examination. He is not able to give us his first or last name. He does appear to be encephalopathic. We are recommending that a EEG be done today for further evaluation. Would also consider MRI of the brain if the patient is cooperative. The patient was able to complete a routine EEG today which was reviewed. EEG reveals evidence of severe slowing with a background of 4-5 Hz. This would be consistent with a severe encephalopathy. Exact etiology of his current neurological status is still unclear. He does have history of drug abuse in the past as well as multiple attempts at drug overdose. given the severity of his EEG findings we have recommended the patient undergo lumbar puncture tomorrow with the assistance of anesthesia to be evaluated for any possibility of PATIENT PORTAL CONCIERGE infection or encephalitis. We have discussed these findings in detail today with his ICU nurse will put in orders for his lumbar puncture to be done tomorrow morning by anesthesia. We will put a formal consult anesthesia today hopefully so that they may perform his lumbar puncture and spinal fluid analysis tomorrow morning. We still would also request that a MRI of the brain at least be attempted for this patient on Sunday pending his clinical course. Hopefully he will be cooperative enough to have this study done. We will await further recommendations from pulmonary medicine regarding his pulmonary status. As noted he was initially found to be comatose on admission. He continues to show evidence of a severe metabolic encephalopathy which is slowly improving. according to the ICU nurse case was discussed with the patient's daughter. His advanced directives have been obtained and he has been made a DO NOT RESUSCITATE CODE STATUS. We will continue to follow his progress very closely in the intensive care unit. His overall prognosis at this time remains very guarded. Objective - Vital Signs Vital signs: Vital Signs Temp 98.8 F 06/29/18 09:30 Pulse 122 H 06/29/18 12:30 Resp 20 06/29/18 12:30 BP 169/73 06/29/18 12:30 Pulse Ox 91 L 06/29/18 12:30 Intake & Output 06/28/18 06/29/18 06/29/18 18:59 06:59 18:59 Intake Total 347.224 673.000 446.933 Output Total 3410 1300 340 Balance -3062.776 -627.000 106.933 Weight 126.8 kg Intake: IV 302.5 322.5 180 Piperacillin-Tazobactam 3 62.5 62.5 180 .375 gm In Dextrose/Water 1 50ml.bag @ 12.5 mls/hr IVPB Q8HR [facility] Rx#: [id number] Sodium Chloride 0.9% 1, 240 260 000 ml @ 20 mls/hr IV . Q24H [facility] Rx#:[id number] Intake, IV Titration 44.724 350.500 266.933 Amount Clevidipine Butyrate 25 27.466 319.667 227.6 mg In Empty Bag 1 bag @ 1 MG/HR 2 mls/hr IV .Q24H [facility] Rx#:[id number] Diltiazem 50 mg In Sodium 30.833 39.333 Chloride 0.9% 40 ml @ 10 MG/HR 10 mls/hr IV .Q5H [facility] Rx#:[id number] Propofol 1,000 mg In 17.258 Empty Bag 1 bag @ Titrate IV .Q0M [facility] Rx#: [id number] Output: Urine 2510 1300 340 Emesis 900 Other: Voiding Method Indwelling Catheter Indwelling Catheter Indwelling Catheter - Exam Physical examination: PHYSICAL EXAMINATION: Patient is resting comfortably in bed. VITAL SIGNS: Blood pressure is [169/73]. Heart rate is [122]. Respiration is [20 ]. Temperature is [98.8]. HEENT: Head is atraumatic, neck is supple, there were no carotid bruits. CHEST: Lungs are clear to auscultation and percussion. CARDIAC: S1, S2 normal rate and rhythm. There is no murmur. ABDOMEN: Soft and nontender. Bowel sounds are present. EXTREMITIES: There is no pedal edema. Peripheral pulses are present. Neurological examination: Patient was extubated yesterday morning. Since extubation the patient still remains severely encephalopathic. He is not following any commands. He has very little verbal output. He remains in restraints. He is very confused and disoriented. His memory and intellectual function severely impaired. Patient is moving all 4 extremities. Deep tendon reflexes are hypoactive. Plantar responses flexor bilaterally. - Labs CBC & Chem 7: 06/29/18 05:16 06/29/18 05:16 Labs: Abnormal Lab Results - Last 24 Hours (Table) 06/28/18 06/29/18 06/29/18 Range/Units 18:07 02:52 05:16 WBC 13.5 H (3.8-10.6) k/uL Neutrophils # 12.1 H (1.3-7.7) k/uL Lymphocytes # 0.7 L (1.0-4.8) k/uL ABG pO2 (83-108) mmHg ABG HCO3 (21-25) mmol/L ABG Total CO2 (19-24) mmol/L BUN (9-20) mg/dL Glucose (74-99) mg/dL POC Glucose (mg/dL) 176 H 173 H (75-99) mg/dL 06/29/18 06/29/18 06/29/18 Range/Units 05:16 06:53 11:03 WBC (3.8-10.6) k/uL Neutrophils # (1.3-7.7) k/uL Lymphocytes # (1.0-4.8) k/uL ABG pO2 71 L (83-108) mmHg ABG HCO3 29 H (21-25) mmol/L ABG Total CO2 30 H (19-24) mmol/L BUN 33 H (9-20) mg/dL Glucose 192 H (74-99) mg/dL POC Glucose (mg/dL) 174 H (75-99) mg/dL 06/29/18 Range/Units 11:16 WBC (3.8-10.6) k/uL Neutrophils # (1.3-7.7) k/uL Lymphocytes # (1.0-4.8) k/uL ABG pO2 (83-108) mmHg ABG HCO3 (21-25) mmol/L ABG Total CO2 (19-24) mmol/L BUN (9-20) mg/dL Glucose (74-99) mg/dL POC Glucose (mg/dL) 188 H (75-99) mg/dL Microbiology - Last 24 Hours (Table) 06/28/18 10:51 Gram Stain - Preliminary Sputum Sputum Culture - Preliminary Presumptive Staph aureus 06/27/18 07:30 Blood Culture - Preliminary Blood No Growth after 48 hours 06/27/18 21:00 Urine Culture - Final Urine,Catheterized Assessment and Plan (1) Coma of unknown cause Current Visit: Yes Status: Acute Code(s): R40.20 - UNSPECIFIED COMA SNOMED Code(s): 247826716 (2) Acute metabolic encephalopathy Current Visit: Yes Status: Acute Code(s): G93.41 - METABOLIC ENCEPHALOPATHY SNOMED Code(s): 11112754 (3) History of drug abuse Current Visit: No Status: Acute Code(s): Z87.898 - PERSONAL HISTORY OF OTHER SPECIFIED CONDITIONS SNOMED Code(s): 294912422 (4) Pseudoaneurysm Current Visit: No Status: Acute Code(s): I72.9 - ANEURYSM OF UNSPECIFIED SITE SNOMED Code(s): 894115607 Plan: This patient is a 53-year-old right-handed white male who was initially admitted through the emergency room after being found obtunded than near comatose at his senior living facility. A white substance was found in his possession which has been retained by the local police. Apparently he has a history of drug overdose and drug abuse in the past. Patient was intubated and transferred from the ER to the intensive care unit where he was initially followed closely by pulmonary medicine. He was extubated yesterday and has not shown much improvement in his mental status. He remains very encephalopathic today. He underwent a routine EEG this morning which was reviewed and does reveal evidence of severe slowing consistent with a severe metabolic encephalopathy. The patient still is very little verbal output. He does not follow commands. He has remained afebrile since admission. We have recommended the patient to undergo lumbar puncture tomorrow for further evaluation as to the cause of his initial coma and unresponsive state. He will be specifically evaluated for possibility of encephalitis and/or meningitis which seems to be less likely as he has remained afebrile. We will check for herpes simplex encephalitis as well as West Nile virus encephalitis. The patient remains in the intensive care unit. He is not following any commands. His advanced directive orders have been reviewed and he is now been made a DO NOT RESUSCITATE status. We have recommended the patient to undergo MRI of the brain hopefully on Sunday morning if he remains calm and allows for study to be completed. This would depend on his clinical course over the weekend. We have recommended a lumbar puncture to be done tomorrow by anesthesiology for further evaluation for possibility of encephalitis in this patient. His overall prognosis at this time remains very guarded. We will continue to follow him closely in the intensive care unit. Case was discussed at length today with the ICU nursing staff at bedside. They have been updated on our current recommendations. We will continue to follow him closely in the ICU setting.
[2018-06-30 00:06] LABS: Glucose,Whole Blood 197 mg/dL (75-99)
[2018-06-30 00:15] LABS: Appearance,Urine Turbid (Clear); Bilirubin,Urine Negative (Negative); Blood,Urine Large (Negative); Color,Urine Light Red; Glucose,Urine (UA) Negative (Negative); Ketones,Urine Trace (Negative); Leukocyte Esterase,Urine Small (Negative); Mucus,Urine Rare /hpf; Nitrite,Urine Negative (Negative); Protein,Urine 2+ (Negative); RBC,Urine >182 /hpf (0-5); Specific Gravity,Urine 1.022 (1.001-1.035); Squamous Epithelial Cell,Urine 1 /hpf (0-4); Urobilinogen,Urine <2.0 mg/dL (<2.0); WBC,Urine 9 /hpf (0-5)
[2018-06-30] MEDS: CLEVIDIPINE BUTYRATE 25 MG in EMPTY BAG 1 BAG IV SCH ×10 (00:15→14:32)
[2018-06-30] MEDS: IPRATROPIUM-ALBUTEROL 3 ML NEB INHALATION SCH ×7 (00:19→23:51)
[2018-06-30] MEDS: INSULIN ASPART 100 UNIT/ML 1 ML 10 ML VIAL SQ SCH ×4 (01:10→18:06)
[2018-06-30] MEDS: DILTIAZEM 50 MG in SODIUM CHLORIDE 0.9% 40 ML IV SCH ×4 (02:18→20:32)
[2018-06-30] MEDS: LORazepam 2 MG/ML INJ IV PRN ×4 (04:41→14:21)
[2018-06-30 05:16] LABS: Glucose,Whole Blood 191 mg/dL (75-99)
[2018-06-30] MEDS: methylPREDNISolone SOD SUCCI 125 MG/2 ML VIAL IV SCH (05:20)
[2018-06-30 05:36] LABS: Basophils % (A) 0 %; Eosinophils % (A) 0 %; HGB 14.8 gm/dL (13.0-17.5); Lymphocytes # (A) 0.8 k/uL (1.0-4.8); Lymphocytes % (A) 6 %; MCH 28.5 pg (25.0-35.0); MCHC 32.8 g/dL (31.0-37.0); MCV 86.7 fL (80.0-100.0); Mean Platelet Volume 7.2; Monocytes # (A) 0.9 k/uL (0-1.0); Monocytes % (A) 6 %; Neutrophils # (A) 11.7 k/uL (1.3-7.7); Neutrophils % (A) 87 %; Platelet Count 193 k/uL (150-450); RBC 5.19 m/uL (4.30-5.90); WBC 13.5 k/uL (3.8-10.6)
[2018-06-30 05:46] LABS: Calcium 9.7 mg/dL (8.4-10.2); Magnesium 2.4 mg/dL (1.6-2.3); Phosphorus 4.3 mg/dL (2.5-4.5); Potassium 4.5 mmol/L (3.5-5.1)
[2018-06-30] MEDS: PANTOPRAZOLE 40 MG/10 ML VIAL IV SCH (08:21)
[2018-06-30] MEDS: HEPARIN SODIUM,PORCINE 5,000 UNIT/ML 1 ML VIAL SQ SCH ×2 (08:21→20:39)
[2018-06-30] MEDS: PIPERACILLIN-TAZOBACTAM 3.375 GM in DEXTROSE/WATER 1 50ML.BAG IVPB SCH ×2 (08:21→15:34)
[2018-06-30] MEDS: METOPROLOL TARTRATE 5 MG/5 ML VIAL IVP PRN ×2 (09:34→17:59)
--- NOTE | 2018-06-30 11:57 | P.PN ---
Subjective Progress Note Date: 06/30/18 This is a 53-year-old gentleman who follows with Dr. Quinones as his primary care physician. He has a previous history of illicit drug use, suicide attempt , coronary artery disease, permanent pacemaker implantation, abdominal aortic aneurysm endovascular repair, left brachial artery pseudoaneurysm, hypertension , liver disease, history of alcohol abuse, history of methamphetamines use, chronic obstructive pulmonary disease, chronic and ongoing tobacco dependence. The patient had been residing in [facility] when staff found him unconscious, unresponsive in a semi-Randall's position. He was bradypneic, he did have a pulse. Upon EMS arrival he was given Narcan without initial improvement. However once he was loaded on the stretcher: In route he became awake and alert and yelling continuously. Just prior to arriving to the hospital he again became obtunded and oral airway was inserted and dilations were assisted. The patient ended up being intubated and placed on mechanical ventilator. He is currently on 7.5 mcg/kg/m of propofol. Seating 0.9 normal saline at 100 ML's per hour. Current ventilator settings are assist control of 16, tidal volume 650, FiO2 100%, PEEP of 5. Acute blood gases were obtained and reveal a P O2 of 278, pCO2 of 54, pH 7.27. White count 12.2. Hemoglobin 14.5. Creatinine 1.94. Troponin 0.037. Urine drug screen was positive for benzodiazepines. Of note, the patient was found with white powdered substance which was detained by the police department. According to staff the patient is allowed to be in and out of the [facility] [place] [facility] and has been sleeping there at nighttime. The patient is seen today 06/28/2018 in follow-up in the intensive care unit. He remains intubated and on the mechanical ventilator. Current settings assist- control of 16, tidal volume 650, FiO2 60%, PEEP of 5. Morning blood gases reveal a pO2 of 119, pCO2 50, pH 7.32. He is sedated with propofol at 30 mcg/kg /m. Chest x-ray reveals basilar atelectasis versus early infiltrate. There is some noted prominence of the interstitium possibly related to chronic interstitial lung disease or congestion. White count 9.8. Hemoglobin 13.6. Creatinine 1.28. Urine culture is pending. The patient was given a sedation holiday. He is moving all fours. He began biting and gagging on the tube. Dr. Adams is present at the bedside and we extubated the patient. He was found to have excess secretions. He is given IV Solu-Medrol, IV Lasix, updraft treatments. He is currently resting more comfortably in bed. Still not speaking clear sentences however. On 06/29/2018, the patient remains extubated. Noted post extubation the patient had some respiratory distress and wheezing which we were able to manage with bronchodilators and some steroids. However, the activation for now his mentation. The patient did not recovered his consciousness appropriately. He was seen to be awake and he would open his eyes and move EXTREMITIES, however, he does not follow any commands. He answers by saying yes or no however he is not even consistent with that response also. Overnight he became extremely agitated. He was thrashing in moving extremities on trying to get out of the bed. Based on this, I give the patient a 5 mg dose of Haldol and 2 mg dose of Ativan. This calmed down significantly and the patient was able to lay down and become drowsy and sleep on and off throughout the night. 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 The Haldol and the Ativan was repeated. The patient was started on a Cardizem drip which is currently at 7 mg an hour and his heart rate currently is at on 110 and it is still in atrial fibrillation. The patient is also on Effexor for a tight blood pressure control at 7 proximal representing a timely grams an hour. Morning blood gases showed a pH of 7.43 with a pCO2 of 53 and pO2 of 71. Rest of the blood work at all within normal limits. The morning chest x-ray showed some worsening in the changes of CHF and some bibasilar airspace disease. I suspected aspiration and the patient was given IV Zosyn as an empiric antibiotic coverage. Neurology is on the case. Unable to do an EEG. Unable to repeat the CAT scan. We restart to his daughter. We've came to found out that the patient advanced directives and he never want to be intubated or placed on a mechanical ventilator. His advanced directives on the chart and his daughter confirmed this issue of being a DNR/DNI CODE STATUS. Apparently the patient has had history of multidrug/multi-substance abuse. He has been involved in multiple drug overdose situations in the past. As for the white powdered, this is not known as far as the nature and the type of the material. On 06/30/2018 I'm seeing this patient for a follow-up. Neurologically seems to be more appropriate. Is able to speak up. This is. Nevertheless he doesn't make sense all the time. At times he gets agitated and confused. Overall more alert compared to yesterday and obviously there is some improvement in his neurologic function is as the patient is able to speak sentences. When further asked about the white part the that was found next to him, he was not able to tell me exactly what type of chemical was at however he tells me that he took it and sure enough the events that followed that are all mentioned in my earlier notes. For now, the patient is still having paroxysmal atrial fibrillation with normal sinus rhythm and currently is on Cardizem drip at the rate of 10 mg an hour. He was having a severe hypertensive reaction he was placed on clevidipine drip and he was as high as 18 mg an hour and now is down to 10. His blood pressure is under better control for now. He is on IV fluids in the form of 0.9 at the rate of 20 mL an hour. He is also producing adequate amount of urine output. There is a Templeton catheter in place. No fever. No chills. No neck stiffness. EEG was done and showed diffuse slowing. Neurology saw the patient and wanted to proceed with a MRI of the brain and a lumbar puncture however this is not possible patient gets quite agitated and this may possible at a later stage. No respiratory difficulties. No cough sputum production chest tightness or wheezing. He remains on empiric antibiotic coverage with IV Zosyn. He has a sputum analysis is showing presumptive staph aureus. No chest x-ray from today. Note that overall the patient has required Haldol and Ativan in the order of 3 doses of 2 mg of Ativan last night and he has also taken Haldol 5 mg. Objective - Vital Signs Vital signs: Vital Signs Temp 98.7 F 06/30/18 04:00 Pulse 90 06/30/18 11:30 Resp 19 06/30/18 11:30 BP 165/75 06/30/18 11:30 Pulse Ox 95 06/30/18 11:30 Intake & Output 06/29/18 06/30/18 06/30/18 18:59 06:59 18:59 Intake Total 730.700 696.767 315.566 Output Total 1390 457 210 Balance -659.300 239.767 105.566 Weight 120.1 kg 120.1 kg Intake: IV 300 195.0 120 Piperacillin-Tazobactam 3 60 75.0 50 .375 gm In Dextrose/Water 1 50ml.bag @ 12.5 mls/hr IVPB Q8HR [facility] Rx#: [id number] Sodium Chloride 0.9% 1, 240 120 70 000 ml @ 20 mls/hr IV . Q24H [facility] Rx#:[id number] Intake, IV Titration 430.700 501.767 195.566 Amount Clevidipine Butyrate 25 326.2 421.600 147.066 mg In Empty Bag 1 bag @ 1 MG/HR 2 mls/hr IV .Q24H [facility] Rx#:[id number] Diltiazem 50 mg In Sodium 104.500 80.167 48.5 Chloride 0.9% 40 ml @ 10 MG/HR 10 mls/hr IV .Q5H [facility] Rx#:[id number] Output: Urine 1390 457 210 Other: Voiding Method Indwelling Catheter Indwelling Catheter Indwelling Catheter - Exam GENERAL EXAM: The patient is more responsive and he is following commands. Sometimes he is alert and oriented 3. However his mentation is waxing and waning. I I would say overall his neurologic function is improved compared to yesterday. He is moving all 4 extremities without any limitation. Head exam was generally normal. There was no scleral icterus or corneal arcus. Mucous membranes were moist. EYES: Sluggish reaction of pupils, equal size. NOSE: Clear with pink turbinates. THROAT: Within normal limits NECK: No masses, no JVD. Patient has significant crowding of the posterior oropharynx and the lymphatics S4 CHEST: No chest wall deformity. Breath sounds are equal and bilateral LUNGS: Equal air entry with bilateral wheeze. The overall wheezing has improved compared to yesterday and the patient has improved air entry bilaterally CVS: S1 and S2 normal with no audible murmur, regular rhythm. ABDOMEN: No hepatosplenomegaly, normal bowel sounds, no guarding or rigidity. SPINE: No scoliosis or deformity SKIN: No rashes CENTRAL NERVOUS SYSTEM: No focal deficits, tone is normal in all 4 extremities. No reported neck stiffness. No seizure activity. No nystagmus. No cranial nerve deficits. He is on off confused yet is an intermittent finding in between he regains back his alertness and orientation. EXTREMITIES: There is no peripheral edema. No clubbing, no cyanosis. Peripheral pulses are intact. - Labs CBC & Chem 7: 06/30/18 04:54 06/30/18 04:54 Labs: Abnormal Lab Results - Last 24 Hours (Table) 06/29/18 06/29/18 06/30/18 Range/Units 18:29 23:45 00:04 WBC (3.8-10.6) k/uL Neutrophils # (1.3-7.7) k/uL Lymphocytes # (1.0-4.8) k/uL BUN (9-20) mg/dL Glucose (74-99) mg/dL POC Glucose (mg/dL) 200 H 197 H (75-99) mg/dL Magnesium (1.6-2.3) mg/dL Urine Protein 2+ H (Negative) Urine Ketones Trace H (Negative) Urine Blood Large H (Negative) Ur Leukocyte Esterase Small H (Negative) Urine RBC >182 H (0-5) /hpf Urine WBC 9 H (0-5) /hpf Urine Mucus Rare H (None) /hpf 06/30/18 06/30/18 06/30/18 Range/Units 04:54 04:54 05:14 WBC 13.5 H (3.8-10.6) k/uL Neutrophils # 11.7 H (1.3-7.7) k/uL Lymphocytes # 0.8 L (1.0-4.8) k/uL BUN 44 H (9-20) mg/dL Glucose 187 H (74-99) mg/dL POC Glucose (mg/dL) 191 H (75-99) mg/dL Magnesium 2.4 H (1.6-2.3) mg/dL Urine Protein (Negative) Urine Ketones (Negative) Urine Blood (Negative) Ur Leukocyte Esterase (Negative) Urine RBC (0-5) /hpf Urine WBC (0-5) /hpf Urine Mucus (None) /hpf Microbiology - Last 24 Hours (Table) 06/27/18 07:30 Blood Culture - Preliminary Blood No Growth after 72 hours 06/28/18 10:51 Gram Stain - Preliminary Sputum Sputum Culture - Preliminary Presumptive Staph aureus Assessment and Plan Plan: #1 Altered mental status of unclear etiology, we strongly suspect a drug effect knowing that the patient has had history of multi-substance abuse and he has been involved in various drug intake. During this current admission, there was a white powder. However the exact nature of this medication or material is not established. The patient had a urine drug screen that came back positive for opiates. I think this is a drug induced encephalopathy. Cannot rule out delirium tremens. Cannot rule out opiate withdrawal. Cannot rule out any other drugs affecting this patient's mentation. Based on my conversation with the daughter, the last time such a thing And the patient took him few days to regain back his consciousness. Meanwhile his neurologic exam is nonfocal. On 06/30/2018, more alert and awake with diminished agitation and more alert this. Received Haldol and Ativan overnight and this morning seems to be much more oriented , yet there are some episodes of confusion still. He remains lethargic and sleepy. #2 History of illicit drug use . #3 History of suicide attempt. #4 History of alcoholism. #5 Chronic obstructive pulmonary disease. #6 Chronic and ongoing tobacco dependence. #7 History of abdominal aortic aneurysm with stenting in November 2017. #8 History of left brachial pseudoaneurysm. #9 Hypertension. #10 Anxiety/depression. #11 acute hypertensive reaction currently on Cleviprex drip #12 new onset atrial fibrillation with rapid ventricular response and the patient is again a Cardizem drip running at 10 mg an hour Plan We'll monitor the mental status. Try to use Haldol instead of Ativan knowing that at the may increase his risk of bleeding in the future. I'm going to restart the patient on Norvasc 10 mg by mouth daily, losartan 100 mg by mouth daily. Continue Catapres patch. Wean off Cleviprex drip. Continue Cardizem drip for now and gradually wean it off as tolerated. This continued IV Solu- Medrol. Continue bronchodilators. Aspiration precautions. We'll try some oral intake at a later stage. The patient is able to swallow. I'm sure she'll be able to swallow his medications for now. Neurologist on the case. Workup is in progress including MRI of the brain and lumbar puncture if indicated later stage. For now he is too agitated or restless to go into an MRI machine. Lumbar puncture per anesthesia. We'll follow.
[2018-06-30 12:18] LABS: Glucose,Whole Blood 194 mg/dL (75-99)
--- NOTE | 2018-06-30 13:16 | PN ---
PROGRESS NOTE DATE OF SERVICE: 06/30/2018. CHIEF COMPLAINT: Coma, mental status changes, delirium and agitation. HISTORY OF PRESENT ILLNESS: This gentleman is waking up, but he is very agitated. He is confused. REVIEW OF SYSTEMS: Not obtained. PHYSICAL EXAM: Head ears, eyes, nose, mouth, and throat are normal. Chest is clear. Cardiac exam is normal with bradycardia. The abdomen is soft, nontender. Extremities are normal. IMPRESSION: Coma, encephalopathy, agitation, delirium, etiology unknown. PLAN: 1. Continue supportive care in ICU. 2. Await results of EEG. 3. MRI is being ordered for the first of the week. MMODL / IJN: [id number] /
[2018-06-30] MEDS: LOSARTAN 50 MG TAB PO SCH (13:55)
[2018-06-30] MEDS: HALOPERIDOL LACTATE 5 MG/ML 1 ML VIAL IVP PRN (13:56)
--- NOTE | 2018-06-30 14:04 | P.PCN ---
Date of Procedure: 06/30/18 Preoperative Diagnosis: Altered Mental Status, respiratory failure Postoperative Diagnosis: Same Procedure(s) Performed: Diagnostic lumbar puncture Anesthesia: local Surgeon: Yaakov Gordon Estimated Blood Loss (ml): 0 IV fluids (ml): 10 Pathology: other (1.5 mL of clear untinged spinal fluid) Condition: stable Disposition: ICU Indications for Procedure: Altered mental status Operative Findings: 1.5 mL clear untinged CSF Description of Procedure: After identifying the patient and a "time out", the patient who is an obese male in a clearly disoriented state and only questionably understanding any direction, was placed in a right lateral decubitus position. The area over the lumbar spine was cleansed with 2 chlorhexidine prep swabs and sterilely draped. Approximately 0.05 mL of 2% plain lidocaine was then injected over what was felt to be the L3 4 interspace. A 20-gauge 3-1/2 inch Quincke spinal needle was then gently advanced through the skin wheal until it contacted what was felt to be a spinous process. The needle was then gently walked off the spinous process in a cephalad direction and fortuitously advanced into the spinal canal. Throughout the procedure the patient had been becoming increasingly uncooperative and belligerent and I was only able to obtain 1-1/2 mL of clear untinged spinal fluid before he began to roll back into a supine position and the procedure was abbreviated in order to avoid injury to the patient, the the pulling machine operator and assistants, and to ensure the integrity/sterility of the 1.5 mL CSF sample.
[2018-06-30] MEDS: amLODIPine 10 MG TAB PO SCH (14:43)
[2018-06-30 14:53] LABS: Glucose,CSF 124 mg/dL (40-70); Total Protein,CSF 57 mg/dL (12-60)
[2018-06-30 15:06] LABS: Appearance,CSF Clear; CSF Tube Number 1; CSF Tube Volume 1.8; Nucleated Cells, CSF 2 u/L (0-5); Red Blood Cell,CSF 5 u/L (0-10)
[2018-06-30 17:52] LABS: Glucose,Whole Blood 140 mg/dL (75-99)
[2018-07-01 00:10] LABS: Glucose,Whole Blood 115 mg/dL (75-99)
[2018-07-01] MEDS: INSULIN ASPART 100 UNIT/ML 1 ML 10 ML VIAL SQ SCH ×6 (00:12→21:38)
[2018-07-01] MEDS: PIPERACILLIN-TAZOBACTAM 3.375 GM in DEXTROSE/WATER 1 50ML.BAG IVPB SCH ×3 (00:17→16:26)
[2018-07-01] MEDS: METOPROLOL TARTRATE 5 MG/5 ML VIAL IVP PRN ×2 (00:21→07:58)
[2018-07-01] MEDS: HALOPERIDOL LACTATE 5 MG/ML 1 ML VIAL IVP PRN (01:02)
[2018-07-01] MEDS: DILTIAZEM 50 MG in SODIUM CHLORIDE 0.9% 40 ML IV SCH ×4 (02:03→16:08)
[2018-07-01] MEDS: LORazepam 2 MG/ML INJ IV PRN ×2 (02:51→17:27)
[2018-07-01] MEDS: IPRATROPIUM-ALBUTEROL 3 ML NEB INHALATION SCH ×5 (03:53→19:50)
[2018-07-01] MEDS: amLODIPine 10 MG TAB PO SCH (05:44)
[2018-07-01] MEDS: LOSARTAN 50 MG TAB PO SCH (05:44)
[2018-07-01 05:59] LABS: Glucose,Whole Blood 101 mg/dL (75-99)
[2018-07-01 06:08] LABS: Basophils % (A) 0 %; Eosinophils % (A) 0 %; HCT 44.8 % (39.0-53.0); HGB 14.1 gm/dL (13.0-17.5); Hypochromasia Slight; Lymphocytes # (A) 1.3 k/uL (1.0-4.8); Lymphocytes % (A) 13 %; MCH 27.5 pg (25.0-35.0); MCHC 31.4 g/dL (31.0-37.0); MCV 87.4 fL (80.0-100.0); Mean Platelet Volume 7.5; Monocytes # (A) 0.8 k/uL (0-1.0); Monocytes % (A) 8 %; Neutrophils # (A) 7.8 k/uL (1.3-7.7); Neutrophils % (A) 78 %; Platelet Count 187 k/uL (150-450); RBC 5.13 m/uL (4.30-5.90); RDW 14.9 % (11.5-15.5); WBC 10.1 k/uL (3.8-10.6)
[2018-07-01 06:37] LABS: ALT 193 U/L (21-72); AST 114 U/L (17-59); Albumin 3.7 g/dL (3.5-5.0); Alkaline Phosphatase 70 U/L (38-126); Anion Gap 8 mmol/L; Blood Urea Nitrogen 33 mg/dL (9-20); Calcium 9.2 mg/dL (8.4-10.2); Carbon Dioxide 31 mmol/L (22-30); Chloride 105 mmol/L (98-107); Glucose 132 mg/dL (74-99); Magnesium 2.3 mg/dL (1.6-2.3); Sodium 144 mmol/L (137-145); Total Bilirubin 0.7 mg/dL (0.2-1.3); Total Protein 6.7 g/dL (6.3-8.2)
[2018-07-01] MEDS: SODIUM CHLORIDE 0.9% 1,000 ML IV SCH ×2 (07:36→16:24)
[2018-07-01] MEDS: PANTOPRAZOLE 40 MG/10 ML VIAL IV SCH (08:06)
[2018-07-01] MEDS: HEPARIN SODIUM,PORCINE 5,000 UNIT/ML 1 ML VIAL SQ SCH ×2 (09:40→20:19)
[2018-07-01] MEDS: SERTRALINE 50 MG TAB PO SCH (11:53)
[2018-07-01] MEDS ORDERED: METOPROLOL TARTRATE 25 MG TAB PO SCH ×2 (12:00→21:00)
--- NOTE | 2018-07-01 12:20 | P.PN ---
Subjective Progress Note Date: 07/01/18 Principal diagnosis: Altered mental status most likely secondary to drug overdose including [place] and baclofen. This is a 53-year-old gentleman who follows with Dr. Quinones as his primary care physician. He has a previous history of illicit drug use, suicide attempt , coronary artery disease, permanent pacemaker implantation, abdominal aortic aneurysm endovascular repair, left brachial artery pseudoaneurysm, hypertension , liver disease, history of alcohol abuse, history of methamphetamines use, chronic obstructive pulmonary disease, chronic and ongoing tobacco dependence. The patient had been residing in [facility] when staff found him unconscious, unresponsive in a semi-Randall's position. He was bradypneic, he did have a pulse. Upon EMS arrival he was given Narcan without initial improvement. However once he was loaded on the stretcher: In route he became awake and alert and yelling continuously. Just prior to arriving to the hospital he again became obtunded and oral airway was inserted and dilations were assisted. The patient ended up being intubated and placed on mechanical ventilator. He is currently on 7.5 mcg/kg/m of propofol. Seating 0.9 normal saline at 100 ML's per hour. Current ventilator settings are assist control of 16, tidal volume 650, FiO2 100%, PEEP of 5. Acute blood gases were obtained and reveal a P O2 of 278, pCO2 of 54, pH 7.27. White count 12.2. Hemoglobin 14.5. Creatinine 1.94. Troponin 0.037. Urine drug screen was positive for benzodiazepines. Of note, the patient was found with white powdered substance which was detained by the police department. According to staff the patient is allowed to be in and out of the [facility] and has been sleeping there at nighttime. The patient is seen today 06/28/2018 in follow-up in the intensive care unit. He remains intubated and on the mechanical ventilator. Current settings assist- control of 16, tidal volume 650, FiO2 60%, PEEP of 5. Morning blood gases reveal a pO2 of 119, pCO2 50, pH 7.32. He is sedated with propofol at 30 mcg/kg /m. Chest x-ray reveals basilar atelectasis versus early infiltrate. There is some noted prominence of the interstitium possibly related to chronic interstitial lung disease or congestion. White count 9.8. Hemoglobin 13.6. Creatinine 1.28. Urine culture is pending. The patient was given a sedation holiday. He is moving all fours. He began biting and gagging on the tube. Dr. Adams is present at the bedside and we extubated the patient. He was found to have excess secretions. He is given IV Solu-Medrol, IV Lasix, updraft treatments. He is currently resting more comfortably in bed. Still not speaking clear sentences however. On 06/29/2018, the patient remains extubated. Noted post extubation the patient had some respiratory distress and wheezing which we were able to manage with bronchodilators and some steroids. However, the activation for now his mentation. The patient did not recovered his consciousness appropriately. He was seen to be awake and he would open his eyes and move EXTREMITIES, however, he does not follow any commands. He answers by saying yes or no however he is not even consistent with that response also. Overnight he became extremely agitated. He was thrashing in moving extremities on trying to get out of the bed. Based on this, I give the patient a 5 mg dose of Haldol and 2 mg dose of Ativan. This calmed down significantly and the patient was able to lay down and become drowsy and sleep on and off throughout the night. In the qa tech hours, the patient went into fibrillation with rapid ventricular response and this was pre-much exacerbated by recurrent episodes of agitation. The Haldol and the Ativan was repeated. The patient was started on a Cardizem drip which is currently at 7 mg an hour and his heart rate currently is at on 110 and it is still in atrial fibrillation. The patient is also on Effexor for a tight blood pressure control at 7 proximal representing a timely grams an hour. Morning blood gases showed a pH of 7.43 with a pCO2 of 53 and pO2 of 71. Rest of the blood work at all within normal limits. The morning chest x-ray showed some worsening in the changes of CHF and some bibasilar airspace disease. I suspected aspiration and the patient was given IV Zosyn as an empiric antibiotic coverage. Neurology is on the case. Unable to do an EEG. Unable to repeat the CAT scan. We restart to his daughter. We've came to found out that the patient advanced directives and he never want to be intubated or placed on a mechanical ventilator. His advanced directives on the chart and his daughter confirmed this issue of being a DNR/DNI CODE STATUS. Apparently the patient has had history of multidrug/multi-substance abuse. He has been involved in multiple drug overdose situations in the past. As for the white powdered, this is not known as far as the nature and the type of the material. On 06/30/2018 I'm seeing this patient for a follow-up. Neurologically seems to be more appropriate. Is able to speak up. This is. Nevertheless he doesn't make sense all the time. At times he gets agitated and confused. Overall more alert compared to yesterday and obviously there is some improvement in his neurologic function is as the patient is able to speak sentences. When further asked about the white part the that was found next to him, he was not able to tell me exactly what type of chemical was at however he tells me that he took it and sure enough the events that followed that are all mentioned in my earlier notes. For now, the patient is still having paroxysmal atrial fibrillation with normal sinus rhythm and currently is on Cardizem drip at the rate of 10 mg an hour. He was having a severe hypertensive reaction he was placed on clevidipine drip and he was as high as 18 mg an hour and now is down to 10. His blood pressure is under better control for now. He is on IV fluids in the form of 0.9 at the rate of 20 mL an hour. He is also producing adequate amount of urine output. There is a Templeton catheter in place. No fever. No chills. No neck stiffness. EEG was done and showed diffuse slowing. Neurology saw the patient and wanted to proceed with a MRI of the brain and a lumbar puncture however this is not possible patient gets quite agitated and this may possible at a later stage. No respiratory difficulties. No cough sputum production chest tightness or wheezing. He remains on empiric antibiotic coverage with IV Zosyn. He has a sputum analysis is showing presumptive staph aureus. No chest x-ray from today. Note that overall the patient has required Haldol and Ativan in the order of 3 doses of 2 mg of Ativan last night and he has also taken Haldol 5 mg. On 07/01/2018, patient seems to be more awake, responsive, appropriate, and now he is telling the nurses that he took [place] and baclofen trying to commit suicide. That may explain the sudden changes in mental status and his presentation. Today the patient seems to be doing well, blood pressure seems to be a bit of an issue, his heart rate is well-controlled, his oral meds for blood pressure have been restarted including Catapres, patches, Norvasc, losartan, and metoprolol. Patient is off clevidipine at present. Blood pressure is about 160 systolic at present. All labs were reviewed, he had a relatively normal CBC is relatively normal basic metabolic profile. Relatively normal renal profile. Abnormal liver enzymes with AST of 114 and ALT of 193. On presentation, his acetaminophen level was 16.8, he had drug screen for benzodiazepine., Urine opiates were positive. Objective - Vital Signs Vital signs: Vital Signs Temp 97.8 F 07/01/18 12:00 Pulse 71 07/01/18 12:00 Resp 21 07/01/18 12:00 BP 178/104 07/01/18 12:00 Pulse Ox 96 07/01/18 12:00 Intake & Output 06/30/18 07/01/18 07/01/18 18:59 06:59 18:59 Intake Total 1032.633 340 818.833 Output Total 795 1745 575 Balance 237.633 -1405 243.833 Weight 120.1 kg 120.3 kg 120.3 kg Intake: IV 280 240 90.0 Piperacillin-Tazobactam 3 100 50.0 .375 gm In Dextrose/Water 1 50ml.bag @ 12.5 mls/hr IVPB Q8HR [facility]RE[facility] Rx#: [id number] Sodium Chloride 0.9% 1, 180 240 40 000 ml @ 20 mls/hr IV . Q24H [facility]RE[facility]AN Rx#:[id number] Intake, IV Titration 312.633 100 8.833 Amount Clevidipine Butyrate 25 214.133 mg In Empty Bag 1 bag @ 1 MG/HR 2 mls/hr IV .Q24H [facility]RE[facility]AN Rx#:[id number] Diltiazem 50 mg In Sodium 98.5 100 8.833 Chloride 0.9% 40 ml @ 10 MG/HR 10 mls/hr IV .Q5H [facility]RE[facility]AN Rx#:[id number] Oral 440 720 Output: Urine 795 1745 575 Other: Voiding Method Indwelling Catheter Indwelling Catheter Indwelling Catheter # Bowel Movements 1 - Exam Physical Exam: Revealed a 53-year-old white male, appropriate, in no distress. Mentation seems to be intact. Head: Atraumatic normocephalic. Lymphatics: No lymphadenopathy. HEENT:[Neck is supple.] [No neck masses.] [No thyromegaly.] [No JVD.] Chest: [Clear throughout, no crackles, no rhonchi, no wheezes.] Cardiac Exam: [Normal S1 and S2, no S3 gallop, no murmur.] Abdomen: [Soft, nontender, no megaly, no rebound, no guarding, normal bowel sounds.] Extremities: [No clubbing, no edema, no cyanosis.] Neurological Exam: [No focal neurologic deficit.] Alert oriented 3. Skin: No rashes. Musculoskeletal: No deformities, normal range of motion. Psychiatric: Normal mood, blunt affect, intact mental status. Although he seems to be a bit slow. - Labs CBC & Chem 7: 07/01/18 04:55 07/01/18 04:55 Labs: Abnormal Lab Results - Last 24 Hours (Table) 06/30/18 06/30/18 06/30/18 Range/Units 08:00 12:16 17:50 Neutrophils # (1.3-7.7) k/uL Carbon Dioxide (22-30) mmol/L BUN (9-20) mg/dL Glucose (74-99) mg/dL POC Glucose (mg/dL) 194 H 140 H (75-99) mg/dL AST (17-59) U/L ALT (21-72) U/L CSF Glucose 124 H (40-70) mg/dL 07/01/18 07/01/18 07/01/18 Range/Units 00:07 04:55 04:55 Neutrophils # 7.8 H (1.3-7.7) k/uL Carbon Dioxide 31 H (22-30) mmol/L BUN 33 H (9-20) mg/dL Glucose 132 H (74-99) mg/dL POC Glucose (mg/dL) 115 H (75-99) mg/dL AST 114 H (17-59) U/L ALT 193 H (21-72) U/L CSF Glucose (40-70) mg/dL 07/01/18 Range/Units 05:57 Neutrophils # (1.3-7.7) k/uL Carbon Dioxide (22-30) mmol/L BUN (9-20) mg/dL Glucose (74-99) mg/dL POC Glucose (mg/dL) 101 H (75-99) mg/dL AST (17-59) U/L ALT (21-72) U/L CSF Glucose (40-70) mg/dL Microbiology - Last 24 Hours (Table) 06/27/18 07:30 Blood Culture - Preliminary Blood No Growth after 96 hours Assessment and Plan Assessment: Impression: 1 altered mental status, most likely secondary to the combination of [place] and baclofen that he took deliberately to commit suicide. Hence the patient will need to be on suicide precautions, and will need psychiatric evaluation. 2 acute suicidal attempt 3 history of illicit drug use 4 history of alcoholism 5 benign essential hypertension 6 chronic and ongoing tobacco dependence 7 new-onset atrial fibrillation with RVR presently on Cardizem drip at 10 mg per hour 8 anxiety and depression 9 history of abdominal aortic aneurysm and stenting in November of 2017 10 chronic obstructive pulmonary disease presently inactive Recommendation: Restart the patient on his usual blood pressure medications, consult psychiatry, continue to monitor in the ICU and if transferred out of the ICU the patient will need a sitter may eventually need psychiatric evaluation and transferred to the service. We'll continue to follow. Time with Patient: Less than 30
[2018-07-01 12:25] LABS: Glucose,Whole Blood 106 mg/dL (75-99)
--- NOTE | 2018-07-01 13:59 | P.CN ---
Psychiatric Consult - . Consult date: 07/01/18 Consult:: 07/01/18 11:44 Suicide attempt: Reviewed the chart from an including this admission and February 2018. There is no mention of suicide attempt and anywhere in the record other than his use of substances such as opiates and amphetamines etc. Will evaluate for suicidality on mental status exam. Assessment and Plan (1) Acute metabolic encephalopathy Narrative/Plan: Consult:Suicide attempt: "I am suicidal and I want to you're just making money off theme" This is a 53-year-old male with a history of multiple medical problems including depression and prior suicide attempt diabetes COPD who was brought in by EMS from a local correction where he was found to be unresponsive. EMS was called he was given Narcan initially by staff members and later by EMS with minimal response he was said to be full code. In route an attempt was made for oral intubation patient did become awake he was very combative briefly and then succumb back to unresponsiveness. This is a 53-year-old gentleman who follows with Dr. Quinones as his primary care physician. He has a previous history of illicit drug use, suicide attempt , coronary artery disease, permanent pacemaker implantation, abdominal aortic aneurysm endovascular repair, left brachial artery pseudoaneurysm, hypertension , liver disease, history of alcohol abuse, history of methamphetamines use, chronic obstructive pulmonary disease, chronic and ongoing tobacco dependence. The patient had been residing in [facility] when staff found him unconscious, unresponsive in a semi-Randall's position. He was bradypneic, he did have a pulse. Upon EMS arrival he was given Narcan without initial improvement. However once he was loaded on the stretcher: In route he became awake and alert and yelling continuously. Just prior to arriving to the hospital he again became obtunded and oral airway was inserted and dilations were assisted. Apparently the patient has had history of multidrug/multi- substance abuse. He has been involved in multiple drug overdose situations in the past. As for the white powdered, this is not known as far as the nature and the type of the material. Assessment and Plan Mental Status Examination - this 53-year-old male lying in hospital and is not time but knows name and hospital. He knows his birthday what he thinks he is 63 years of age. He is far from being alert oriented to time, does know his name, does reiterate that he wants to ! General Appearance: [disheveled, bizarre, appears older than stated age] Speech/Language: [slow, slurred, rambled, mumbling, hesitant, halting, monotone , soft] Attitude/Behavior: [guarded, withdrawn, indifferent] Mood: [depressed, anxious, hopelessness] Affect: [ flat, incongruent, blunted constricted] Orientation: [not time, person, place situation] Thought Content: [obsessions to ] Risk Factors: [suicidal (ideations, plan which includes overdose on medications again Perception: [wnl, Thought Processes: [concrete, circumstantial, tangential, other] Concentration/Attention Span: [ impaired] [Per observation and interview with the patient] Recent Memory: [, impaired] [0out of 3 in 3 minutes] Remote Memory: impaired] [past events, as related history] Intelligence: [below average] [based on history, based on vocabulary, syntax, grammar, and content] Judgement: [poor] [per patient's behavior/history of present illness] Insight: [poor] [understanding severity of illness/history of present illness] Plan: #1 Altered mental status of unclear etiology, we strongly suspect a drug effect knowing that the patient has had history of multi-substance abuse and he has been involved in various drug intake. During this current admission, there was a white powder. However the exact nature of this medication or material is not established. The patient had a urine drug screen that came back positive for opiates. I think this is a drug induced encephalopathy. Cannot rule out delirium tremens. Cannot rule out opiate withdrawal highly doubt this is opiate withdrawal! Cannot rule out any other drugs affecting this patient's mentation. Based on my conversation with the daughter, the last time such a thing And the patient took him few days to regain back his consciousness. Meanwhile his neurologic exam is nonfocal. #2 History of illicit drug use . #3 History of suicide attempt. He is considering clinically depressed with an active suicide attempt and still wants to now. Considering his metabolic condition he would be more appropriate for a [facility] psych unit such as [place]. #4 History of alcoholism. #5 Chronic obstructive pulmonary disease. #6 Chronic and ongoing tobacco dependence. #7 History of abdominal aortic aneurysm with stenting in November 2017. #8 History of left brachial pseudoaneurysm. #9 Hypertension. #10 Anxiety/depression. #11 acute hypertensive reaction currently on Cleviprex drip #12 new onset atrial fibrillation with rapid ventricular response and the patient is again a Cardizem drip running at 10 mg a Current Visit: Yes Status: Acute Priority: High Code(s): G93.41 - METABOLIC ENCEPHALOPATHY SNOMED Code(s): 91443684 (2) Altered mental status Current Visit: No Status: Acute Priority: Medium Code(s): R41.82 - ALTERED MENTAL STATUS, UNSPECIFIED SNOMED Code(s): 314819044
[2018-07-01] MEDS: ALPRAZolam 0.25 MG TAB PO PRN (14:01)
[2018-07-01] MEDS: GABAPENTIN 300 MG CAP PO SCH ×2 (16:26→20:19)
--- NOTE | 2018-07-01 16:29 | PN ---
PROGRESS NOTE CHIEF COMPLAINT: Delirium and semicoma. HISTORY OF PRESENT ILLNESS: This gentleman is starting to wake up, but he is at times quite agitated. He has been given Haldol. When he was awake, he confessed that he had been hoarding his baclofen and [place] in the [facility] and wanted to kill himself. PHYSICAL EXAMINATION: Chest is clear and cardiac exam demonstrates atrial fibrillation. The abdomen is soft and protuberant. Extremities are normal. Vital signs are normal. IMPRESSION: 1. Encephalopathy and coma secondary to drug overdose. 2. Suicidal personality. 3. Atrial fibrillation. 4. Staphylococcus aureus in sputum. PLAN: 1. Continue with supportive care. 2. Psychiatry consult for his suicidal comments. MMODL / IJN: [id number] /
[2018-07-01] MEDS: METOPROLOL TARTRATE 50 MG TAB PO SCH (20:19)
[2018-07-01 20:55] LABS: Glucose,Whole Blood 141 mg/dL (75-99)
[2018-07-02] MEDS: PIPERACILLIN-TAZOBACTAM 3.375 GM in DEXTROSE/WATER 1 50ML.BAG IVPB SCH ×2 (00:14→10:13)
[2018-07-02 06:19] LABS: Glucose,Whole Blood 80 mg/dL (75-99)
[2018-07-02] MEDS: INSULIN ASPART 100 UNIT/ML 1 ML 10 ML VIAL SQ SCH ×4 (06:23→21:41)
[2018-07-02 07:21] LABS: Basophils % (A) 0 %; Eosinophils # (A) 0.2 k/uL (0-0.7); Eosinophils % (A) 2 %; HGB 14.4 gm/dL (13.0-17.5); Lymphocytes # (A) 2.1 k/uL (1.0-4.8); Lymphocytes % (A) 25 %; MCHC 31.9 g/dL (31.0-37.0); MCV 84.6 fL (80.0-100.0); Mean Platelet Volume 7.1; Monocytes # (A) 0.7 k/uL (0-1.0); Monocytes % (A) 8 %; Neutrophils # (A) 5.4 k/uL (1.3-7.7); Neutrophils % (A) 63 %; Platelet Count 175 k/uL (150-450); RBC 5.32 m/uL (4.30-5.90); RDW 14.6 % (11.5-15.5); WBC 8.5 k/uL (3.8-10.6)
[2018-07-02 07:40] LABS: ALT 173 U/L (21-72); AST 71 U/L (17-59); Albumin 3.2 g/dL (3.5-5.0); Alkaline Phosphatase 67 U/L (38-126); Anion Gap 8 mmol/L; Blood Urea Nitrogen 34 mg/dL (9-20); Calcium 8.9 mg/dL (8.4-10.2); Carbon Dioxide 31 mmol/L (22-30); Chloride 104 mmol/L (98-107); Glucose 79 mg/dL (74-99); Magnesium 2.1 mg/dL (1.6-2.3); Sodium 143 mmol/L (137-145); Total Bilirubin 0.7 mg/dL (0.2-1.3)
[2018-07-02] MEDS: METOPROLOL TARTRATE 50 MG TAB PO SCH ×2 (07:50→21:41)
[2018-07-02] MEDS: GABAPENTIN 300 MG CAP PO SCH ×3 (07:50→21:41)
[2018-07-02] MEDS: HEPARIN SODIUM,PORCINE 5,000 UNIT/ML 1 ML VIAL SQ SCH ×2 (07:52→21:41)
[2018-07-02] MEDS: PANTOPRAZOLE 40 MG/10 ML VIAL IV SCH (07:52)
[2018-07-02] MEDS: LOSARTAN 50 MG TAB PO SCH (07:52)
[2018-07-02] MEDS: amLODIPine 10 MG TAB PO SCH (07:52)
[2018-07-02] MEDS: SERTRALINE 50 MG TAB PO SCH (07:54)
[2018-07-02] MEDS: IPRATROPIUM-ALBUTEROL 3 ML NEB INHALATION SCH ×4 (08:29→19:39)
--- NOTE | 2018-07-02 09:46 | CDI ---
Last Revision, August 2017 Documentation Clarification Form Date: 07/02/2018 9:29:44 AM From: Ginger Pizano, WADE, CCDS Admit Date: 06/27/2018 11:32:00 AM Patient Name: Abraham Avitia Visit Number: [id number] Discharge Date: ATTENTION: The Clinical Documentation Specialists (CDI) and [facility] Coding Staff appreciate your assistance in clarifying documentation. Please respond to the clarification below the line at the bottom and electronically sign. The CDI & [facility] Coding staff will review the response and follow-up if needed. Please note: Queries are made part of the Legal Health Record. If you have any questions, please contact the author of this message via ITS. Stu Hardwick MD: Pneumonia is documented in the 06/29 pulmonary PN as potential aspiration pneumonia. Per the 06/30 pulmonary PN: Underlying pneumonia cannot be completely excluded. History/Risk Factors: Multiple drug overdoses, substance abuse including meth, Alcohol & Nicotine dependence, DM II, COPD & Sleep apnea Clinical Indicators: Presented from [facility], unresponsive with unidentified white powder in possession. Intubated in ED, admitted to ICU, extubated after 24 hrs. Possible attempted suicide attempt with drug overdose ( [place] & Baclofen). WBC/Left shift: WBC 12.2^, Neut 8.4^. Sputum Culture Final: Staph aureus, Tami albicans Blood Gas: pH 7.27*, pCO2 54^, T CO2 26^. 06/27: CXR: Borderline cardiomegaly... correlate for developing volume overload. 06/28 CXR: No failure, Basilar atelectasis favored over early infiltrate. 06/29 CXR: Worsening changes of CHF, Bibasilar disease wither atelectasis, pneumonia or confluent edema. Treatment: IV fl 100, IV Diprivan, IV Narcan, IV fl bolus, Albuterol INH, IV Lasix, IV Zosyn, IV Solumedrol, IV Lopressor, IV Clevidipine, IV Ativan, IV Haldol, IV Cardizem. Intubated/Extubated, remains in ICU. In order to capture the severity of condition, please clarify if the condition signifies and you are treating for: Aspiration Pneumonia, identify if: o Due to solids or liquids Bacterial Pneumonia, specify causal organism (if known) o Gram Negative Pneumonia o Due to Staph o Other bacteria (please specify) o Other, please specify Viral Pneumonia, specify casual organism (if known) Ventilator Associated Pneumonia Healthcare Acquired Pneumonia Other, please specify Unable to determine MTDD
--- NOTE | 2018-07-02 11:03 | P.PN ---
Subjective Progress Note Date: 07/02/18 Principal diagnosis: Altered mental status, secondary to drug overdose including [place] and baclofen This is a 53-year-old gentleman who follows with Dr. Quinones as his primary care physician. He has a previous history of illicit drug use, suicide attempt , coronary artery disease, permanent pacemaker implantation, abdominal aortic aneurysm endovascular repair, left brachial artery pseudoaneurysm, hypertension , liver disease, history of alcohol abuse, history of methamphetamines use, chronic obstructive pulmonary disease, chronic and ongoing tobacco dependence. The patient had been residing in [facility] when staff found him unconscious, unresponsive in a semi-Randall's position. He was bradypneic, he did have a pulse. Upon EMS arrival he was given Narcan without initial improvement. However once he was loaded on the stretcher: In route he became awake and alert and yelling continuously. Just prior to arriving to the hospital he again became obtunded and oral airway was inserted and dilations were assisted. The patient ended up being intubated and placed on mechanical ventilator. He is currently on 7.5 mcg/kg/m of propofol. Seating 0.9 normal saline at 100 ML's per hour. Current ventilator settings are assist control of 16, tidal volume 650, FiO2 100%, PEEP of 5. Acute blood gases were obtained and reveal a P O2 of 278, pCO2 of 54, pH 7.27. White count 12.2. Hemoglobin 14.5. Creatinine 1.94. Troponin 0.037. Urine drug screen was positive for benzodiazepines. Of note, the patient was found with white powdered substance which was detained by the police department. According to staff the patient is allowed to be in and out of the [facility] longterm and has been sleeping there at nighttime. The patient is seen today 06/28/2018 in follow-up in the intensive care unit. He remains intubated and on the mechanical ventilator. Current settings assist- control of 16, tidal volume 650, FiO2 60%, PEEP of 5. Morning blood gases reveal a pO2 of 119, pCO2 50, pH 7.32. He is sedated with propofol at 30 mcg/kg /m. Chest x-ray reveals basilar atelectasis versus early infiltrate. There is some noted prominence of the interstitium possibly related to chronic interstitial lung disease or congestion. White count 9.8. Hemoglobin 13.6. Creatinine 1.28. Urine culture is pending. The patient was given a sedation holiday. He is moving all fours. He began biting and gagging on the tube. Dr. Adams is present at the bedside and we extubated the patient. He was found to have excess secretions. He is given IV Solu-Medrol, IV Lasix, updraft treatments. He is currently resting more comfortably in bed. Still not speaking clear sentences however. On 06/29/2018, the patient remains extubated. Noted post extubation the patient had some respiratory distress and wheezing which we were able to manage with bronchodilators and some steroids. However, the activation for now his mentation. The patient did not recovered his consciousness appropriately. He was seen to be awake and he would open his eyes and move EXTREMITIES, however, he does not follow any commands. He answers by saying yes or no however he is not even consistent with that response also. Overnight he became extremely agitated. He was thrashing in moving extremities on trying to get out of the bed. Based on this, I give the patient a 5 mg dose of Haldol and 2 mg dose of Ativan. This calmed down significantly and the patient was able to lay down and become drowsy and sleep on and off throughout the night. In the functional tester hours, the patient went into fibrillation with rapid ventricular response and this was pre-much exacerbated by recurrent episodes of agitation. The Haldol and the Ativan was repeated. The patient was started on a Cardizem drip which is currently at 7 mg an hour and his heart rate currently is at on 110 and it is still in atrial fibrillation. The patient is also on Effexor for a tight blood pressure control at 7 proximal representing a timely grams an hour. Morning blood gases showed a pH of 7.43 with a pCO2 of 53 and pO2 of 71. Rest of the blood work at all within normal limits. The morning chest x-ray showed some worsening in the changes of CHF and some bibasilar airspace disease. I suspected aspiration and the patient was given IV Zosyn as an empiric antibiotic coverage. Neurology is on the case. Unable to do an EEG. Unable to repeat the CAT scan. We restart to his daughter. We've came to found out that the patient advanced directives and he never want to be intubated or placed on a mechanical ventilator. His advanced directives on the chart and his daughter confirmed this issue of being a DNR/DNI CODE STATUS. Apparently the patient has had history of multidrug/multi-substance abuse. He has been involved in multiple drug overdose situations in the past. As for the white powdered, this is not known as far as the nature and the type of the material. On 06/30/2018 I'm seeing this patient for a follow-up. Neurologically seems to be more appropriate. Is able to speak up. This is. Nevertheless he doesn't make sense all the time. At times he gets agitated and confused. Overall more alert compared to yesterday and obviously there is some improvement in his neurologic function is as the patient is able to speak sentences. When further asked about the white part the that was found next to him, he was not able to tell me exactly what type of chemical was at however he tells me that he took it and sure enough the events that followed that are all mentioned in my earlier notes. For now, the patient is still having paroxysmal atrial fibrillation with normal sinus rhythm and currently is on Cardizem drip at the rate of 10 mg an hour. He was having a severe hypertensive reaction he was placed on clevidipine drip and he was as high as 18 mg an hour and now is down to 10. His blood pressure is under better control for now. He is on IV fluids in the form of 0.9 at the rate of 20 mL an hour. He is also producing adequate amount of urine output. There is a Templeton catheter in place. No fever. No chills. No neck stiffness. EEG was done and showed diffuse slowing. Neurology saw the patient and wanted to proceed with a MRI of the brain and a lumbar puncture however this is not possible patient gets quite agitated and this may possible at a later stage. No respiratory difficulties. No cough sputum production chest tightness or wheezing. He remains on empiric antibiotic coverage with IV Zosyn. He has a sputum analysis is showing presumptive staph aureus. No chest x-ray from today. Note that overall the patient has required Haldol and Ativan in the order of 3 doses of 2 mg of Ativan last night and he has also taken Haldol 5 mg. On 07/01/2018, patient seems to be more awake, responsive, appropriate, and now he is telling the nurses that he took [place] and baclofen trying to commit suicide. That may explain the sudden changes in mental status and his presentation. Today the patient seems to be doing well, blood pressure seems to be a bit of an issue, his heart rate is well-controlled, his oral meds for blood pressure have been restarted including Catapres, patches, Norvasc, losartan, and metoprolol. Patient is off clevidipine at present. Blood pressure is about 160 systolic at present. All labs were reviewed, he had a relatively normal CBC is relatively normal basic metabolic profile. Relatively normal renal profile. Abnormal liver enzymes with AST of 114 and ALT of 193. On presentation, his acetaminophen level was 16.8, he had drug screen for benzodiazepine., Urine opiates were positive. On 07/02/2018 patient is seen in follow-up on selective care unit. He was transferred out of the intensive care yesterday, he has a highway safety engineer for suicidal precautions at the bedside, he is awake and alert, currently on room air, with pulse ox of 94-95%, he is afebrile, hemodynamically stable, his blood pressures are better controlled, blood pressure 159/87, his home blood pressure meds have been restarted. No difficulty breathing, no chest pain, no acute complaints. Patient is awaiting to be evaluated by psychiatry. Lung sounds are positive for some wheezes, no chest congestion, no sputum production. Sputum culture was positive for MSSA, patient remains on Zosyn. Objective - Vital Signs Vital signs: Vital Signs Temp 98.3 F 07/02/18 09:30 Pulse 72 07/02/18 09:30 Resp 18 07/02/18 09:30 BP 159/87 07/02/18 09:30 Pulse Ox 94 L 07/02/18 09:30 Intake & Output 07/01/18 07/02/18 07/02/18 18:59 06:59 18:59 Intake Total 818.833 800 Output Total 625 Balance 193.833 800 Weight 120.3 kg 118.2 kg Intake: IV 90.0 Piperacillin-Tazobactam 3 50.0 .375 gm In Dextrose/Water 1 50ml.bag @ 12.5 mls/hr IVPB Q8HR [facility] Rx#: [id number] Sodium Chloride 0.9% 1, 40 000 ml @ 20 mls/hr IV . Q24H [facility] Rx#:[id number] Intake, IV Titration 8.833 Amount Diltiazem 50 mg In Sodium 8.833 Chloride 0.9% 40 ml @ 10 MG/HR 10 mls/hr IV .Q5H [facility] Rx#:[id number] Oral 720 800 Output: Urine 625 Other: Voiding Method Indwelling Catheter Toilet Toilet # Voids 1 - Exam Physical Exam: Revealed a 53-year-old white male, appropriate, in no distress. Mentation seems to be intact. Head: Atraumatic normocephalic. Lymphatics: No lymphadenopathy. HEENT:[Neck is supple.] [No neck masses.] [No thyromegaly.] [No JVD.] Chest: [Clear throughout, no crackles, no rhonchi, some scattered wheezes Cardiac Exam: [Normal S1 and S2, no S3 gallop, no murmur.] Abdomen: [Soft, nontender, no megaly, no rebound, no guarding, normal bowel sounds.] Extremities: [No clubbing, no edema, no cyanosis.] Neurological Exam: [No focal neurologic deficit.] Alert oriented 3. Skin: No rashes. Musculoskeletal: No deformities, normal range of motion. Psychiatric: Normal mood, blunt affect, intact mental status. Although he seems to be a bit slow. - Labs CBC & Chem 7: 07/02/18 06:23 07/02/18 06:23 Labs: Abnormal Lab Results - Last 24 Hours (Table) 07/01/18 07/01/18 07/02/18 Range/Units 11:44 20:43 06:23 Carbon Dioxide 31 H (22-30) mmol/L BUN 34 H (9-20) mg/dL POC Glucose (mg/dL) 106 H 141 H (75-99) mg/dL Phosphorus 5.0 H (2.5-4.5) mg/dL AST 71 H (17-59) U/L ALT 173 H (21-72) U/L Total Protein 6.0 L (6.3-8.2) g/dL Albumin 3.2 L (3.5-5.0) g/dL Microbiology - Last 24 Hours (Table) 06/28/18 10:51 Gram Stain - Final Sputum Sputum Culture - Final Staphylococcus aureus Tami albicans 06/27/18 07:30 Blood Culture - Preliminary Blood No Growth after 96 hours Assessment and Plan Plan: 1 altered mental status, most likely secondary to the combination of [place] and baclofen that he took deliberately to commit suicide. Hence the patient will need to be on suicide precautions, and will need psychiatric evaluation. 2 bibasilar airspace disease atelectasis versus aspiration pneumonia, sputum culture positive for MSSA, patient has been covered with Zosyn 2 acute suicidal attempt 3 history of illicit drug use 4 history of alcoholism 5 benign essential hypertension 6 chronic and ongoing tobacco dependence 7 new-onset atrial fibrillation with RVR presently on Cardizem drip at 10 mg per hour 8 anxiety and depression 9 history of abdominal aortic aneurysm and stenting in November of 2017 10 chronic obstructive pulmonary disease presently inactive Recommendation: Patient is awake and alert, no agitation, no delirium noted. Maintain suicide precautions, he is awaiting to be seen by psychiatry services. Sputum cultures isolated MSSA, patient had been able coverage in no form of Zosyn, we will switch it to oral Augmentin. Afebrile, hemodynamically stable, no difficulty breathing. Remains stable. I performed a history & physical examination of the patient and discussed their management with my nurse practitioner, Apoorva Escoto. I reviewed the nurse practitioner's note and agree with the documented findings and plan of care. Lung sounds are positive for some wheezes throughout the lung hernandez. The findings and the impression was discussed with the patient. I attest to the documentation by the nurse practitioner. Time with Patient: Less than 30
[2018-07-02 12:03] LABS: Glucose,Whole Blood 110 mg/dL (75-99)
[2018-07-02] MEDS: LORazepam 2 MG/ML INJ IV PRN (13:51)
[2018-07-02] MEDS: SODIUM CHLORIDE 0.9% 1,000 ML IV SCH (15:35)
--- NOTE | 2018-07-02 16:20 | P.PN ---
Progress Note - Text Progress Note Date: 07/02/18 This is an addendum note on Jose Juan Avitia, patient presented with bibasilar pneumonia, consistent with aspiration pneumonia, and to be more specific it is MSSA related pneumonia.
[2018-07-02 17:06] LABS: Glucose,Whole Blood 133 mg/dL (75-99)
--- NOTE | 2018-07-02 17:33 | PN ---
PROGRESS NOTE DATE OF SERVICE: 07/02/2018 CHIEF COMPLAINT: Status post coma and respiratory failure. HISTORY OF PRESENT ILLNESS: This gentleman is stable and doing well. We are working on a discharge plan. He is being seen by Psychiatry again, since he admitted that he had attempted to kill himself. PHYSICAL EXAMINATION: Chest is clear. Cardiac exam is normal. IMPRESSION: 1. Status post coma secondary to drug overdose. 2. Depression. 3. Suicidal personality. 4. ASCVD. PLAN: Await recommendations from Psychiatry. MMODL / IJN: [id number] /
[2018-07-02 20:17] LABS: Glucose,Whole Blood 118 mg/dL (75-99)
[2018-07-02] MEDS: AMOXIC-POT CLAV 875-125MG 1 EACH TAB PO SCH (21:41)
[2018-07-02] MEDS: ALPRAZolam 0.25 MG TAB PO PRN (21:47)
[2018-07-03] MEDS: IPRATROPIUM-ALBUTEROL 3 ML NEB INHALATION SCH ×4 (07:16→20:36)
[2018-07-03] MEDS: INSULIN ASPART 100 UNIT/ML 1 ML 10 ML VIAL SQ SCH ×4 (08:14→22:05)
[2018-07-03] MEDS: amLODIPine 10 MG TAB PO SCH (08:15)
[2018-07-03] MEDS: METOPROLOL TARTRATE 50 MG TAB PO SCH ×2 (08:15→20:31)
[2018-07-03] MEDS: PANTOPRAZOLE 40 MG TABLET PO SCH (08:15)
[2018-07-03] MEDS: LOSARTAN 50 MG TAB PO SCH (08:16)
[2018-07-03] MEDS: SERTRALINE 50 MG TAB PO SCH (08:16)
[2018-07-03] MEDS: AMOXIC-POT CLAV 875-125MG 1 EACH TAB PO SCH ×2 (08:21→20:31)
[2018-07-03] MEDS: HEPARIN SODIUM,PORCINE 5,000 UNIT/ML 1 ML VIAL SQ SCH ×2 (08:21→20:31)
[2018-07-03] MEDS: GABAPENTIN 300 MG CAP PO SCH ×3 (08:21→22:05)
[2018-07-03 08:31] LABS: Glucose,Whole Blood 114 mg/dL (75-99)
[2018-07-03 10:41] LABS: Basophils % (A) 0 %; Eosinophils # (A) 0.4 k/uL (0-0.7); Eosinophils % (A) 4 %; HCT 45.8 % (39.0-53.0); HGB 14.7 gm/dL (13.0-17.5); Lymphocytes # (A) 1.7 k/uL (1.0-4.8); Lymphocytes % (A) 21 %; MCH 27.4 pg (25.0-35.0); MCHC 32.1 g/dL (31.0-37.0); MCV 85.2 fL (80.0-100.0); Mean Platelet Volume 6.8; Monocytes # (A) 0.5 k/uL (0-1.0); Monocytes % (A) 6 %; Neutrophils # (A) 5.5 k/uL (1.3-7.7); Neutrophils % (A) 67 %; Platelet Count 140 k/uL (150-450); RBC 5.37 m/uL (4.30-5.90); RDW 14.6 % (11.5-15.5); WBC 8.3 k/uL (3.8-10.6)
[2018-07-03 10:51] LABS: Calcium 8.5 mg/dL (8.4-10.2); Magnesium 2.1 mg/dL (1.6-2.3); Phosphorus 3.8 mg/dL (2.5-4.5); Potassium 4.6 mmol/L (3.5-5.1)
[2018-07-03 11:01] LABS: Glucose,Whole Blood 155 mg/dL (75-99)
--- NOTE | 2018-07-03 12:33 | P.PN ---
Subjective Progress Note Date: 07/03/18 Principal diagnosis: Altered mental status of unclear etiology. This is a 53-year-old gentleman who follows with Dr. Quinones as his primary care physician. He has a previous history of illicit drug use, suicide attempt , coronary artery disease, permanent pacemaker implantation, abdominal aortic aneurysm endovascular repair, left brachial artery pseudoaneurysm, hypertension , liver disease, history of alcohol abuse, history of methamphetamines use, chronic obstructive pulmonary disease, chronic and ongoing tobacco dependence. The patient had been residing in [facility] when staff found him unconscious, unresponsive in a semi-Randall's position. He was bradypneic, he did have a pulse. Upon EMS arrival he was given Narcan without initial improvement. However once he was loaded on the stretcher: In route he became awake and alert and yelling continuously. Just prior to arriving to the hospital he again became obtunded and oral airway was inserted and dilations were assisted. The patient ended up being intubated and placed on mechanical ventilator. He is currently on 7.5 mcg/kg/m of propofol. Seating 0.9 normal saline at 100 ML's per hour. Current ventilator settings are assist control of 16, tidal volume 650, FiO2 100%, PEEP of 5. Acute blood gases were obtained and reveal a P O2 of 278, pCO2 of 54, pH 7.27. White count 12.2. Hemoglobin 14.5. Creatinine 1.94. Troponin 0.037. Urine drug screen was positive for benzodiazepines. Of note, the patient was found with white powdered substance which was detained by the police department. According to staff the patient is allowed to be in and out of the [facility] and has been sleeping there at nighttime. The patient is seen today 06/28/2018 in follow-up in the intensive care unit. He remains intubated and on the mechanical ventilator. Current settings assist- control of 16, tidal volume 650, FiO2 60%, PEEP of 5. Morning blood gases reveal a pO2 of 119, pCO2 50, pH 7.32. He is sedated with propofol at 30 mcg/kg /m. Chest x-ray reveals basilar atelectasis versus early infiltrate. There is some noted prominence of the interstitium possibly related to chronic interstitial lung disease or congestion. White count 9.8. Hemoglobin 13.6. Creatinine 1.28. Urine culture is pending. The patient was given a sedation holiday. He is moving all fours. He began biting and gagging on the tube. Dr. Adams is present at the bedside and we extubated the patient. He was found to have excess secretions. He is given IV Solu-Medrol, IV Lasix, updraft treatments. He is currently resting more comfortably in bed. Still not speaking clear sentences however. On 06/29/2018, the patient remains extubated. Noted post extubation the patient had some respiratory distress and wheezing which we were able to manage with bronchodilators and some steroids. However, the activation for now his mentation. The patient did not recovered his consciousness appropriately. He was seen to be awake and he would open his eyes and move EXTREMITIES, however, he does not follow any commands. He answers by saying yes or no however he is not even consistent with that response also. Overnight he became extremely agitated. He was thrashing in moving extremities on trying to get out of the bed. Based on this, I give the patient a 5 mg dose of Haldol and 2 mg dose of Ativan. This calmed down significantly and the patient was able to lay down and become drowsy and sleep on and off throughout the night. 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 The Haldol and the Ativan was repeated. The patient was started on a Cardizem drip which is currently at 7 mg an hour and his heart rate currently is at on 110 and it is still in atrial fibrillation. The patient is also on Effexor for a tight blood pressure control at 7 proximal representing a timely grams an hour. Morning blood gases showed a pH of 7.43 with a pCO2 of 53 and pO2 of 71. Rest of the blood work at all within normal limits. The morning chest x-ray showed some worsening in the changes of CHF and some bibasilar airspace disease. I suspected aspiration and the patient was given IV Zosyn as an empiric antibiotic coverage. Neurology is on the case. Unable to do an EEG. Unable to repeat the CAT scan. We restart to his daughter. We've came to found out that the patient advanced directives and he never want to be intubated or placed on a mechanical ventilator. His advanced directives on the chart and his daughter confirmed this issue of being a DNR/DNI CODE STATUS. Apparently the patient has had history of multidrug/multi-substance abuse. He has been involved in multiple drug overdose situations in the past. As for the white powdered, this is not known as far as the nature and the type of the material. On 06/30/2018 I'm seeing this patient for a follow-up. Neurologically seems to be more appropriate. Is able to speak up. This is. Nevertheless he doesn't make sense all the time. At times he gets agitated and confused. Overall more alert compared to yesterday and obviously there is some improvement in his neurologic function is as the patient is able to speak sentences. When further asked about the white part the that was found next to him, he was not able to tell me exactly what type of chemical was at however he tells me that he took it and sure enough the events that followed that are all mentioned in my earlier notes. For now, the patient is still having paroxysmal atrial fibrillation with normal sinus rhythm and currently is on Cardizem drip at the rate of 10 mg an hour. He was having a severe hypertensive reaction he was placed on clevidipine drip and he was as high as 18 mg an hour and now is down to 10. His blood pressure is under better control for now. He is on IV fluids in the form of 0.9 at the rate of 20 mL an hour. He is also producing adequate amount of urine output. There is a Templeton catheter in place. No fever. No chills. No neck stiffness. EEG was done and showed diffuse slowing. Neurology saw the patient and wanted to proceed with a MRI of the brain and a lumbar puncture however this is not possible patient gets quite agitated and this may possible at a later stage. No respiratory difficulties. No cough sputum production chest tightness or wheezing. He remains on empiric antibiotic coverage with IV Zosyn. He has a sputum analysis is showing presumptive staph aureus. No chest x-ray from today. Note that overall the patient has required Haldol and Ativan in the order of 3 doses of 2 mg of Ativan last night and he has also taken Haldol 5 mg. On 07/01/2018, patient seems to be more awake, responsive, appropriate, and now he is telling the nurses that he took [place] Barge and baclofen trying to commit suicide. That may explain the sudden changes in mental status and his presentation. Today the patient seems to be doing well, blood pressure seems to be a bit of an issue, his heart rate is well-controlled, his oral meds for blood pressure have been restarted including Catapres, patches, Norvasc, losartan, and metoprolol. Patient is off clevidipine at present. Blood pressure is about 160 systolic at present. All labs were reviewed, he had a relatively normal CBC is relatively normal basic metabolic profile. Relatively normal renal profile. Abnormal liver enzymes with AST of 114 and ALT of 193. On presentation, his acetaminophen level was 16.8, he had drug screen for benzodiazepine., Urine opiates were positive. On 07/02/2018 patient is seen in follow-up on selective care unit. He was transferred out of the intensive care yesterday, he has a corporate safety coordinator for suicidal precautions at the bedside, he is awake and alert, currently on room air, with pulse ox of 94-95%, he is afebrile, hemodynamically stable, his blood pressures are better controlled, blood pressure 159/87, his home blood pressure meds have been restarted. No difficulty breathing, no chest pain, no acute complaints. Patient is awaiting to be evaluated by psychiatry. Lung sounds are positive for some wheezes, no chest congestion, no sputum production. Sputum culture was positive for MSSA, patient remains on Zosyn. The patient is seen again today 07/03/2018 in follow-up on the regular medical floor. He is awake and alert in no acute distress. He sitting up in a chair at the bedside. A sitter remains in the room. He is alert and oriented. He states he is mad that he was saved and admitting to a suicide attempt. He states he took 20 tablets of [place] Barge and 20 tablets of baclofen. He is speaking in complete sentences. He is oriented 3. He is somewhat short of breath. Mild end expiratory wheeze. The patient was on Symbicort in the outpatient setting which will be reordered. Continue DuoNeb inhalations. Sputum was positive for MSSA and he remains on Augmentin. White count 8.3. Hemoglobin 14.7. Platelet count 140,000. Creatinine 1.12. Objective - Vital Signs Vital signs: Vital Signs Temp 98.1 F 07/03/18 06:01 Pulse 80 07/03/18 11:26 Resp 18 07/03/18 06:01 BP 142/89 07/03/18 06:01 Pulse Ox 96 07/03/18 06:01 Intake & Output 07/02/18 07/03/18 07/03/18 18:59 06:59 18:59 Intake Total 330 1400 Output Total 50 Balance 330 1350 Weight 118.2 kg Intake: IV 130 Piperacillin-Tazobactam 3 50 .375 gm In Dextrose/Water 1 50ml.bag @ 12.5 mls/hr IVPB Q8HR FREEMAN Rx#: [id number] Sodium Chloride 0.9% 1, 80 000 ml @ 20 mls/hr IV . Q24H FREEMAN Rx#:[id number] Oral 200 1400 Output: Urine 50 Other: Voiding Method Toilet Toilet # Voids 2 - Exam GENERAL EXAM: Alert, oriented. Sitter at the bedside. HEAD: Normocephalic. EYES: Equal reaction of pupils, equal size. NOSE: Clear with pink turbinates. THROAT: Clear with no candidiasis. NECK: No masses, no JVD. CHEST: No chest wall deformity. LUNGS: Equal air entry with bilateral wheeze. CVS: S1 and S2 normal with no audible murmur, regular rhythm. ABDOMEN: No hepatosplenomegaly, normal bowel sounds, no guarding or rigidity. SPINE: No scoliosis or deformity SKIN: No rashes CENTRAL NERVOUS SYSTEM: No focal deficits, tone is normal in all 4 extremities. EXTREMITIES: There is no peripheral edema. No clubbing, no cyanosis. Peripheral pulses are intact. - Labs CBC & Chem 7: 07/03/18 09:07 07/03/18 09:07 Labs: Abnormal Lab Results - Last 24 Hours (Table) 07/02/18 07/02/18 07/03/18 Range/Units 17:04 20:15 08:11 Plt Count (150-450) k/uL BUN (9-20) mg/dL Glucose (74-99) mg/dL POC Glucose (mg/dL) 133 H 118 H 114 H (75-99) mg/dL 07/03/18 07/03/18 07/03/18 Range/Units 09:07 09:07 10:59 Plt Count 140 L (150-450) k/uL BUN 28 H (9-20) mg/dL Glucose 134 H (74-99) mg/dL POC Glucose (mg/dL) 155 H (75-99) mg/dL Microbiology - Last 24 Hours (Table) 06/27/18 07:30 Blood Culture - Final Blood No Growth after 144 hours Assessment and Plan Assessment: Impression: #1 Altered mental status of unclear etiology, there was white powder noted with the patient. Urine drug screen positive for benzodiazepines. The patient was successfully extubated on 06/28/2018. Currently on room air. Oriented. Admits to suicide attempt with 20 La Barge and 20 baclofen. #2 History of illicit drug use including methamphetamine's. #3 History of suicide attempt. #4 History of alcoholism. #5 Chronic obstructive pulmonary disease. #6 Chronic and ongoing tobacco dependence. #7 History of abdominal aortic aneurysm with stenting in November 2017. #8 History of left brachial pseudoaneurysm. #9 Hypertension. #10 Anxiety/depression. Plan: Patient was seen and evaluated by Dr. Cuenca. The patient is currently stable from the pulmonary and critical care standpoint. Maintaining good O2 saturations in the 90s on room air. We'll add Symbicort. Continue DuoNeb's. Continue Augmentin. Awaiting psych placement. Consider remains at the bedside. I, the cosigning physician, performed a history & physical examination of the patient. Lungs sounds with bilateral wheeze. Diminished. Maintaining good O2 saturations in the 90s on room air. I discussed the assessment and plan of care with my nurse practitioner, Belinda Conteh. I attest to the above progress note as dictated by her.
--- NOTE | 2018-07-03 15:18 | PN ---
PROGRESS NOTE CHIEF COMPLAINT: Coma. HISTORY OF PRESENT ILLNESS AND PHYSICAL EXAM: Details of this man's history and physical can be found in the initial workup. LABORATORY STUDIES: While he was in a hospital, he had laboratory studies, details of which can be found in the laboratory section of his chart. COURSE IN HOSPITAL: After admission, he was placed on bedrest in ICU and initially was on a ventilator. He remained extremely lethargic for several days and then slowly began to regain consciousness and developed of a normal mental state. During his hospitalization, he admitted that he had been ho[facility] his [facility] [place] the [facility], trying to kill himself. Referred to Psychiatry and it was determined that he should be referred to a long-term psychiatric hospital. He was eventually moved to a regular floor and activity was increased back to normal. He was ready to be discharged to the [facility] hospital on 07/03. FINAL DIAGNOSES: 1. Coma, secondary to drug overdose. 2. Major depression. 3. ASCVD. OPERATIONS: None. CONSULTATIONS: Intensive Medicine and Psychiatry. He is improved. BRANDON / NELSON: [id number] /
[2018-07-03] MEDS: SODIUM CHLORIDE 0.9% 1,000 ML IV SCH (16:34)
[2018-07-03 16:43] LABS: Glucose,Whole Blood 124 mg/dL (75-99)
[2018-07-03] MEDS: SYMBICORT 160-4.5 MCG INHALER INHALATION SCH (20:36)
[2018-07-03 20:42] LABS: Glucose,Whole Blood 156 mg/dL (75-99)
[2018-07-03] MEDS: ALPRAZolam 0.25 MG TAB PO PRN (22:11)
--- NOTE | 2018-07-03 22:48 | P.PN ---
Subjective Progress Note Date: 07/03/18 This patient is a 53-year-old right-handed white male who was seen in the intensive care unit after he was found unresponsive at his custodial. Patient was intubated and transferred to the intensive care unit. He was placed on a Diprivan drip and his remaining heavily sedated early this morning. Patient was seen on rounds early this morning by Dr. Adams. He was extubated at about 9:30 AM but remains very confused and disoriented. According to the ICU nursing staff he has not shown much improvement in his mental status since extubation earlier this morning. He did have evidence of hypertensive urgency. He has been started on IV Cleviprex at a dose of 18 mcg/ h. His blood pressure remained slightly elevated this evening. his systolic blood pressure is averaging around 160s systolic. The patient remains extubated but still very confused and encephalopathic. He has not been able to communicate verbally with the ICU nursing staff. He only mumbles words at times. He keeps repeating himself and uses the phrase "Ma" and "Ma" consistently throughout his examination. He is not able to give us his first or last name. He does appear to be encephalopathic. We are recommending that a EEG be done today for further evaluation. Would also consider MRI of the brain if the patient is cooperative. The patient was able to complete a routine EEG today which was reviewed. EEG reveals evidence of severe slowing with a background of 4-5 Hz. This would be consistent with a severe encephalopathy. Exact etiology of his current neurological status is still unclear. He does have history of drug abuse in the past as well as multiple attempts at drug overdose. 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 We have discussed these findings in detail today with his ICU nurse will put in orders for his lumbar puncture to be done tomorrow morning by anesthesia. We will put a formal consult anesthesia today hopefully so that they may perform his lumbar puncture and spinal fluid analysis this morning. Anesthesia did perform LP and did obtain some fluid which is immediately been sent for further evaluation. We still would also request that a MRI of the brain at least be attempted for this patient on Sunday pending his clinical course. Hopefully he will be cooperative enough to have this study done. We will await further recommendations from pulmonary medicine regarding his pulmonary status. As noted he was initially found to be comatose on admission. He continues to show evidence of a severe metabolic encephalopathy which is slowly improving. according to the ICU nurse case was discussed with the patient's daughter. His advanced directives have been obtained and he has been made a DO NOT RESUSCITATE CODE STATUS. The patient was stabilized and transferred out of the intensive care unit to the medical floor. He was seen by psychiatry 2 days ago and they are recommending that he be discharged to a [facility] hospital for further management. The patient has shown improvement in his overall mental status since coming out of the intensive care unit. Apparently he still has some suicidal ideation and will require further ongoing psychiatric care. His spinal fluid results are once again reviewed and are negative for any evidence of herpes simplex virus. West Nile virus results are still pending from the laboratory. We will continue close neurological follow- up with the patient during this admission. His overall prognosis at this time remains very guarded. Objective - Vital Signs Vital signs: Vital Signs Temp 98.4 F 07/03/18 21:00 Pulse 62 07/03/18 21:00 Resp 16 07/03/18 21:00 BP 158/77 07/03/18 21:00 Pulse Ox 94 L 07/03/18 21:00 Intake & Output 07/03/18 07/03/18 07/04/18 06:59 18:59 06:59 Intake Total 1400 Output Total 50 Balance 1350 Weight 118.2 kg Intake: Oral 1400 Output: Urine 50 Other: Voiding Method Toilet # Voids 2 2 2 # Bowel Movements 2 - Exam Physical examination: PHYSICAL EXAMINATION: Patient is resting comfortably in bed. VITAL SIGNS: Blood pressure is [158/77]. Heart rate is [62]. Respiration is [16] . Temperature is [98.4]. HEENT: Head is atraumatic, neck is supple, there were no carotid bruits. CHEST: Lungs are clear to auscultation and percussion. CARDIAC: S1, S2 normal rate and rhythm. There is no murmur. ABDOMEN: Soft and nontender. Bowel sounds are present. EXTREMITIES: There is no pedal edema. Peripheral pulses are present. Neurological examination: Patient was extubated yesterday morning. Since extubation the patient still remains severely encephalopathic. He is not following any commands. He has very little verbal output. He remains in restraints. He is very confused and disoriented. His memory and intellectual function severely impaired. Patient is moving all 4 extremities. Deep tendon reflexes are hypoactive. Plantar responses flexor bilaterally. - Labs CBC & Chem 7: 07/03/18 09:07 07/03/18 09:07 Labs: Abnormal Lab Results - Last 24 Hours (Table) 07/03/18 07/03/18 07/03/18 Range/Units 08:11 09:07 09:07 Plt Count 140 L (150-450) k/uL BUN 28 H (9-20) mg/dL Glucose 134 H (74-99) mg/dL POC Glucose (mg/dL) 114 H (75-99) mg/dL 07/03/18 07/03/18 07/03/18 Range/Units 10:59 16:42 20:40 Plt Count (150-450) k/uL BUN (9-20) mg/dL Glucose (74-99) mg/dL POC Glucose (mg/dL) 155 H 124 H 156 H (75-99) mg/dL Microbiology - Last 24 Hours (Table) 06/27/18 07:30 Blood Culture - Final Blood No Growth after 144 hours Assessment and Plan (1) Coma of unknown cause Current Visit: Yes Status: Acute Code(s): R40.20 - UNSPECIFIED COMA SNOMED Code(s): 435168495 (2) Acute metabolic encephalopathy Current Visit: Yes Status: Acute Priority: High Code(s): G93.41 - METABOLIC ENCEPHALOPATHY SNOMED Code(s): 99212169 (3) History of drug abuse Current Visit: No Status: Acute Code(s): Z87.898 - PERSONAL HISTORY OF OTHER SPECIFIED CONDITIONS SNOMED Code(s): 745712129 (4) Pseudoaneurysm Current Visit: No Status: Acute Code(s): I72.9 - ANEURYSM OF UNSPECIFIED SITE SNOMED Code(s): 788462256 Plan: This patient is a 53-year-old right-handed white male who was initially admitted through the emergency room after being found obtunded than near comatose at his custodial facility. A white substance was found in his possession which has been retained by the local police. Apparently he has a history of drug overdose and drug abuse in the past. Patient was intubated and transferred from the ER to the intensive care unit where he was initially followed closely by pulmonary medicine. He was extubated yesterday and has not shown much improvement in his mental status. He remains very encephalopathic today. He underwent a routine EEG this morning which was reviewed and does reveal evidence of severe slowing consistent with a severe metabolic encephalopathy. The patient still is very little verbal output. He does not follow commands. He has remained afebrile since admission. We have recommended the patient to undergo lumbar puncture tomorrow for further evaluation as to the cause of his initial coma and unresponsive state. He will be specifically evaluated for possibility of encephalitis and/or meningitis which seems to be less likely as he has remained afebrile. We will check for herpes simplex encephalitis as well as West Nile virus encephalitis. The patient remains in the intensive care unit. He is not following any commands. His advanced directive orders have been reviewed and he is now been made a DO NOT RESUSCITATE status. We have recommended a lumbar puncture to be done by anesthesiology for further evaluation for possibility of encephalitis in this patient. Patient did undergo successful lumbar puncture performed by Dr. Gordon. Results of the spinal fluid to come back negative thus far for herpes simplex virus. West Nile virus results are still pending. Patient was seen by psychiatry 2 days ago and they're recommending that he be transferred to a psychiatric hospital for ongoing treatment. He does continue to have suicidal ideation. He is much more awake and alert since transfer out of the intensive care unit. He does have evidence of a diffuse metabolic encephalopathy. His overall prognosis at this time remains very guarded. We will continue to follow him closely during this admission. His overall prognosis at this time remains very guarded.
[2018-07-04 06:25] VITALS: TEMP 98.3
[2018-07-04 07:11] LABS: Glucose,Whole Blood 92 mg/dL (75-99)
[2018-07-04] MEDS: IPRATROPIUM-ALBUTEROL 3 ML NEB INHALATION SCH ×2 (07:46→11:20)
[2018-07-04] MEDS: SYMBICORT 160-4.5 MCG INHALER INHALATION SCH (07:46)
[2018-07-04] MEDS: INSULIN ASPART 100 UNIT/ML 1 ML 10 ML VIAL SQ SCH ×2 (08:59→12:24)
[2018-07-04] MEDS: HEPARIN SODIUM,PORCINE 5,000 UNIT/ML 1 ML VIAL SQ SCH (09:04)
[2018-07-04] MEDS: GABAPENTIN 300 MG CAP PO SCH (09:05)
[2018-07-04] MEDS: AMOXIC-POT CLAV 875-125MG 1 EACH TAB PO SCH (09:05)
[2018-07-04] MEDS: amLODIPine 10 MG TAB PO SCH (09:05)
[2018-07-04] MEDS: LOSARTAN 50 MG TAB PO SCH (09:05)
[2018-07-04] MEDS: METOPROLOL TARTRATE 50 MG TAB PO SCH (09:05)
[2018-07-04] MEDS: PANTOPRAZOLE 40 MG TABLET PO SCH (09:05)
[2018-07-04] MEDS: SERTRALINE 50 MG TAB PO SCH (09:05)
[2018-07-04] MEDS ORDERED: ACETAMINOPHEN TAB 325 MG TAB PO PRN (09:25)
--- NOTE | 2018-07-04 10:31 | P.CN ---
Psychiatric Consult - . Consult date: 07/04/18 Consult:: 07/04/18 10:27 Stability Assessment and Plan (1) Acute metabolic encephalopathy Narrative/Plan: Consult:Suicide attempt: "I am suicidal and I want to you're just making money off theme" currently not suicidal This is a 53-year-old male with a history of multiple medical problems including depression and prior suicide attempt diabetes COPD who was brought in by EMS from a local care home where he was found to be unresponsive. EMS was called he was given Narcan initially by staff members and later by EMS with minimal response he was said to be full code. In route an attempt was made for oral intubation patient did become awake he was very combative briefly and then succumb back to unresponsiveness. This is a 53-year-old gentleman who follows with Dr. Qiunones as his primary care physician. He has a previous history of illicit drug use, suicide attempt , coronary artery disease, permanent pacemaker implantation, abdominal aortic aneurysm endovascular repair, left brachial artery pseudoaneurysm, hypertension , liver disease, history of alcohol abuse, history of methamphetamines use, chronic obstructive pulmonary disease, chronic and ongoing tobacco dependence. The patient had been residing in [facility] when staff found him unconscious, unresponsive in a semi-Randall's position. He was bradypneic, he did have a pulse. Upon EMS arrival he was given Narcan without initial improvement. However once he was loaded on the stretcher: In route he became awake and alert and yelling continuously. Just prior to arriving to the hospital he again became obtunded and oral airway was inserted and dilations were assisted. Apparently the patient has had history of multidrug/multi- substance abuse. He has been involved in multiple drug overdose situations in the past. As for the white powdered, this is not known as far as the nature and the type of the material. Assessment and Plan Mental Status Examination - this 53-year-old male lying in hospital and is not time but knows name and hospital. He knows his birthday what he thinks he is 63 years of age. He is far from being alert oriented to time, does know his name, does reiterate that he wants to ! General Appearance: [disheveled, bizarre, appears older than stated age] Speech/Language: [ rambled, mumbling, hesitant, halting, monotone, soft] Attitude/Behavior: [guarded, withdrawn, indifferent] Mood: [depressed, anxious, hopelessness] Affect: [ flat, incongruent, blunted constricted] Orientation: [ time, person, place situation] Thought Content: [wnl] Risk Factors: [no suicidal (ideations, plan Plan: #1 Altered mental status of unclear etiology, we strongly suspect a drug effect knowing that the patient has had history of multi-substance abuse and he has been involved in various drug intake. During this current admission, there was a white powder. However the exact nature of this medication or material is not established. The patient had a urine drug screen that came back positive for opiates. I think this is a drug induced encephalopathy. Cannot rule out delirium tremens. Cannot rule out opiate withdrawal highly doubt this is opiate withdrawal! Cannot rule out any other drugs affecting this patient's mentation. Based on my conversation with the daughter, the last time such a thing And the patient took him few days to regain back his consciousness. Meanwhile his neurologic exam is nonfocal. #2 History of illicit drug use . #3 History of suicide attempt. He is considering clinically depressed. He will to be released and does not need inpatient psychiatric care #4 History of alcoholism. #5 Chronic obstructive pulmonary disease. #6 Chronic and ongoing tobacco dependence. #7 History of abdominal aortic aneurysm with stenting in November 2017. #8 History of left brachial pseudoaneurysm. #9 Hypertension. #10 Anxiety/depression. #11 acute hypertensive reaction currently on Cleviprex drip #12 new onset atrial fibrillation with rapid ventricular response and the patient is again a Cardizem drip running at 10 mg a Current Visit: No Status: Acute Priority: Low Code(s): G93.41 - METABOLIC ENCEPHALOPATHY SNOMED Code(s): 63526712 (2) Altered mental status Current Visit: No Status: Acute Priority: Low Code(s): R41.82 - ALTERED MENTAL STATUS, UNSPECIFIED SNOMED Code(s): 264539511 Plan: Discharge on his own recognizance and follow-up care by his primary care physician Time with Patient: Less than 30
[2018-07-04 11:27] LABS: Glucose,Whole Blood 91 mg/dL (75-99)
[2018-07-04 11:38] VITALS: BMI 35.3
[2018-07-04 13:46] VITALS: BP 148/88; PULSE 76; RESP 22
== END 2018-07-04 15:27 | disposition home or self-care (01) | DRG 917 ==
LOC: EC 07:26 → 6ICU 11:32 → 6SEL 07-01 15:40 → 5MS5E 07-02 16:40
PROVIDERS: ADMIT Family Medicine; ATTEND Family Medicine
PROC: 5A1945Z Respiratory Ventilation, 24-96 Consecutive Hours (ICD-10-PCS; principal; 2018-06-27)
PROC: 0BH17EZ Insertion of Endotracheal Airway into Trachea, Via Natural or Artificial Opening (ICD-10-PCS; 2018-06-27)
PROC: 009U3ZX Drainage of Spinal Canal, Percutaneous Approach, Diagnostic (ICD-10-PCS; 2018-06-30)
DX: T40.2X2A Poisoning by other opioids, intentional self-harm, initial encounter (principal); G92 Toxic encephalopathy; J69.0 Pneumonitis due to inhalation of food and vomit; J15.211 Pneumonia due to Methicillin susceptible Staphylococcus aureus; R40.20 Unspecified coma; J96.01 Acute respiratory failure with hypoxia; T42.8X2A Poisoning by antiparkinsonism drugs and other central muscle-tone depressants, intentional self-harm, initial encounter; E11.9 Type 2 diabetes mellitus without complications; F17.200 Nicotine dependence, unspecified, uncomplicated; F32.9 Major depressive disorder, single episode, unspecified; F41.9 Anxiety disorder, unspecified; G47.30 Sleep apnea, unspecified; I11.0 Hypertensive heart disease with heart failure; I16.0 Hypertensive urgency; I25.10 Atherosclerotic heart disease of native coronary artery without angina pectoris; I48.0 Paroxysmal atrial fibrillation; I50.9 Heart failure, unspecified; J44.9 Chronic obstructive pulmonary disease, unspecified; M19.90 Unspecified osteoarthritis, unspecified site; R06.03 Acute respiratory distress; R74.8 Abnormal levels of other serum enzymes; R41.0 Disorientation, unspecified; R45.1 Restlessness and agitation; K46.9 Unspecified abdominal hernia without obstruction or gangrene; R00.1 Bradycardia, unspecified; I72.8 Aneurysm of other specified arteries; Z66 Do not resuscitate; Z79.01 Long term (current) use of anticoagulants; Z79.51 Long term (current) use of inhaled steroids; Z79.899 Other long term (current) drug therapy; Z95.0 Presence of cardiac pacemaker; Z91.5 Personal history of self-harm; Z86.79 Personal history of other diseases of the circulatory system; F10.21 Alcohol dependence, in remission; Z82.49 Family history of ischemic heart disease and other diseases of the circulatory system; Z83.3 Family history of diabetes mellitus; Y92.9 Unspecified place or not applicable
CPT/HCPCS: 31500; 36415; 36600; 51701; 70450; 71045; 80048; 80053; 80306; 80320; 81001; 82140; 82150; 82550; 82553; 82805; 82945; 83036; 83520; 83690; 83735; 83930; 84100; 84157; 84484; 85025; 85610; 85730; 87040; 87070; 87077; 87086; 87186; 87205; 87529; 87798; 89050; 93005; 94002; 94003; 94640; 94760; 95816; 96374; 96375; 99291

== ENCOUNTER 2018-07-05 17:53 | Observation (INO) | payer OTHER ==
[2018-07-05] MEDS ORDERED: SODIUM CHLORIDE 0.9% 1,000 ML IV STA (17:57)
[2018-07-05 18:22] LABS: Basophils # (A) 0.1 k/uL (0-0.2); Basophils % (A) 0 %; Eosinophils # (A) 0.4 k/uL (0-0.7); Eosinophils % (A) 3 %; HCT 47.6 % (39.0-53.0); HGB 15.4 gm/dL (13.0-17.5); Lymphocytes # (A) 1.8 k/uL (1.0-4.8); Lymphocytes % (A) 14 %; MCH 27.9 pg (25.0-35.0); MCHC 32.4 g/dL (31.0-37.0); MCV 86.1 fL (80.0-100.0); Mean Platelet Volume 7.3; Monocytes # (A) 0.8 k/uL (0-1.0); Monocytes % (A) 6 %; Neutrophils # (A) 9.9 k/uL (1.3-7.7); Neutrophils % (A) 76 %; Platelet Count 158 k/uL (150-450); RBC 5.53 m/uL (4.30-5.90); RDW 14.9 % (11.5-15.5)
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
[2018-07-05 18:32] LABS: ALT 80 U/L (21-72); AST 37 U/L (17-59); Albumin 4.1 g/dL (3.5-5.0); Alkaline Phosphatase 84 U/L (38-126); Anion Gap 8 mmol/L; Blood Urea Nitrogen 18 mg/dL (9-20); Calcium 9.3 mg/dL (8.4-10.2); Carbon Dioxide 26 mmol/L (22-30); Chloride 102 mmol/L (98-107); Glucose 151 mg/dL (74-99); Lipase 309 U/L (23-300); Magnesium 2.1 mg/dL (1.6-2.3); Potassium 4.7 mmol/L (3.5-5.1); Sodium 136 mmol/L (137-145); Total Bilirubin 0.7 mg/dL (0.2-1.3); Total Protein 7.2 g/dL (6.3-8.2)
[2018-07-05 18:33] LABS: Creatine Kinase 60 U/L (55-170)
[2018-07-05 18:47] LABS: Creatine Kinase MB 0.6 ng/mL (0.0-2.4); Troponin I <0.012 ng/mL (0.000-0.034)
--- NOTE | 2018-07-05 19:07 | XR ---
EXAMINATION TYPE: XR chest 2V DATE OF EXAM: 07/05/2018 COMPARISON: 06/29/2018 HISTORY: Chest pain TECHNIQUE: Frontal and lateral views of the chest are obtained. FINDINGS: There is no heart failure nor confluent pneumonic infiltrate. There is left axillary pacem merritt with the lead tips in the right ventricle. Costophrenic angles are clear. Heart size is normal. IMPRESSION: No active cardiopulmonary disease. There is clearing of mild pulmonary congestion compar ed to old exam.
[2018-07-05] MEDS ORDERED: ASPIRIN 81 MG PO STA (19:35)
[2018-07-05] MEDS ORDERED: NITROGLYCERIN SL TABS 0.4 MG TAB SUBLINGUAL PRN (19:35)
[2018-07-05] MEDS ORDERED: hydrALAZINE HCL 20 MG/ML 1 ML VIAL IVP STA (19:43)
[2018-07-05] MEDS: METOPROLOL TARTRATE 25 MG TAB PO SCH (21:37)
[2018-07-05 21:49] VITALS: BMI 37.3
[2018-07-05] MEDS ORDERED: GABAPENTIN 300 MG CAP PO SCH (22:17)
[2018-07-06 00:03] VITALS: RESP 18
[2018-07-06] MEDS: GABAPENTIN 300 MG CAP PO SCH ×2 (00:41→08:53)
[2018-07-06 01:21] LABS: Creatine Kinase 55 U/L (55-170)
[2018-07-06 01:34] LABS: Creatine Kinase MB 0.7 ng/mL (0.0-2.4); Troponin I <0.012 ng/mL (0.000-0.034)
[2018-07-06] MEDS: IPRATROPIUM-ALBUTEROL 3 ML NEB INHALATION PRN ×2 (07:30→11:22)
[2018-07-06 07:54] LABS: Creatine Kinase 49 U/L (55-170)
[2018-07-06 07:57] LABS: Cholesterol 127 mg/dL (<200); HDL Cholesterol 28 mg/dL (40-60); LDL Cholesterol,Calculated 68 mg/dL (0-99); Triglycerides 154 mg/dL (<150)
[2018-07-06 08:07] LABS: Creatine Kinase MB 0.6 ng/mL (0.0-2.4); Troponin I <0.012 ng/mL (0.000-0.034)
[2018-07-06 08:22] VITALS: TEMP 98.3
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
[2018-07-06] MEDS: METOPROLOL TARTRATE 25 MG TAB PO SCH (08:53)
[2018-07-06] MEDS ORDERED: ACETAMINOPHEN TAB 325 MG TAB PO PRN (08:55)
[2018-07-06] MEDS ORDERED: ASPIRIN 325 MG TAB PO SCH (09:00)
[2018-07-06] MEDS ORDERED: LOSARTAN 50 MG TAB PO SCH (09:00)
--- NOTE | 2018-07-06 10:32 | CT ---
EXAMINATION TYPE: CT angio chest DATE OF EXAM: 07/06/2018 10:17 AM COMPARISON: None. HISTORY: Chest pain CT DLP: 638.3 mGycm Automated exposure control for dose reduction was used. CONTRAST: CTA scan of the thorax is performed with IV Contrast, patient injected with 90 mL of Isovue 370, pulm onary embolism protocol. . FINDINGS: There is atelectasis or early consolidation at the right lung base. There is a tiny Bochdalek hernia on the right containing fat only. There is no significant axillary, mediastinal or hilar adenopathy. There is no evidence of pulmonary embolus. The aorta is normal in caliber without evidence of dissection. The heart is not enlarged. There is no evidence of pleural or pericardial fluid. There is a bipolar pacemaker in place. There is an aortic iliac stent graft in place. Visualized portions of the upper abdomen are otherwise unremarkable. There is hypertrophic spondylosis within the dorsal spine. IMPRESSION: 1. THIS EXAMINATION IS NEGATIVE FOR PULMONARY EMBOLUS. 2. ATELECTASIS OR EARLY CONSOLIDATION AT THE RIGHT LUNG BASE. 3. SMALL [place] HERNIA ON THE RIGHT CONTAINING FAT ONLY. 4. POSTSURGICAL CHANGE. 5. DEGENERATIVE CHANGES WITHIN THE SPINE.
[2018-07-06 12:16] VITALS: BP 152/87; PULSE 73
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
--- NOTE | 2018-07-06 16:52 | P.DS ---
Providers Date of admission: 07/05/18 19:35 Attending physician: Alina Lafleur Consults: 07/05/18 19:35 Consult Physician Urgent Consulting Provider: Quang Solomon Consult Reason/Comments: cp Do you want consulting provider notified?: Yes Primary care physician: Stated None Hospital Course: Please refer to my HPI Patient Condition at Discharge: Undetermined Plan - Discharge Summary New Discharge Prescriptions: New Nitroglycerin Sl Tabs [Nitrostat] 0.4 mg SUBLINGUAL Q5M PRN #30 tab PRN Reason: Chest Pain Tiotropium [place] [Spiriva] 1 cap INHALATION DAILY #1 device Continue Baclofen [Lioresal] 10 tab PO Q6H Polyethylene Glycol 3350 [Miralax] 17 gm PO DAILY PRN PRN Reason: Constipation Ondansetron [Zofran] 4 mg PO Q6H PRN PRN Reason: Nausea Ipratropium Nebulized [Atrovent Nebulized] 0.5 mg INHALATION RT-Q4H PRN PRN Reason: Shortness Of Breath Albuterol Inhaler [Ventolin Hfa Inhaler] 2 puff INHALATION RT-Q4H PRN #1 inhaler PRN Reason: Shortness Of Breath Gabapentin [Neurontin] 300 tab PO TID@0500,1300,2100 #90 capsule Ibuprofen [Motrin Ib] 800 mg PO Q6H PRN #30 tablet PRN Reason: Pain Losartan Potassium 50 mg PO DAILY #30 tablet Metoprolol Tartrate [Lopressor] 25 mg PO BID@0800,2000 #60 tab Pantoprazole [Protonix] 40 mg PO DAILY #14 tablet. Rivaroxaban [Xarelto] 20 mg PO HS #30 tablet Sertraline [Zoloft] 50 mg PO DAILY #30 tab Budesonide/Formoterol Fumarate [Symbicort 160-4.5 Mcg Inhaler] 2 puff INHALATION RT-BID #1 inhaler Discontinued amLODIPine [Norvasc] 10 mg PO DAILY Docusate Sodium [Dok] 100 mg PO DAILY PRN PRN Reason: Constipation Albuterol Nebulized [Ventolin Nebulized] 2.5 mg INHALATION RT-Q4H PRN PRN Reason: COPD HYDROcodone/APAP 7.5-325MG [[place] 7.5-325] 1 tab PO BID Amoxic-Pot Clav 875-125Mg [Augmentin 875-125] 1 tab PO Q12HR Discharge Medication List Baclofen [Lioresal] 10 tab PO Q6H 02/23/18 [History] Ipratropium Nebulized [Atrovent Nebulized] 0.5 mg INHALATION RT-Q4H PRN [History] Ondansetron [Zofran] 4 mg PO Q6H PRN 06/27/18 [History] Polyethylene Glycol 3350 [Miralax] 17 gm PO DAILY PRN 06/27/18 [History] Albuterol Inhaler [Ventolin Hfa Inhaler] 2 puff INHALATION RT-Q4H PRN #1 inhaler 07/06/18 [Rx] Budesonide/Formoterol Fumarate [Symbicort 160-4.5 Mcg Inhaler] 2 puff INHALATION RT-BID #1 inhaler 07/06/18 [Rx] Gabapentin [Neurontin] 300 tab PO TID@0500,1300,2100 #90 capsule 07/06/18 [Rx] Ibuprofen [Motrin Ib] 800 mg PO Q6H PRN #30 tablet 07/06/18 [Rx] Losartan Potassium 50 mg PO DAILY #30 tablet 07/06/18 [Rx] Metoprolol Tartrate [Lopressor] 25 mg PO BID@0800,2000 #60 tab 07/06/18 [Rx] Nitroglycerin Sl Tabs [Nitrostat] 0.4 mg SUBLINGUAL Q5M PRN #30 tab 07/06/18 [Rx ] Pantoprazole [Protonix] 40 mg PO DAILY #14 tablet.dr 07/06/18 [Rx] Rivaroxaban [Xarelto] 20 mg PO HS #30 tablet 07/06/18 [Rx] Sertraline [Zoloft] 50 mg PO DAILY #30 tab 07/06/18 [Rx] Tiotropium [place] [Spiriva] 1 cap INHALATION DAILY #1 device 07/06/18 [Rx] Follow up Appointment(s)/Referral(s): Michael Bernard MD [STAFF PHYSICIAN] - 1 Week Attila Aguirre MD [STAFF PHYSICIAN] - 1 Week None,Stated [Primary Care Provider] - 1-2 days Patient Instructions/Handouts: Chest Pain (ED) Discharge Disposition: HOME SELF-CARE
== END 2018-07-06 14:11 | disposition home or self-care (01) ==
LOC: EC 17:53 → 3OBS 19:35
PROVIDERS: ADMIT Hospitalist; ATTEND Hospitalist
DX: R07.81 Pleurodynia (principal); I25.10 Atherosclerotic heart disease of native coronary artery without angina pectoris; I10 Essential (primary) hypertension; Z82.49 Family history of ischemic heart disease and other diseases of the circulatory system; Z87.891 Personal history of nicotine dependence; Z95.0 Presence of cardiac pacemaker; J44.9 Chronic obstructive pulmonary disease, unspecified; K76.9 Liver disease, unspecified; G47.30 Sleep apnea, unspecified; Z99.89 Dependence on other enabling machines and devices; M19.90 Unspecified osteoarthritis, unspecified site; I25.2 Old myocardial infarction; Z83.3 Family history of diabetes mellitus; Z86.718 Personal history of other venous thrombosis and embolism; Z95.828 Presence of other vascular implants and grafts; E66.9 Obesity, unspecified; Z68.37 Body mass index [BMI] 37.0-37.9, adult; Z79.01 Long term (current) use of anticoagulants; Z79.891 Long term (current) use of opiate analgesic; Z79.51 Long term (current) use of inhaled steroids; Z79.899 Other long term (current) drug therapy
CPT/HCPCS: 99291 ×2; 96374 ×2; 36415; 94640 ×2; 94760; 93005; 85379; 80061; 80053; 82550 ×2; 82553 ×2; 83690; 83735; 84484 ×2; 85025; 85610; 85730; 71046; 71275; G0378 ×2; J0360; Q9967